=== PATIENT | female | born 1960 | race African-American/Black ===

== ENCOUNTER 2018-08-26 01:00 | Emergency (ER) | payer MEDICAID ==
[~2018-08-26] VITALS: Ht 170.2 cm; Wt 54.4 kg
--- NOTE | 2018-08-26 00:59 | NUR ---
ED Nurse Note: WILLY from home. per EMS, pt took methadone that wasnt hers. awake and oriented x1 with confusion. Denies pain or SOB. Attached to monitor
[~2018-08-26 01:00] MED LIST: ACETAMINOPHEN-1 EAC1 ORAL; ALBUTEROL SULF8.5 GM INH; ALPRAZOLAM1 MG PO; ATIVAN2 MG ORAL; BENAZEPRIL HCL20 MG ORAL; HYDROCHLOROTHIA25 MG ORAL; METOCLOPRA10 MG/10 M ORAL; NAPROSYN500 M1 ORAL; NORCO 10-325 T1 EACH PO; NORCO 5-325 TA1 EACH ORAL; PROTONIX40 MG ORAL; XANAX0.25 MG ORAL
--- NOTE | 2018-08-26 01:45 | NUR ---
ED Nurse Note: IV access established. Labs drawn sent to lab
--- NOTE | 2018-08-26 01:49 | NUR ---
Charlie jones in [facility] - 08/26/18 at 0151 by [facility] was called spoke to Gerardo. Transportation was setup with a ETA time of [phone]
--- NOTE | 2018-08-26 02:00 | NUR ---
ED Nurse Note: Urine collected sent down to lab.
[2018-08-26 02:14] VITALS: BP 140/70
--- NOTE | 2018-08-26 02:25 | Emergency Room Report ---
History of Present Illness General Chief Complaint: General Complaint Source: Patient, EMS Present Illness HPI Patient is brought here from a senior care house. Per learning coach report patient has a history of methadone use was noted to be confused. There is question of there was a seizure or any other abnormality. Patient is unable provide much history as patient appears be confused. All history was obtained from paramedics. According to paramedics the scene was very difficult and it was difficult obtaining adequate history there is well. No other complaints are noted other than confusion.No other modifying factors. No other associated signs and symptoms. No other complaints were noted. Allergies: Coded Allergies: CEPHALOSPORINS (Verified Allergy, Intermediate, Anaphylaxis, 12/14/12) DIAZEPAM (Verified Allergy, Intermediate, DYSTONIC, 12/14/12) SUMATRIPTAN (Verified Allergy, Intermediate, 12/14/12) SUMATRIPTAN SUCCINATE (Verified Allergy, Intermediate, 12/14/12) TRAMADOL (Verified Allergy, Intermediate, Anaphylaxis, 12/14/12) PENICILLINS (Unverified Allergy, Unknown, 08/26/18) Patient History Past Medical History: HTN, asthma, COPD, other - Mitral valve prolapse Past Surgical History: none Social History Narrative stays at a senior care house Last Menstrual Period: n/a Reviewed Nursing Documentation: PMH: Agreed; PSxH: Agreed Nursing Documentation-PMH Past Medical History: No Stated History Hx Cardiac Problems: Yes - mitral valve prolapse Hx Hypertension: Yes Hx Asthma: Yes Hx COPD: Yes Hx Diabetes: No - HYPOGLYCEMIA Hx Cancer: Yes - mother of breast Ca Hx Gastrointestinal Problems: Yes - appendicitis Hx Neurological Problems: No - migraines Review of Systems All Other Systems: limited - poor mental status Physical Exam Vital Signs Date Time Temp Pulse Resp B/P (MAP) Pulse Ox O2 Delivery O2 Flow Rate FiO2 08/26/18 00:50 97.5 120 18 140/70 97 Room Air Sp02 EP Interpretation: reviewed, normal General Appearance: mild distress Head: normocephalic, atraumatic Eyes: bilateral eye normal inspection ENT: normal ENT inspection, hearing grossly normal, normal voice Neck: normal inspection, full range of motion, supple, no bony tend Respiratory: normal inspection, lungs clear, normal breath sounds, no respiratory distress, no retraction, no wheezing Cardiovascular #1: regular rate, rhythm, no edema Gastrointestinal: normal inspection, normal bowel sounds, non tender, soft, no guarding, no hernia Genitourinary: no CVA tenderness Musculoskeletal: normal inspection, back normal, normal range of motion Neurologic: alert, responsive, other - Confused but grossly nonfocal exam Psychiatric: anxious, other - Bizarre behavior, confused Skin: normal inspection, normal color, no rash Medical Decision Making Diagnostic Impression: Primary Impression: Altered mental status, unspecified ER Course Patient presents emergency department today complaining of altered mental status. Differential considerations include drug abuse, electrolyte abnormality , acute CVA, seizure activity just to name a few.Given the severity of the patient's presentation I felt this is a highly complex patient. This patient required extensive workup. Patient's prior medical records were reviewed. Patient has been here in the past. Patient's laboratory workup was negative. Head CT was negative. Patient was given fluid bolus and monitored until she became awake. I felt the patient's symptoms could be secondary to drug use or perhaps even seizure. Given patient's back to baseline for the patient can be discharged.Patient is advised to follow up with primary doctor in 2-3 days and return the emergency room for any worsening symptoms and as needed. Labs Test 08/26/18 01:45 White Blood Count 9.1 K/UL (4.8-10.8) Red Blood Count 3.40 M/UL (4.20-5.40) Hemoglobin 10.7 G/DL (12.0-16.0) Hematocrit 31.1 % (37.0-47.0) Mean Corpuscular Volume 92 FL (80-99) Mean Corpuscular Hemoglobin 31.5 PG (27.0-31.0) Mean Corpuscular Hemoglobin Concent 34.5 G/DL (32.0-36.0) Red Cell Distribution Width 11.9 % (11.6-14.8) Platelet Count 280 K/UL (150-450) Mean Platelet Volume 5.2 FL (6.5-10.1) Neutrophils (%) (Auto) 65.3 % (45.0-75.0) Lymphocytes (%) (Auto) 20.1 % (20.0-45.0) Monocytes (%) (Auto) 11.0 % (1.0-10.0) Eosinophils (%) (Auto) 2.7 % (0.0-3.0) Basophils (%) (Auto) 0.9 % (0.0-2.0) Sodium Level 131 MMOL/L (136-145) Potassium Level 3.7 MMOL/L (3.5-5.1) Chloride Level 95 MMOL/L (98-107) Carbon Dioxide Level 27 MMOL/L (21-32) Anion Gap 9 mmol/L (5-15) Blood Urea Nitrogen 22 mg/dL (7-18) Creatinine 1.0 MG/DL (0.55-1.30) Estimat Glomerular Filtration Rate > 60 mL/min (>60) Glucose Level 94 MG/DL (74-106) Calcium Level 8.7 MG/DL (8.5-10.1) Total Bilirubin 0.3 MG/DL (0.2-1.0) Aspartate Amino Transf (AST/SGOT) 45 U/L (15-37) Alanine Aminotransferase (ALT/SGPT) 53 U/L (12-78) Alkaline Phosphatase 103 U/L (46-116) Total Creatine Kinase 112 U/L (26-308) Creatine Kinase MB 2.2 NG/ML (0.0-3.6) Creatine Kinase MB Relative Index 1.9 Troponin I 0.037 ng/mL (0.000-0.056) Total Protein 7.0 G/DL (6.4-8.2) Albumin 3.7 G/DL (3.4-5.0) Globulin 3.3 g/dL Albumin/Globulin Ratio 1.1 (1.0-2.7) Urine Opiates Screen Negative (NEGATIVE) Urine Barbiturates Screen Negative (NEGATIVE) Phencyclidine (PCP) Screen Negative (NEGATIVE) Urine Amphetamines Screen Negative (NEGATIVE) Urine Benzodiazepines Screen Positive (NEGATIVE) Urine Cocaine Screen Negative (NEGATIVE) Urine Marijuana (THC) Screen Negative (NEGATIVE) EKG Diagnostic Results Rate: normal Rhythm: NSR ST Segments: no acute changes Rhythm Strip Diag. Results EP Interpretation: yes Rate: 98 Rhythm: NSR, no PVC's, no ectopy Last Vital Signs Date Time Temp Pulse Resp B/P (MAP) Pulse Ox O2 Delivery O2 Flow Rate FiO2 08/26/18 02:14 97.5 75 18 140/70 97 Room Air Status: improved Disposition: HOME, SELF-CARE Condition: Stable Referrals: NOT CHOSEN IPA/,REFERRING (PCP) Gabriel Shane MD Aug 26, 2018 02:25
--- NOTE | 2018-08-26 02:27 | Diagnostic Imaging Report ---
EXAM: XR Chest, 1 View. CLINICAL HISTORY: COUGH TECHNIQUE: Frontal view of the chest. COMPARISON: 03/20/15 FINDINGS: Lungs: The lungs are moderately hyperinflated, likely due to COPD. Superimposed perihilar interstitial opacities may be due to mild interstitial edema. No definite airspace consolidation. Pleural spaces: No significant pleural effusions. No pneumothorax. Heart: Unremarkable. No cardiomegaly. Mediastinum: No mediastinal widening or shift. Bones: Unremarkable. No acute fracture. IMPRESSION: Increased perihilar interstitial markings suggestive of mild interstitial edema. No airspace consolidation. Lung hyperinflation likely secondary to COPD.
--- NOTE | 2018-08-26 02:40 | Diagnostic Imaging Report ---
EXAM: CT Head Without Intravenous Contrast. CLINICAL HISTORY: AMS TECHNIQUE: Axial computed tomography images of the head/brain without intravenous contrast. CTDI is 70.5 mGy and DLP is 1245 mGy-cm. One or more of the following dose reduction techniques were used: automated exposure control, adjustment of the mA and/or kV according to patient size, use of iterative reconstruction technique. COMPARISON: No relevant prior studies available. FINDINGS: Brain: Unremarkable. No hemorrhage. No significant white matter disease. No edema. Ventricles: Unremarkable. No ventriculomegaly. Bones: No acute fracture. Sinuses: Unremarkable as visualized. No acute sinusitis. Mastoid air cells: Unremarkable as visualized. No mastoid effusion. IMPRESSION: No evidence of acute intracranial abnormality.
[2018-08-26 02:45] LABS: BASOPHILS % (AUTO) 0.9 % (0.0-2.0); EOSINOPHILS % (AUTO) 2.7 % (0.0-3.0); HEMATOCRIT 31.1 % (37.0-47.0); HEMOGLOBIN 10.7 G/DL (12.0-16.0); LYMPHOCYTES % (AUTO) 20.1 % (20.0-45.0); MEAN CORPUSCULAR VOLUME 92 FL (80-99); NEUTROPHILS % (AUTO) 65.3 % (45.0-75.0); PLATELET COUNT 280 K/UL (150-450); RED CELL DISTRIBUTION WIDTH 11.9 % (11.6-14.8); WHITE BLOOD COUNT 9.1 K/UL (4.8-10.8)
[2018-08-26 02:56] LABS: ANION GAP 9 mmol/L (5-15); BLOOD UREA NITROGEN 22 mg/dL (7-18); CALCIUM 8.7 MG/DL (8.5-10.1); CARBON DIOXIDE 27 MMOL/L (21-32); CHLORIDE 95 MMOL/L (98-107); POTASSIUM 3.7 MMOL/L (3.5-5.1); SODIUM 131 MMOL/L (136-145)
[2018-08-26 03:11] LABS: ALANINE AMINOTRANSFERASE 53 U/L (12-78); ALBUMIN 3.7 G/DL (3.4-5.0); ALBUMIN/GLOBULIN RATIO 1.1 (1.0-2.7); ALKALINE PHOSPHATASE 103 U/L (46-116); ASPARTATE AMINO TRANSFERASE 45 U/L (15-37); BILIRUBIN,TOTAL 0.3 MG/DL (0.2-1.0); CKMB 2.2 NG/ML (0.0-3.6); CREATINE KINASE 112 U/L (26-308)
--- NOTE | 2018-08-26 04:00 | NUR ---
ED Nurse Note: Patient cleared for discharge per ERMD. AO4. NAD. VSS. Provided with sandwich and juice. States " I feel much better now. Can I have a taxi voucher to get home. I don't want to ride the bus dressed like this." Given Taxi voucher. Patient given discharge instructions; verbalized understanding. IV and ID band removed. Patient ambulated out with all personal belongings with steady gait.
[2018-08-26 04:11] VITALS: BP 140/70
== END 2018-08-26 04:00 | disposition home or self-care (01) ==
LOC: EDBD 01:00 → EMR 01:34
DX: R41.82 Altered mental status, unspecified (principal); J44.9 Chronic obstructive pulmonary disease, unspecified; I34.1 Nonrheumatic mitral (valve) prolapse; Z85.3 Personal history of malignant neoplasm of breast; Z88.0 Allergy status to penicillin; Z88.8 Allergy status to other drugs, medicaments and biological substances; Z88.1 Allergy status to other antibiotic agents
CPT/HCPCS: 36415; 70450; 71045; 80053; 80307; 82550; 82553; 84484; 85025; 93005; 99284

== ENCOUNTER 2018-10-28 09:16 | Emergency (ER) | payer MEDICAID ==
[~2018-10-28] VITALS: Ht 170.2 cm; Wt 46.7 kg
--- NOTE | 2018-10-28 09:31 | Emergency Room Report ---
History of Present Illness General Chief Complaint: Chest Pain Source: Patient, EMS Present Illness HPI Patient 58-year-old female presented after increased chest discomfort. Patient had prior history of COPD as well as cardiac disease. Patient states she is currently a smoker. She reports having some increased nonproductive cough. Patient stated that she did not take her blood pressure medication this morning. Patient was given aspirin and nitroglycerin by EMS. Patient had onset of symptoms yesterday. This had continued throughout the night. Patient reports having prior history of chronic pain. Patient stated she was last hospitalized approximately 6 months ago. She reports taking diuretics as well as Brilinta aspirin but cannot recall her other medications. Allergies: Coded Allergies: CEPHALOSPORINS (Verified Allergy, Intermediate, Anaphylaxis, 12/14/12) DIAZEPAM (Verified Allergy, Intermediate, DYSTONIC, 12/14/12) SUMATRIPTAN (Verified Allergy, Intermediate, 12/14/12) SUMATRIPTAN SUCCINATE (Verified Allergy, Intermediate, 12/14/12) TRAMADOL (Verified Allergy, Intermediate, Anaphylaxis, 12/14/12) PENICILLINS (Unverified Allergy, Unknown, 08/26/18) Patient History Past Medical History: see triage record Last Menstrual Period: na Reviewed Nursing Documentation: PMH: Agreed; PSxH: Agreed Nursing Documentation-PMH Past Medical History: No History, Except For Hx Cardiac Problems: Yes - [place] x 2 Hx Hypertension: Yes Hx Asthma: Yes Hx COPD: Yes Hx Diabetes: No - HYPOGLYCEMIA Hx Cancer: Yes - mother of breast Ca Hx Gastrointestinal Problems: Yes - appendicitis Hx Neurological Problems: No - migraines Review of Systems All Other Systems: negative except mentioned in HPI Physical Exam Vital Signs Date Time Temp Pulse Resp B/P (MAP) Pulse Ox O2 Delivery O2 Flow Rate FiO2 10/28/18 09:10 98.1 96 18 162/87 98 Room Air Sp02 EP Interpretation: reviewed, normal General Appearance: normal inspection, well appearing, no apparent distress, alert, GCS 15 Head: atraumatic ENT: normal ENT inspection, hearing grossly normal, normal voice Neck: normal inspection, full range of motion, supple, no bony tend Respiratory: normal inspection, lungs clear, normal breath sounds, no respiratory distress, no retraction, no wheezing Cardiovascular #1: regular rate, rhythm, no edema Gastrointestinal: normal inspection, normal bowel sounds, non tender, soft, no guarding, no hernia Genitourinary: no CVA tenderness Musculoskeletal: normal inspection, back normal, normal range of motion Neurologic: normal inspection, alert, responsive, speech normal Psychiatric: normal inspection, judgement/insight normal, mood/affect normal Skin: normal inspection, normal color, no rash Medical Decision Making EKG Diagnostic Results Rate: normal - 98 Rhythm: NSR ST Segments: other - Q waves. Last Vital Signs Date Time Temp Pulse Resp B/P (MAP) Pulse Ox O2 Delivery O2 Flow Rate FiO2 10/28/18 09:10 98.1 96 18 162/87 98 Room Air Patricio Quiñones MD Oct 28, 2018 09:31
--- NOTE | 2018-10-28 09:40 | NUR ---
ED Nurse Note: pt brought in to ER by ambulance from home due to chest pain 10/10 radiates to neck. pt aao x4 but flushed skin on face and restless and talkative with anxiousness. skin dry and thin but no wound or pressure ulcer noted. per pt, she had 2 heartattacks last year and systolic BP has been up to 300.
[2018-10-28 09:45] VITALS: BP 177/72
[2018-10-28] MEDS ORDERED: Metoprolol 5mg/5ml Inj IVP ONE (09:45)
[2018-10-28 10:01] LABS: BASOPHILS % (AUTO) 0.7 % (0.0-2.0); EOSINOPHILS % (AUTO) 0.7 % (0.0-3.0); HEMATOCRIT 38.1 % (37.0-47.0); HEMOGLOBIN 12.4 G/DL (12.0-16.0); LYMPHOCYTES % (AUTO) 8.4 % (20.0-45.0); MEAN CORPUSCULAR VOLUME 91 FL (80-99); MONOCYTES % (AUTO) 11.3 % (1.0-10.0); NEUTROPHILS % (AUTO) 78.9 % (45.0-75.0); PLATELET COUNT 371 K/UL (150-450); RED BLOOD COUNT 4.21 M/UL (4.20-5.40); RED CELL DISTRIBUTION WIDTH 13.8 % (11.6-14.8); WHITE BLOOD COUNT 14.6 K/UL (4.8-10.8)
--- NOTE | 2018-10-28 10:02 | Diagnostic Imaging Report ---
EXAM: XR Chest, 1 View CLINICAL HISTORY: CP TECHNIQUE: Frontal view of the chest. COMPARISON: Chest x-ray, 08/26/18 FINDINGS: Lungs: Hyperinflated lungs of COPD. Mild interstitial prominence. Left lung base atelectasis/airspace disease. Pleural space: Small left pleural effusion. No pneumothorax. Heart: Unremarkable. No cardiomegaly. Mediastinum: Unremarkable. Bones/joints: Left lateral ribs 5 and 6 subacute fractures, new since prior study. Mild thoracolumbar scoliosis. IMPRESSION: 1. Hyperinflated lungs of COPD. 2. Left lateral ribs 5 and 6 subacute fractures, new since prior study. 3. Small left pleural effusion. 4. Mild interstitial prominence. Left lung base atelectasis/airspace disease.
[2018-10-28 10:13] LABS: ANION GAP 9 mmol/L (5-15); BLOOD UREA NITROGEN 8 mg/dL (7-18); CALCIUM 9.1 MG/DL (8.5-10.1); CARBON DIOXIDE 27 MMOL/L (21-32); CHLORIDE 98 MMOL/L (98-107); CREATININE 0.6 MG/DL (0.55-1.30); POTASSIUM 3.7 MMOL/L (3.5-5.1); SODIUM 134 MMOL/L (136-145)
[2018-10-28 10:28] LABS: ALANINE AMINOTRANSFERASE 35 U/L (12-78); ALBUMIN 3.2 G/DL (3.4-5.0); ALBUMIN/GLOBULIN RATIO 0.8 (1.0-2.7); ALKALINE PHOSPHATASE 83 U/L (46-116); ASPARTATE AMINO TRANSFERASE 26 U/L (15-37); BILIRUBIN,TOTAL 0.6 MG/DL (0.2-1.0); CKMB 1.5 NG/ML (0.0-3.6); CREATINE KINASE 61 U/L (26-308)
[2018-10-28 10:42] LABS: APPEARANCE,URINE CLEAR; BILIRUBIN, URINE NEGATIVE (NEGATIVE); GLUCOSE, URINE (UA) NEGATIVE (NEGATIVE); KETONES,URINE 2+ (NEGATIVE); LEUKOCYTE ESTERASE ,URINE 1+ (NEGATIVE); NITRITE,URINE NEGATIVE (NEGATIVE); PH,URINE 6 (4.5-8.0); PROTEIN,URINE 1+ (NEGATIVE); UROBILINOGEN,URINE 1 MG/DL (0.0-1.0)
[2018-10-28 10:45] LABS: COLOR,URINE YELLOW
[2018-10-28 11:48] VITALS: BP 144/74
[2018-10-28] MEDS: Enoxaparin 60mg Inj SUBQ ONE ×2 (12:22→12:28)
--- NOTE | 2018-10-28 12:35 | NUR ---
ED Nurse Note: pt c/o 10/ stabbing chest pain and reported to ERMD.
[2018-10-28] MEDS ORDERED: Morphine Sulfate 2mg/ml Inj(IV/IM USE ONLY) IVP ONE (12:45)
[2018-10-28 13:50] VITALS: BP 133/64
--- NOTE | 2018-10-28 14:14 | NUR ---
ED Nurse Note: Received ETA for transportation and transfer hospital information. attempted to give report and nurse was not available at this moment. will call back in 15 minutes as requested.
--- NOTE | 2018-10-28 15:05 | NUR ---
ED Nurse Note: report given to NEELA Singh based on SBAR including meat pickler time.
--- NOTE | 2018-10-28 15:26 | NUR ---
ED Nurse Note: pt requested for Ativan 1mg tab as reporting anxiousness. pt is allergic to Diazepam on the record and pt stated "no I am not allergic to Diazepam. I take Ativan and Valium at home. I don't even know why my record has that I am allertic to Diazepam." ERMD made aware.
[2018-10-28] MEDS ORDERED: LORazepam 1mg tab ORAL ONE (15:30)
--- NOTE | 2018-10-28 15:35 | NUR ---
ED Nurse Note: ambulance arrived. pt is stable to be transferred. VSS.
[2018-10-28 15:44] VITALS: BP 137/67
--- NOTE | 2018-10-28 15:45 | NUR ---
ED Nurse Note: pt left [facility] with 2 transportation personals in stable condition and vital signs.
== END 2018-10-28 16:00 | disposition short-term general hospital (02) ==
LOC: EDBD 09:16 → EMR 09:56 → EDBD 09:56 → EMR 16:00
DX: R07.89 Other chest pain (principal); R05 Cough; I10 Essential (primary) hypertension; J44.9 Chronic obstructive pulmonary disease, unspecified; Z72.0 Tobacco use
CPT/HCPCS: 36415; 71045; 80053; 80307; 81003; 82550; 82553; 83880; 84484; 85025; 87086; 93005; 96374; 96375; 99284; J1650; J1940; J2270

== ENCOUNTER 2019-01-24 09:47 | Emergency (ER) | payer MEDICAID ==
[~2019-01-24] VITALS: Ht 170.2 cm; Wt 49.9 kg
[2019-01-24] MEDS ORDERED: UNOBMED (09:48)
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
[2019-01-24 10:06] VITALS: BP 120/84
[2019-01-24] MEDS ORDERED: Albuterol ud Inhalation HHN ONE (10:15)
[2019-01-24] MEDS ORDERED: Ipratropium 0.02% Inh Soln 2.5ml UD HHN ONE (10:15)
[2019-01-24 10:23] LABS: APPEARANCE,URINE CLEAR; BILIRUBIN, URINE NEGATIVE (NEGATIVE); GLUCOSE, URINE (UA) NEGATIVE (NEGATIVE); KETONES,URINE NEGATIVE (NEGATIVE); LEUKOCYTE ESTERASE ,URINE 1+ (NEGATIVE); NITRITE,URINE NEGATIVE (NEGATIVE); PH,URINE 6.5 (4.5-8.0); PROTEIN,URINE NEGATIVE (NEGATIVE); UROBILINOGEN,URINE 1 MG/DL (0.0-1.0)
[2019-01-24 10:27] LABS: COLOR,URINE YELLOW
[2019-01-24 10:36] LABS: BASOPHILS % (AUTO) 0.7 % (0.0-2.0); EOSINOPHILS % (AUTO) 2.9 % (0.0-3.0); HEMATOCRIT 31.2 % (37.0-47.0); HEMOGLOBIN 10.6 G/DL (12.0-16.0); LYMPHOCYTES % (AUTO) 18.3 % (20.0-45.0); MEAN CORPUSCULAR VOLUME 87 FL (80-99); NEUTROPHILS % (AUTO) 68.1 % (45.0-75.0); PLATELET COUNT 272 K/UL (150-450); RED BLOOD COUNT 3.59 M/UL (4.20-5.40); RED CELL DISTRIBUTION WIDTH 14.2 % (11.6-14.8); WHITE BLOOD COUNT 8.9 K/UL (4.8-10.8)
[2019-01-24 11:08] LABS: ANION GAP 5 mmol/L (5-15); BLOOD UREA NITROGEN 22 mg/dL (7-18); CALCIUM 8.7 MG/DL (8.5-10.1); CARBON DIOXIDE 31 MMOL/L (21-32); CHLORIDE 100 MMOL/L (98-107); CREATININE 0.9 MG/DL (0.55-1.30); POTASSIUM 3.6 MMOL/L (3.5-5.1); SODIUM 136 MMOL/L (136-145)
[2019-01-24 11:22] LABS: ALANINE AMINOTRANSFERASE 33 U/L (12-78); ALBUMIN 2.8 G/DL (3.4-5.0); ALBUMIN/GLOBULIN RATIO 0.7 (1.0-2.7); ALKALINE PHOSPHATASE 97 U/L (46-116); ASPARTATE AMINO TRANSFERASE 41 U/L (15-37); BILIRUBIN,TOTAL 0.3 MG/DL (0.2-1.0); CREATINE KINASE 50 U/L (26-308)
[2019-01-24 11:24] VITALS: BP 120/84
[2019-01-24] MEDS ORDERED: PREDNISONE20 MG ORAL (11:37)
[2019-01-24] MEDS ORDERED: BACITRACIN15 GM TOPIC (11:37)
[2019-01-24] MEDS ORDERED: ALBUTEROL SULF8.5 GM INH (11:37)
--- NOTE | 2019-01-25 17:45 | Diagnostic Imaging Report ---
Indication: Dyspnea Comparison: 10/28/2018 A single view chest radiograph was obtained. Findings: Lungs are hyperexpanded. No definite infiltrate is identified. Aorta is calcified. Heart size is normal. Bones are osteopenic. IMPRESSION: No acute findings
== END 2019-01-24 11:24 | disposition home or self-care (01) ==
LOC: EDBD 09:47 → EMR 09:56
DX: T42.4X1A Poisoning by benzodiazepines, accidental (unintentional), initial encounter (principal); T40.3X1A Poisoning by methadone, accidental (unintentional), initial encounter; R41.82 Altered mental status, unspecified; Y92.9 Unspecified place or not applicable; J44.1 Chronic obstructive pulmonary disease with (acute) exacerbation; I10 Essential (primary) hypertension; I25.2 Old myocardial infarction; Z88.0 Allergy status to penicillin; Z88.5 Allergy status to narcotic agent; Z88.8 Allergy status to other drugs, medicaments and biological substances; R64 Cachexia
CPT/HCPCS: 36415; 71045; 80053; 80307; 80329; 81003; 81025; 82550; 84443; 84484; 85025; 93005; 94640; 96360; 99284

== ENCOUNTER 2019-10-09 22:03 | Emergency (ER) | payer MEDICAID ==
[~2019-10-09] VITALS: Ht 162.6 cm; Wt 45.4 kg
[~2019-10-09 22:03] MED LIST changes: +BACITRACIN15 GM TOPIC; +PREDNISONE20 MG ORAL; +UNOBMED
--- NOTE | 2019-10-09 22:14 | Emergency Room Report ---
History of Present Illness General Chief Complaint: Multiple Trauma/Fall Source: Patient Present Illness HPI This is a 59-year-old female with cardiac history and high blood pressure. She also has a history of chronic pain and pain clinic getting methadone. She presents with chief complaint of a fall and dizziness. She is staying in a sober living. She went to [facility]11 to get something patient says she felt dizzy and fell and hit her head and face on the pavement. She sustained laceration over the left zygomatic arch and was bleeding. She denies any drug use. EMS said her roommate said that she is taking methadone and Xanax. Patient denies any chest pain. No other trauma. No loss of consciousness. Allergies: Coded Allergies: CEPHALOSPORINS (Verified Allergy, Intermediate, Anaphylaxis, 12/14/12) DIAZEPAM (Verified Allergy, Intermediate, DYSTONIC, 12/14/12) SUMATRIPTAN (Verified Allergy, Intermediate, 12/14/12) SUMATRIPTAN SUCCINATE (Verified Allergy, Intermediate, 12/14/12) TRAMADOL (Verified Allergy, Intermediate, Anaphylaxis, 12/14/12) PENICILLINS (Unverified Allergy, Unknown, 08/26/18) Patient History Past Medical History: see triage record, old chart reviewed, HTN, CAD, asthma Past Surgical History: other Pertinent Family History: none Social History: Reports: smoking Last Menstrual Period: NA Now: No Immunizations: other Reviewed Nursing Documentation: PMH: Agreed; PSxH: Agreed Nursing Documentation-PMH Hx Cardiac Problems: Yes - NC Hx Hypertension: Yes Hx Asthma: Yes Hx COPD: Yes Hx Diabetes: Yes Hx Cancer: Yes - mother of breast Ca Hx Gastrointestinal Problems: Yes - appendicitis Hx Neurological Problems: No - migraines Review of Systems Eye: Denies: eye pain, blurred vision ENT: Denies: ear pain, nose congestion, throat swelling Respiratory: Denies: cough, shortness of breath Cardiovascular: Denies: chest pain, palpitations Gastrointestinal: Denies: abdominal pain, diarrhea, nausea, vomiting Musculoskeletal: Denies: back pain, joint pain Skin: Denies: rash Neurological: Reports: dizziness; Denies: headache, numbness Endocrine: Denies: increased thirst, increased urine Hematologic/Lymphatic: Denies: easy bruising All Other Systems: negative except mentioned in HPI Physical Exam Vital Signs Date Time Temp Pulse Resp B/P (MAP) Pulse Ox O2 Delivery O2 Flow Rate FiO2 10/09/19 22:04 98.2 97 18 119/66 (83) 98 Room Air Vitals normal Sp02 EP Interpretation: reviewed, normal General Appearance: well appearing, no apparent distress, other - Patient is very sedated and slurring her speech. Head: normocephalic Eyes: bilateral eye PERRL, bilateral eye EOMI ENT: hearing grossly normal, normal pharynx, other - Small edema and 1 cm laceration with bleeding from the left zygomatic arch. No dental injury. Neck: full range of motion, supple, no meningismus Respiratory: chest non-tender, lungs clear, normal breath sounds Cardiovascular #1: regular rate, rhythm, no murmur Gastrointestinal: normal bowel sounds, non tender, no mass, no organomegaly, no bruit, non-distended Musculoskeletal: back normal, normal range of motion, gait/station normal Psychiatric: mood/affect normal Procedures Laceration/Wound Repair Laceration/Wound Repair : Consent: Verbal Wound Location: face Wound's Depth, Shape: irregular, stellate, contused tissue Wound Length (cm): 2 Wound Explored: clean Irrigated w/ Saline (ccs): 1000 Anesthesia: 1% Lidocaine Volume Anesthetic (ccs): 2 Wound Repaired With: sutures Suture Size/Type: 5:0, other - Rapid Vicryl Number of Sutures: 5 Patient Tolerated: Well Complications: None Medical Decision Making Diagnostic Impression: Primary Impression: Altered level of consciousness Additional Impressions: Drug overdose Qualified Codes: T50.901A - Poisoning by unspecified drugs, medicaments and biological substances, accidental (unintentional), initial encounter Head injury, acute Qualified Codes: S09.90XA - Unspecified injury of head, initial encounter Facial contusion Qualified Codes: S00.83XA - Contusion of other part of head, initial encounter Facial laceration Qualified Codes: S01.81XA - Laceration without foreign body of other part of head, initial encounter ER Course This patient presents with a fall with head injury and facial injury. Probably secondary to being oversedated from her medication. She is taking methadone from the pain clinic. In her purse and found Valium 10 mg, Soma, Benadryl, nitroglycerin and albuterol. Will observe until clinical sobriety. CT/MRI/US Diagnostic Results CT/MRI/US Diagnostic Results #1: Imaging Test Ordered: CT head Impression Per radiologist negative CT/MRI/US Diagnostic Results #2: Imaging Test Ordered: CT facial bones Impression Read by radiologist. Soft tissue swelling of the left zygomatic and left cheek. Soft tissue laceration. No foreign body. No fracture. Last Vital Signs Date Time Temp Pulse Resp B/P (MAP) Pulse Ox O2 Delivery O2 Flow Rate FiO2 10/09/19 22:04 98.2 97 18 119/66 (83) 98 Room Air Status: improved Disposition: HOME, SELF-CARE Condition: Stable Additional Instructions: Take your medication as prescribed. Do not take too many because this can cause sedation. Follow-up with your doctor in 7 days. Suture will fall off. Keep wound clean. Return if worse. Keep wound clean. Paul Reynolds MD Oct 09, 2019 22:14
[2019-10-09 22:15] VITALS: BP 119/66
--- NOTE | 2019-10-09 22:15 | NUR ---
ED Nurse Note: Pt brought into ED from rehab house by JAYA PALOMO for c/o dizziness and lac to L side of face. Pt states she has been feeling dizzy and per EMS fell. Pt denies LOC. Pt denies drug or alcohol use today. Pt is unsteady on her feet at this time. Pt is aaox4. No acute distress noted.
--- NOTE | 2019-10-09 22:40 | Diagnostic Imaging Report ---
Indications: Left-sided facial pain, status post fall Technique: Spiral acquisitions obtained through the brain. Angled axial and coronal 5 x 5 mm slices were reconstructed. Total dose length product 1361 mGycm. CTDI vol(s) 68 mGy. Dose reduction achieved using automated exposure control Comparison: 08/26/2018 Findings: No acute intracranial hemorrhage or edema. No mass effect nor midline shift. Normal sánchez-white differentiation. Normal size ventricles and extra-axial CSF spaces. There is a right maxillary sinus air-fluid level and left maxillary sinus disease this is new since prior study The calvarium is intact. Impression: Negative. No acute intracranial bleed or mass effect Incidental finding bilateral maxillary sinus disease This agrees with the preliminary interpretation provided overnight by [facility] service. The CT scanner at [facility] is accredited by the [employer] and the scans are performed using protocols designed to limit radiation exposure to as low as reasonably achievable to attain images of sufficient resolution adequate for diagnostic evaluation.
--- NOTE | 2019-10-09 22:57 | Diagnostic Imaging Report ---
. Indications: Left-sided facial pain, status post fall Technique: Spiral images obtained through the facial bones. No IV contrast utilized. Multiplanar reconstructions were generated.Total dose length product 324 mGycm. CTDIvol(s) 15 mGy. Dose reduction achieved using automated exposure control Comparison: none Findings: There is left malar region soft tissue contusion demonstrated. No acute fractures. There is questionably a laceration of the left anterolateral upper neck near the body and angle of the mandible, although this could just be an artifact of a skin fold. No associated foreign body demonstrated There is debris within the bilateral maxillary sinuses, and an air-fluid level within the right maxillary sinus. The optic globes are intact. The retroseptal orbits are intact. There is evidence of periodontal disease involving the right posterior molars. There is evidence of extensive dental caries and prior dental extractions. The included cervical spine is unremarkable except for degenerative disc is at C5-6. The deep facial soft tissues and upper aerodigestive tract are unremarkable. Impression: No acute bony trauma Evidence of left malar region soft tissue trauma Questionable laceration of the upper anterolateral neck, versus skinfold artifact present correlate with clinical findings Debris within the maxillary sinuses. Right maxillary sinus air-fluid level Evidence of dental and periodontal disease This agrees with the preliminary interpretation provided overnight by [facility] service. The CT scanner at [facility] is accredited by the [employer] and the scans are performed using protocols designed to limit radiation exposure to as low as reasonably achievable to attain images of sufficient resolution adequate for diagnostic evaluation.
[2019-10-09] MEDS ORDERED: Lidocaine 1% Plain 30 ml INJ ONE (23:00)
--- NOTE | 2019-10-09 23:00 | NUR ---
ED Nurse Note: ERMD bedside for lac repair.
[2019-10-09 23:05] LABS: APPEARANCE,URINE SLIGHTLY CLOUDY; BILIRUBIN, URINE NEGATIVE (NEGATIVE); COLOR,URINE PALE YELLOW; GLUCOSE, URINE (UA) NEGATIVE (NEGATIVE); KETONES,URINE NEGATIVE (NEGATIVE); NITRITE,URINE NEGATIVE (NEGATIVE); PH,URINE 5 (4.5-8.0); PROTEIN,URINE 2+ (NEGATIVE); UROBILINOGEN,URINE NORMAL MG/DL (0.0-1.0)
[2019-10-09 23:22] LABS: LEUKOCYTE ESTERASE ,URINE TRACE (NEGATIVE)
[2019-10-10] MEDS ORDERED: Neosporin Oint Ud Pkt TOPIC ONE
[2019-10-10 00:27] LABS: BASOPHILS % (AUTO) 1.2 % (0.0-2.0); EOSINOPHILS % (AUTO) 5.3 % (0.0-3.0); HEMATOCRIT 27.4 % (37.0-47.0); HEMOGLOBIN 9.9 G/DL (12.0-16.0); LYMPHOCYTES % (AUTO) 23.2 % (20.0-45.0); MEAN CORPUSCULAR VOLUME 88 FL (80-99); MONOCYTES % (AUTO) 10.9 % (1.0-10.0); NEUTROPHILS % (AUTO) 59.4 % (45.0-75.0); PLATELET COUNT 203 K/UL (150-450); RED BLOOD COUNT 3.11 M/UL (4.20-5.40); RED CELL DISTRIBUTION WIDTH 12.5 % (11.6-14.8); WHITE BLOOD COUNT 7.7 K/UL (4.8-10.8)
[2019-10-10 00:40] LABS: ANION GAP 10 mmol/L (5-15); BLOOD UREA NITROGEN 26 mg/dL (7-18); CALCIUM 8.7 MG/DL (8.5-10.1); CARBON DIOXIDE 26 MMOL/L (21-32); CHLORIDE 99 MMOL/L (98-107); POTASSIUM 3.3 MMOL/L (3.5-5.1); SODIUM 135 MMOL/L (136-145)
[2019-10-10 01:00] VITALS: BP 115/62
--- NOTE | 2019-10-10 01:00 | NUR ---
ER DISCHARGE NOTE: Patient is cleared to be discharged per ERMD, pt is aox4, on room air, with stable vital signs. pt was given dc and prescription instructions, pt was able to verbalize understanding, pt id band and iv site removed without complications. pt is able to ambulate with steady gait. pt took all belongings. pt is accompanied by son
== END 2019-10-10 01:00 | disposition home or self-care (01) ==
LOC: EDBD 22:03 → EMR 23:38
DX: T40.3X1A Poisoning by methadone, accidental (unintentional), initial encounter (principal); S01.81XA Laceration without foreign body of other part of head, initial encounter; S09.90XA Unspecified injury of head, initial encounter; R40.4 Transient alteration of awareness; I25.2 Old myocardial infarction; J45.909 Unspecified asthma, uncomplicated; J44.9 Chronic obstructive pulmonary disease, unspecified; I10 Essential (primary) hypertension; Y92.89 Other specified places as the place of occurrence of the external cause; Z80.3 Family history of malignant neoplasm of breast; Z88.0 Allergy status to penicillin; Z88.5 Allergy status to narcotic agent; Z88.1 Allergy status to other antibiotic agents; Z88.8 Allergy status to other drugs, medicaments and biological substances
CPT/HCPCS: 12011; 36415; 70450; 70486; 80048; 80307; 81003; 85025; 96374; G0480; J2001; Z7502; 99284

== ENCOUNTER 2019-10-25 12:51 | Emergency (ER) | payer MEDICAID ==
[~2019-10-25] VITALS: Ht 167.6 cm; Wt 45.4 kg
[2019-10-25 12:59] VITALS: BP 128/70
--- NOTE | 2019-10-25 13:02 | NUR ---
ED Nurse Note: pt brought in to ER by ambulance [facility] due to possible OD. [facility] staff called 911 as stating "She is on something." but pt is denying substance or alcohol abuse. pt is aao x1-2 and ambulatory. skin dry but intact. able to follow commands. pt denied thought for hurting herself and others. 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 pt was able to provide urine sample. no cardiac or pulmonary distress noted at this time.
--- NOTE | 2019-10-25 13:17 | NUR ---
ED Nurse Note: ERMD at bedside.
--- NOTE | 2019-10-25 13:20 | NUR ---
ED Nurse Note: pt was able to answer all the questions to doctor. pt is aao x4 now.
[2019-10-25 13:35] VITALS: BP 131/76
--- NOTE | 2019-10-25 13:40 | NUR ---
ED Nurse Note: Pt cleared by health care Provider for discharge. Taxi was provided per requested. DC instructions was given and explained to pt and verbalized understanding of teachings. All medical deviecs such as ID band removed. Pt is AAO x4, ambulatory and left with all personal belongings. [facility] where she will go back.
[2019-10-25 13:42] LABS: APPEARANCE,URINE CLEAR; BILIRUBIN, URINE NEGATIVE (NEGATIVE); COLOR,URINE PALE YELLOW; GLUCOSE, URINE (UA) NEGATIVE (NEGATIVE); KETONES,URINE NEGATIVE (NEGATIVE); LEUKOCYTE ESTERASE ,URINE NEGATIVE (NEGATIVE); NITRITE,URINE NEGATIVE (NEGATIVE); PH,URINE 5 (4.5-8.0); PROTEIN,URINE NEGATIVE (NEGATIVE); UROBILINOGEN,URINE NORMAL MG/DL (0.0-1.0)
--- NOTE | 2019-10-25 14:51 | Emergency Room Report ---
History of Present Illness General Chief Complaint: Overdose Source: Patient, EMS Present Illness HPI Patient presented from [id number] by EMS due to reported altered mental status. On arrival patient was alert and oriented. She denied taking any illicit drugs today. She does take methadone and but denied this to me. There was a report of possible overdose on methadone however patient alert, in no respiratory depression on arrival. Per report apparently she was kicked out of her boarding care for erratic behavior and this is why 911 was called. Patient did not wish to stay in the ER for evaluation or observation. She was alert and ambulatory in the ER. She has a history of chronic pain syndrome for which she follows pain management. Allergies: Coded Allergies: CEPHALOSPORINS (Verified Allergy, Intermediate, Anaphylaxis, 12/14/12) DIAZEPAM (Verified Allergy, Intermediate, DYSTONIC, 12/14/12) SUMATRIPTAN (Verified Allergy, Intermediate, 12/14/12) SUMATRIPTAN SUCCINATE (Verified Allergy, Intermediate, 12/14/12) TRAMADOL (Verified Allergy, Intermediate, Anaphylaxis, 12/14/12) CEPHALEXIN (Unverified Allergy, Unknown, 10/25/19) PENICILLINS (Unverified Allergy, Unknown, 08/26/18) Uncoded Allergies: PCN (Allergy, Unknown, 10/25/19) Patient History Last Menstrual Period: na Now: No Reviewed Nursing Documentation: PMH: Agreed; PSxH: Agreed Nursing Documentation-PMH Past Medical History: No History, Except For Hx Cardiac Problems: Yes - [place] Hx Hypertension: Yes Hx Asthma: Yes Hx COPD: Yes Hx Diabetes: Yes Hx Cancer: Yes - mother of breast Ca Hx Gastrointestinal Problems: Yes - appendicitis History Of Psychiatric Problem: Yes Hx Neurological Problems: No - migraines Review of Systems All Other Systems: negative except mentioned in HPI Physical Exam Vital Signs Date Time Temp Pulse Resp B/P (MAP) Pulse Ox O2 Delivery O2 Flow Rate FiO2 10/25/19 12:47 97.9 100 16 131/79 (96) 100 Room Air Sp02 EP Interpretation: reviewed, normal General Appearance: well appearing, no apparent distress Head: normocephalic, atraumatic Eyes: bilateral eye PERRL, bilateral eye EOMI ENT: hearing grossly normal, moist mucus membranes Neck: full range of motion, supple Respiratory: lungs clear, normal breath sounds, no rhonchi, no respiratory distress, no retraction, no wheezing Cardiovascular #1: normal peripheral pulses, regular rate, rhythm, no murmur Gastrointestinal: non tender, soft, non-distended, no guarding Neurologic: alert, motor strength/tone normal, mailroom manager III-XII nml as tested, oriented, oriented x3, normal gait, no focal defects Psychiatric: other - Patient with labile mood, no suicidal or homicidal ideation Skin: normal color, warm/dry Medical Decision Making Diagnostic Impression: Primary Impression: Encounter for medical screening examination Additional Impression: History of chronic pain ER Course Patient presented by EMS. She presented from a [facility]. Patient had no medical complaints. She denied any suicidal or homicidal ideation. I did offer observation and laboratory studies in the ER however she declined. She requested to be discharged. She was alert and oriented x3. She was ambulatory without assistance. On record review it does have a history of methadone use but she denied this to me today. Did not appear to be an opiate opiate overdose patient was stable for discharge Laboratory Tests Test 10/25/19 13:00 Urine Color Pale yellow Urine Appearance Clear Urine pH 5 (4.5-8.0) Urine Specific [place] 1.005 (1.005-1.035) Urine Protein Negative (NEGATIVE) Urine Glucose (UA) Negative (NEGATIVE) Urine Ketones Negative (NEGATIVE) Urine Blood Negative (NEGATIVE) Urine Nitrite Negative (NEGATIVE) Urine Bilirubin Negative (NEGATIVE) Urine Urobilinogen Normal MG/DL (0.0-1.0) Urine Leukocyte Esterase Negative (NEGATIVE) Urine Opiates Screen Positive (NEGATIVE) H Urine Barbiturates Screen Negative (NEGATIVE) Phencyclidine (PCP) Screen Negative (NEGATIVE) Urine Amphetamines Screen Negative (NEGATIVE) Urine Benzodiazepines Screen Positive (NEGATIVE) H Urine Cocaine Screen Negative (NEGATIVE) Urine Marijuana (THC) Screen Negative (NEGATIVE) Last Vital Signs Date Time Temp Pulse Resp B/P (MAP) Pulse Ox O2 Delivery O2 Flow Rate FiO2 10/25/19 13:35 98.2 86 19 131/76 100 Room Air Disposition: HOME, SELF-CARE Condition: Stable Referrals: SHAYAN SILVER,REFERRING (PCP) Patient Instructions: Medical Screening Exam Additional Instructions: Patient is instructed to follow-up with her primary care doctor, primary care clinic or [facility] clinic in 1 to 2 days. Patient instructed to return for any worsening symptoms or concerns. Please note that the documentation in this note was used with [employer] dictation technology. Pleae be advised that this may lead to erroneous text due to misinterpretation by the dictation software [place] M.D. Oct 25, 2019 14:51
== END 2019-10-25 13:40 | disposition home or self-care (01) ==
LOC: EDBD 12:51 → EMR 13:35
DX: Z04.89 Encounter for examination and observation for other specified reasons (principal); G89.29 Other chronic pain; R41.82 Altered mental status, unspecified; F11.90 Opioid use, unspecified, uncomplicated; I10 Essential (primary) hypertension; J44.9 Chronic obstructive pulmonary disease, unspecified; I25.2 Old myocardial infarction; Z88.0 Allergy status to penicillin; Z88.1 Allergy status to other antibiotic agents; Z88.5 Allergy status to narcotic agent; Z88.8 Allergy status to other drugs, medicaments and biological substances; Z80.3 Family history of malignant neoplasm of breast
CPT/HCPCS: 80307; 81003; Z7502; 99283

== ENCOUNTER 2020-04-09 15:25 | Inpatient (IN) | payer MEDICAID ==
[~2020-04-09] VITALS: Ht 162.6 cm; Wt 56.7 kg
[2020-04-09] VITALS (7 sets, daily range): BP systolic 65–138; BP diastolic 48–84
--- NOTE | 2020-04-09 15:55 | NUR ---
ED Nurse Note:pt. is in respiratory distress and will be intubated by ER MD, 20mg of etimodate and 100mg of pocc were given at 1555, then pt. was intubated with 7.5 ET at 22cm at right lip, and placed on [facility] ventilator per MD order, respiratory therapist set up ventilator on A/C mode, pt. tolerated well, still hypotensive, given rapid IV fluids , blood and covid swab sent to labs
--- NOTE | 2020-04-09 16:10 | NUR ---
ED Nurse Note: notified Dr. Gallegos regarding pt.'s bp of 65/48
[2020-04-09 16:13] LABS: BASOPHILS % (AUTO) 1.4 % (0.0-2.0); EOSINOPHILS % (AUTO) 1.4 % (0.0-3.0); HEMATOCRIT 46.1 % (37.0-47.0); HEMOGLOBIN 14.8 G/DL (12.0-16.0); LYMPHOCYTES % (AUTO) 39.9 % (20.0-45.0); MEAN CORPUSCULAR VOLUME 89 FL (80-99); MONOCYTES % (AUTO) 4.7 % (1.0-10.0); NEUTROPHILS % (AUTO) 52.7 % (45.0-75.0); PLATELET COUNT 506 K/UL (150-450); RED BLOOD COUNT 5.18 M/UL (4.20-5.40); RED CELL DISTRIBUTION WIDTH 15.7 % (11.6-14.8); WHITE BLOOD COUNT 13.6 K/UL (4.8-10.8)
[2020-04-09] MEDS ORDERED: Sodium Chloride 1,400 ML IVLG ONE (16:15)
[2020-04-09] MEDS ORDERED: Etomidate 40mg/20ml Inj IV ONE (16:15)
[2020-04-09 16:23] LABS: ANION GAP 18 mmol/L (5-15); BLOOD UREA NITROGEN 18 mg/dL (7-18); CALCIUM 9.5 MG/DL (8.5-10.1); CARBON DIOXIDE 18 MMOL/L (21-32); CHLORIDE 99 MMOL/L (98-107); CREATININE 1.4 MG/DL (0.55-1.30); POTASSIUM 4.6 MMOL/L (3.5-5.1); SODIUM 135 MMOL/L (136-145)
--- NOTE | 2020-04-09 16:29 | Emergency Room Report ---
History of Present Illness General Chief Complaint: General Complaint Source: Patient Present Illness HPI Disclaimer: Please note that this report is being documented using DRAGON technology. This can lead to erroneous entry secondary to incorrect interpretation by the dictating instrument. HPI: 6-year-old female history of cardiac disease status post stents, opiate abuse currently on methadone program coming from [facility] for evaluation of altered mental status and respiratory distress. According to EMS the patient was found on the floor breathing heavily, tachycardic and diaphoretic. She was complaining of some abdominal pain. On arrival she is dyspneic, diaphoretic, barely able to speak. No additional information was obtained from patient. PMH: Cardiac disease, opiate dependence PSH: Unable to obtain Allergies: Multiple listed in chart Social Hx: Unable to obtain Allergies: Coded Allergies: CEPHALOSPORINS (Verified Allergy, Intermediate, Anaphylaxis, 12/14/12) DIAZEPAM (Verified Allergy, Intermediate, DYSTONIC, 12/14/12) SUMATRIPTAN (Verified Allergy, Intermediate, 12/14/12) SUMATRIPTAN SUCCINATE (Verified Allergy, Intermediate, 12/14/12) TRAMADOL (Verified Allergy, Intermediate, Anaphylaxis, 12/14/12) CEPHALEXIN (Unverified Allergy, Unknown, 10/25/19) PENICILLINS (Unverified Allergy, Unknown, 08/26/18) Uncoded Allergies: PCN (Allergy, Unknown, 10/25/19) COVID-19 Screening Contact w/high risk pt: No Experienced COVID-19 symptoms?: Yes COVID-19 Testing performed BELL STAFF: No Patient History Last Menstrual Period: na Nursing Documentation-PMH Past Medical History: No History, Except For Hx Cardiac Problems: Yes - NC, multiple stent Hx Hypertension: Yes Hx Asthma: Yes Hx COPD: Yes Hx Diabetes: Yes Hx Cancer: Yes - mother of breast Ca Hx Gastrointestinal Problems: Yes - appendicitis Hx Neurological Problems: No - migraines Review of Systems All Other Systems: limited - Unable to obtain from patient due to clinical condition Physical Exam Vital Signs Date Time Temp Pulse Resp B/P (MAP) Pulse Ox O2 Delivery O2 Flow Rate FiO2 04/09/20 15:26 98.1 107 32 116/98 (104) 96 Room Air General: Awake but somnolent, respiratory distress HEENT: NC/AT. EOMI. Cardiovascular: Tachycardic Resp: Tachypneic, 83% nonrebreather Abdomen: Abdomen is soft, nondistended. Nontender Skin: Diaphoretic. No obvious rash or skin breakdown MSK: Normal tone and bulk. Moving all extremities. No obvious deformity. Neuro: Awake, somnolent, GCS 13 Procedures Critical Care Time Critical Care Time Total critical care time: Approximately 45 minutes Due to a high probability of clinically significant, life threatening deterioration, the patient required the highest level of preparedness to intervene emergently and I personally spent this critical care time directly and personally managing the patient. This critical care time included obtaining a history, examining the patient, pulse oximetry, ordering and reviewing studies , ordering treatments, evaluating response to treatment and updating management plan as needed, frequent reassessment and discussion with other providers as well as arranging for ultimate disposition. This critical to care time was performed to assess and manage the high probability of life-threatening deterioration that could result in multiorgan failure. This critical care time is separate from the separately billable procedures and treating other patients. Intubation Intubation : Consent: Emergent Intubation Method: orotracheal Tube Size (cm): 7.5 Medications: Etomidate, Rocuronium Breath Sounds after Intubation: equal Intubation Complications: no complications Post Intubation Xray: Yes Attempts: One Patient Tolerated: Well Complications: None Medical Decision Making Diagnostic Impression: Primary Impression: Altered mental status, unspecified Additional Impressions: Respiratory distress Prolonged Q-T interval on ECG ER Course 60-year-old female brought in from [facility] for evaluation of altered mental status and respiratory distress. Originally she came in with stable vital signs and quickly desaturated. Patient was placed on 15 L nonrebreather and only able to improve to 83%. She was tachypneic, tachycardic and dyspneic. Concern over impending respiratory failure the patient was intubated by me using glide scope on first attempt with a 7.5 endotracheal tube. Oxygenation improved to 100%. Remains tachycardic. Patient was hypotensive after intubation with systolics in the 70s and is aggressively receiving fluids. Broad work-up started including COVID-19 testing. She will be admitted to the intensive care unit. 1900: Chest x-ray does not show an obvious infiltrate or pneumothorax. ET tube in appropriate position. Hypotension improving with IV fluids. Lactate elevated But improving. D-dimer returned significantly elevated at 35. Gave dose of Lovenox and will send to CT scanner for CTA for evaluation of PE. ABG showed acidosis with elevated oxygen levels and some CO2 retention. Vent settings were adjusted and patient was given bicarb bolus. She will then be admitted to the ICU under panel physician, Dr. Monk. Laboratory Tests Test 04/09/20 15:45 04/09/20 16:20 04/09/20 18:20 04/09/20 18:40 White Blood Count 13.6 K/UL (4.8-10.8) H Red Blood Count 5.18 M/UL (4.20-5.40) Hemoglobin 14.8 G/DL (12.0-16.0) Hematocrit 46.1 % (37.0-47.0) Mean Corpuscular Volume 89 FL (80-99) Mean Corpuscular Hemoglobin 28.5 PG (27.0-31.0) Mean Corpuscular Hemoglobin Concent 32.0 G/DL (32.0-36.0) Red Cell Distribution Width 15.7 % (11.6-14.8) H Platelet Count 506 K/UL (150-450) H Mean Platelet Volume 5.4 FL (6.5-10.1) L Neutrophils (%) (Auto) 52.7 % (45.0-75.0) Lymphocytes (%) (Auto) 39.9 % (20.0-45.0) Monocytes (%) (Auto) 4.7 % (1.0-10.0) Eosinophils (%) (Auto) 1.4 % (0.0-3.0) Basophils (%) (Auto) 1.4 % (0.0-2.0) Sodium Level 135 MMOL/L (136-145) L Potassium Level 4.6 MMOL/L (3.5-5.1) Chloride Level 99 MMOL/L (98-107) Carbon Dioxide Level 18 MMOL/L (21-32) L Anion Gap 18 mmol/L (5-15) H Blood Urea Nitrogen 18 mg/dL (7-18) Creatinine 1.4 MG/DL (0.55-1.30) H Estimated Glomerular Filtration Rate 38.4 mL/min (>60) Glucose Level 208 MG/DL (74-106) H Calcium Level 9.5 MG/DL (8.5-10.1) Ferritin 92 NG/ML (8-388) Total Bilirubin 0.6 MG/DL (0.2-1.0) Aspartate Amino Transferase (AST) 60 U/L (15-37) H Alanine Aminotransferase (ALT) 28 U/L (12-78) Alkaline Phosphatase 221 U/L (46-116) H Lactate Dehydrogenase 367 U/L (81-234) H Troponin I 0.003 ng/mL (0.000-0.056) C-Reactive Protein, Quantitative < 0.4 mg/dL (0.00-0.90) Total Protein 7.9 G/DL (6.4-8.2) Albumin 3.5 G/DL (3.4-5.0) Globulin 4.4 g/dL Albumin/Globulin Ratio 0.8 (1.0-2.7) L Lipase 132 U/L (73-393) Salicylates Level < 0.2 ug/mL (2.8-20) L Acetaminophen Level < 2 MCG/ML (10-30) L Serum Alcohol < 3 mg/dL Lactic Acid Level 5.90 mmol/L (0.4-2.0) H 2.60 mmol/L (0.66-2.22) H Urine Color Yellow Urine Appearance Slightly cloudy Urine pH 6 (4.5-8.0) Urine Specific [place] 1.020 (1.005-1.035) Urine Protein 2+ (NEGATIVE) H Urine Glucose (UA) Negative (NEGATIVE) Urine Ketones Negative (NEGATIVE) Urine Blood 2+ (NEGATIVE) H Urine Nitrite Negative (NEGATIVE) Urine Bilirubin Negative (NEGATIVE) Urine Urobilinogen 4 MG/DL (0.0-1.0) H Urine Leukocyte Esterase 3+ (NEGATIVE) H Urine RBC 5-10 /HPF (0 - 2) H Urine WBC 30-40 /HPF (0 - 2) H Urine Squamous Epithelial Cells Moderate /LPF (NONE/OCC) H Urine Bacteria Many /HPF (NONE) H Urine Opiates Screen Negative (NEGATIVE) Urine Barbiturates Screen Negative (NEGATIVE) Phencyclidine (PCP) Screen Negative (NEGATIVE) Urine Amphetamines Screen Negative (NEGATIVE) Urine Benzodiazepines Screen Negative (NEGATIVE) Urine Cocaine Screen Negative (NEGATIVE) Urine Marijuana (THC) Screen Negative (NEGATIVE) D-Dimer Pending Magnesium Level 2.5 MG/DL (1.8-2.4) H Microbiology Date/Time Source Procedure Growth Status 8/20/20 15:40 Nasopharynx SARS-CoV-2 RdRp Gene Assay - Final Complete EKG Diagnostic Results EKG Time: 16:56 Rate: tachycardiac Other Impression Sinus tachycardia, normal axis, prolonged QTC, anterior Q waves Rhythm Strip Diag. Results Rhythm Strip Time: 16:56 EP Interpretation: yes Rate: 113 Rhythm: no PVC's, no ectopy Chest X-Ray Diagnostic Results Chest X-Ray Diagnostic Results : Chest X-Ray Ordered: Yes # of Views/Limited/Complete: 1 View Indication: Shortness of Breath EP Interpretation: Yes Interpretation: no consolidation, no effusion, no pneumothorax, other - Endotracheal tube in appropriate position above the hiren. No obvious infiltrate Impression: Other - ET tube in appropriate position Electronically Signed by: Electronically signed by Dr. Malcolm Gallegos Last Vital Signs Date Time Temp Pulse Resp B/P (MAP) Pulse Ox O2 Delivery O2 Flow Rate FiO2 04/09/20 16:13 98.1 120 20 65/48 96 Mechanical Ventilator Disposition: ADMITTED INPATIENT Condition: Critical Scripts Unable to Obtain Active Prescriptions or Reported Meds Referrals: SHAYAN SILVER,REFERRING (PCP) Malcolm Gallegos MD Apr 09, 2020 16:28
[2020-04-09 16:42] LABS: ALANINE AMINOTRANSFERASE 28 U/L (12-78); ALBUMIN 3.5 G/DL (3.4-5.0); ALBUMIN/GLOBULIN RATIO 0.8 (1.0-2.7); ALKALINE PHOSPHATASE 221 U/L (46-116); ASPARTATE AMINO TRANSFERASE 60 U/L (15-37); BILIRUBIN,TOTAL 0.6 MG/DL (0.2-1.0)
[2020-04-09 16:46] LABS: FERRITIN 92 NG/ML (8-388)
--- NOTE | 2020-04-09 16:46 | Diagnostic Imaging Report ---
Procedure: XRAY Chest 1v Reason for study: Reason For Exam: SOB Comparison films: 01/24/2019. FINDINGS: There is an endotracheal tube in good position. Vascularity is normal. Bilateral apical pleural parenchymal scarring noted. There are some mild atelectasis the left lung base. Cardiac and mediastinal silhouette are within normal limits. CP angles are sharp. The bony thorax appear unremarkable. IMPRESSION: Endotracheal tube in good position. Mild left basilar atelectasis. Chronic apical pleural parenchymal scarring.
[2020-04-09 16:54] LABS: LACTATE DEHYDROGENASE 367 U/L (81-234)
--- NOTE | 2020-04-09 17:00 | NUR ---
ED Nurse Note:pt's BP 110/62, O2sats at 100%
--- NOTE | 2020-04-09 17:59 | NUR ---
ED Nurse Note:sent lactic reflax to labs
--- NOTE | 2020-04-09 18:41 | NUR ---
ED Nurse Note:swabs are sent to labs and urine , pt. had BM
[2020-04-09 18:58] LABS: APPEARANCE,URINE SLIGHTLY CLOUDY; BILIRUBIN, URINE NEGATIVE (NEGATIVE); GLUCOSE, URINE (UA) NEGATIVE (NEGATIVE); KETONES,URINE NEGATIVE (NEGATIVE); LEUKOCYTE ESTERASE ,URINE 3+ (NEGATIVE); NITRITE,URINE NEGATIVE (NEGATIVE); PH,URINE 6 (4.5-8.0); PROTEIN,URINE 2+ (NEGATIVE); UROBILINOGEN,URINE 4 MG/DL (0.0-1.0)
[2020-04-09] MEDS ORDERED: Nitroglycerin Subl 0.4mg tab SL PRN (19:15)
[2020-04-09] MEDS ORDERED: Albuterol/Ipratropium 3ml neb HHN PRN (19:15)
[2020-04-09 19:21] LABS: COLOR,URINE YELLOW
--- NOTE | 2020-04-09 19:32 | NUR ---
ED Nurse Note: RT at bedside
[2020-04-09] MEDS ORDERED: Omnipaque 350 100ml vial INJ PRN (19:45)
[2020-04-09] MEDS ORDERED: Enoxaparin 60mg Inj SUBQ ONE (19:52)
--- NOTE | 2020-04-09 20:00 | NUR ---
ED Nurse Note: Report given to NEELA Murray.
--- NOTE | 2020-04-09 20:10 | NUR ---
TRANSFER TO FLOOR: Patient transferred to ICU as ordered, per ERMD. Report given to NEELA Murray. Patient transported via gurney on ACLS protocol with aircraft armament mechanic in stable condition accompanied by RN, polytechnic teacher and RT.
[2020-04-09] MEDS ORDERED: Sodium Bicarbonate 50ml Carp ONE ×2 (20:11→20:12)
--- NOTE | 2020-04-09 20:12 | Cardiology Progress Note ---
Assessment/Plan Assessment/Plan pt seen in er full note to hammad abrams record reviwed hs o mi ant sp luis x3 tolad adn luis to omd , ef 30% in 2018 now with respioratory failuer oan vent ekg min [facility] remain matilda vent inutbate no responsive [id number] [facility] record: Discharge Resident:~Francisco Murguia~ Attending Physician:~Dr. Marielle Aquino Admit Date:~11/16/2017 Discharge Date:~11/17/2017 Admission Diagnosis:~ Chest pain, atypical Discharge Diagnoses:~ Chest pain, atypical Procedures:~ None Brief HPI:~ Rona Mendoza a 57 year oldfemalewith a h/o GERD, GIB 2/2 naproxen use, anxiety, PTSD, on methadone who presented as anterior STEMI on 11/10, now s/p LUIS x 3 to the LAD and LUIS to the OM1 (culprit lesion). TTE with EF 30% with WMA in the LAD territory, represents with CP relieved by NTG in the field Describes it as a 7/10, midsternal, stabbing/burning, radiating to the jaw, associated with SOB and palpitations. Patient denies orthopnea, PND, dizziness, diaphoresis. Does endorses decreased exercise capacity but unable to different new since yesterday vs since last admission and STEMI diagnosis. Unsure if she has gained weight. ED: nitro paste, seen by cards in the ED; downtrending troponin, resume meds Pertinent Physical:~ Physical Exam: Visit Vitals BP 118/78 (BP Location: Left arm, Patient Position: Semi-Sherman, Cuff Size: Adult - Small) Pulse 79 Temp 97.6 F (36.4 C) (Oral) Resp 20 Ht 1.702 m (5' 7") Wt 47.2 kg (104 lb) SpO2 95% BMI 16.29 kg/m General appearance:~alert, no distress, appears stated age, very thin build Head:~Normocephalic, without obvious abnormality, atraumatic Lungs:~clear to auscultation bilaterally Heart:~regular rate and rhythm~with intermittent episodes of sinus bradycardia to rate of 50s, S1, S2 normal, no murmur, click, rub or gallop Abdomen:~soft, non-tender. Bowel sounds normal. No masses, ~no organomegaly Extremities:~extremities normal, atraumatic, no cyanosis or edema Pulses:~2+ and symmetric Skin:~Skin color~very tanned, texture, turgor normal. No rashes or lesions. Pertinent Labs:~ Lab Results Component Value Date WBC 11.7 (H) 11/17/2017 Hemoglobin 13.2 11/17/2017 Hematocrit 39.2 11/17/2017 MCV 89.9 11/17/2017 Platelet Count 340 11/17/2017 RDW 13.7 11/17/2017 Lab Results Component Value Date Glucose 106 (H) 11/17/2017 Creatinine 0.6 11/17/2017 Urea Nitrogen 18 11/17/2017 Sodium 137 11/17/2017 Potassium 4.1 11/17/2017 Chloride 104 11/17/2017 Carbon Dioxide 22 11/17/2017 Anion Gap 11 11/17/2017 Calcium, Serum 9.4 11/17/2017 Lab Results Component Value Date Troponin I 1.07 (H) 11/16/2017 Hospital Course:~ Patient was transferred from ED to floor in stable condition, however began to develop~asymptomatic sinus bradycardia to 40-50s.~Patient noticed sensation of increasing and decreasing HR, normotensive SBP 120s. Coreg~dosage was~decreased to 3.125 and later discontinued due to persistent intermittent episodes of bradycardia. Patient remained stable during hospital stay without chest pain, SOB, or intermittent episodes of bradycardia. Patient was able to tolerate regular cardiac diet as well as void without difficulty. Patient was therefore discharged in stable condition with ziopatch for passive cardiac monitoring. Upon discharge patient became verbally abusive to medical staff and physicians. Patient was upset and abusive in regards to her provided xanax prescription, as a longer term regimen was not prescribed Patient was told~of the side effects of superintendent marine oil terminal use, benefits of seeking outpatient care to manage her panic attacks, and the dangers of over-prescribing or overuse of this medication. Patient made threats to leave Against Medical Advice, however eventually waited for her prescribed discharge medications and ziopatch to be applied. Discharge Condition:~Stable Discharge Location:~Home Discharge Diet:~Regular cardiac diet Discharge Activities:~Activity as tolerated Follow-up appointment(s) with: - Primary care physician in 1 week ~&~Chip Mixing Machine Operator listed below You have been provided with an expedited referral to an in-network Chip Mixing Machine Operator and have a scheduled appointment as below: Dr. Tong [address] [place] [address] PH: [phone] November 29 at 11am Please follow up with the Ziopatch that has been placed according to the instructions provided. Problem List: Patient Active Problem List Diagnosis Anxiety state ST elevation myocardial infarction (STEMI) (HCC) Essential hypertension Ischemic cardiomyopathy Chest pain, atypical Cardiac enzymes elevated Francisco Murguia~11/19/2017~7:02 PM~ Attending~Discharge~Note Addendum I have reviewed the patient's history and I have personally examined the patient. ~I agree with the findings and plan of care documented in the above resident's note, with any additions or modifications noted below. Date of service~11/17/2017 Signed: Marielle Aquino 11/20/2017 9:58 AM Objective Last 24 Hour Vital Signs Date Time Temp Pulse Resp B/P (MAP) Pulse Ox O2 Delivery O2 Flow Rate FiO2 04/09/20 19:20 98.1 117 14 103/69 100 Mechanical Ventilator 04/09/20 17:50 115 12 100 04/09/20 16:59 98.1 113 14 110/62 100 Mechanical Ventilator 04/09/20 16:13 98.1 120 20 65/48 96 Mechanical Ventilator 04/09/20 16:10 120 20 Mechanical Ventilator 04/09/20 15:26 98.1 107 32 116/98 (104) 96 Room Air Laboratory Tests Test 04/09/20 15:45 04/09/20 16:20 04/09/20 18:20 04/09/20 18:40 White Blood Count 13.6 K/UL (4.8-10.8) H Red Blood Count 5.18 M/UL (4.20-5.40) Hemoglobin 14.8 G/DL (12.0-16.0) Hematocrit 46.1 % (37.0-47.0) Mean Corpuscular Volume 89 FL (80-99) Mean Corpuscular Hemoglobin 28.5 PG (27.0-31.0) Mean Corpuscular Hemoglobin Concent 32.0 G/DL (32.0-36.0) Red Cell Distribution Width 15.7 % (11.6-14.8) H Platelet Count 506 K/UL (150-450) H Mean Platelet Volume 5.4 FL (6.5-10.1) L Neutrophils (%) (Auto) 52.7 % (45.0-75.0) Lymphocytes (%) (Auto) 39.9 % (20.0-45.0) Monocytes (%) (Auto) 4.7 % (1.0-10.0) Eosinophils (%) (Auto) 1.4 % (0.0-3.0) Basophils (%) (Auto) 1.4 % (0.0-2.0) Sodium Level 135 MMOL/L (136-145) L Potassium Level 4.6 MMOL/L (3.5-5.1) Chloride Level 99 MMOL/L (98-107) Carbon Dioxide Level 18 MMOL/L (21-32) L Anion Gap 18 mmol/L (5-15) H Blood Urea Nitrogen 18 mg/dL (7-18) Creatinine 1.4 MG/DL (0.55-1.30) H Estimat Glomerular Filtration Rate 38.4 mL/min (>60) Glucose Level 208 MG/DL (74-106) H Calcium Level 9.5 MG/DL (8.5-10.1) Ferritin 92 NG/ML (8-388) Total Bilirubin 0.6 MG/DL (0.2-1.0) Aspartate Amino Transf (AST/SGOT) 60 U/L (15-37) H Alanine Aminotransferase (ALT/SGPT) 28 U/L (12-78) Alkaline Phosphatase 221 U/L (46-116) H Lactate Dehydrogenase 367 U/L (81-234) H Troponin I 0.003 ng/mL (0.000-0.056) C-Reactive Protein, Quantitative < 0.4 mg/dL (0.00-0.90) Total Protein 7.9 G/DL (6.4-8.2) Albumin 3.5 G/DL (3.4-5.0) Globulin 4.4 g/dL Albumin/Globulin Ratio 0.8 (1.0-2.7) L Lipase 132 U/L (73-393) Salicylates Level < 0.2 ug/mL (2.8-20) L Acetaminophen Level < 2 MCG/ML (10-30) L Serum Alcohol < 3 mg/dL Lactic Acid Level 5.90 mmol/L (0.4-2.0) H 2.60 mmol/L (0.66-2.22) H Urine Color Yellow Urine Appearance Slightly cloudy Urine pH 6 (4.5-8.0) Urine Specific [place] 1.020 (1.005-1.035) Urine Protein 2+ (NEGATIVE) H Urine Glucose (UA) Negative (NEGATIVE) Urine Ketones Negative (NEGATIVE) Urine Blood 2+ (NEGATIVE) H Urine Nitrite Negative (NEGATIVE) Urine Bilirubin Negative (NEGATIVE) Urine Urobilinogen 4 MG/DL (0.0-1.0) H Urine Leukocyte Esterase 3+ (NEGATIVE) H Urine RBC 5-10 /HPF (0 - 2) H Urine WBC 30-40 /HPF (0 - 2) H Urine Squamous Epithelial Cells Moderate /LPF (NONE/OCC) H Urine Bacteria Many /HPF (NONE) H Urine Opiates Screen Negative (NEGATIVE) Urine Barbiturates Screen Negative (NEGATIVE) Phencyclidine (PCP) Screen Negative (NEGATIVE) Urine Amphetamines Screen Negative (NEGATIVE) Urine Benzodiazepines Screen Negative (NEGATIVE) Urine Cocaine Screen Negative (NEGATIVE) Urine Marijuana (THC) Screen Negative (NEGATIVE) D-Dimer > 35.20 mg/L FEU Magnesium Level 2.5 MG/DL (1.8-2.4) H Test 04/09/20 19:40 Arterial Blood pH 7.040 (7.350-7.450) Arterial Blood Partial Pressure CO2 81.3 mmHg (35.0-45.0) *H Arterial Blood Partial Pressure O2 522.1 mmHg (75.0-100.0) H Arterial Blood HCO3 21.5 mmol/L (22.0-26.0) L Arterial Blood Oxygen Saturation 99.5 % (95-100) Arterial Blood Base Excess -10.7 (-2-2) *L Marshall Test Positive Microbiology Date/Time Source Procedure Growth Status 04/09/20 15:40 Nasopharynx SARS-CoV-2 RdRp Gene Assay - Final Complete Ronal Mendes MD Apr 09, 2020 20:12
[2020-04-09] MEDS ORDERED: Sodium Bicarbonate 50ml Carp IV ONE (20:15)
[2020-04-09] MEDS: D5 1/2NS 1,000 ML IV SCH (20:40)
--- NOTE | 2020-04-09 20:40 | NUR ---
NURSE NOTES: Received report from NEELA Durand. patient arrived via gurney from ER. patient does not respond to painful stimuli. bilateral pupils dilated at 7 and sluggish. patient with 7.5 ETT at 23cm on ventilator AC 20 TV 450 FiO2 50% PEEP 5. BP 129/75 HR 112 Sinus tach on monitor. small amount of thin white secretions noted. PIV left forearm #18 clean and asymptomatic. skin cool dry intact with sacral blanchable redness noted. abdomen soft nontender with active bowel sounds. orders received from Dr. Rivera. patients clothing at bedside. bed locked lowest position call light within reach.
[2020-04-09] MEDS ORDERED: Enoxaparin 60mg Inj SUBQ SCH (21:00)
[2020-04-09] MEDS ORDERED: Heparin 5000 units/ml inj SUBQ SCH (21:00)
--- NOTE | 2020-04-09 21:36 | Diagnostic Imaging Report ---
EXAM: CT Angiography Chest With Intravenous Contrast CLINICAL HISTORY: Jaime/id:[id number] said: EVAL. PE. CP, SOB, Hx of COPD, asthma, [place]. Per RN: pt found unresponsive in longterm house. In ER pt had respiratory failure and currently inubated. COVID negative. Opioid dependant. TECHNIQUE: Axial computed tomographic angiography images of the chest with intravenous contrast. CTDI is 29.3 mGy and DLP is 102.1 mGy-cm. One or more of the following dose reduction techniques were used: automated exposure control, adjustment of the mA and/or kV according to patient size, use of iterative reconstruction technique. MIP reconstructed images were created and reviewed. COMPARISON: No relevant prior studies available. FINDINGS: Pulmonary arteries: Negative for pulmonary embolus. Aorta: Ectasia of ascending aorta measuring up to 4.4 cm. No thoracic aortic aneurysm. Lungs: Bilateral centrilobular and paraseptal emphysema. Moderate bilateral pleural/parenchymal scarring in the apices. Additionally, there are multiple ill-defined areas of nodularity in both apices indeterminate for scarring mild bilateral bronchiectasis. Ill-defined nodules and nodular consolidation left lower lobe most prominent anteriorly. Ill-defined area of increased density in the right middle lobe is indeterminate as well. These findings may be infectious, inflammatory or neoplastic. Short-term interval follow-up and pulmonary consultation recommended. Fluid and debris in the left mainstem bronchus and to a lesser extent on the right of indeterminate origin. Pleural space: Unremarkable. No significant effusion. No pneumothorax. Heart: Unremarkable. No cardiomegaly. No significant pericardial effusion. No evidence of RV dysfunction. Bones/joints: No acute fracture. No dislocation. Soft tissues: Unremarkable. Lymph nodes: Subcarinal lymphadenopathy and bilateral hilar lymphadenopathy right greater than left. Tubes, lines and devices: ETT terminates above the hiren. IMPRESSION: Indeterminate areas of nodularity and irregular consolidation indeterminate for infectious, inflammatory or neoplastic etiology. Recommend pulmonary consultation and short-term interval follow-up. Small amount of debris in the left, greater than right bronchi. Mild mediastinal and hilar lymphadenopathy.
--- NOTE | 2020-04-09 23:08 | NUR ---
NURSE NOTES: Paged Dr. Rivera to report ABG results. message left. awaiting call back.
[2020-04-10] VITALS (34 sets, daily range): BP systolic 61–128; BP diastolic 35–110
--- NOTE | 2020-04-10 | NUR ---
NURSE NOTES: patient does not respond to painful stimuli with bilateral pupils dilated and sluggish. patient with 7.5 ETT at 23cm on ventilator AC 20 TV 450 FiO2 40% PEEP 5. BP 106/71 HR 125 Sinus tach on monitor temp 101.2F rectal, ice packs applied. small amount of thin white secretions noted. PIV left forearm #18 and left wrist #22 running D5 1/2NS @ 75ml/hr clean and asymptomatic. abdomen soft nontender with hyperactive bowel sounds. patient repositioned and oral care provided.
--- NOTE | 2020-04-10 00:40 | NUR ---
NURSE NOTES: Paged Dr. Rivera to report patient hypotensive without a central line or pressors. message left. awaiting call back.
--- NOTE | 2020-04-10 01:33 | NUR ---
NURSE NOTES: Spoke with nursing supervisor telephone answering service Lisa to report Dr. Rivera has not returned page. awaiting call back.
--- NOTE | 2020-04-10 02:00 | NUR ---
NURSE NOTES: patient eyes open partially to painful stimuli with bilateral pupils dilated and sluggish. patient with 7.5 ETT at 23cm on ventilator AC 20 TV 600 FiO2 40% PEEP 5. BP 86/51 HR 107 Sinus tach on monitor. PIV left forearm #18 and left wrist #22 running D5 1/2NS @ 75ml/hr clean and asymptomatic. Nursing supervisor webbing Lisa made contact with Dr. Rivera, awaiting orders. patient repositioned and oral care provided.
--- NOTE | 2020-04-10 02:14 | NUR ---
NURSE NOTES: Dr. Rivera returned page. Dr. Rivera aware of ABG results and hypotensive episode. orders received read back and carried out.
--- NOTE | 2020-04-10 04:00 | NUR ---
NURSE NOTES: patient eyes open partially to painful stimuli with bilateral pupils dilated and sluggish. bilateral hand and feet shifting slightly. patient with 7.5 ETT at 23cm on ventilator AC 20 TV 600 FiO2 40% PEEP 5. BP 102/42 HR 108 Sinus tach on monitor, temp 97.6F rectal. patient received 1L NS bolus. PIV left forearm #18 and left wrist #22 running D5 1/2NS @ 75ml/hr clean and asymptomatic. patient bathed, repositioned and oral care provided.
--- NOTE | 2020-04-10 04:50 | NUR ---
RESPIRATORY NOTE: PT REMAINED STABLE ON CMV WITH CURRENT SETTINGS. SXN PRN. AIRWAY IS SECURE AND PATENT. NO S/S OF RESPIRATORY DISTRESS NOTED AT THIS TIME.
--- NOTE | 2020-04-10 06:00 | NUR ---
NURSE NOTES: patient eyes open partially to painful stimuli with bilateral pupils dilated and sluggish. bilateral hand and feet shifting. patient with 7.5 ETT at 23cm on ventilator AC 20 TV 600 FiO2 40% PEEP 5. BP 91/46 HR 112 Sinus tach on monitor, temp 97.6F rectal. patient received 1L NS bolus. PIV left forearm #18 and left wrist #22 running D5 1/2NS @ 75ml/hr clean and asymptomatic. skin cool dry intact with sacral blanchable redness noted, covered with Optifoam for protection. patient repositioned and oral care provided.
--- NOTE | 2020-04-10 06:31 | NUR ---
RESPIRATORY NOTE: PER DR ORDER ABG WAS TO BE COLLECTED TWO HOURS POST VENT SETTINGS CHANGES. MADE ATTEMPT TO COLLECT BUT WAS UNABLE. PT'S BLOOD PRESSURE IS LOW AT THIS TIME. WILL ENDORSE TO MORNING SHIFT.
--- NOTE | 2020-04-10 07:07 | NUR ---
NURSE NOTES: Paged Dr. Rivera to report patient BP 76/35. message left.
[2020-04-10 07:14] LABS: HEMATOCRIT 40.3 % (37.0-47.0); HEMOGLOBIN 12.5 G/DL (12.0-16.0); MEAN CORPUSCULAR VOLUME 90 FL (80-99); PLATELET COUNT 343 K/UL (150-450); RED BLOOD COUNT 4.46 M/UL (4.20-5.40); RED CELL DISTRIBUTION WIDTH 16.1 % (11.6-14.8)
--- NOTE | 2020-04-10 07:16 | NUR ---
NURSE HAND-OFF REPORT: Latest Vital Signs: Temperature 97.6 , Pulse 119 , B/P 76 /35 , Respiratory Rate 23 , O2 SAT 85 , Mechanical Ventilator, O2 Flow Rate . Vital Sign Comment: Dr. Rivera paged to inform of hypotension. EKG Rhythm: Sinus Tachycardia Rhythm change?: N MD Notified?: MD Response: Latest Betancur Fall Score: 50 Fall Risk: High Risk Safety Measures: Call light Within Reach, Bed Alarm Zone 1, Side Rails Side Rails x3, Bed position Low and Locked. Fall Precautions: Door Sign Report given to NEELA Gee.
[2020-04-10 07:28] LABS: ALANINE AMINOTRANSFERASE 76 U/L (12-78); ALBUMIN 2.4 G/DL (3.4-5.0); ALBUMIN/GLOBULIN RATIO 0.8 (1.0-2.7); ALKALINE PHOSPHATASE 529 U/L (46-116); ANION GAP 15 mmol/L (5-15); ASPARTATE AMINO TRANSFERASE 183 U/L (15-37); BILIRUBIN,DIRECT 0.3 MG/DL (0.0-0.3); BILIRUBIN,TOTAL 0.7 MG/DL (0.2-1.0); BLOOD UREA NITROGEN 31 mg/dL (7-18); CALCIUM 7.2 MG/DL (8.5-10.1); CARBON DIOXIDE 23 MMOL/L (21-32); CHLORIDE 107 MMOL/L (98-107); CREATININE 2.1 MG/DL (0.55-1.30); LACTATE DEHYDROGENASE 491 U/L (81-234); POTASSIUM 4.3 MMOL/L (3.5-5.1); SODIUM 144 MMOL/L (136-145)
[2020-04-10 07:35] LABS: INR 1.3 (0.9-1.1)
[2020-04-10 07:38] LABS: PHOSPHORUS 5.7 MG/DL (2.5-4.9)
[2020-04-10 07:51] LABS: WHITE BLOOD COUNT 36.5 K/UL (4.8-10.8)
--- NOTE | 2020-04-10 08:01 | NUR ---
NURSE NOTES: Report received from NEELA Angel. Patient hemodynamically unstable,SBP in the 70 and saturate at 86%. Patient awake and restless.Orally intubated 7.5/23 AC 20 VT 600 FiO2 40% Peep 5. Patient afebrile at this time, peripheral line LW /22G patent running D51/2 NS at 75cc.Left hand peripheral line 22G inserted.Dr Rivera made aware of BP and order to bolus 2L NS to patient and emergency Central line insertion.Patient also noted with bluish discoloration around the right elbow area and upper arm with elbow joint eversion, no pain upon palpation, no redness and cold to touch,will continue to monitor .RT made aware saturation and Fio2 increase to 100%.Patient on bilateral soft wrist restraints for pulling device.Received call from different family members requesting information about the patient. Next of kin Abisai Fernandes made aware and as stated only give information to Chepe Fernandes. Received call from the sister and another brother requesting to be listed also and as a next of kin. Explained to family members who continue to insist, Soil Engineer present at the time and phone call transfer to broommaking supervisor.As from now Dom Barone remains the next of kin.Patient kept clean dry and comfortable.Call light within easy reach.Will continue close monitoring.
[2020-04-10 08:46] LABS: % IRON SATURATION 7 % (15-50); IRON 15 ug/dL (50-175); TOTAL IRON BINDING CAPACITY 228 ug/dL (250-450)
[2020-04-10 08:58] LABS: CREATINE KINASE 3759 U/L (26-308)
[2020-04-10] MEDS: Heparin 5000 units/ml inj SUBQ SCH ×2 (09:17→20:43)
[2020-04-10] MEDS: D5 1/2NS 1,000 ML IV SCH ×4 (09:17→20:10)
--- NOTE | 2020-04-10 09:17 | NUR ---
RD ASSESSMENT & RECOMMENDATIONS SEE CARE ACTIVITY FOR COMPLETE ASSESSMENT DAILY ESTIMATED NEEDS: Needs based on Critical care, underweight, DM/ 51kg 25-30 kcals/kg 5857-1811 total kcals 1.2-2 g protein/kg 61-102 g total protein 25-30 mL/kg 8627-5840 total fluid mLs NUTRITION DIAGNOSIS: Swallowing difficulty R/T respiratory failure as evidenced by orally intubated, NPO at this time. CURRENT TF: NPO PO DIET RECOMMENDATIONS: TWISTING FRAME CHANGER eval post extubation ENTERAL NUTRITION RECOMMENDATIONS: Glucerna 1.2 @ 50ml/hr x 24 hrs to provide 1200ml, 1440kcal, 72g prot, 966ml free water * With GI access and HEMODYNAMIC stability -> initiate Glucerna 1.2 @ 10ml/hr x 6 hrs -> advance 10ml q 4-6 hrs as tolerated to goal -> HOB over 30 degrees/ water flush per MD WITHOUT HEMODYNAMIC STABILITY: trophic feeding of Glucerna 1.2 @ 10ml/hr ADDITIONAL RECOMMENDATIONS: * Calibrated bedscale wt * Monitor HD stablity: hypotensive, without pressor supprot at this time * Monitor BGs, rec NISS w/ TF (h/o DM) -> maintain added D5 IVF while NPO to prevent hypoglycemia * Monitor renal fxn + lytes- creat trend up, phos elev -> monitor need for TF rec change
[2020-04-10 09:23] LABS: INR 1.4 (0.9-1.1)
--- NOTE | 2020-04-10 10:00 | NUR ---
NURSE NOTES: Patient remains hemodynamically unstable. Seen by Dr Green with order to give Albumin 5% bolus 500cc. Order noted and carried out. Turned and repositioned. Call light within easy reach, will continue same care plan
--- NOTE | 2020-04-10 11:07 | Diagnostic Imaging Report ---
EXAM: ULTRASOUND Carotid-Vert Duplex Scan-BILAT CLINICAL HISTORY: Reason For Exam: ALOC. COMPARISON: None FINDINGS: Bilateral mild to moderate plaque formation noted. Velocities are as follow: Right: CCA= 79 cm/sec ICA = 121 cm/sec ECA = 72 cm/sec Left: CCA = 90 cm/sec ICA= 114 cm/sec ECA = 101 cm/sec ICA/CCA ratio are 1.5 on the right and 1.3 on the left. Antegrade flow is identified in the vertebral arteries bilaterally. IMPRESSION: NO HEMODYNAMICALLY SIGNIFICANT STENOSIS. Degree of stenosis is derived from SRU criteria.
--- NOTE | 2020-04-10 11:34 | Consultation ---
Consult Note Consult Note Asked to evaluate the patient at the request of Dr. Monk for renal failure Patient seen in ICU. Patient on mechanical ventilation. HPI: 60 year-old female history of cardiac disease status post stents, opiate abuse currently on methadone program coming from [facility] for evaluation of altered mental status and respiratory distress. According to EMS the patient was found on the floor breathing heavily, tachycardic and diaphoretic. She was complaining of some abdominal pain. On arrival she is dyspneic, diaphoretic, barely able to speak. No additional information was obtained from patient. PMH: Cardiac disease, opiate dependence PSH: Unable to obtain Allergies: Multiple listed in chart Social Hx: Unable to obtain Allergies: Coded Allergies: CEPHALOSPORINS (Verified Allergy, Intermediate, Anaphylaxis, 12/14/12) DIAZEPAM (Verified Allergy, Intermediate, DYSTONIC, 12/14/12) SUMATRIPTAN (Verified Allergy, Intermediate, 12/14/12) SUMATRIPTAN SUCCINATE (Verified Allergy, Intermediate, 12/14/12) TRAMADOL (Verified Allergy, Intermediate, Anaphylaxis, 12/14/12) CEPHALEXIN (Unverified Allergy, Unknown, 10/25/19) PENICILLINS (Unverified Allergy, Unknown, 08/26/18) Uncoded Allergies: PCN (Allergy, Unknown, 10/25/19) COVID-19 Screening Contact w/high risk pt: No Experienced COVID-19 symptoms?: Yes COVID-19 Testing performed HEAD CD REACTOR OPERATOR: No Past Medical History: No History, Except For Hx Cardiac Problems: Yes - MO, multiple stent Hx Hypertension: Yes Hx Asthma: Yes Hx COPD: Yes Hx Diabetes: Yes Hx Cancer: Yes - mother of breast Ca Hx Gastrointestinal Problems: Yes - appendicitis Hx Neurological Problems: No - migraines Vital Signs Date Time Temp Pulse Resp B/P (MAP) Pulse Ox O2 Delivery O2 Flow Rate FiO2 04/09/20 15:26 98.1 107 32 116/98 (104) 96 Room Air Assessment/Plan Acute renal failure Acute respiratory failure Sepsis Toxic metabolic encephalopathy phalangeal Fluid challenge Monitor renal parameters Antibiotics Avoid nephrotoxic's Pulmonary support 2D echocardiogram Kidney ultrasound Per orders Chepe Green MD Apr 10, 2020 11:34
[2020-04-10 12:12] LABS: APPEARANCE,URINE SLIGHTLY CLOUDY; BILIRUBIN, URINE 2+ (NEGATIVE); COLOR,URINE BROWN; GLUCOSE, URINE (UA) NEGATIVE (NEGATIVE); KETONES,URINE 2+ (NEGATIVE); LEUKOCYTE ESTERASE ,URINE 3+ (NEGATIVE); NITRITE,URINE POSITIVE (NEGATIVE); PH,URINE 5 (4.5-8.0); PROTEIN,URINE 2+ (NEGATIVE); UROBILINOGEN,URINE 8 MG/DL (0.0-1.0)
--- NOTE | 2020-04-10 12:22 | Pulmonolgy Critical Care Note ---
Critical Care - Asmt/Plan Problems: (1) Acute respiratory failure (2) Sepsis (3) UTI (urinary tract infection) (4) Altered mental status, unspecified (5) History of depression (6) ATN (acute tubular necrosis) (7) Severe protein-calorie malnutrition Respiratory: monitor respiratory rate, adjust FIO2, CXR Cardiac: continue pressors, continue to monitor HR/BP Renal: F/U I&O, check electrolytes Infectious Disease: check cultures Gastrointestinal: continue feedings/current rate Endocrine: monitor blood sugar, check HgA1C, continue sliding scale insulin Hematologic: transfuse if hgb<8.5 Neurologic: PRN Ativan, PRN Morphine, keep patient comfortable Prophylaxis: Protonix, Heparin Notes Reviewed: cardio Discussed with: nurses, consultants, gearcase assemblermanager animation - Objective Last 24 Hour Vital Signs Date Time Temp Pulse Resp B/P (MAP) Pulse Ox O2 Delivery O2 Flow Rate FiO2 04/10/20 11:00 114 24 128/110 (116) 91 04/10/20 10:44 115 22 100 04/10/20 10:00 116 22 61/53 (56) 81 04/10/20 09:40 40 04/10/20 09:26 117 23 100 04/10/20 09:00 118 22 73/36 (48) 85 04/10/20 08:00 98.6 112 23 76/35 (49) 85 04/10/20 08:00 40 04/10/20 08:00 115 04/10/20 08:00 Mechanical Ventilator 04/10/20 07:28 100 04/10/20 07:00 119 23 76/35 (49) 85 04/10/20 06:48 118 25 40 04/10/20 06:30 120 22 04/10/20 06:00 112 21 91/46 (61) 73 04/10/20 05:00 111 21 101/50 (67) 100 04/10/20 04:50 109 20 40 04/10/20 04:15 110 20 102/42 (62) 100 04/10/20 04:00 110 04/10/20 04:00 97.6 108 21 84/46 (59) 100 04/10/20 04:00 Mechanical Ventilator 04/10/20 03:00 108 20 113/45 (67) 100 04/10/20 02:30 117 20 40 04/10/20 02:30 40 04/10/20 02:00 107 19 86/51 (63) 100 04/10/20 01:10 113 20 40 04/10/20 01:00 117 20 78/52 (61) 100 04/10/20 01:00 Mechanical Ventilator 04/10/20 00:45 118 20 85/60 (68) 100 04/10/20 00:00 Mechanical Ventilator 04/10/20 00:00 101.2 125 20 106/71 (83) 100 04/10/20 00:00 107 04/09/20 23:03 128 20 40 04/09/20 23:00 129 20 125/82 (96) 100 04/09/20 22:00 97.5 126 20 138/84 (102) 100 04/09/20 21:10 109 04/09/20 21:10 112 20 129/75 (93) 100 04/09/20 21:07 50 04/09/20 21:00 Mechanical Ventilator 04/09/20 21:00 97.2 109 20 132/73 (92) 100 04/09/20 20:40 110 20 50 04/09/20 20:15 116 20 50 04/09/20 20:10 98.1 107 21 112/68 100 Mechanical Ventilator 100 04/09/20 19:20 98.1 117 14 103/69 100 Mechanical Ventilator 04/09/20 19:00 117 12 100 04/09/20 17:50 115 12 100 04/09/20 16:59 98.1 113 14 110/62 100 Mechanical Ventilator 04/09/20 16:13 98.1 120 20 65/48 96 Mechanical Ventilator 04/09/20 16:10 120 20 Mechanical Ventilator 04/09/20 15:26 98.1 107 32 116/98 (104) 96 Room Air Status: sedated, obtunded Condition: critical HEENT: atraumatic Neck: full ROM Lungs: clear, chest wall tender Heart: HR/BP stable Abdomen: soft, feeding tube Extremities: edema Micro: Microbiology Date/Time Source Procedure Growth Status 04/09/20 15:40 Nasopharynx SARS-CoV-2 RdRp Gene Assay - Final Complete 04/09/20 18:20 Urine,Clean Catch Urine Culture - Preliminary Gram Negative Dipesh Resulted Critical Care - Subjective ROS Limited/Unobtainable: Yes Condition: critical EKG Rhythm: Sinus Rhythm FI02: 40 Vent Support Breath Rate: 20 Vent Support Mode: AC Vent Tidal Volume: 600 Sputum Amount: Small PEEP: 5.0 PIP: 22 I&O: Intake and Output 04/09/20 04/10/20 19:00 07:00 Intake Total 0 ml 1775 ml Output Total 260 ml Balance 0 ml 1515 ml Intake Oral 0 ml IV Total 1775 ml Output Urine Total 260 ml # Voids 1 # Bowel Movements 6 CXR: ET in good position emphysematous lungs ET-Tube: 7.5 ET Position: 23 Labs: Laboratory Tests Test 04/09/20 15:45 04/09/20 16:20 04/09/20 18:20 04/09/20 18:40 White Blood Count 13.6 K/UL (4.8-10.8) H Red Blood Count 5.18 M/UL (4.20-5.40) Hemoglobin 14.8 G/DL (12.0-16.0) Hematocrit 46.1 % (37.0-47.0) Mean Corpuscular Volume 89 FL (80-99) Mean Corpuscular Hemoglobin 28.5 PG (27.0-31.0) Mean Corpuscular Hemoglobin Concent 32.0 G/DL (32.0-36.0) Red Cell Distribution Width 15.7 % (11.6-14.8) H Platelet Count 506 K/UL (150-450) H Mean Platelet Volume 5.4 FL (6.5-10.1) L Neutrophils (%) (Auto) 52.7 % (45.0-75.0) Lymphocytes (%) (Auto) 39.9 % (20.0-45.0) Monocytes (%) (Auto) 4.7 % (1.0-10.0) Eosinophils (%) (Auto) 1.4 % (0.0-3.0) Basophils (%) (Auto) 1.4 % (0.0-2.0) Sodium Level 135 MMOL/L (136-145) L Potassium Level 4.6 MMOL/L (3.5-5.1) Chloride Level 99 MMOL/L (98-107) Carbon Dioxide Level 18 MMOL/L (21-32) L Anion Gap 18 mmol/L (5-15) H Blood Urea Nitrogen 18 mg/dL (7-18) Creatinine 1.4 MG/DL (0.55-1.30) H Estimat Glomerular Filtration Rate 38.4 mL/min (>60) Glucose Level 208 MG/DL (74-106) H Calcium Level 9.5 MG/DL (8.5-10.1) Ferritin 92 NG/ML (8-388) Total Bilirubin 0.6 MG/DL (0.2-1.0) Aspartate Amino Transf (AST/SGOT) 60 U/L (15-37) H Alanine Aminotransferase (ALT/SGPT) 28 U/L (12-78) Alkaline Phosphatase 221 U/L (46-116) H Lactate Dehydrogenase 367 U/L (81-234) H Troponin I 0.003 ng/mL (0.000-0.056) C-Reactive Protein, Quantitative < 0.4 mg/dL (0.00-0.90) Total Protein 7.9 G/DL (6.4-8.2) Albumin 3.5 G/DL (3.4-5.0) Globulin 4.4 g/dL Albumin/Globulin Ratio 0.8 (1.0-2.7) L Lipase 132 U/L (73-393) Salicylates Level < 0.2 ug/mL (2.8-20) L Acetaminophen Level < 2 MCG/ML (10-30) L Serum Alcohol < 3 mg/dL Lactic Acid Level 5.90 mmol/L (0.4-2.0) H 2.60 mmol/L (0.66-2.22) H Urine Color Yellow Urine Appearance Slightly cloudy Urine pH 6 (4.5-8.0) Urine Specific [place] 1.020 (1.005-1.035) Urine Protein 2+ (NEGATIVE) H Urine Glucose (UA) Negative (NEGATIVE) Urine Ketones Negative (NEGATIVE) Urine Blood 2+ (NEGATIVE) H Urine Nitrite Negative (NEGATIVE) Urine Bilirubin Negative (NEGATIVE) Urine Urobilinogen 4 MG/DL (0.0-1.0) H Urine Leukocyte Esterase 3+ (NEGATIVE) H Urine RBC 5-10 /HPF (0 - 2) H Urine WBC 30-40 /HPF (0 - 2) H Urine Squamous Epithelial Cells Moderate /LPF (NONE/OCC) H Urine Bacteria Many /HPF (NONE) H Urine Opiates Screen Negative (NEGATIVE) Urine Barbiturates Screen Negative (NEGATIVE) Phencyclidine (PCP) Screen Negative (NEGATIVE) Urine Amphetamines Screen Negative (NEGATIVE) Urine Benzodiazepines Screen Negative (NEGATIVE) Urine Cocaine Screen Negative (NEGATIVE) Urine Marijuana (THC) Screen Negative (NEGATIVE) D-Dimer > 35.20 mg/L FEU Magnesium Level 2.5 MG/DL (1.8-2.4) H Test 04/09/20 19:40 04/09/20 22:19 04/10/20 06:12 04/10/20 08:45 Arterial Blood pH 7.040 (7.350-7.450) 7.220 (7.350-7.450) Arterial Blood Partial Pressure CO2 81.3 mmHg (35.0-45.0) *H 60.6 mmHg (35.0-45.0) *H Arterial Blood Partial Pressure O2 522.1 mmHg (75.0-100.0) H 123.9 mmHg (75.0-100.0) H Arterial Blood HCO3 21.5 mmol/L (22.0-26.0) L 24.2 mmol/L (22.0-26.0) Arterial Blood Oxygen Saturation 99.5 % (95-100) 97.9 % (95-100) Arterial Blood Base Excess -10.7 (-2-2) *L -4.4 (-2-2) L Marshall Test Positive Positive White Blood Count 36.5 K/UL (4.8-10.8) #*H Red Blood Count 4.46 M/UL (4.20-5.40) Hemoglobin 12.5 G/DL (12.0-16.0) Hematocrit 40.3 % (37.0-47.0) Mean Corpuscular Volume 90 FL (80-99) Mean Corpuscular Hemoglobin 28.0 PG (27.0-31.0) Mean Corpuscular Hemoglobin Concent 30.9 G/DL (32.0-36.0) L Red Cell Distribution Width 16.1 % (11.6-14.8) H Platelet Count 343 K/UL (150-450) Mean Platelet Volume 5.5 FL (6.5-10.1) L Neutrophils (%) (Auto) % (45.0-75.0) Lymphocytes (%) (Auto) % (20.0-45.0) Monocytes (%) (Auto) % (1.0-10.0) Eosinophils (%) (Auto) % (0.0-3.0) Basophils (%) (Auto) % (0.0-2.0) Differential Total Cells Counted 100 Neutrophils % (Manual) 73 % (45-75) Lymphocytes % (Manual) 3 % (20-45) L Monocytes % (Manual) 11 % (1-10) H Eosinophils % (Manual) 0 % (0-3) Basophils % (Manual) 0 % (0-2) Band Neutrophils 13 % (0-8) H Platelet Estimate Adequate Platelet Morphology Normal Hypochromasia Occasional Anisocytosis 1+ Prothrombin Time 14.5 SEC (9.30-11.50) H 14.7 SEC (9.30-11.50) H Prothromb Time International Ratio 1.3 (0.9-1.1) H 1.4 (0.9-1.1) H Activated Partial Thromboplast Time 50 SEC (23-33) H 56 SEC (23-33) H Sodium Level 144 MMOL/L (136-145) Potassium Level 4.3 MMOL/L (3.5-5.1) Chloride Level 107 MMOL/L (98-107) Carbon Dioxide Level 23 MMOL/L (21-32) Anion Gap 15 mmol/L (5-15) Blood Urea Nitrogen 31 mg/dL (7-18) H Creatinine 2.1 MG/DL (0.55-1.30) H Estimat Glomerular Filtration Rate 24.0 mL/min (>60) Glucose Level 99 MG/DL (74-106) # Lactic Acid Level 4.60 mmol/L (0.66-2.22) H Uric Acid 6.3 MG/DL (2.6-7.2) Calcium Level 7.2 MG/DL (8.5-10.1) #L Phosphorus Level 5.7 MG/DL (2.5-4.9) H Magnesium Level 2.3 MG/DL (1.8-2.4) Iron Level 15 ug/dL (50-175) L Total Iron Binding Capacity 228 ug/dL (250-450) L Percent Iron Saturation 7 % (15-50) L Unsaturated Iron Binding 213 ug/dL (112-346) Total Bilirubin 0.7 MG/DL (0.2-1.0) Direct Bilirubin 0.3 MG/DL (0.0-0.3) Aspartate Amino Transf (AST/SGOT) 183 U/L (15-37) H Alanine Aminotransferase (ALT/SGPT) 76 U/L (12-78) Alkaline Phosphatase 529 U/L (46-116) H Lactate Dehydrogenase 491 U/L (81-234) H Total Creatine Kinase 3759 U/L (26-308) H Troponin I 0.344 ng/mL (0.000-0.056) C-Reactive Protein, Quantitative 4.7 mg/dL (0.00-0.90) H Pro-B-Type Natriuretic Peptide 4300 pg/mL (0-125) H Total Protein 5.4 G/DL (6.4-8.2) #L Albumin 2.4 G/DL (3.4-5.0) L Globulin 3.0 g/dL Albumin/Globulin Ratio 0.8 (1.0-2.7) L Vitamin B12 Level 724 PG/ML (193-986) Folate 17.8 NG/ML (8.6-58.9) Thyroid Stimulating Hormone (TSH) 1.149 uiU/mL (0.358-3.740) Cortisol AM Sample Pending Erythrocyte Sedimentation Rate 9 MM/HR (0-30) Reticulocyte Count Pending Carcinoembryonic Antigen Pending Test 04/10/20 09:26 04/10/20 12:00 04/10/20 12:10 Arterial Blood pH 7.215 (7.350-7.450) Arterial Blood Partial Pressure CO2 39.6 mmHg (35.0-45.0) Arterial Blood Partial Pressure O2 335.9 mmHg (75.0-100.0) H Arterial Blood HCO3 15.7 mmol/L (22.0-26.0) *L Arterial Blood Oxygen Saturation 99.4 % (95-100) Arterial Blood Base Excess -11.4 (-2-2) *L Marshall Test Positive Urine Color Pending Urine Appearance Pending Urine pH Pending Urine Specific [place] Pending Urine Protein Pending Urine Glucose (UA) Pending Urine Ketones Pending Urine Blood Pending Urine Nitrite Pending Urine Bilirubin Pending Urine Urobilinogen Pending Urine Leukocyte Esterase Pending Urine RBC Pending Urine WBC Pending Urine Squamous Epithelial Cells Pending Urine Bacteria Pending Urine Random Sodium Pending Stool Occult Blood Pending Troponin I Pending Helena Rivera MD Apr 10, 2020 12:22
--- NOTE | 2020-04-10 12:24 | NUR ---
NURSE NOTES: Patient seen by Dr Rivera, made aware WBC new consult for ID, .Also made aware of all medication taken at home with order to discontinue at this time.Occult blood and urine collected and send to labs.Hemodynamically more stable at this time.BP 115/65 HR 115 and Saturate at 100% at this time.Patient noted with T 1001.2, cooling measure applied, unable to give Tylenol at this time , no GT.Patient turned and repositioned.HOB elevated to prevent aspiration,will continue to monitor.
[2020-04-10] MEDS ORDERED: Amikacin Rx to dose MISC PRN (12:30)
--- NOTE | 2020-04-10 12:38 | NUR ---
GORING CUTTER NOTE PT is currently intubated and was sleeping when this SW attempted to meet w/ pt. SW left a vm to pt's son, Abisai fernandes [phone] for call back. Per chart review, pt's address is [facility] [place] [address]. AD status is unknown. Other emergency contact: Chepe Fernandes [phone]
--- NOTE | 2020-04-10 12:56 | NUR ---
NURSE NOTES Left subclavian line placed by Dr Almanzar, awaiting for radiology for confirmation.
--- NOTE | 2020-04-10 12:57 | Operative Note - PDOC ---
Operative Note Operative Note Date of Operation/Procedure: Apr 10, 2020 Pre-op Diagnosis: sepsis COVID + Procedure: Left subclavian central venous catheter insertion Post-op Diagnosis: same as pre-op Surgeon: Monty Álvarez MD Anesthesia: local Specimen: none Complications: none Condition: unstable Estimated Blood Loss: minimal Drains: none Implant(s) used?: Yes Indications for Procedure 60F septic critically ill in ICU on ventilatory support. needs central venous access for care plan deteriorating meds, fluids, pressors needed emergent medical necessity Description of Procedure patient made comfortable at bedside in supine trend position. left chest wall prepped and draped in standard surgical fashion. 1% local infiltrated. anatomy identified. finder needle used and left subclavian vein cannulated on first stick. good venous flow noted. guidewire placed over needle and needle removed. small skin incision made around the wire and dilator used. triple lumen catheter placed and wire removed. all three ports flushed and aspirated well. line sutured in place. dressings applied. cxr ordered. Monty Álvarez Apr 10, 2020 12:57
--- NOTE | 2020-04-10 13:00 | History & Physical ---
History and Physical History & Physicial Dictated for Int Med-Taras Rivera MD Apr 10, 2020 13:00
--- NOTE | 2020-04-10 13:31 | NUR ---
CASE MANAGEMENT:INITIAL REVIEW 60 YR OLD FEMALE BIBA FROM [facility] CC;GENERAL COMPLAINT SI;RESPIRATORY DISTRESS 98.1 120 32 65/48 83% NRB ~ ORALLY INTUBATED IN ED WBC 13.6 PLT 506 NA 135 CO2 18 ANION GAP 18 CR 1.4 BG 208 AST 60 ALK PHOS 221 D-DIMER 35.20 UA+ PROTEIN, BLOOD, UROBILINOGEN, LEUKOCYTE ESTERASE, RBC, WBC, SEC, BACTERIA URINE TOX ~ SALICYLATES <0.2 ACETAMINOPHEN <2 ABG pH 7.040 pCO2 81.3 pO2 522.1 HCO3 21.5 BASE EXCESS -10.7 COVID RAPID ~ NEGATIVE URINE CX+ GRAM NEG HERNAN >100,000 IS;IVF NS BOLUS ETOMIDATE IV ADMITTED TO ICU 04/09/20 @ 2250 ICU STATUS DCP;FROM [facility] Addendum: 04/10/20 at 1344 by CHANG GUZMAN LVN LVN SI;CXR ~ Endotracheal tube in good position. Mild left basilar atelectasis. Chronic apical pleural parenchymal scarring. CHEST CHEST ~ Indeterminate areas of nodularity and irregular consolidation indeterminate for infectious, inflammatory or neoplastic etiology. Recommend pulmonary consultation and short-term interval follow-up. Small amount of debris in the left, greater than right bronchi. Mild mediastinal and hilar lymphadenopathy.
--- NOTE | 2020-04-10 13:41 | NUR ---
SI;CXR ~ Endotracheal tube in good position. Mild left basilar atelectasis. Chronic apical pleural parenchymal scarring. CHEST CHEST ~ Indeterminate areas of nodularity and irregular consolidation indeterminate for infectious, inflammatory or neoplastic etiology. Recommend pulmonary consultation and short-term interval follow-up. Small amount of debris in the left, greater than right bronchi. Mild mediastinal and hilar lymphadenopathy. Addendum: 04/10/20 at 1344 by CHANG GUZMAN LVN LVN ENTRY ERROR
--- NOTE | 2020-04-10 14:07 | NUR ---
NURSE NOTES: Patient turned and repositioned, noted with decrease in blood pressure will follow up with Dr Rivera for standby Levophed.Call light within easy reach, will continue close monitoring
[2020-04-10] MEDS ORDERED: Tubing IV Secondary IV ONE (14:20)
[2020-04-10] MEDS ORDERED: D5 1/2NS 1000ml IV ONE (14:20)
[2020-04-10] MEDS ORDERED: NS 500ML ONE (14:20)
--- NOTE | 2020-04-10 14:39 | Operative Note - PDOC ---
Operative Note Operative Note Date of Operation/Procedure: Apr 10, 2020 Pre-op Diagnosis: sepsis COVID + Procedure: Left subclavian central venous catheter removal Post-op Diagnosis: same as pre-op Surgeon: Monty Álvarez MD Anesthesia: local Specimen: none Complications: none Condition: unstable Estimated Blood Loss: minimal Drains: none Implant(s) used?: No Description of Procedure Chest x-ray performed patient identified to have the left subclavian line entering into the internal jugular transversing up. Multiple local attempts were made at repositioning the catheter but unable to do so. Considerations strongly for potential a central venous stenosis of some kind or aberrant anatomy. Given the fact patient is septic and will likely need pressors given how hypotensive she is line will be removed and a different position will be used for central venous catheter.Dressings were removed li line sutures were ligated line was removed dressings were applied Monty Álvarez Apr 10, 2020 14:39
--- NOTE | 2020-04-10 14:41 | Operative Note - PDOC ---
Operative Note Operative Note Date of Operation/Procedure: Apr 10, 2020 Pre-op Diagnosis: sepsis COVID + Procedure: Right femoral central venous catheter insertion Post-op Diagnosis: same as pre-op Surgeon: Monty Álvarez MD Anesthesia: local Specimen: none Complications: none Condition: unstable Estimated Blood Loss: minimal Drains: none Implant(s) used?: No Indications for Procedure See prior operative notes Description of Procedure The bedside. The right groin is prepped draped in the same surgical fashion. Local anesthetic was infiltrated. The right femoral vein was cannulated on first stick. Guidewire placed through the finder needle finder needle removed. Small skin cyst made around the guidewire and dilator was used. Triple-lumen catheter was inserted over the guidewire and guidewire was removed and discarded. All 3 ports flushed and aspirated venous blood appropriately. Line was sutured in place dressings were applied. Patient taught procedure well. Line okay for use. Monty Álvarez Apr 10, 2020 14:41
--- NOTE | 2020-04-10 14:41 | Internal Med Progress Note ---
Subjective Physician Name Adalberto Monk Attending Physician Adalberto Monk MD Current Medications Medications (Trade) Dose Ordered Sig/Issa Route PRN Reason Start Time Stop Time Status Last Admin Dose Admin Acetaminophen (Tylenol) 650 mg Q4H PRN ORAL T>100.5 04/10/20 09:00 05/10/20 08:59 Albuterol/ Ipratropium (Albuterol/ Ipratropium) 3 ml Q4H PRN HHN Shortness of Breath 04/09/20 19:15 04/14/20 19:14 Amikacin Protocol (Amikacin pharmacy to dose) 1 ea DAILY PRN MISC Per rx protocol 04/10/20 12:30 05/10/20 12:29 Amikacin Sulfate 750 mg/Sodium Chloride 113 ml @ 113 mls/hr ONCE IV 04/10/20 18:00 04/10/20 21:00 Aztreonam 0.5 gm/ Dextrose 55 ml @ 110 mls/hr Q8HR IVPB 04/10/20 14:00 04/17/20 13:59 Chlorhexidine Gluconate (Elin-Hex 2%) 1 applic DAILY@2000 TOPIC 04/10/20 20:00 07/09/20 19:59 Dextrose (Dextrose 50%) 25 ml Q30M PRN IV Hypoglycemia 04/09/20 19:15 07/08/20 19:14 Dextrose (Dextrose 50%) 50 ml Q30M PRN IV Hypoglycemia 04/09/20 19:15 07/08/20 19:14 Dextrose/Sodium Chloride 1,000 ml @ 150 mls/hr Q6H40M IV 04/10/20 12:30 05/09/20 12:29 04/10/20 14:21 Heparin Sodium (Porcine) (Heparin 5000 units/ml) 5,000 units EVERY 12 HOURS SUBQ 04/10/20 09:00 05/25/20 08:59 04/10/20 09:17 Iohexol (Omnipaque 350 100ml) 100 ml NOW PRN INJ Radiology Procedure 04/09/20 19:45 04/11/20 19:39 Lorazepam (Ativan 2mg/ml 1ml) 2 mg Q2H PRN IV agitation 04/09/20 19:15 04/16/20 19:14 Morphine Sulfate (Morphine Sulfate) 4 mg Q4H PRN IVP Severe Pain (Pain Scale 7-10) 04/09/20 19:15 04/16/20 19:14 Nitroglycerin (Ntg) 0.4 mg Q5MIN X 3 DOSES PRN SL Prn Chest Pain 04/09/20 19:15 05/09/20 19:14 Ondansetron HCl (Zofran) 4 mg Q6H PRN IVP Nausea & Vomiting 04/09/20 19:15 05/09/20 19:14 Vancomycin HCl (Vanco pharmacy to dose) 1 ea DAILY PRN MISC Per rx protocol 04/10/20 12:30 05/10/20 12:29 Vancomycin HCl 1 gm/Sodium Chloride 275 ml @ 183.708 mls/hr ONCE IVPB 04/10/20 15:00 04/10/20 18:00 Allergies: Coded Allergies: CEPHALOSPORINS (Verified Allergy, Intermediate, Anaphylaxis, 12/14/12) DIAZEPAM (Verified Allergy, Intermediate, DYSTONIC, 12/14/12) SUMATRIPTAN (Verified Allergy, Intermediate, 12/14/12) SUMATRIPTAN SUCCINATE (Verified Allergy, Intermediate, 12/14/12) TRAMADOL (Verified Allergy, Intermediate, Anaphylaxis, 12/14/12) CEPHALEXIN (Unverified Allergy, Unknown, 10/25/19) PENICILLINS (Unverified Allergy, Unknown, 08/26/18) Uncoded Allergies: PCN (Allergy, Unknown, 10/25/19) Objective Last Vital Signs Date Time Temp Pulse Resp B/P (MAP) Pulse Ox O2 Delivery O2 Flow Rate FiO2 04/10/20 12:41 115 20 100 04/10/20 12:00 101.1 115/65 (82) 95 04/10/20 12:00 Mechanical Ventilator Laboratory Tests Test 04/09/20 15:45 04/09/20 16:20 04/09/20 18:20 04/09/20 18:40 White Blood Count 13.6 K/UL (4.8-10.8) H Red Blood Count 5.18 M/UL (4.20-5.40) Hemoglobin 14.8 G/DL (12.0-16.0) Hematocrit 46.1 % (37.0-47.0) Mean Corpuscular Volume 89 FL (80-99) Mean Corpuscular Hemoglobin 28.5 PG (27.0-31.0) Mean Corpuscular Hemoglobin Concent 32.0 G/DL (32.0-36.0) Red Cell Distribution Width 15.7 % (11.6-14.8) H Platelet Count 506 K/UL (150-450) H Mean Platelet Volume 5.4 FL (6.5-10.1) L Neutrophils (%) (Auto) 52.7 % (45.0-75.0) Lymphocytes (%) (Auto) 39.9 % (20.0-45.0) Monocytes (%) (Auto) 4.7 % (1.0-10.0) Eosinophils (%) (Auto) 1.4 % (0.0-3.0) Basophils (%) (Auto) 1.4 % (0.0-2.0) Sodium Level 135 MMOL/L (136-145) L Potassium Level 4.6 MMOL/L (3.5-5.1) Chloride Level 99 MMOL/L (98-107) Carbon Dioxide Level 18 MMOL/L (21-32) L Anion Gap 18 mmol/L (5-15) H Blood Urea Nitrogen 18 mg/dL (7-18) Creatinine 1.4 MG/DL (0.55-1.30) H Estimat Glomerular Filtration Rate 38.4 mL/min (>60) Glucose Level 208 MG/DL (74-106) H Calcium Level 9.5 MG/DL (8.5-10.1) Ferritin 92 NG/ML (8-388) Total Bilirubin 0.6 MG/DL (0.2-1.0) Aspartate Amino Transf (AST/SGOT) 60 U/L (15-37) H Alanine Aminotransferase (ALT/SGPT) 28 U/L (12-78) Alkaline Phosphatase 221 U/L (46-116) H Lactate Dehydrogenase 367 U/L (81-234) H Troponin I 0.003 ng/mL (0.000-0.056) C-Reactive Protein, Quantitative < 0.4 mg/dL (0.00-0.90) Total Protein 7.9 G/DL (6.4-8.2) Albumin 3.5 G/DL (3.4-5.0) Globulin 4.4 g/dL Albumin/Globulin Ratio 0.8 (1.0-2.7) L Lipase 132 U/L (73-393) Salicylates Level < 0.2 ug/mL (2.8-20) L Acetaminophen Level < 2 MCG/ML (10-30) L Serum Alcohol < 3 mg/dL Lactic Acid Level 5.90 mmol/L (0.4-2.0) H 2.60 mmol/L (0.66-2.22) H Urine Color Yellow Urine Appearance Slightly cloudy Urine pH 6 (4.5-8.0) Urine Specific [place] 1.020 (1.005-1.035) Urine Protein 2+ (NEGATIVE) H Urine Glucose (UA) Negative (NEGATIVE) Urine Ketones Negative (NEGATIVE) Urine Blood 2+ (NEGATIVE) H Urine Nitrite Negative (NEGATIVE) Urine Bilirubin Negative (NEGATIVE) Urine Urobilinogen 4 MG/DL (0.0-1.0) H Urine Leukocyte Esterase 3+ (NEGATIVE) H Urine RBC 5-10 /HPF (0 - 2) H Urine WBC 30-40 /HPF (0 - 2) H Urine Squamous Epithelial Cells Moderate /LPF (NONE/OCC) H Urine Bacteria Many /HPF (NONE) H Urine Opiates Screen Negative (NEGATIVE) Urine Barbiturates Screen Negative (NEGATIVE) Phencyclidine (PCP) Screen Negative (NEGATIVE) Urine Amphetamines Screen Negative (NEGATIVE) Urine Benzodiazepines Screen Negative (NEGATIVE) Urine Cocaine Screen Negative (NEGATIVE) Urine Marijuana (THC) Screen Negative (NEGATIVE) D-Dimer > 35.20 mg/L FEU Magnesium Level 2.5 MG/DL (1.8-2.4) H Test 04/09/20 19:40 04/09/20 22:19 04/10/20 06:12 04/10/20 08:45 Arterial Blood pH 7.040 (7.350-7.450) 7.220 (7.350-7.450) Arterial Blood Partial Pressure CO2 81.3 mmHg (35.0-45.0) *H 60.6 mmHg (35.0-45.0) *H Arterial Blood Partial Pressure O2 522.1 mmHg (75.0-100.0) H 123.9 mmHg (75.0-100.0) H Arterial Blood HCO3 21.5 mmol/L (22.0-26.0) L 24.2 mmol/L (22.0-26.0) Arterial Blood Oxygen Saturation 99.5 % (95-100) 97.9 % (95-100) Arterial Blood Base Excess -10.7 (-2-2) *L -4.4 (-2-2) L Marshall Test Positive Positive White Blood Count 36.5 K/UL (4.8-10.8) #*H Red Blood Count 4.46 M/UL (4.20-5.40) Hemoglobin 12.5 G/DL (12.0-16.0) Hematocrit 40.3 % (37.0-47.0) Mean Corpuscular Volume 90 FL (80-99) Mean Corpuscular Hemoglobin 28.0 PG (27.0-31.0) Mean Corpuscular Hemoglobin Concent 30.9 G/DL (32.0-36.0) L Red Cell Distribution Width 16.1 % (11.6-14.8) H Platelet Count 343 K/UL (150-450) Mean Platelet Volume 5.5 FL (6.5-10.1) L Neutrophils (%) (Auto) % (45.0-75.0) Lymphocytes (%) (Auto) % (20.0-45.0) Monocytes (%) (Auto) % (1.0-10.0) Eosinophils (%) (Auto) % (0.0-3.0) Basophils (%) (Auto) % (0.0-2.0) Differential Total Cells Counted 100 Neutrophils % (Manual) 73 % (45-75) Lymphocytes % (Manual) 3 % (20-45) L Monocytes % (Manual) 11 % (1-10) H Eosinophils % (Manual) 0 % (0-3) Basophils % (Manual) 0 % (0-2) Band Neutrophils 13 % (0-8) H Platelet Estimate Adequate Platelet Morphology Normal Hypochromasia Occasional Anisocytosis 1+ Prothrombin Time 14.5 SEC (9.30-11.50) H 14.7 SEC (9.30-11.50) H Prothromb Time International Ratio 1.3 (0.9-1.1) H 1.4 (0.9-1.1) H Activated Partial Thromboplast Time 50 SEC (23-33) H 56 SEC (23-33) H Sodium Level 144 MMOL/L (136-145) Potassium Level 4.3 MMOL/L (3.5-5.1) Chloride Level 107 MMOL/L (98-107) Carbon Dioxide Level 23 MMOL/L (21-32) Anion Gap 15 mmol/L (5-15) Blood Urea Nitrogen 31 mg/dL (7-18) H Creatinine 2.1 MG/DL (0.55-1.30) H Estimat Glomerular Filtration Rate 24.0 mL/min (>60) Glucose Level 99 MG/DL (74-106) # Lactic Acid Level 4.60 mmol/L (0.66-2.22) H Uric Acid 6.3 MG/DL (2.6-7.2) Calcium Level 7.2 MG/DL (8.5-10.1) #L Phosphorus Level 5.7 MG/DL (2.5-4.9) H Magnesium Level 2.3 MG/DL (1.8-2.4) Iron Level 15 ug/dL (50-175) L Total Iron Binding Capacity 228 ug/dL (250-450) L Percent Iron Saturation 7 % (15-50) L Unsaturated Iron Binding 213 ug/dL (112-346) Total Bilirubin 0.7 MG/DL (0.2-1.0) Direct Bilirubin 0.3 MG/DL (0.0-0.3) Aspartate Amino Transf (AST/SGOT) 183 U/L (15-37) H Alanine Aminotransferase (ALT/SGPT) 76 U/L (12-78) Alkaline Phosphatase 529 U/L (46-116) H Lactate Dehydrogenase 491 U/L (81-234) H Total Creatine Kinase 3759 U/L (26-308) H Troponin I 0.344 ng/mL (0.000-0.056) C-Reactive Protein, Quantitative 4.7 mg/dL (0.00-0.90) H Pro-B-Type Natriuretic Peptide 4300 pg/mL (0-125) H Total Protein 5.4 G/DL (6.4-8.2) #L Albumin 2.4 G/DL (3.4-5.0) L Globulin 3.0 g/dL Albumin/Globulin Ratio 0.8 (1.0-2.7) L Vitamin B12 Level 724 PG/ML (193-986) Folate 17.8 NG/ML (8.6-58.9) Thyroid Stimulating Hormone (TSH) 1.149 uiU/mL (0.358-3.740) Cortisol AM Sample Pending Erythrocyte Sedimentation Rate 9 MM/HR (0-30) Reticulocyte Count 1.2 % (0.5-2.0) Carcinoembryonic Antigen Pending Test 04/10/20 09:26 04/10/20 12:00 04/10/20 12:10 Arterial Blood pH 7.215 (7.350-7.450) Arterial Blood Partial Pressure CO2 39.6 mmHg (35.0-45.0) Arterial Blood Partial Pressure O2 335.9 mmHg (75.0-100.0) H Arterial Blood HCO3 15.7 mmol/L (22.0-26.0) *L Arterial Blood Oxygen Saturation 99.4 % (95-100) Arterial Blood Base Excess -11.4 (-2-2) *L Marshall Test Positive Urine Color Brown Urine Appearance Slightly cloudy Urine pH 5 (4.5-8.0) Urine Specific [place] 1.010 (1.005-1.035) Urine Protein 2+ (NEGATIVE) H Urine Glucose (UA) Negative (NEGATIVE) Urine Ketones 2+ (NEGATIVE) H Urine Blood 5+ (NEGATIVE) H Urine Nitrite Positive (NEGATIVE) H Urine Bilirubin 2+ (NEGATIVE) H Urine Ictotest Negative (NEGATIVE) Urine Urobilinogen 8 MG/DL (0.0-1.0) H Urine Leukocyte Esterase 3+ (NEGATIVE) H Urine RBC 60-80 /HPF (0 - 2) H Urine WBC 15-20 /HPF (0 - 2) H Urine Squamous Epithelial Cells Few /LPF (NONE/OCC) Urine Bacteria Many /HPF (NONE) H Urine Random Sodium 40 mmol/L (20-110) Stool Occult Blood Pending Troponin I 0.302 ng/mL (0.000-0.056) Microbiology Date/Time Source Procedure Growth Status 04/09/20 15:40 Nasopharynx SARS-CoV-2 RdRp Gene Assay - Final Complete 04/09/20 18:20 Urine,Clean Catch Urine Culture - Preliminary Gram Negative Dipesh Resulted Intake and Output 04/09/20 04/10/20 19:00 07:00 Intake Total 0 ml 1775 ml Output Total 260 ml Balance 0 ml 1515 ml Intake Oral 0 ml IV Total 1775 ml Output Urine Total 260 ml # Voids 1 # Bowel Movements 6 Adalberto Monk MD Apr 10, 2020 14:41
--- NOTE | 2020-04-10 14:54 | Diagnostic Imaging Report ---
Indication: Abnormal renal function tests, acute renal failure Technique: Grayscale and duplex images of the kidneys, retroperitoneum, and bladder were obtained. Comparison: none Findings: Right kidney measures 10.6 cm in length. Left kidney measures 11.7 cm in length. Both kidneys demonstrate normal echogenicity. There is very mild bilateral hydronephrosis. No focal abnormality. Normal inferior vena cava. Bladder is empty, contains a Chaves catheter. Incidentally noted are gallstones. The common bile duct is dilated, measuring 9 mm in thickness. The gallbladder wall is not thickened. Impression: Very mild bilateral hydronephrosis, significance/etiology uncertain. Empty bladder with a Chaves catheter Cholelithiasis incidentally noted. Also noted is dilatation of the common bile duct, to 9 mm. Correlation with liver function tests is recommended..
--- NOTE | 2020-04-10 14:56 | Diagnostic Imaging Report ---
Indication: Post line placement Technique: One view of the chest Comparison: 04/09/2020 Findings: Interim placement left subclavian central venous catheter, shaft of which is oriented cephalad, tip projecting beyond the edge of the image, presumably in the left internal jugular vein. Stable satisfactory position of endotracheal tube. No pneumothorax. Left hilar fullness is unchanged. No new infiltrates. Impression: Interim left subclavian venous catheter placement, with the tip apparently pointed retrograde within the left internal jugular vein. Per technologist notes, referring physician is aware No radiographically evident complication Otherwise stable findings as described
[2020-04-10] MEDS ORDERED: Vancomycin 1 GM in NS 275 ML IVPB SCH (15:00)
--- NOTE | 2020-04-10 15:02 | NUR ---
RADIOLOGY DEPT., CHEST X-RAY FOR LINE PLCMT COMPLETED.-P.DYE
--- NOTE | 2020-04-10 15:29 | NUR ---
INSURANCE CLINICALS AND REVIEW HAVE BEEN FAXED TO [employer] P: [phone] F: [phone]
[2020-04-10] MEDS: Aztreonam Inj 0.5 GM in D5W 55 ML IVPB SCH ×2 (15:55→21:10)
--- NOTE | 2020-04-10 16:05 | NUR ---
NURSE NOTES: Patient ADLs done, turned and repositioned. Hemodynamically unstable, order received for Levophed drip from Dr Rivera. OGT inserted awaiting for comfirmation. Mouth care done and suctioned as tolerated.Will continue close monitoring
--- NOTE | 2020-04-10 17:06 | NUR ---
NURSE NOTES: Patient visited by son Chepe Fernandes and update given.From now he will be the decision maker since the next of kin Abisai Fernandes not in a town. Consent received from next of kin and witness by charge nurse to transfer the next of kin to Chepe Dom
--- NOTE | 2020-04-10 17:31 | Diagnostic Imaging Report ---
EXAM: XR Abdomen, 1 View CLINICAL HISTORY: NGT TECHNIQUE: Frontal supine view of the abdomen/pelvis. COMPARISON: No relevant prior studies available. FINDINGS: Gastrointestinal tract: Unremarkable. No dilation. Organs: Contrast material within the renal collecting systems. Bones/joints: Degenerative changes in the lumbar spine. Tubes, lines and devices: Gastric decompression tube terminates in the gastric antrum/pylorus. Right femoral central line in place. IMPRESSION: Gastric decompression tube terminates in the gastric antrum/pylorus.
[2020-04-10] MEDS ORDERED: Amikacin 750 MG in NS 110 ML IV SCH (18:00)
--- NOTE | 2020-04-10 18:05 | NUR ---
NURSE NOTES: Levophed started due to SBP at 70.Will continue close monitoring.Mouth care done and suctioned as tolerated.ADLs performed, turned and repositioned. HOB elevated to prevent aspiration.Seen by Dr Lewis,will follow up with new orders.Call light within easy reach.
--- NOTE | 2020-04-10 18:20 | Cardiology Progress Note ---
Assessment/Plan Assessment/Plan respiratory failure hypotension sepsis cad s/p luis 2018 icm arf aortic regurgitation infitlrates ct chest Indeterminate areas of nodularity and irregular consolidation indeterminate for infectious, inflammatory or neoplastic etiology. Recommend pulmonary consultation and short-term interval follow-up. Small amount of debris in the left, greater than right bronchi. Mild mediastinal and hilar lymphadenopathy cr worse tioday echo prelimg systolic dysfunction er 40% mod AR has received several liters of ivf ekg noted sinus abn torp likey due to renal isnuf / demand keep on pressor for empric abx repat cardiac enzymes relief captain med nto clear but was on methadone and on ecotrin will resume Ecotrin hen able to to take ng or po med watch for with drawl form narcotic statin and ecotrin when abl to reseuem Subjective ROS Limited/Unobtainable: Yes Objective Last 24 Hour Vital Signs Date Time Temp Pulse Resp B/P (MAP) Pulse Ox O2 Delivery O2 Flow Rate FiO2 04/10/20 17:53 76/42 04/10/20 17:16 123 20 100 04/10/20 17:00 123 20 72/49 (57) 88 04/10/20 16:00 124 04/10/20 16:00 Mechanical Ventilator 04/10/20 16:00 100.1 124 20 82/44 (57) 100 04/10/20 16:00 100 04/10/20 15:19 123 20 100 04/10/20 15:00 123 21 85/47 (60) 100 04/10/20 14:00 117 19 79/45 (56) 100 04/10/20 13:00 115 20 76/47 (57) 100 04/10/20 12:41 115 20 100 04/10/20 12:00 101.1 114 25 115/65 (82) 95 04/10/20 12:00 Mechanical Ventilator 04/10/20 12:00 100 04/10/20 12:00 114 04/10/20 11:00 114 24 128/110 (116) 91 04/10/20 10:44 115 22 100 04/10/20 10:00 116 22 61/53 (56) 81 04/10/20 09:40 40 04/10/20 09:26 117 23 100 04/10/20 09:00 118 22 73/36 (48) 85 04/10/20 08:00 98.6 112 23 76/35 (49) 85 04/10/20 08:00 100 04/10/20 08:00 115 04/10/20 08:00 Mechanical Ventilator 04/10/20 07:28 100 04/10/20 07:00 119 23 76/35 (49) 85 04/10/20 06:48 118 25 40 04/10/20 06:30 120 22 04/10/20 06:00 112 21 91/46 (61) 73 04/10/20 05:00 111 21 101/50 (67) 100 04/10/20 04:50 109 20 40 04/10/20 04:15 110 20 102/42 (62) 100 04/10/20 04:00 110 04/10/20 04:00 97.6 108 21 84/46 (59) 100 04/10/20 04:00 Mechanical Ventilator 04/10/20 03:00 108 20 113/45 (67) 100 04/10/20 02:30 117 20 40 04/10/20 02:30 40 04/10/20 02:00 107 19 86/51 (63) 100 04/10/20 01:10 113 20 40 04/10/20 01:00 117 20 78/52 (61) 100 04/10/20 01:00 Mechanical Ventilator 04/10/20 00:45 118 20 85/60 (68) 100 04/10/20 00:00 Mechanical Ventilator 04/10/20 00:00 101.2 125 20 106/71 (83) 100 04/10/20 00:00 107 04/09/20 23:03 128 20 40 04/09/20 23:00 129 20 125/82 (96) 100 04/09/20 22:00 97.5 126 20 138/84 (102) 100 04/09/20 21:10 109 04/09/20 21:10 112 20 129/75 (93) 100 04/09/20 21:07 50 04/09/20 21:00 Mechanical Ventilator 04/09/20 21:00 97.2 109 20 132/73 (92) 100 04/09/20 20:40 110 20 50 04/09/20 20:15 116 20 50 04/09/20 20:10 98.1 107 21 112/68 100 Mechanical Ventilator 100 04/09/20 19:20 98.1 117 14 103/69 100 Mechanical Ventilator 04/09/20 19:00 117 12 100 General Appearance: no apparent distress, on vent, patient on isolation, isolation precautions Extremities: no swelling Intake and Output 04/09/20 04/10/20 19:00 07:00 Intake Total 0 ml 1775 ml Output Total 260 ml Balance 0 ml 1515 ml Intake Oral 0 ml IV Total 1775 ml Output Urine Total 260 ml # Voids 1 # Bowel Movements 6 Laboratory Tests Test 04/09/20 18:20 04/09/20 18:40 04/09/20 19:40 04/09/20 22:19 Urine Color Yellow Urine Appearance Slightly cloudy Urine pH 6 (4.5-8.0) Urine Specific [place] 1.020 (1.005-1.035) Urine Protein 2+ (NEGATIVE) H Urine Glucose (UA) Negative (NEGATIVE) Urine Ketones Negative (NEGATIVE) Urine Blood 2+ (NEGATIVE) H Urine Nitrite Negative (NEGATIVE) Urine Bilirubin Negative (NEGATIVE) Urine Urobilinogen 4 MG/DL (0.0-1.0) H Urine Leukocyte Esterase 3+ (NEGATIVE) H Urine RBC 5-10 /HPF (0 - 2) H Urine WBC 30-40 /HPF (0 - 2) H Urine Squamous Epithelial Cells Moderate /LPF (NONE/OCC) H Urine Bacteria Many /HPF (NONE) H Urine Opiates Screen Negative (NEGATIVE) Urine Barbiturates Screen Negative (NEGATIVE) Phencyclidine (PCP) Screen Negative (NEGATIVE) Urine Amphetamines Screen Negative (NEGATIVE) Urine Benzodiazepines Screen Negative (NEGATIVE) Urine Cocaine Screen Negative (NEGATIVE) Urine Marijuana (THC) Screen Negative (NEGATIVE) D-Dimer > 35.20 mg/L FEU Lactic Acid Level 2.60 mmol/L (0.66-2.22) H Magnesium Level 2.5 MG/DL (1.8-2.4) H Arterial Blood pH 7.040 (7.350-7.450) 7.220 (7.350-7.450) Arterial Blood Partial Pressure CO2 81.3 mmHg (35.0-45.0) *H 60.6 mmHg (35.0-45.0) *H Arterial Blood Partial Pressure O2 522.1 mmHg (75.0-100.0) H 123.9 mmHg (75.0-100.0) H Arterial Blood HCO3 21.5 mmol/L (22.0-26.0) L 24.2 mmol/L (22.0-26.0) Arterial Blood Oxygen Saturation 99.5 % (95-100) 97.9 % (95-100) Arterial Blood Base Excess -10.7 (-2-2) *L -4.4 (-2-2) L Marshall Test Positive Positive Test 04/10/20 06:12 04/10/20 08:45 04/10/20 09:26 04/10/20 12:00 White Blood Count 36.5 K/UL (4.8-10.8) #*H Red Blood Count 4.46 M/UL (4.20-5.40) Hemoglobin 12.5 G/DL (12.0-16.0) Hematocrit 40.3 % (37.0-47.0) Mean Corpuscular Volume 90 FL (80-99) Mean Corpuscular Hemoglobin 28.0 PG (27.0-31.0) Mean Corpuscular Hemoglobin Concent 30.9 G/DL (32.0-36.0) L Red Cell Distribution Width 16.1 % (11.6-14.8) H Platelet Count 343 K/UL (150-450) Mean Platelet Volume 5.5 FL (6.5-10.1) L Neutrophils (%) (Auto) % (45.0-75.0) Lymphocytes (%) (Auto) % (20.0-45.0) Monocytes (%) (Auto) % (1.0-10.0) Eosinophils (%) (Auto) % (0.0-3.0) Basophils (%) (Auto) % (0.0-2.0) Differential Total Cells Counted 100 Neutrophils % (Manual) 73 % (45-75) Lymphocytes % (Manual) 3 % (20-45) L Monocytes % (Manual) 11 % (1-10) H Eosinophils % (Manual) 0 % (0-3) Basophils % (Manual) 0 % (0-2) Band Neutrophils 13 % (0-8) H Platelet Estimate Adequate Platelet Morphology Normal Hypochromasia Occasional Anisocytosis 1+ Prothrombin Time 14.5 SEC (9.30-11.50) H 14.7 SEC (9.30-11.50) H Prothromb Time International Ratio 1.3 (0.9-1.1) H 1.4 (0.9-1.1) H Activated Partial Thromboplast Time 50 SEC (23-33) H 56 SEC (23-33) H Sodium Level 144 MMOL/L (136-145) Potassium Level 4.3 MMOL/L (3.5-5.1) Chloride Level 107 MMOL/L (98-107) Carbon Dioxide Level 23 MMOL/L (21-32) Anion Gap 15 mmol/L (5-15) Blood Urea Nitrogen 31 mg/dL (7-18) H Creatinine 2.1 MG/DL (0.55-1.30) H Estimat Glomerular Filtration Rate 24.0 mL/min (>60) Glucose Level 99 MG/DL (74-106) # Lactic Acid Level 4.60 mmol/L (0.66-2.22) H Uric Acid 6.3 MG/DL (2.6-7.2) Calcium Level 7.2 MG/DL (8.5-10.1) #L Phosphorus Level 5.7 MG/DL (2.5-4.9) H Magnesium Level 2.3 MG/DL (1.8-2.4) Iron Level 15 ug/dL (50-175) L Total Iron Binding Capacity 228 ug/dL (250-450) L Percent Iron Saturation 7 % (15-50) L Unsaturated Iron Binding 213 ug/dL (112-346) Total Bilirubin 0.7 MG/DL (0.2-1.0) Direct Bilirubin 0.3 MG/DL (0.0-0.3) Aspartate Amino Transf (AST/SGOT) 183 U/L (15-37) H Alanine Aminotransferase (ALT/SGPT) 76 U/L (12-78) Alkaline Phosphatase 529 U/L (46-116) H Lactate Dehydrogenase 491 U/L (81-234) H Total Creatine Kinase 3759 U/L (26-308) H Troponin I 0.344 ng/mL (0.000-0.056) C-Reactive Protein, Quantitative 4.7 mg/dL (0.00-0.90) H Pro-B-Type Natriuretic Peptide 4300 pg/mL (0-125) H Total Protein 5.4 G/DL (6.4-8.2) #L Albumin 2.4 G/DL (3.4-5.0) L Globulin 3.0 g/dL Albumin/Globulin Ratio 0.8 (1.0-2.7) L Vitamin B12 Level 724 PG/ML (193-986) Folate 17.8 NG/ML (8.6-58.9) Thyroid Stimulating Hormone (TSH) 1.149 uiU/mL (0.358-3.740) Cortisol AM Sample Pending Erythrocyte Sedimentation Rate 9 MM/HR (0-30) Reticulocyte Count 1.2 % (0.5-2.0) Carcinoembryonic Antigen Pending Arterial Blood pH 7.215 (7.350-7.450) Arterial Blood Partial Pressure CO2 39.6 mmHg (35.0-45.0) Arterial Blood Partial Pressure O2 335.9 mmHg (75.0-100.0) H Arterial Blood HCO3 15.7 mmol/L (22.0-26.0) *L Arterial Blood Oxygen Saturation 99.4 % (95-100) Arterial Blood Base Excess -11.4 (-2-2) *L Marshall Test Positive Urine Color Brown Urine Appearance Slightly cloudy Urine pH 5 (4.5-8.0) Urine Specific [place] 1.010 (1.005-1.035) Urine Protein 2+ (NEGATIVE) H Urine Glucose (UA) Negative (NEGATIVE) Urine Ketones 2+ (NEGATIVE) H Urine Blood 5+ (NEGATIVE) H Urine Nitrite Positive (NEGATIVE) H Urine Bilirubin 2+ (NEGATIVE) H Urine Ictotest Negative (NEGATIVE) Urine Urobilinogen 8 MG/DL (0.0-1.0) H Urine Leukocyte Esterase 3+ (NEGATIVE) H Urine RBC 60-80 /HPF (0 - 2) H Urine WBC 15-20 /HPF (0 - 2) H Urine Squamous Epithelial Cells Few /LPF (NONE/OCC) Urine Bacteria Many /HPF (NONE) H Urine Random Sodium 40 mmol/L (20-110) Stool Occult Blood Pending Test 04/10/20 12:10 Troponin I 0.302 ng/mL (0.000-0.056) Microbiology Date/Time Source Procedure Growth Status 04/09/20 15:40 Nasopharynx SARS-CoV-2 RdRp Gene Assay - Final Complete 04/09/20 18:20 Urine,Clean Catch Urine Culture - Preliminary Gram Negative Dipesh Resulted Ronal Mendes MD Apr 10, 2020 18:20
--- NOTE | 2020-04-10 19:05 | NUR ---
HAND-OFF: Report given to NEELA Sainz.
--- NOTE | 2020-04-10 19:06 | NUR ---
NURSE NOTES: Patient received from NEELA Gee. patient withdraws to pain. bilateral pupils, 5 and sluggish. patient with 7.5 ETT at 23cm AC 20 TV 600 FiO2 100% PEEP 5. BP 88/49 HR126 Sinus tachy on monitor. right femoral TLC Levophed increased from 6 to 10mcg/hr and D51/2NS @150ml/hr clean and asymptomatic. sacral blanchable redness covered with Optifoam and right arm discoloration from prior venipuncture sticks. Chaves catheter draining scant dark nathanael urine. bed locked lowest position call light within reach.
[2020-04-10] MEDS: Dyna-Hex 2% Top Sol 2oz TOPIC SCH (19:37)
--- NOTE | 2020-04-10 19:45 | Consultation ---
DATE OF CONSULTATION: 04/09/2020 CARDIOLOGY CONSULTATION REFERRING PHYSICIAN: Adalberto Monk M.D. REASON FOR REFERRAL: Coronary disease. This is an unfortunate elderly female who is really unable to provide any meaningful history whatsoever. The patient presented to the emergency room at [facility]. The information that is available is that she was found at a custodial house that she resides at with altered mentation, respiratory distress. The patient was brought to the emergency room, initially was found on the floor, breathing heavily, tachycardic, diaphoretic, and apparently was complaining of some abdominal pain, and she was dyspneic, barely able to talk and was urgently intubated in the emergency room. When I saw her, she was on the ventilator, receiving bicarb pushes provided by the staff. PAST MEDICAL HISTORY: The patient's past medical history I was able to obtain from [facility], where she was previously hospitalized. She has a history of gastroesophageal reflux disease with GI bleed secondary to Naprosyn use, history of anxiety, posttraumatic stress disorder, methadone, history of myocardial infarction anteriorly on 11/10/2018, subsequently received 3 drug-eluting stents in the LAD and a drug-eluting stent in the obtuse marginal 1 that was the culprit vessel. Ejection fraction at that time was 30% with wall motion abnormality in the LAD territory. She had experienced some chest pain that was relieved by nitroglycerin. At that time, she was complaining of midsternal radiating to the jaw, associated with shortness of breath. ALLERGIES: The patient has a significant number of allergies to medications including cephalexin, cephalosporin, diazepam, penicillin, sumatriptan, and tramadol. SOCIAL HISTORY: Not clearly available, although there are reports of being on amphetamine. PHYSICAL EXAMINATION: GENERAL: Noncommunicative, not responsive, on mechanical ventilator, somewhat tachycardic and hypotensive. NECK: Supple. LUNGS: Rhonchi noted. CARDIAC: Regular rate, tachycardic. No heaves or thrills. ABDOMEN: Soft, nontender. EXTREMITIES: There was no edema. NEUROLOGIC: Not communicative or responsive. LABORATORY AND DIAGNOSTIC DATA: White count of 13.6, hemoglobin , and platelet count of 506. The pH is 7.04, pCO2 81, pO2 of 522 with a bicarb of 22. Her labs on her original presentation, sodium 135, potassium 4.6, chloride 99, bicarb of 18, BUN of 18, creatinine 1.4, glucose of 208. Calcium is 9.5. AST and ALT normal with alkaline phosphatase of 221. LDH was 367. CRP of less than 0.4. Troponin 0.03. Lipase of 132. Lactic acid initially 5.9, subsequently 2.6. Magnesium level of 2.2. Her electrocardiogram had shown sinus tachycardia with normal QRS axis and nonspecific ST segment changes and abnormal left atrium. There is also some ST-segment elevation in V3 and V2. On direct comparison, those changes were present before. She has biphasic T-waves and T-wave inversion in V5 and V6 as well that were present on prior EKGs. ASSESSMENT AND PLAN: 1. Altered mentation. 2. Lactic acidosis. 3. Respiratory failure, requiring mechanical ventilation. 4. Hypotension. 5. History of methadone use. 6. Coronary artery disease, status post coronary artery stenting. 7. Posttraumatic stress disorder. 8. History of ischemic cardiomyopathy. 9. Gastroesophageal reflux disease history. This patient will be admitted to the hospital. Serial enzymes and EKGs will be obtained. Mechanical ventilator support. Blood pressure support with pressors as needed. Echocardiogram will be ordered. Serial enzymes and EKGs will be checked. Empiric antibiotics as necessary. Treatment of renal failure per Nephrology. Ronal Mendes M.D. DR: FEROZ JOB#: [id number] CC:
[2020-04-10] MEDS: Norepinephrine Bitartrate 8 MG in D5W 500ml 550 ML IV SCH (21:10)
--- NOTE | 2020-04-10 22:00 | NUR ---
NURSE NOTES: patient withdraws to pain. patient with 7.5 ETT at 23cm AC 20 TV 600 FiO2 100% PEEP 5. BP 104/81 HR123 Sinus tachy on monitor, temp 99.5F axillary after prn Tylenol and ice packs applied. right femoral TLC Levophed 26mcg/min and D51/2NS @150ml/hr clean and asymptomatic. sacral blanchable redness covered with Optifoam and right arm discoloration from prior venipuncture sticks. Chaves catheter draining scant dark nathanael urine. patient repositioned and oral care provided.
[2020-04-11] VITALS (49 sets, daily range): BP systolic 82–133; BP diastolic 48–111
--- NOTE | 2020-04-11 | NUR ---
NURSE NOTES: patient withdraws to pain and opens eyes partially. patient with 7.5 ETT at 23cm AC 20 TV 600 FiO2 100% PEEP 5. BP 123/111 HR115 Sinus tachy on monitor, temp 100.1F rectal. right femoral TLC Levophed decreased from 26 to 22 mcg/min and D51/2NS @150ml/hr clean and asymptomatic. sacral blanchable redness covered with Optifoam and right arm discoloration from prior venipuncture sticks. Chaves catheter draining scant dark nathanael urine. patient given an ice bath, repositioned and oral care provided.
[2020-04-11] MEDS: LORazepam Inj 2mg/ml 1ml IV PRN ×3 (01:48→13:42)
--- NOTE | 2020-04-11 02:00 | NUR ---
NURSE NOTES: patient restless kicking legs, opens eyes partially. patient with 7.5 ETT at 23cm AC 20 TV 600 FiO2 100% PEEP 5. BP 100/67 HR111 Sinus tachy on monitor. right femoral TLC Levophed 26 mcg/min and D51/2NS @150ml/hr clean and asymptomatic. Chaves catheter draining scant dark nathanael urine. patient repositioned and oral care provided.
[2020-04-11] MEDS: Norepinephrine Bitartrate 8 MG in D5W 500ml 550 ML IV SCH ×4 (02:44→22:00)
--- NOTE | 2020-04-11 04:00 | NUR ---
NURSE NOTES: patient restless kicking legs, opens eyes partially despite receiving prn ativan. patient with 7.5 ETT at 23cm AC 20 TV 600 FiO2 100% PEEP 5. BP 95/64 HR108 Sinus tachy on monitor, temp 99.0F rectal. right femoral TLC Levophed 22 mcg/min. Chaves catheter draining scant dark nathanael urine. sacral blanchable redness covered with Optifoam and right arm discoloration from prior venipuncture sticks, bilateral arms nonpitting edema noted. patient repositioned and oral care provided.
[2020-04-11] MEDS: Aztreonam Inj 0.5 GM in D5W 55 ML IVPB SCH ×3 (05:04→21:48)
--- NOTE | 2020-04-11 06:00 | NUR ---
NURSE NOTES: patient restless kicking legs, opens eyes partially. patient with 7.5 ETT at 23cm AC 20 TV 600 FiO2 100% PEEP 5. BP 97/61 HR108 Sinus tachy on monitor. right femoral TLC Levophed 22 mcg/min. Chaves catheter draining scant dark nathanael urine. sacral blanchable redness covered with Optifoam and right arm discoloration from prior venipuncture sticks, bilateral arm nonpitting edema noted. patient repositioned and oral care provided.
--- NOTE | 2020-04-11 07:07 | NUR ---
NURSE NOTES: Received report from NEELA Angel
--- NOTE | 2020-04-11 07:14 | NUR ---
NURSE HAND-OFF REPORT: Latest Vital Signs: Temperature 99.0 , Pulse 112 , B/P 90 /63 , Respiratory Rate 21 , O2 SAT 99 , Mechanical Ventilator, O2 Flow Rate . Vital Sign Comment: max Levophed to maintain SBP>90 EKG Rhythm: Sinus Tachycardia Rhythm change?: N MD Notified?: - MD Response: Latest Betancur Fall Score: 50 Fall Risk: High Risk Safety Measures: Call light Within Reach, Bed Alarm Zone 1, Side Rails Side Rails x3, Bed position Low and Locked. Fall Precautions: Door Sign Report given to NEELA Gee.
[2020-04-11 07:51] LABS: HEMATOCRIT 33.3 % (37.0-47.0); HEMOGLOBIN 10.6 G/DL (12.0-16.0); MEAN CORPUSCULAR VOLUME 91 FL (80-99); PLATELET COUNT 203 K/UL (150-450); RED BLOOD COUNT 3.67 M/UL (4.20-5.40); RED CELL DISTRIBUTION WIDTH 15.9 % (11.6-14.8); WHITE BLOOD COUNT 17.1 K/UL (4.8-10.8)
--- NOTE | 2020-04-11 08:10 | NUR ---
NURSE NOTES: Patient received awake and restless with SBP at 90mcg/hr. Patient on max Levophed at 30mcg/hr.OGT in place and orally intubated at 7.5/23 AC 20 VT 600 FiO2 100 Peep 5, saturate at 96%.Noted with abdominal distention and connected to low intermittent suction with 700cc gastric drainage obtained, brown in color.Received call from labs with elevated troponin 14.093.Result relayed to Dr Lewis with new order for Chest X ray,KUB,EKG,Repeat troponin and CBC.Order noted and carried out.Chaves catheter in place with poor output dark nathanael urine.One episode of bowel brown and soft.Right femoral dressing clean dry and intact running Levophed at 30mcg/hr.Patient noted with T>100.4 and cooling measure applied.HOB elevated to prevent aspiration.Turned and repositioned for skin management.Mouth care done and suctioned as tolerated.Call light within easy reach.Will continue close monitoring
[2020-04-11 08:21] LABS: ALANINE AMINOTRANSFERASE 555 U/L (12-78); ALBUMIN 2.3 G/DL (3.4-5.0); ALBUMIN/GLOBULIN RATIO 0.9 (1.0-2.7); ALKALINE PHOSPHATASE 488 U/L (46-116); ANION GAP 15 mmol/L (5-15); ASPARTATE AMINO TRANSFERASE 1637 U/L (15-37); BILIRUBIN,TOTAL 0.9 MG/DL (0.2-1.0); BLOOD UREA NITROGEN 50 mg/dL (7-18); CALCIUM 6.1 MG/DL (8.5-10.1); CARBON DIOXIDE 16 MMOL/L (21-32); CHLORIDE 107 MMOL/L (98-107); CREATINE KINASE > 10000 U/L (26-308); LACTATE DEHYDROGENASE 1755 U/L (81-234); PHOSPHORUS 7.8 MG/DL (2.5-4.9); POTASSIUM 5.4 MMOL/L (3.5-5.1); SODIUM 138 MMOL/L (136-145)
[2020-04-11] MEDS ORDERED: Tubing IV Secondary IV ONE (08:25)
[2020-04-11] MEDS ORDERED: D5 1/2NS 1000ml IV ONE (08:25)
[2020-04-11] MEDS ORDERED: NS 275ml ONE (08:25)
[2020-04-11] MEDS ORDERED: NS 500ML ONE (08:25)
[2020-04-11] MEDS: D5 1/2NS 1,000 ML IV SCH ×3 (08:26→17:06)
[2020-04-11] MEDS: Heparin 5000 units/ml inj SUBQ SCH (08:30)
[2020-04-11] MEDS: Morphine Sulfate 4mg/ml Inj (IV USE ONLY) IVP PRN ×2 (08:34→13:43)
--- NOTE | 2020-04-11 09:18 | NUR ---
CASE MANAGEMENT:REVIEW 04/11/20 SI: ACUTE RESPIRATORY FAILURE ~ INTUBATED SEPSIS. UTI 99.0 112 21 90/63 99% ON VENT SUPPORT @ 100% FIO2 WBC+17.1 K+5.4 BUN+50 CR+3.0 CA-6.1 AST/ALT+1637/555 ALB-2.3 TCK>60454 TROPONIN(+)14.093 PH-7.098 HC03-11.8 IS: IV ALBUMIN X1 LEVOPHED GTT IV AZACTAM Q8HRS IVF@150/HR : ICU STATUS DCP: FROM [facility]
--- NOTE | 2020-04-11 10:12 | NUR ---
NURSE NOTES: No significant change in condition at this time.EKG result and Troponin relayed to Dr Lewis,awaiting for new order. Remains on low intermittent GI suction.Patient visited by son Chepe Fernandes and update given.Turned and repositioned for skin management. Mouth care done and suctioned as tolerated.HOB elevated to prevent aspiration.Will continue close monitoring.Call light within easy reach.
[2020-04-11 10:36] LABS: HEMATOCRIT 32.1 % (37.0-47.0); HEMOGLOBIN 9.9 G/DL (12.0-16.0); MEAN CORPUSCULAR VOLUME 90 FL (80-99); PLATELET COUNT 179 K/UL (150-450); RED BLOOD COUNT 3.57 M/UL (4.20-5.40); RED CELL DISTRIBUTION WIDTH 16.2 % (11.6-14.8); WHITE BLOOD COUNT 15.1 K/UL (4.8-10.8)
[2020-04-11] MEDS ORDERED: Rocuronium Bromide 50mg/5ml Inj IV ONE (10:52)
[2020-04-11] MEDS ORDERED: Etomidate 40mg/20ml Inj IV ONE (10:52)
--- NOTE | 2020-04-11 10:55 | NUR ---
RESPIRATORY NOTE: Received pt on AC 20, 600, +5, 100% FiO2. SpO2 100%. Pt. is intubated with a 7.5 endotracheal tube secured with an anchor fast @ 23 cm at the lip. Sxn scant amt of clear/ white, thin secretions. B/S are clear throughout with equal chest rise. Pt is disoriented. Ambu bag at bedside. Vent is plugged into red outlet. Alarms are on and audible. No respiratory distress noted at this time. Will continue to monitor. Addendum: 04/11/20 at 1131 by Nora Kilgore, RT ABG was drawn @ 0840 and results broadcasted. NEELA wynn.
--- NOTE | 2020-04-11 11:06 | Diagnostic Imaging Report ---
EXAM: XR Chest, 1 View CLINICAL HISTORY: F/U TECHNIQUE: Frontal view of the chest. COMPARISON: Chest radiograph on 04/10/2020 FINDINGS: Hardware: Endotracheal tube terminates in the region of the mid thoracic trachea, approximately 4.3 cm above the hiren. An enteric tube courses past the diaphragm and out of the [id number]. Lungs/pleura: Increased left basilar opacity, concerning for pneumonia/aspiration with small left pleural effusion. Right basilar opacity may represent atelectasis versus pneumonia. Heart/mediastinum: Atherosclerotic calcifications of the aorta. No cardiomegaly. Soft tissues: Unremarkable. Bones: No acute fracture. Upper abdomen: Normal. IMPRESSION: 1. Increased left basilar opacity, concerning for pneumonia/aspiration with small left pleural effusion. Right basilar opacity may represent atelectasis versus pneumonia. 2. Endotracheal tube terminates in the region of the mid thoracic trachea, approximately 4.3 cm above the hiren. An enteric tube courses past the diaphragm and out of the [id number].
--- NOTE | 2020-04-11 11:08 | Diagnostic Imaging Report ---
EXAM: XR Abdomen, 2 Views CLINICAL HISTORY: F/U TECHNIQUE: Frontal view of the abdomen/pelvis with upright view of the abdomen. COMPARISON: Abdominal radiograph on 04/10/2020 FINDINGS: Hardware: Enteric tube terminates in the region of the gastric antrum/proximal duodenum. Abdomen: Nonobstructive bowel gas pattern with overall paucity of bowel gas again noted. No free air. Bones: Degenerative changes of the spine. Soft tissues: Normal. Lower chest: Normal. IMPRESSION: Enteric tube terminates in the region of the gastric antrum/proximal duodenum.
--- NOTE | 2020-04-11 12:01 | NUR ---
NURSE NOTES: Patient turned and repositioned.Mouth care done and suctioned as tolerated.Dr Rivera made aware liver function and no GI prophylaxis and GI suctioned to low intermittent suction with new order for consult with Dr Pickens.Order noted and carry out.Keep HOB elevated at 35 degree to prevent aspiration.
[2020-04-11] MEDS ORDERED: Sodium Bicarbonate 50ml Carp IV SCH (13:00)
--- NOTE | 2020-04-11 13:14 | Nephrology Progress Note ---
Assessment/Plan Problem List: (1) Shock Assessment: Shock Liver (2) ATN (acute tubular necrosis) (3) Sepsis (4) Acute respiratory failure (5) Elevated troponin I level Assessment Acute renal failure Acute respiratory failure Sepsis- SHOCK, shock liver Toxic metabolic encephalopathy phalangeal Plan Fluid challenge Pressors 100 mg Lasix IV push 1 time One dose Sodium Bicarb IV Monitor renal parameters Antibiotics Avoid nephrotoxic's Pulmonary support 2D echocardiogram : Pending Kidney ultrasound : Pending Per orders Subjective ROS Limited/Unobtainable: Yes Objective Objective Last 24 Hour Vital Signs Date Time Temp Pulse Resp B/P (MAP) Pulse Ox O2 Delivery O2 Flow Rate FiO2 04/11/20 12:15 119 23 112/60 (77) 100 04/11/20 12:00 118 04/11/20 12:00 97.8 119 24 111/59 (76) 100 04/11/20 12:00 100 04/11/20 12:00 112/60 04/11/20 12:00 Mechanical Ventilator 04/11/20 11:30 118 22 106/60 (75) 100 04/11/20 11:00 118 22 108/58 (75) 100 04/11/20 11:00 111/59 04/11/20 11:00 118 23 100 04/11/20 10:45 117 22 104/55 (71) 100 04/11/20 10:30 118 24 85/67 (73) 100 04/11/20 10:00 108/59 04/11/20 10:00 118 22 110/64 (79) 100 04/11/20 09:30 118 23 114/92 (99) 100 04/11/20 09:04 97.8 04/11/20 09:00 105/62 04/11/20 09:00 116 21 106/59 (75) 04/11/20 08:58 117 23 100 04/11/20 08:30 112 19 82/48 (59) 80 04/11/20 08:27 107/59 04/11/20 08:00 100.4 116 21 103/75 (84) 04/11/20 08:00 112 04/11/20 08:00 Mechanical Ventilator 04/11/20 08:00 107/59 04/11/20 08:00 100 04/11/20 07:10 113 23 100 8/22/20 07:00 90/63 04/11/20 07:00 112 21 90/63 (72) 99 04/11/20 06:30 109 22 04/11/20 06:00 97/61 04/11/20 06:00 108 21 97/61 (73) 99 04/11/20 05:00 106 22 91/63 (72) 97 04/11/20 05:00 91/63 04/11/20 04:00 99.0 108 25 96/64 (75) 98 04/11/20 04:00 100 04/11/20 04:00 108 04/11/20 04:00 Mechanical Ventilator 04/11/20 04:00 96/65 04/11/20 03:23 108 23 100 04/11/20 03:00 97/68 04/11/20 03:00 108 19 97/68 (78) 04/11/20 02:44 102/67 04/11/20 02:00 111 20 100/67 (78) 97 04/11/20 02:00 100/67 04/11/20 01:00 89/71 04/11/20 01:00 112 23 89/71 (77) 92 04/11/20 00:00 Mechanical Ventilator 04/11/20 00:00 117 04/11/20 00:00 98/61 04/11/20 00:00 100.1 115 22 123/111 (115) 92 04/10/20 23:45 116 22 100 04/10/20 23:00 118 20 97/62 (74) 98 04/10/20 23:00 97/62 04/10/20 22:00 99.5 122 3 106/58 (74) 98 04/10/20 22:00 104/81 04/10/20 21:30 126 4 106/69 (81) 96 04/10/20 21:10 73/55 04/10/20 21:00 124 24 73/55 (61) 97 04/10/20 21:00 73/55 04/10/20 20:30 128 22 127/100 (109) 100 04/10/20 20:15 128 22 90/57 (68) 100 04/10/20 20:07 102.8 04/10/20 20:00 101.5 128 21 80/50 (60) 100 04/10/20 20:00 100 04/10/20 20:00 Mechanical Ventilator 04/10/20 20:00 86/60 04/10/20 20:00 128 04/10/20 19:51 128 20 100 04/10/20 19:45 129 21 86/60 (69) 100 04/10/20 19:30 128 21 65/54 (58) 100 04/10/20 19:00 103.3 126 20 88/49 (62) 100 04/10/20 19:00 80/45 04/10/20 18:45 126 20 80/45 (57) 04/10/20 18:30 126 20 89/55 (66) 04/10/20 18:15 126 19 82/52 (62) 04/10/20 18:00 84/62 04/10/20 18:00 122 20 84/62 (69) 86 04/10/20 17:53 76/42 04/10/20 17:16 123 20 100 04/10/20 17:00 123 20 72/49 (57) 88 04/10/20 16:00 124 04/10/20 16:00 Mechanical Ventilator 04/10/20 16:00 100.1 124 20 82/44 (57) 100 04/10/20 16:00 100 04/10/20 15:19 123 20 100 04/10/20 15:00 123 21 85/47 (60) 100 04/10/20 14:00 117 19 79/45 (56) 100 Intake and Output 04/10/20 04/11/20 19:00 07:00 Intake Total 4101.666 ml 2407.117 ml Output Total 70 ml 150 ml Balance 4031.666 ml 2257.117 ml IV Total 4101.666 ml 2407.117 ml Output Urine Total 70 ml 150 ml # Bowel Movements 4 3 Laboratory Tests 04/11/20 07:00: White Blood Count 17.1#H, Red Blood Count 3.67L, Hemoglobin 10.6L, Hematocrit 33.3L, Mean Corpuscular Volume 91, Mean Corpuscular Hemoglobin 28.9, Mean Corpuscular Hemoglobin Concent 31.8L, Red Cell Distribution Width 15.9H, Platelet Count 203, Mean Platelet Volume 6.0L, Neutrophils (%) (Auto) , Lymphocytes (%) (Auto) , Monocytes (%) (Auto) , Eosinophils (%) (Auto) , Basophils (%) (Auto) , Differential Total Cells Counted 100, Neutrophils % ( Manual) 77H, Lymphocytes % (Manual) 3L, Monocytes % (Manual) 7, Eosinophils % ( Manual) 0, Basophils % (Manual) 0, Band Neutrophils 13H, Platelet Estimate Adequate, Platelet Morphology Normal, Hypochromasia 1+, Anisocytosis 1+, Erythrocyte Sedimentation Rate 10, Sodium Level 138, Potassium Level 5.4H, Chloride Level 107, Carbon Dioxide Level 16L, Anion Gap 15, Blood Urea Nitrogen 50H, Creatinine 3.0H, Estimat Glomerular Filtration Rate 16.0, Glucose Level 98 , Lactic Acid Level 5.10H, Uric Acid 7.1, Calcium Level 6.1L, Phosphorus Level 7.8H, Magnesium Level 2.0, Total Bilirubin 0.9, Aspartate Amino Transf (AST/SGOT ) 1637H, Alanine Aminotransferase (ALT/SGPT) 555H, Alkaline Phosphatase 488H, Lactate Dehydrogenase 1755H, Total Creatine Kinase > 86484T, Troponin I 14.093H , C-Reactive Protein, Quantitative 45.5H, Pro-B-Type Natriuretic Peptide > 57886H, Total Protein 5.0L, Albumin 2.3L, Globulin 2.7, Albumin/Globulin Ratio 0.9L, Random Amikacin Level [Pending] 04/11/20 08:34: Arterial Blood pH 7.098*L, Arterial Blood Partial Pressure CO2 38.9, Arterial Blood Partial Pressure O2 412.3H, Arterial Blood HCO3 11.8*L, Arterial Blood Oxygen Saturation 100.0, Arterial Blood Base Excess -16.9*L, Marshall Test Positive 04/11/20 09:35: Lactic Acid Level 4.60H, Troponin I 13.823H 04/11/20 10:15: White Blood Count 15.1H, Red Blood Count 3.57L, Hemoglobin 9.9L, Hematocrit 32.1L, Mean Corpuscular Volume 90, Mean Corpuscular Hemoglobin 27.9, Mean Corpuscular Hemoglobin Concent 30.9L, Red Cell Distribution Width 16.2H, Platelet Count 179, Mean Platelet Volume 6.3L, Neutrophils (%) (Auto) , Lymphocytes (%) (Auto) , Monocytes (%) (Auto) , Eosinophils (%) (Auto) , Basophils (%) (Auto) , Differential Total Cells Counted 100, Neutrophils % ( Manual) 75, Lymphocytes % (Manual) 2L, Monocytes % (Manual) 8, Eosinophils % ( Manual) 0, Basophils % (Manual) 1, Band Neutrophils 14H, Platelet Estimate Adequate, Platelet Morphology Normal, Hypochromasia 1+, Anisocytosis 1+, Jessica Cells Occasional Height (Feet): 5 Height (Inches): 4.00 Weight (Pounds): 118 General Appearance: no apparent distress EENT: other - On mechanical ventilation Cardiovascular: tachycardia Respiratory/Chest: decreased breath sounds Abdomen: distended Objective No change Chepe Green MD Apr 11, 2020 13:14
[2020-04-11] MEDS: Sodium Citrate 30ml NG SCH ×3 (13:39→23:54)
--- NOTE | 2020-04-11 14:10 | NUR ---
NURSE NOTES: Patient turned and repositioned, no significant change in condition at this time.Lasix 100mg IVP and sodium bicarbonate given as ordered.HOB elevated t prevent aspiration.Call light within easy reach.Will continue close monitoring.
--- NOTE | 2020-04-11 15:26 | Cardiology Progress Note ---
Assessment/Plan Assessment/Plan respiratory failure hypotension sepsis cad s/p luis 2018 icm arf aortic regurgitation infitlrates gi bleed MA ? anemia rhabdomyolysis abn lft ? secondry to shock liver or rhabdo lactic acidosis ct chest Indeterminate areas of nodularity and irregular consolidation indeterminate for infectious, inflammatory or neoplastic etiology. Recommend pulmonary consultation and short-term interval follow-up. Small amount of debris in the left, greater than right bronchi. Mild mediastinal and hilar lymphadenopathy cr worse no urine ou[ut , just go some lasix and bicarb i was contacted by rn about abn cardiac enzymes and i reviewed labs and ordered more labs ekg personally review new ekg ordered adn reviewed and compared to priro on 03/21 echo prelim systolic dysfunction er 40% mod AR has received several liters of ivf ekg reviewed after two days of near normal cardiac enzyme today noted to have sig elevated in enzymes , in addition sig abn in cpk and lfts today !! 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 but was on methadone and on ecotrin watch for with drawl form narcotic statin when lft improved will need to repeat echo in near futuer nwo remain in isolation due pui for covid d/w dr korin olsen gi input Subjective ROS Limited/Unobtainable: Yes Subjective remain on a vent on pressore Objective Last 24 Hour Vital Signs Date Time Temp Pulse Resp B/P (MAP) Pulse Ox O2 Delivery O2 Flow Rate FiO2 04/11/20 14:13 98.8 04/11/20 14:01 93/48 04/11/20 14:00 93/48 04/11/20 13:30 118 22 100 04/11/20 13:00 113/58 04/11/20 13:00 119 24 113/58 (76) 100 04/11/20 12:45 118 23 105/57 (73) 100 04/11/20 12:30 117 22 82/48 (59) 100 04/11/20 12:15 119 23 112/60 (77) 100 04/11/20 12:00 118 04/11/20 12:00 97.8 119 24 111/59 (76) 100 04/11/20 12:00 100 04/11/20 12:00 112/60 04/11/20 12:00 Mechanical Ventilator 04/11/20 11:30 118 22 106/60 (75) 100 04/11/20 11:00 118 22 108/58 (75) 100 04/11/20 11:00 111/59 04/11/20 11:00 118 23 100 04/11/20 10:45 117 22 104/55 (71) 100 04/11/20 10:30 118 24 85/67 (73) 100 04/11/20 10:00 108/59 04/11/20 10:00 118 22 110/64 (79) 100 04/11/20 09:30 118 23 114/92 (99) 100 04/11/20 09:00 105/62 04/11/20 09:00 116 21 106/59 (75) 04/11/20 08:58 117 23 100 04/11/20 08:30 112 19 82/48 (59) 80 04/11/20 08:27 107/59 04/11/20 08:00 100.4 116 21 103/75 (84) 04/11/20 08:00 112 04/11/20 08:00 Mechanical Ventilator 04/11/20 08:00 107/59 04/11/20 08:00 100 04/11/20 07:10 113 23 100 04/11/20 07:00 90/63 04/11/20 07:00 112 21 90/63 (72) 99 04/11/20 06:30 109 22 04/11/20 06:00 97/61 04/11/20 06:00 108 21 97/61 (73) 99 04/11/20 05:00 106 22 91/63 (72) 97 04/11/20 05:00 91/63 04/11/20 04:00 99.0 108 25 96/64 (75) 98 04/11/20 04:00 100 04/11/20 04:00 108 04/11/20 04:00 Mechanical Ventilator 04/11/20 04:00 96/65 04/11/20 03:23 108 23 100 04/11/20 03:00 97/68 04/11/20 03:00 108 19 97/68 (78) 04/11/20 02:44 102/67 04/11/20 02:00 111 20 100/67 (78) 97 04/11/20 02:00 100/67 04/11/20 01:00 89/71 04/11/20 01:00 112 23 89/71 (77) 92 04/11/20 00:00 Mechanical Ventilator 04/11/20 00:00 117 04/11/20 00:00 98/61 04/11/20 00:00 100.1 115 22 123/111 (115) 92 04/10/20 23:45 116 22 100 04/10/20 23:00 118 20 97/62 (74) 98 04/10/20 23:00 97/62 04/10/20 22:00 99.5 122 3 106/58 (74) 98 04/10/20 22:00 104/81 04/10/20 21:30 126 4 106/69 (81) 96 04/10/20 21:10 73/55 04/10/20 21:00 124 24 73/55 (61) 97 04/10/20 21:00 73/55 04/10/20 20:30 128 22 127/100 (109) 100 04/10/20 20:15 128 22 90/57 (68) 100 04/10/20 20:07 102.8 04/10/20 20:00 101.5 128 21 80/50 (60) 100 04/10/20 20:00 100 04/10/20 20:00 Mechanical Ventilator 04/10/20 20:00 86/60 04/10/20 20:00 128 04/10/20 19:51 128 20 100 04/10/20 19:45 129 21 86/60 (69) 100 04/10/20 19:30 128 21 65/54 (58) 100 04/10/20 19:00 103.3 126 20 88/49 (62) 100 04/10/20 19:00 80/45 04/10/20 18:45 126 20 80/45 (57) 04/10/20 18:30 126 20 89/55 (66) 04/10/20 18:15 126 19 82/52 (62) 04/10/20 18:00 84/62 04/10/20 18:00 122 20 84/62 (69) 86 04/10/20 17:53 76/42 04/10/20 17:16 123 20 100 04/10/20 17:00 123 20 72/49 (57) 88 04/10/20 16:00 124 04/10/20 16:00 Mechanical Ventilator 04/10/20 16:00 100.1 124 20 82/44 (57) 100 04/10/20 16:00 100 04/10/20 15:19 123 20 100 General Appearance: no apparent distress, on vent, patient on isolation Extremities: no swelling Intake and Output 04/10/20 04/11/20 19:00 07:00 Intake Total 4101.666 ml 2407.117 ml Output Total 70 ml 150 ml Balance 4031.666 ml 2257.117 ml IV Total 4101.666 ml 2407.117 ml Output Urine Total 70 ml 150 ml # Bowel Movements 4 3 Laboratory Tests Test 04/11/20 07:00 04/11/20 08:34 04/11/20 09:35 04/11/20 10:15 White Blood Count 17.1 K/UL (4.8-10.8) #H 15.1 K/UL (4.8-10.8) H Red Blood Count 3.67 M/UL (4.20-5.40) L 3.57 M/UL (4.20-5.40) L Hemoglobin 10.6 G/DL (12.0-16.0) L 9.9 G/DL (12.0-16.0) L Hematocrit 33.3 % (37.0-47.0) L 32.1 % (37.0-47.0) L Mean Corpuscular Volume 91 FL (80-99) 90 FL (80-99) Mean Corpuscular Hemoglobin 28.9 PG (27.0-31.0) 27.9 PG (27.0-31.0) Mean Corpuscular Hemoglobin Concent 31.8 G/DL (32.0-36.0) L 30.9 G/DL (32.0-36.0) L Red Cell Distribution Width 15.9 % (11.6-14.8) H 16.2 % (11.6-14.8) H Platelet Count 203 K/UL (150-450) 179 K/UL (150-450) Mean Platelet Volume 6.0 FL (6.5-10.1) L 6.3 FL (6.5-10.1) L Neutrophils (%) (Auto) % (45.0-75.0) % (45.0-75.0) Lymphocytes (%) (Auto) % (20.0-45.0) % (20.0-45.0) Monocytes (%) (Auto) % (1.0-10.0) % (1.0-10.0) Eosinophils (%) (Auto) % (0.0-3.0) % (0.0-3.0) Basophils (%) (Auto) % (0.0-2.0) % (0.0-2.0) Differential Total Cells Counted 100 100 Neutrophils % (Manual) 77 % (45-75) H 75 % (45-75) Lymphocytes % (Manual) 3 % (20-45) L 2 % (20-45) L Monocytes % (Manual) 7 % (1-10) 8 % (1-10) Eosinophils % (Manual) 0 % (0-3) 0 % (0-3) Basophils % (Manual) 0 % (0-2) 1 % (0-2) Band Neutrophils 13 % (0-8) H 14 % (0-8) H Platelet Estimate Adequate Adequate Platelet Morphology Normal Normal Hypochromasia 1+ 1+ Anisocytosis 1+ 1+ Erythrocyte Sedimentation Rate 10 MM/HR (0-30) Sodium Level 138 MMOL/L (136-145) Potassium Level 5.4 MMOL/L (3.5-5.1) H Chloride Level 107 MMOL/L (98-107) Carbon Dioxide Level 16 MMOL/L (21-32) L Anion Gap 15 mmol/L (5-15) Blood Urea Nitrogen 50 mg/dL (7-18) H Creatinine 3.0 MG/DL (0.55-1.30) H Estimat Glomerular Filtration Rate 16.0 mL/min (>60) Glucose Level 98 MG/DL (74-106) Lactic Acid Level 5.10 mmol/L (0.4-2.0) H 4.60 mmol/L (0.66-2.22) H Uric Acid 7.1 MG/DL (2.6-7.2) Calcium Level 6.1 MG/DL (8.5-10.1) L Phosphorus Level 7.8 MG/DL (2.5-4.9) H Magnesium Level 2.0 MG/DL (1.8-2.4) Total Bilirubin 0.9 MG/DL (0.2-1.0) Aspartate Amino Transf (AST/SGOT) 1637 U/L (15-37) H Alanine Aminotransferase (ALT/SGPT) 555 U/L (12-78) H Alkaline Phosphatase 488 U/L (46-116) H Lactate Dehydrogenase 1755 U/L (81-234) H Total Creatine Kinase > 95923 U/L (26-308) H Troponin I 14.093 ng/mL (0.000-0.056) 13.823 ng/mL (0.000-0.056) C-Reactive Protein, Quantitative 45.5 mg/dL (0.00-0.90) H Pro-B-Type Natriuretic Peptide > 59450 pg/mL (0-125) H Total Protein 5.0 G/DL (6.4-8.2) L Albumin 2.3 G/DL (3.4-5.0) L Globulin 2.7 g/dL Albumin/Globulin Ratio 0.9 (1.0-2.7) L Random Amikacin Level Pending Arterial Blood pH 7.098 (7.350-7.450) Arterial Blood Partial Pressure CO2 38.9 mmHg (35.0-45.0) Arterial Blood Partial Pressure O2 412.3 mmHg (75.0-100.0) H Arterial Blood HCO3 11.8 mmol/L (22.0-26.0) *L Arterial Blood Oxygen Saturation 100.0 % (95-100) Arterial Blood Base Excess -16.9 (-2-2) *L Marshall Test Positive [place] Cells Occasional Microbiology Date/Time Source Procedure Growth Status 04/09/20 16:25 Blood Blood Culture - Preliminary NO GROWTH AFTER 24 HOURS Resulted 04/09/20 16:20 Blood Blood Culture - Preliminary NO GROWTH AFTER 24 HOURS Resulted 04/09/20 18:17 Nasal Nares MRSA Culture - Final NO METHICILLIN RESISTANT STAPH AUREUS... Complete 04/09/20 15:40 Nasopharynx SARS-CoV-2 RdRp Gene Assay - Final Complete 04/10/20 06:00 Stool Clostridium difficile Toxin Assay - Final Complete 04/10/20 12:00 Urine,Clean Catch Urine Culture - Preliminary Resulted 04/09/20 18:20 Urine,Clean Catch Urine Culture - Preliminary Gram Negative Dipesh Resulted 04/09/20 18:17 Rectum VRE Culture - Final NO VANCOMYCIN RESISTANT ENTEROCOCCUS ... Complete 04/09/20 18:17 Rectum - Final NO CARBAPENEM-RESISTANT ENTEROBACTERI... Complete Objective per dr langley Lungs: clear, chest wall tender Heart: rr Abdomen: soft, feeding tube Extremities: no edema Ronal Mendes MD Apr 11, 2020 15:26
--- NOTE | 2020-04-11 16:10 | NUR ---
NURSE NOTES: Patient turned and repositioned.No significant change at this time.Seen by Dr Lewis,will follow up with new orders.HOB elevated to prevent aspiration.Call light within easy reach.Will continue same care plan.
--- NOTE | 2020-04-11 17:04 | Pulmonolgy Critical Care Note ---
Critical Care - Asmt/Plan Problems: (1) Acute respiratory failure (2) Sepsis (3) UTI (urinary tract infection) (4) Altered mental status, unspecified (5) History of depression (6) ATN (acute tubular necrosis) (7) Severe protein-calorie malnutrition Respiratory: monitor respiratory rate, adjust FIO2, CXR Cardiac: continue pressors, continue to monitor HR/BP Renal: F/U I&O, check electrolytes Infectious Disease: check cultures, continue antibiotics Endocrine: monitor blood sugar, continue sliding scale insulin Hematologic: monitor H/H, transfuse if hgb<8.5 Neurologic: PRN Ativan, PRN Morphine, keep patient comfortable Affect: PRN ativan Notes Reviewed: childcare administrator, cardio Critical Care - Objective Last 24 Hour Vital Signs Date Time Temp Pulse Resp B/P (MAP) Pulse Ox O2 Delivery O2 Flow Rate FiO2 04/11/20 16:15 127 24 103/59 (74) 100 04/11/20 16:00 98.2 126 24 109/59 (76) 100 04/11/20 16:00 117/64 04/11/20 16:00 126 04/11/20 16:00 100 04/11/20 16:00 Mechanical Ventilator 04/11/20 15:45 126 24 114/61 (78) 100 04/11/20 15:30 126 22 114/64 (81) 100 04/11/20 15:20 125 22 100 04/11/20 15:15 125 22 117/64 (81) 100 04/11/20 15:00 125 22 122/61 (81) 100 04/11/20 15:00 124/65 04/11/20 14:45 125 22 123/63 (83) 100 04/11/20 14:30 124 23 133/63 (86) 100 04/11/20 14:15 124 22 124/65 (84) 100 04/11/20 14:13 98.8 04/11/20 14:01 93/48 04/11/20 14:00 124 20 130/64 (86) 100 04/11/20 14:00 93/48 04/11/20 13:45 118 24 93/48 (63) 100 04/11/20 13:31 119 23 85/51 (62) 100 04/11/20 13:30 118 23 85/49 (61) 100 04/11/20 13:30 118 22 100 04/11/20 13:15 119 24 111/58 (75) 100 04/11/20 13:00 113/58 04/11/20 13:00 119 24 113/58 (76) 100 04/11/20 12:45 118 23 105/57 (73) 100 04/11/20 12:30 117 22 82/48 (59) 100 04/11/20 12:15 119 23 112/60 (77) 100 04/11/20 12:00 118 04/11/20 12:00 97.8 119 24 111/59 (76) 100 04/11/20 12:00 100 04/11/20 12:00 112/60 04/11/20 12:00 Mechanical Ventilator 04/11/20 11:30 118 22 106/60 (75) 100 04/11/20 11:00 118 22 108/58 (75) 100 04/11/20 11:00 111/59 04/11/20 11:00 118 23 100 04/11/20 10:45 117 22 104/55 (71) 100 04/11/20 10:30 118 24 85/67 (73) 100 04/11/20 10:00 108/59 04/11/20 10:00 118 22 110/64 (79) 100 04/11/20 09:30 118 23 114/92 (99) 100 04/11/20 09:00 105/62 04/11/20 09:00 116 21 106/59 (75) 04/11/20 08:58 117 23 100 04/11/20 08:30 112 19 82/48 (59) 80 04/11/20 08:27 107/59 04/11/20 08:00 100.4 116 21 103/75 (84) 04/11/20 08:00 112 04/11/20 08:00 Mechanical Ventilator 04/11/20 08:00 107/59 04/11/20 08:00 100 04/11/20 07:10 113 23 100 04/11/20 07:00 90/63 04/11/20 07:00 112 21 90/63 (72) 99 04/11/20 06:30 109 22 04/11/20 06:00 97/61 04/11/20 06:00 108 21 97/61 (73) 99 04/11/20 05:00 106 22 91/63 (72) 97 04/11/20 05:00 91/63 04/11/20 04:00 99.0 108 25 96/64 (75) 98 04/11/20 04:00 100 04/11/20 04:00 108 04/11/20 04:00 Mechanical Ventilator 04/11/20 04:00 96/65 04/11/20 03:23 108 23 100 04/11/20 03:00 97/68 04/11/20 03:00 108 19 97/68 (78) 04/11/20 02:44 102/67 04/11/20 02:00 111 20 100/67 (78) 97 04/11/20 02:00 100/67 04/11/20 01:00 89/71 04/11/20 01:00 112 23 89/71 (77) 92 04/11/20 00:00 Mechanical Ventilator 04/11/20 00:00 117 04/11/20 00:00 98/61 04/11/20 00:00 100.1 115 22 123/111 (115) 92 04/10/20 23:45 116 22 100 04/10/20 23:00 118 20 97/62 (74) 98 04/10/20 23:00 97/62 04/10/20 22:00 99.5 122 3 106/58 (74) 98 04/10/20 22:00 104/81 04/10/20 21:30 126 4 106/69 (81) 96 04/10/20 21:10 73/55 04/10/20 21:00 124 24 73/55 (61) 97 04/10/20 21:00 73/55 04/10/20 20:30 128 22 127/100 (109) 100 04/10/20 20:15 128 22 90/57 (68) 100 04/10/20 20:07 102.8 04/10/20 20:00 101.5 128 21 80/50 (60) 100 04/10/20 20:00 100 04/10/20 20:00 Mechanical Ventilator 04/10/20 20:00 86/60 04/10/20 20:00 128 04/10/20 19:51 128 20 100 04/10/20 19:45 129 21 86/60 (69) 100 04/10/20 19:30 128 21 65/54 (58) 100 04/10/20 19:00 103.3 126 20 88/49 (62) 100 04/10/20 19:00 80/45 04/10/20 18:45 126 20 80/45 (57) 04/10/20 18:30 126 20 89/55 (66) 04/10/20 18:15 126 19 82/52 (62) 04/10/20 18:00 84/62 04/10/20 18:00 122 20 84/62 (69) 86 04/10/20 17:53 76/42 04/10/20 17:16 123 20 100 Status: awake, sedated Condition: critical HEENT: atraumatic Lungs: clear Heart: HR/BP stable Abdomen: soft, non-tender Extremities: no C/C/E Micro: Microbiology Date/Time Source Procedure Growth Status 04/09/20 16:25 Blood Blood Culture - Preliminary NO GROWTH AFTER 24 HOURS Resulted 04/09/20 16:20 Blood Blood Culture - Preliminary NO GROWTH AFTER 24 HOURS Resulted 04/09/20 18:17 Nasal Nares MRSA Culture - Final NO METHICILLIN RESISTANT STAPH AUREUS... Complete 04/09/20 15:40 Nasopharynx SARS-CoV-2 RdRp Gene Assay - Final Complete 04/10/20 06:00 Stool Clostridium difficile Toxin Assay - Final Complete 04/10/20 12:00 Urine,Clean Catch Urine Culture - Preliminary Resulted 04/09/20 18:20 Urine,Clean Catch Urine Culture - Preliminary Gram Negative Dipesh Resulted 04/09/20 18:17 Rectum VRE Culture - Final NO VANCOMYCIN RESISTANT ENTEROCOCCUS ... Complete 04/09/20 18:17 Rectum - Final NO CARBAPENEM-RESISTANT ENTEROBACTERI... Complete Critical Care - Subjective ROS Limited/Unobtainable: No Condition: critical EKG Rhythm: Sinus Rhythm FI02: 100 Vent Support Breath Rate: 20 Vent Support Mode: AC Vent Tidal Volume: 600 Sputum Amount: Scant PEEP: 5.0 PIP: 24 I&O: Intake and Output 04/10/20 04/11/20 19:00 07:00 Intake Total 4101.666 ml 2407.117 ml Output Total 70 ml 150 ml Balance 4031.666 ml 2257.117 ml IV Total 4101.666 ml 2407.117 ml Output Urine Total 70 ml 150 ml # Bowel Movements 4 3 ET-Tube: 7.5 ET Position: 23 Labs: Laboratory Tests Test 04/11/20 07:00 04/11/20 08:34 04/11/20 09:35 04/11/20 10:15 White Blood Count 17.1 K/UL (4.8-10.8) #H 15.1 K/UL (4.8-10.8) H Red Blood Count 3.67 M/UL (4.20-5.40) L 3.57 M/UL (4.20-5.40) L Hemoglobin 10.6 G/DL (12.0-16.0) L 9.9 G/DL (12.0-16.0) L Hematocrit 33.3 % (37.0-47.0) L 32.1 % (37.0-47.0) L Mean Corpuscular Volume 91 FL (80-99) 90 FL (80-99) Mean Corpuscular Hemoglobin 28.9 PG (27.0-31.0) 27.9 PG (27.0-31.0) Mean Corpuscular Hemoglobin Concent 31.8 G/DL (32.0-36.0) L 30.9 G/DL (32.0-36.0) L Red Cell Distribution Width 15.9 % (11.6-14.8) H 16.2 % (11.6-14.8) H Platelet Count 203 K/UL (150-450) 179 K/UL (150-450) Mean Platelet Volume 6.0 FL (6.5-10.1) L 6.3 FL (6.5-10.1) L Neutrophils (%) (Auto) % (45.0-75.0) % (45.0-75.0) Lymphocytes (%) (Auto) % (20.0-45.0) % (20.0-45.0) Monocytes (%) (Auto) % (1.0-10.0) % (1.0-10.0) Eosinophils (%) (Auto) % (0.0-3.0) % (0.0-3.0) Basophils (%) (Auto) % (0.0-2.0) % (0.0-2.0) Differential Total Cells Counted 100 100 Neutrophils % (Manual) 77 % (45-75) H 75 % (45-75) Lymphocytes % (Manual) 3 % (20-45) L 2 % (20-45) L Monocytes % (Manual) 7 % (1-10) 8 % (1-10) Eosinophils % (Manual) 0 % (0-3) 0 % (0-3) Basophils % (Manual) 0 % (0-2) 1 % (0-2) Band Neutrophils 13 % (0-8) H 14 % (0-8) H Platelet Estimate Adequate Adequate Platelet Morphology Normal Normal Hypochromasia 1+ 1+ Anisocytosis 1+ 1+ Erythrocyte Sedimentation Rate 10 MM/HR (0-30) Sodium Level 138 MMOL/L (136-145) Potassium Level 5.4 MMOL/L (3.5-5.1) H Chloride Level 107 MMOL/L (98-107) Carbon Dioxide Level 16 MMOL/L (21-32) L Anion Gap 15 mmol/L (5-15) Blood Urea Nitrogen 50 mg/dL (7-18) H Creatinine 3.0 MG/DL (0.55-1.30) H Estimat Glomerular Filtration Rate 16.0 mL/min (>60) Glucose Level 98 MG/DL (74-106) Lactic Acid Level 5.10 mmol/L (0.4-2.0) H 4.60 mmol/L (0.66-2.22) H Uric Acid 7.1 MG/DL (2.6-7.2) Calcium Level 6.1 MG/DL (8.5-10.1) L Phosphorus Level 7.8 MG/DL (2.5-4.9) H Magnesium Level 2.0 MG/DL (1.8-2.4) Total Bilirubin 0.9 MG/DL (0.2-1.0) Aspartate Amino Transf (AST/SGOT) 1637 U/L (15-37) H Alanine Aminotransferase (ALT/SGPT) 555 U/L (12-78) H Alkaline Phosphatase 488 U/L (46-116) H Lactate Dehydrogenase 1755 U/L (81-234) H Total Creatine Kinase > 43485 U/L (26-308) H Troponin I 14.093 ng/mL (0.000-0.056) 13.823 ng/mL (0.000-0.056) C-Reactive Protein, Quantitative 45.5 mg/dL (0.00-0.90) H Pro-B-Type Natriuretic Peptide > 43491 pg/mL (0-125) H Total Protein 5.0 G/DL (6.4-8.2) L Albumin 2.3 G/DL (3.4-5.0) L Globulin 2.7 g/dL Albumin/Globulin Ratio 0.9 (1.0-2.7) L Random Amikacin Level Pending Arterial Blood pH 7.098 (7.350-7.450) Arterial Blood Partial Pressure CO2 38.9 mmHg (35.0-45.0) Arterial Blood Partial Pressure O2 412.3 mmHg (75.0-100.0) H Arterial Blood HCO3 11.8 mmol/L (22.0-26.0) *L Arterial Blood Oxygen Saturation 100.0 % (95-100) Arterial Blood Base Excess -16.9 (-2-2) *L Marshall Test Positive [place] Cells Occasional Test 04/11/20 15:45 04/11/20 16:28 Lactic Acid Level 4.40 mmol/L (0.4-2.0) H Troponin I Pending Helena Rivera MD Apr 11, 2020 17:04
--- NOTE | 2020-04-11 18:08 | NUR ---
NURSE NOTES: Patient ADLs performed,mouth care done and suctioned as tolerated.Turned and repositioned.Levophed continuously titrate as tolerated.Tylenol given for T 101.Will continue close monitoring.HOB elevated at 35 degree to prevent aspiration and call light within easy reach.
--- NOTE | 2020-04-11 18:30 | Internal Med Progress Note ---
Subjective Date of Service: Apr 11, 2020 Physician Name Taras Benson Attending Physician Adalberto Monk MD Current Medications Medications (Trade) Dose Ordered Sig/Issa Route PRN Reason Start Time Stop Time Status Last Admin Dose Admin Acetaminophen (Tylenol) 650 mg Q4H PRN ORAL T>100.5 04/10/20 09:00 05/10/20 08:59 04/11/20 17:23 Albuterol/ Ipratropium (Albuterol/ Ipratropium) 3 ml Q4H PRN HHN Shortness of Breath 04/09/20 19:15 04/14/20 19:14 Amikacin Protocol (Amikacin pharmacy to dose) 1 ea DAILY PRN MISC Per rx protocol 04/10/20 12:30 05/10/20 12:29 Aztreonam 0.5 gm/ Dextrose 55 ml @ 110 mls/hr Q8HR IVPB 04/10/20 14:00 04/17/20 13:59 04/11/20 13:39 Chlorhexidine Gluconate (Elin-Hex 2%) 1 applic DAILY@2000 TOPIC 04/10/20 20:00 07/09/20 19:59 04/10/20 19:37 Dextrose (Dextrose 50%) 25 ml Q30M PRN IV Hypoglycemia 04/09/20 19:15 07/08/20 19:14 Dextrose (Dextrose 50%) 50 ml Q30M PRN IV Hypoglycemia 04/09/20 19:15 07/08/20 19:14 Dextrose/Sodium Chloride 1,000 ml @ 150 mls/hr Q6H40M IV 04/10/20 12:30 05/09/20 12:29 04/11/20 17:06 Iohexol (Omnipaque 350 100ml) 100 ml NOW PRN INJ Radiology Procedure 04/09/20 19:45 04/11/20 19:39 Lorazepam (Ativan 2mg/ml 1ml) 2 mg Q2H PRN IV agitation 04/09/20 19:15 04/16/20 19:14 04/11/20 13:42 Morphine Sulfate (Morphine Sulfate) 4 mg Q4H PRN IVP Severe Pain (Pain Scale 7-10) 04/09/20 19:15 04/16/20 19:14 04/11/20 13:43 Nitroglycerin (Ntg) 0.4 mg Q5MIN X 3 DOSES PRN SL Prn Chest Pain 04/09/20 19:15 05/09/20 19:14 Norepinephrine Bitartrate 8 mg/ Dextrose 558 ml @ 0 mls/hr Q24H IV 04/10/20 20:30 05/10/20 19:59 04/11/20 14:01 Ondansetron HCl (Zofran) 4 mg Q6H PRN IVP Nausea & Vomiting 04/09/20 19:15 05/09/20 19:14 Pantoprazole (Protonix) 40 mg DAILY IVP 04/12/20 09:00 05/12/20 08:59 Sodium Citrate (Bicitra) 30 ml EVERY 6 HOURS NG 04/11/20 13:00 05/11/20 12:59 04/11/20 17:05 Vancomycin HCl ([facility] pharmacy to dose) 1 ea DAILY PRN MISC Per rx protocol 04/10/20 12:30 05/10/20 12:29 Allergies: Coded Allergies: CEPHALOSPORINS (Verified Allergy, Intermediate, Anaphylaxis, 12/14/12) DIAZEPAM (Verified Allergy, Intermediate, DYSTONIC, 12/14/12) SUMATRIPTAN (Verified Allergy, Intermediate, 12/14/12) SUMATRIPTAN SUCCINATE (Verified Allergy, Intermediate, 12/14/12) TRAMADOL (Verified Allergy, Intermediate, Anaphylaxis, 12/14/12) CEPHALEXIN (Unverified Allergy, Unknown, 10/25/19) PENICILLINS (Unverified Allergy, Unknown, 08/26/18) Uncoded Allergies: PCN (Allergy, Unknown, 10/25/19) ROS Limited/Unobtainable: Yes Subjective 60 YO F admitted with altered mental status. Now respiratory failure and hypotension. Cover for Int Kevan-Dr Monk. ICU. Intubated and sedated Objective Last Vital Signs Date Time Temp Pulse Resp B/P (MAP) Pulse Ox O2 Delivery O2 Flow Rate FiO2 04/11/20 18:00 101.0 127 23 90/52 (65) 100 04/11/20 17:30 100 04/11/20 16:00 Mechanical Ventilator General Appearance: WD/WN, moderate distress, lethargic EENT: PERRL/EOMI, normal ENT inspection Neck: non-tender, normal alignment, supple, normal inspection Cardiovascular: normal peripheral pulses, normal rate, regular rhythm, no gallop/murmur, no JVD Respiratory/Chest: respiratory distress, crackles/rales, rhonchi - bilaterally , expiratory wheezing Abdomen: normal bowel sounds, non tender, soft, no organomegaly, no mass Extremities: normal range of motion, non-tender Neurologic: gelatin powder mixer II-XII grossly normal Skin: normal pigmentation, warm/dry Laboratory Tests Test 04/11/20 07:00 04/11/20 08:34 04/11/20 09:35 04/11/20 10:15 White Blood Count 17.1 K/UL (4.8-10.8) #H 15.1 K/UL (4.8-10.8) H Red Blood Count 3.67 M/UL (4.20-5.40) L 3.57 M/UL (4.20-5.40) L Hemoglobin 10.6 G/DL (12.0-16.0) L 9.9 G/DL (12.0-16.0) L Hematocrit 33.3 % (37.0-47.0) L 32.1 % (37.0-47.0) L Mean Corpuscular Volume 91 FL (80-99) 90 FL (80-99) Mean Corpuscular Hemoglobin 28.9 PG (27.0-31.0) 27.9 PG (27.0-31.0) Mean Corpuscular Hemoglobin Concent 31.8 G/DL (32.0-36.0) L 30.9 G/DL (32.0-36.0) L Red Cell Distribution Width 15.9 % (11.6-14.8) H 16.2 % (11.6-14.8) H Platelet Count 203 K/UL (150-450) 179 K/UL (150-450) Mean Platelet Volume 6.0 FL (6.5-10.1) L 6.3 FL (6.5-10.1) L Neutrophils (%) (Auto) % (45.0-75.0) % (45.0-75.0) Lymphocytes (%) (Auto) % (20.0-45.0) % (20.0-45.0) Monocytes (%) (Auto) % (1.0-10.0) % (1.0-10.0) Eosinophils (%) (Auto) % (0.0-3.0) % (0.0-3.0) Basophils (%) (Auto) % (0.0-2.0) % (0.0-2.0) Differential Total Cells Counted 100 100 Neutrophils % (Manual) 77 % (45-75) H 75 % (45-75) Lymphocytes % (Manual) 3 % (20-45) L 2 % (20-45) L Monocytes % (Manual) 7 % (1-10) 8 % (1-10) Eosinophils % (Manual) 0 % (0-3) 0 % (0-3) Basophils % (Manual) 0 % (0-2) 1 % (0-2) Band Neutrophils 13 % (0-8) H 14 % (0-8) H Platelet Estimate Adequate Adequate Platelet Morphology Normal Normal Hypochromasia 1+ 1+ Anisocytosis 1+ 1+ Erythrocyte Sedimentation Rate 10 MM/HR (0-30) Sodium Level 138 MMOL/L (136-145) Potassium Level 5.4 MMOL/L (3.5-5.1) H Chloride Level 107 MMOL/L (98-107) Carbon Dioxide Level 16 MMOL/L (21-32) L Anion Gap 15 mmol/L (5-15) Blood Urea Nitrogen 50 mg/dL (7-18) H Creatinine 3.0 MG/DL (0.55-1.30) H Estimat Glomerular Filtration Rate 16.0 mL/min (>60) Glucose Level 98 MG/DL (74-106) Lactic Acid Level 5.10 mmol/L (0.4-2.0) H 4.60 mmol/L (0.66-2.22) H Uric Acid 7.1 MG/DL (2.6-7.2) Calcium Level 6.1 MG/DL (8.5-10.1) L Phosphorus Level 7.8 MG/DL (2.5-4.9) H Magnesium Level 2.0 MG/DL (1.8-2.4) Total Bilirubin 0.9 MG/DL (0.2-1.0) Aspartate Amino Transf (AST/SGOT) 1637 U/L (15-37) H Alanine Aminotransferase (ALT/SGPT) 555 U/L (12-78) H Alkaline Phosphatase 488 U/L (46-116) H Lactate Dehydrogenase 1755 U/L (81-234) H Total Creatine Kinase > 18923 U/L (26-308) H Troponin I 14.093 ng/mL (0.000-0.056) 13.823 ng/mL (0.000-0.056) C-Reactive Protein, Quantitative 45.5 mg/dL (0.00-0.90) H Pro-B-Type Natriuretic Peptide > 16797 pg/mL (0-125) H Total Protein 5.0 G/DL (6.4-8.2) L Albumin 2.3 G/DL (3.4-5.0) L Globulin 2.7 g/dL Albumin/Globulin Ratio 0.9 (1.0-2.7) L Random Amikacin Level Pending Arterial Blood pH 7.098 (7.350-7.450) Arterial Blood Partial Pressure CO2 38.9 mmHg (35.0-45.0) Arterial Blood Partial Pressure O2 412.3 mmHg (75.0-100.0) H Arterial Blood HCO3 11.8 mmol/L (22.0-26.0) *L Arterial Blood Oxygen Saturation 100.0 % (95-100) Arterial Blood Base Excess -16.9 (-2-2) *L Marshall Test Positive Jessica Cells Occasional Test 04/11/20 15:45 04/11/20 16:28 Lactic Acid Level 4.40 mmol/L (0.4-2.0) H Troponin I 13.885 ng/mL (0.000-0.056) Microbiology Date/Time Source Procedure Growth Status 04/09/20 16:25 Blood Blood Culture - Preliminary NO GROWTH AFTER 24 HOURS Resulted 04/09/20 16:20 Blood Blood Culture - Preliminary NO GROWTH AFTER 24 HOURS Resulted 04/09/20 18:17 Nasal Nares MRSA Culture - Final NO METHICILLIN RESISTANT STAPH AUREUS... Complete 04/09/20 15:40 Nasopharynx SARS-CoV-2 RdRp Gene Assay - Final Complete 04/10/20 06:00 Stool Clostridium difficile Toxin Assay - Final Complete 04/10/20 12:00 Urine,Clean Catch Urine Culture - Preliminary Resulted 04/09/20 18:20 Urine,Clean Catch Urine Culture - Preliminary Gram Negative Dipesh Resulted 04/09/20 18:17 Rectum VRE Culture - Final NO VANCOMYCIN RESISTANT ENTEROCOCCUS ... Complete 04/09/20 18:17 Rectum - Final NO CARBAPENEM-RESISTANT ENTEROBACTERI... Complete Intake and Output 04/10/20 04/11/20 19:00 07:00 Intake Total 4101.666 ml 2407.117 ml Output Total 70 ml 150 ml Balance 4031.666 ml 2257.117 ml IV Total 4101.666 ml 2407.117 ml Output Urine Total 70 ml 150 ml # Bowel Movements 4 3 Assessment/Plan Problem List: (1) Opiate dependence, continuous Assessment & Plan: Methadone (2) Sepsis (3) UTI (urinary tract infection) Assessment & Plan: Gram neg dipesh. ABX=aztreonam, vanco and amikacin (4) Elevated troponin I level Assessment & Plan: Cardiology=Dr Mendes (5) Acute respiratory failure Assessment & Plan: Pulmonary/critical care=Dr Rivera; Vent per pulmonary (6) Altered mental status, unspecified (7) ACS (acute coronary syndrome) Status: not improved Taras Benson MD Apr 11, 2020 18:30
--- NOTE | 2020-04-11 19:00 | History and Physical Report ---
DATE OF ADMISSION: 04/09/2020 CHIEF COMPLAINT: The patient is a 60-year-old female who is admitted in respiratory failure. HISTORY OF PRESENT ILLNESS: The patient is a resident [facility] a [facility]. The patient has a history of opiate dependence and is on methadone maintenance. Much of the history and physical is taken from the patient's chart as the patient herself is intubated and sedated. The patient presented to [facility] emergency room. The patient was found to be in respiratory failure. The patient was emergently intubated in the emergency room. The patient is admitted with respiratory failure to rule out opioid overdose versus pneumonia. REVIEW OF SYSTEMS: Unable to assess secondary to the patient's mental status. PAST MEDICAL HISTORY: Significant for opiate dependence. PAST SURGICAL HISTORY: Unknown. CURRENT MEDICATIONS: Methadone of unknown dose daily. ALLERGIES: 1. Keflex. 2. Valium. 3. Penicillin. 4. Sumatriptan. 5. Tramadol. SOCIAL HISTORY: The patient is . PHYSICAL EXAMINATION: VITAL SIGNS: Temperature 98.1, respirations 32, pulse 107, and blood pressure 116/98. GENERAL: The patient is a well-developed and well-nourished female, in no apparent distress. HEENT: Eyes, pupils are equal responsive to light and accommodation. Extraocular movements are intact. NECK: Supple without lymphadenopathy. CHEST: Mechanical breath sounds bilaterally with expiratory wheezes, otherwise without rales. CARDIOVASCULAR: Tachycardic, regular rate. S1, S2 normal without murmurs, rubs, or gallops. ABDOMEN: Soft, nontender, and nondistended. Positive bowel sounds. No evidence of hepatosplenomegaly. Currently, no rebound or guarding noted. EXTREMITIES: Negative for clubbing, cyanosis, or edema. RECTAL/GENITAL: Not performed. NEUROLOGIC: Cranial nerves II through XII are grossly intact without focal deficits. IMAGING: Chest x-ray revealed left bibasilar atelectasis without infiltrate. LABORATORY STUDIES: WBC 13.6, hemoglobin 14.8, hematocrit 46.1, and platelets 506,000. Sodium 135, potassium 4.6, chloride 99, CO2 18, BUN 18, creatinine 1.4. Glucose 208. Urine toxicology was negative. ASSESSMENT: This is a 60-year-old female with: 1. Respiratory failure. 2. Shortness of breath. 3. Urinary tract infection. 4. Altered mental status. 5. History of opiate dependence. TREATMENT: 1. Respiratory failure. A Pulmonary/Critical Care consultation has been obtained with Dr. Helena Rivera. The patient is currently intubated in the intensive care unit. The patient has been started empirically on vancomycin. We will follow recommendations of Pulmonary. 2. Urinary tract infection. Urine culture is pending. The patient has been started empirically on vancomycin and aztreonam. We will follow recommendations of Infectious Disease, . . 3. Altered mental status. This may be secondary to sepsis versus drug overdose. 4. Opiate dependence. The patient is currently on methadone maintenance. Taras Benson M.D. DR: PHILIP JOB#: [id number] CC:
--- NOTE | 2020-04-11 19:02 | NUR ---
HAND-OFF: Report given to NEELA Angel.
--- NOTE | 2020-04-11 19:03 | NUR ---
NURSE NOTES: Patient received from NEELA Gee. patient withdraws to painful stimuli, but does not open eyes. patient with 7.5 ETT at 23cm on ventilator AC 20 TV 600 FiO2 100% PEEP 5. BP 110/61 HR 130 temp 101.7F axillary after prn Tylenol administered, ice packs applied. right femoral TLC Levophed decreased from 25 to 20 mcg/min and D5 1/2 NS @150ml/hr clean and asymptomatic. OGT on low intermittent suction with moderate amount of dark brown gastric secretions noted. Chaves catheter draining scant dark nathanael urine. bilateral arms nonpitting edema with discoloration from prior venipunctures. sacral blanchable redness noted. patient repositioned and oral care provided.
[2020-04-11] MEDS: Dyna-Hex 2% Top Sol 2oz TOPIC SCH (19:43)
--- NOTE | 2020-04-11 22:00 | NUR ---
NURSE NOTES: patient withdraws to painful stimuli, but does not open eyes. patient with 7.5 ETT at 23cm on ventilator AC 20 TV 600 FiO2 100% PEEP 5. BP 102/54 HR 109 Sinus Tachy on monitor. right femoral TLC Levophed 14mcg/min and D5 1/2 NS @150ml/hr clean and asymptomatic. OGT on low intermittent suction. Chaves catheter draining scant dark nathanael urine. patient repositioned and oral care provided.
[2020-04-12] VITALS (58 sets, daily range): BP systolic 84–120; BP diastolic 51–69
--- NOTE | 2020-04-12 | NUR ---
NURSE NOTES: patient withdraws to painful stimuli, but does not open eyes. patient with 7.5 ETT at 23cm on ventilator AC 20 TV 600 FiO2 100% PEEP 5. BP 94/59 HR 99 on monitor. right femoral TLC Levophed 8mcg/min and D5 1/2 NS @150ml/hr clean and asymptomatic. OGT on low intermittent suction, moderate amount of dark brown gastric secretions noted. Chaves catheter draining scant dark nathanael urine. left buttock stage I noted, Optifoam applied. patient given CHG bath, repositioned and oral care provided.
--- NOTE | 2020-04-12 02:00 | NUR ---
NURSE NOTES: patient withdraws to painful stimuli, but does not open eyes. patient with 7.5 ETT at 23cm on ventilator AC 20 TV 600 FiO2 100% PEEP 5. BP 88/51 HR 96 on monitor. right femoral TLC Levophed increased to 12mcg/min and D5 1/2 NS @150ml/hr clean and asymptomatic. OGT on low intermittent suction, moderate amount of dark brown gastric secretions noted. Chaves catheter draining scant dark nathanael urine. patient repositioned and oral care provided.
--- NOTE | 2020-04-12 04:00 | NUR ---
NURSE NOTES: patient withdraws to painful stimuli with eyes opening partially, bilateral . patient with 7.5 ETT at 23cm on ventilator AC 20 TV 600 FiO2 100% PEEP 5. BP 99/59 HR 105 sinus tachy on monitor and afebrile. right femoral TLC Levophed 14mcg/min and D5 1/2 NS @150ml/hr clean and asymptomatic. OGT on low intermittent suction, with dark brown gastric secretions notes. Chaves catheter draining scant dark nathanael urine. patient repositioned and oral care provided.
[2020-04-12] MEDS: D5 1/2NS 1,000 ML IV SCH ×4 (04:42→23:52)
[2020-04-12] MEDS: Sodium Citrate 30ml NG SCH ×4 (05:13→23:51)
[2020-04-12] MEDS: Aztreonam Inj 0.5 GM in D5W 55 ML IVPB SCH (05:36)
[2020-04-12 05:49] LABS: HEMOGLOBIN 9.6 G/DL (12.0-16.0); MEAN CORPUSCULAR VOLUME 90 FL (80-99); PLATELET COUNT 124 K/UL (150-450); RED BLOOD COUNT 3.35 M/UL (4.20-5.40); RED CELL DISTRIBUTION WIDTH 16.5 % (11.6-14.8); WHITE BLOOD COUNT 19.6 K/UL (4.8-10.8)
--- NOTE | 2020-04-12 06:00 | NUR ---
NURSE NOTES: patient with eyes partially open, and bilateral lower extremities shifting restlessly. patient with 7.5 ETT at 23cm on ventilator AC 20 TV 600 FiO2 100% PEEP 5. BP 93/56 HR 114 sinus tachy on monitor. right femoral TLC Levophed 10mcg/min and D5 1/2 NS @150ml/hr clean and asymptomatic. OGT on low intermittent suction, with dark brown gastric secretions notes. Chaves catheter draining scant dark nathanael urine. bilateral arms nonpitting edema with discoloration from prior venipunctures. bilateral lower extremity discoloration noted. sacral DTPI noted, photos taken, area covered with optifoam. patient repositioned and oral care provided.
[2020-04-12 06:33] LABS: AMMONIA 31 umol/L (11-32)
[2020-04-12 06:40] LABS: CREATINE KINASE > 10000 U/L (26-308); GAMMA GLUTAMYL TRANSPEPTIDASE 51 U/L (5-85); LACTATE DEHYDROGENASE 1720 U/L (81-234)
[2020-04-12 06:46] LABS: ALANINE AMINOTRANSFERASE 663 U/L (12-78); ALBUMIN 2.2 G/DL (3.4-5.0); ALBUMIN/GLOBULIN RATIO 0.8 (1.0-2.7); ALKALINE PHOSPHATASE 430 U/L (46-116); ANION GAP 19 mmol/L (5-15); ASPARTATE AMINO TRANSFERASE 1661 U/L (15-37); BILIRUBIN,TOTAL 1.3 MG/DL (0.2-1.0); BLOOD UREA NITROGEN 66 mg/dL (7-18); CARBON DIOXIDE 17 MMOL/L (21-32); CHLORIDE 100 MMOL/L (98-107); CREATININE 3.2 MG/DL (0.55-1.30); POTASSIUM 4.9 MMOL/L (3.5-5.1); SODIUM 136 MMOL/L (136-145)
--- NOTE | 2020-04-12 07:01 | NUR ---
RESPIRATORY NOTE: Received pt on ETT 7.5@23cm lip line, on current vent settings: AC 20-600ml-75%FiO2-peep 5. Pt is tolerating well the settings, no SOB or resp distress noted. Alarms are set and audible, vent is plugged into the red outlet, ambu bag is at bedside. Will continue to monitor.
[2020-04-12 07:04] LABS: CALCIUM 5.8 MG/DL (8.5-10.1)
[2020-04-12 07:10] LABS: BILIRUBIN,DIRECT 0.8 MG/DL (0.0-0.3)
--- NOTE | 2020-04-12 07:17 | NUR ---
NURSE HAND-OFF REPORT: Latest Vital Signs: Temperature 97.8 , Pulse 114 , B/P 93 /56 , Respiratory Rate 30 , O2 SAT 100 , Mechanical Ventilator, O2 Flow Rate . Vital Sign Comment: WNL EKG Rhythm: Sinus Tachycardia Rhythm change?: N MD Notified?: - MD Response: Latest Betancur Fall Score: 50 Fall Risk: High Risk Safety Measures: Call light Within Reach, Bed Alarm Zone 1, Side Rails Side Rails x3, Bed position Low and Locked. Fall Precautions: Door Sign Report given to NEELA Lawrence.
--- NOTE | 2020-04-12 07:45 | NUR ---
NURSE NOTES: LATE ENTRY: RECEIVED REPORT FROM NICOLE. KEITA. PT IN BED WITHDRAWALS FROM DEEP PAIN. OBTUNDED PUPILS 4MM SLUGGISH. VS: 114, 84/52, 100%,24. PT ON VENT ET TUBE 7.5, 23CM, AC 20, VT 600, 55%, 5. SECRETIONS THIN, SEVILLA. DIMINISHED. OGT CONNECTED TO LOW INTERMITTENT SUCTION, WITH DARK BROWN SECRETIONS. ABDOMEN FLAT, HYPOACTIVE BOWEL SOUNDS. RUBIO DRAINING DARK FÉLIX. SKIN- SEE ASSESSMENT. EDEMA BILATERAL EXTREMITIES. IV ACCESS LFA 18G, OCCLUDED. LT HAND 22G. RT FEMORAL TLC. RUNNING D5 1/2 NS AT 150, LEVOPHED 10MCG/MIN. AFEBRILE. SEMI FOWLERS. DROPLET PRECAUTIONS IN PLACE. SIDE RAILS X3. BED LOCKED, IN LOW POSITION. WILL CONTINUE TO MONITOR.
[2020-04-12] MEDS ORDERED: Vancomycin 1gm/D5W 275ml IVPB ONE ×2 (08:00)
[2020-04-12] MEDS: Pantoprazole Inj IVP SCH (08:23)
[2020-04-12] MEDS: Norepinephrine Bitartrate 8 MG in D5W 500ml 550 ML IV SCH ×2 (09:00→18:17)
--- NOTE | 2020-04-12 10:03 | General Progress Note ---
Assessment/Plan Problem List: (1) Altered mental status, unspecified ICD Codes: R41.82 - Altered mental status, unspecified SNOMED: 425734044 (2) History of chronic pain ICD Codes: Z87.898 - Personal history of other specified conditions SNOMED: 387097066 (3) Acute respiratory failure ICD Codes: J96.00 - Acute respiratory failure, unspecified whether with hypoxia or hypercapnia SNOMED: 69670141 (4) History of depression ICD Codes: Z86.59 - Personal history of other mental and behavioral disorders SNOMED: 024887707 (5) ACS (acute coronary syndrome) ICD Codes: I24.9 - Acute ischemic heart disease, unspecified SNOMED: 772523674 Status: not improved Assessment/Plan: Elevated LFTS>>> shock liver elevated CEA anemia on pressor NGT to suction keep npo repeat labs fu cardiology fu pulm management of elevated CEA when patient is more stable poor prognosis will fu Subjective ROS Limited/Unobtainable: No Allergies: Coded Allergies: CEPHALOSPORINS (Verified Allergy, Intermediate, Anaphylaxis, 12/14/12) DIAZEPAM (Verified Allergy, Intermediate, DYSTONIC, 12/14/12) SUMATRIPTAN (Verified Allergy, Intermediate, 12/14/12) SUMATRIPTAN SUCCINATE (Verified Allergy, Intermediate, 12/14/12) TRAMADOL (Verified Allergy, Intermediate, Anaphylaxis, 12/14/12) CEPHALEXIN (Unverified Allergy, Unknown, 10/25/19) PENICILLINS (Unverified Allergy, Unknown, 08/26/18) Uncoded Allergies: PCN (Allergy, Unknown, 10/25/19) Objective Last 24 Hour Vital Signs Date Time Temp Pulse Resp B/P (MAP) Pulse Ox O2 Delivery O2 Flow Rate FiO2 04/12/20 09:45 119 25 102/62 (75) 100 04/12/20 09:30 119 26 100/60 (73) 100 04/12/20 09:15 118 22 95/57 (70) 100 04/12/20 09:00 65 04/12/20 09:00 107/58 04/12/20 09:00 117 24 101/57 (72) 100 04/12/20 08:46 116 24 65 04/12/20 08:00 116 26 93/56 (68) 100 04/12/20 08:00 75 04/12/20 07:45 116 26 92/51 (65) 100 04/12/20 07:30 116 25 94/52 (66) 100 04/12/20 07:21 114 24 90/54 (66) 100 04/12/20 07:15 114 23 84/52 (63) 100 04/12/20 07:01 114 22 75 04/12/20 07:00 98.0 114 26 88/51 (63) 100 04/12/20 06:30 115 27 04/12/20 06:00 93/56 04/12/20 06:00 114 30 93/56 (68) 100 04/12/20 05:09 104 26 75 04/12/20 05:00 109 27 96/57 (70) 98 04/12/20 05:00 96/57 04/12/20 04:00 Mechanical Ventilator 04/12/20 04:00 97.8 105 24 99/59 (72) 100 04/12/20 04:00 105 04/12/20 04:00 100 04/12/20 03:19 75 04/12/20 03:18 100 21 85 04/12/20 03:00 99 21 89/53 (65) 100 04/12/20 03:00 93/56 04/12/20 02:00 86/52 04/12/20 02:00 96 22 88/51 (63) 100 04/12/20 01:00 85/53 04/12/20 01:00 95 24 86/65 (72) 98 04/12/20 00:47 96 24 85 04/12/20 00:00 97.0 99 24 94/59 (71) 100 04/12/20 00:00 101 04/12/20 00:00 94/59 04/12/20 00:00 Mechanical Ventilator 04/11/20 23:03 85 04/11/20 23:00 102 21 97/72 (80) 100 04/11/20 23:00 97/72 04/11/20 22:58 104 21 100 04/11/20 22:00 91/56 04/11/20 22:00 109 21 102/54 (70) 100 04/11/20 21:03 120 21 100 04/11/20 21:00 96/55 04/11/20 21:00 119 21 96/55 (69) 99 04/11/20 20:00 101.7 128 23 95/53 (67) 100 04/11/20 20:00 Mechanical Ventilator 04/11/20 20:00 98/62 04/11/20 20:00 100 04/11/20 20:00 130 04/11/20 19:14 129 23 100 04/11/20 19:00 97/55 04/11/20 19:00 130 23 110/61 (77) 100 04/11/20 18:30 62/44 04/11/20 18:00 101.0 127 23 90/52 (65) 100 04/11/20 18:00 90/52 04/11/20 17:53 100.3 04/11/20 17:45 127 23 91/53 (66) 100 04/11/20 17:30 126 22 100 04/11/20 17:30 127 24 91/53 (66) 100 04/11/20 17:16 127 22 92/55 (67) 100 04/11/20 17:15 127 22 85/56 (66) 100 04/11/20 17:00 91/53 04/11/20 17:00 127 23 99/56 (70) 100 04/11/20 16:45 127 23 97/57 (70) 100 04/11/20 16:30 127 23 105/57 (73) 100 04/11/20 16:15 127 24 103/59 (74) 100 04/11/20 16:00 98.2 126 24 109/59 (76) 100 04/11/20 16:00 117/64 04/11/20 16:00 126 04/11/20 16:00 100 04/11/20 16:00 Mechanical Ventilator 04/11/20 15:45 126 24 114/61 (78) 100 04/11/20 15:30 126 22 114/64 (81) 100 04/11/20 15:20 125 22 100 04/11/20 15:15 125 22 117/64 (81) 100 04/11/20 15:00 125 22 122/61 (81) 100 04/11/20 15:00 124/65 04/11/20 14:45 125 22 123/63 (83) 100 04/11/20 14:30 124 23 133/63 (86) 100 04/11/20 14:15 124 22 124/65 (84) 100 04/11/20 14:13 98.8 04/11/20 14:01 93/48 04/11/20 14:00 124 20 130/64 (86) 100 04/11/20 14:00 93/48 04/11/20 13:45 118 24 93/48 (63) 100 04/11/20 13:31 119 23 85/51 (62) 100 04/11/20 13:30 118 23 85/49 (61) 100 04/11/20 13:30 118 22 100 04/11/20 13:15 119 24 111/58 (75) 100 04/11/20 13:00 113/58 04/11/20 13:00 119 24 113/58 (76) 100 04/11/20 12:45 118 23 105/57 (73) 100 04/11/20 12:30 117 22 82/48 (59) 100 04/11/20 12:15 119 23 112/60 (77) 100 04/11/20 12:00 118 04/11/20 12:00 97.8 119 24 111/59 (76) 100 04/11/20 12:00 100 04/11/20 12:00 112/60 04/11/20 12:00 Mechanical Ventilator 04/11/20 11:30 118 22 106/60 (75) 100 04/11/20 11:00 118 22 108/58 (75) 100 04/11/20 11:00 111/59 04/11/20 11:00 118 23 100 04/11/20 10:45 117 22 104/55 (71) 100 04/11/20 10:30 118 24 85/67 (73) 100 Intake and Output 04/11/20 04/12/20 19:00 07:00 Intake Total 2891.55 ml 1470.02 ml Output Total 935 ml 855 ml Balance 1956.55 ml 615.02 ml IV Total 2891.55 ml 1410.02 ml Other 60 ml Output Urine Total 235 ml 105 ml Gastric Drainage Total 700 ml Other 750 ml # Bowel Movements 1 1 Laboratory Tests 04/11/20 10:15: White Blood Count 15.1H, Red Blood Count 3.57L, Hemoglobin 9.9L, Hematocrit 32.1L, Mean Corpuscular Volume 90, Mean Corpuscular Hemoglobin 27.9, Mean Corpuscular Hemoglobin Concent 30.9L, Red Cell Distribution Width 16.2H, Platelet Count 179, Mean Platelet Volume 6.3L, Neutrophils (%) (Auto) , Lymphocytes (%) (Auto) , Monocytes (%) (Auto) , Eosinophils (%) (Auto) , Basophils (%) (Auto) , Differential Total Cells Counted 100, Neutrophils % ( Manual) 75, Lymphocytes % (Manual) 2L, Monocytes % (Manual) 8, Eosinophils % ( Manual) 0, Basophils % (Manual) 1, Band Neutrophils 14H, Platelet Estimate Adequate, Platelet Morphology Normal, Hypochromasia 1+, Anisocytosis 1+, Jessica Cells Occasional 04/11/20 15:45: Lactic Acid Level 4.40H 04/11/20 16:28: Troponin I 13.885H 04/11/20 20:55: Lactic Acid Level 4.50H 04/12/20 04:40: White Blood Count 19.6H, Red Blood Count 3.35L, Hemoglobin 9.6L, Hematocrit 30.0L, Mean Corpuscular Volume 90, Mean Corpuscular Hemoglobin 28.6, Mean Corpuscular Hemoglobin Concent 31.9L, Red Cell Distribution Width 16.5H, Platelet Count 124L, Mean Platelet Volume 6.7, Neutrophils (%) (Auto) , Lymphocytes (%) (Auto) , Monocytes (%) (Auto) , Eosinophils (%) (Auto) , Basophils (%) (Auto) , Neutrophils % (Manual) [Pending], Lymphocytes % (Manual) [Pending], Platelet Estimate [Pending], Platelet Morphology [Pending], Sodium Level 136, Potassium Level 4.9, Chloride Level 100, Carbon Dioxide Level 17L, Anion Gap 19H, Blood Urea Nitrogen 66H, Creatinine 3.2H, Estimat Glomerular Filtration Rate 14.8, Glucose Level 52L, Uric Acid 8.0H, Calcium Level 5.8*L, Phosphorus Level 7.0H, Magnesium Level 1.8, Total Bilirubin 1.3H, Direct Bilirubin 0.8H, Gamma Glutamyl Transpeptidase 51, Aspartate Amino Transf (AST/ SGOT) 1661H, Alanine Aminotransferase (ALT/SGPT) 663H, Alkaline Phosphatase 430H , Ammonia 31, Lactate Dehydrogenase 1720H, Total Creatine Kinase > 56692A, Troponin I 7.999H, C-Reactive Protein, Quantitative 27.9H, Pro-B-Type Natriuretic Peptide > 16923T, Total Protein 4.8L, Albumin 2.2L, Globulin 2.6, Albumin/Globulin Ratio 0.8L, Lipase 68L, Random Vancomycin Level 8.9 04/12/20 08:18: Arterial Blood pH 7.260L, Arterial Blood Partial Pressure CO2 34.5L, Arterial Blood Partial Pressure O2 305.8H, Arterial Blood HCO3 15.1*L, Arterial Blood Oxygen Saturation 99.8, Arterial Blood Base Excess -11.0*L, Marshall Test Positive Height (Feet): 5 Height (Inches): 4.00 Weight (Pounds): 121 General Appearance: lethargic EENT: normal ENT inspection Neck: supple Cardiovascular: tachycardia Respiratory/Chest: decreased breath sounds Abdomen: hypoactive bowel sounds, distended Extremities: non-tender David Pickens MD Apr 12, 2020 10:03
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
--- NOTE | 2020-04-12 10:30 | Nephrology Progress Note ---
Assessment/Plan Problem List: (1) ATN (acute tubular necrosis) (2) Shock Assessment: Shock Liver (3) Sepsis (4) Acute respiratory failure (5) Rhabdomyolysis Assessment: Severe (6) Elevated troponin I level Assessment Acute renal failure Acute respiratory failure Sepsis- SHOCK, shock liver Toxic metabolic encephalopathy phalangeal Plan April 12: Patient doing poorly. Remains on pressors. Serum creatinine rising. Troponin I declining. Calcium low. Remains acidotic. Will give IV calcium. IV bicarb started by vascular sonographer. Will continue to monitor renal parameters. Prefer to avoid nephrotoxic's. Also CPK over 10,000 indicative of severe left rhabdomyolysis. Vigorous hydration will be continued. Fluid challenge Pressors 100 mg Lasix IV push 1 time One dose Sodium Bicarb IV Monitor renal parameters Antibiotics Avoid nephrotoxic's Pulmonary support 2D echocardiogram : Pending Kidney ultrasound : Pending Per orders Subjective ROS Limited/Unobtainable: Yes Objective Objective Last 24 Hour Vital Signs Date Time Temp Pulse Resp B/P (MAP) Pulse Ox O2 Delivery O2 Flow Rate FiO2 04/12/20 09:45 119 25 102/62 (75) 100 04/12/20 09:30 119 26 100/60 (73) 100 04/12/20 09:15 118 22 95/57 (70) 100 04/12/20 09:00 65 04/12/20 09:00 107/58 04/12/20 09:00 117 24 101/57 (72) 100 04/12/20 08:46 116 24 65 04/12/20 08:00 116 26 93/56 (68) 100 04/12/20 08:00 75 04/12/20 07:45 116 26 92/51 (65) 100 04/12/20 07:30 116 25 94/52 (66) 100 04/12/20 07:21 114 24 90/54 (66) 100 04/12/20 07:15 114 23 84/52 (63) 100 04/12/20 07:01 114 22 75 04/12/20 07:00 98.0 114 26 88/51 (63) 100 04/12/20 06:30 115 27 04/12/20 06:00 93/56 04/12/20 06:00 114 30 93/56 (68) 100 04/12/20 05:09 104 26 75 8/23/20 05:00 109 27 96/57 (70) 98 04/12/20 05:00 96/57 04/12/20 04:00 Mechanical Ventilator 04/12/20 04:00 97.8 105 24 99/59 (72) 100 04/12/20 04:00 105 04/12/20 04:00 100 04/12/20 03:19 75 04/12/20 03:18 100 21 85 04/12/20 03:00 99 21 89/53 (65) 100 04/12/20 03:00 93/56 04/12/20 02:00 86/52 04/12/20 02:00 96 22 88/51 (63) 100 04/12/20 01:00 85/53 04/12/20 01:00 95 24 86/65 (72) 98 04/12/20 00:47 96 24 85 04/12/20 00:00 97.0 99 24 94/59 (71) 100 04/12/20 00:00 101 04/12/20 00:00 94/59 04/12/20 00:00 Mechanical Ventilator 04/11/20 23:03 85 04/11/20 23:00 102 21 97/72 (80) 100 04/11/20 23:00 97/72 04/11/20 22:58 104 21 100 04/11/20 22:00 91/56 04/11/20 22:00 109 21 102/54 (70) 100 04/11/20 21:03 120 21 100 04/11/20 21:00 96/55 04/11/20 21:00 119 21 96/55 (69) 99 04/11/20 20:00 101.7 128 23 95/53 (67) 100 04/11/20 20:00 Mechanical Ventilator 04/11/20 20:00 98/62 04/11/20 20:00 100 04/11/20 20:00 130 04/11/20 19:14 129 23 100 04/11/20 19:00 97/55 04/11/20 19:00 130 23 110/61 (77) 100 04/11/20 18:30 62/44 04/11/20 18:00 101.0 127 23 90/52 (65) 100 04/11/20 18:00 90/52 04/11/20 17:53 100.3 04/11/20 17:45 127 23 91/53 (66) 100 04/11/20 17:30 126 22 100 04/11/20 17:30 127 24 91/53 (66) 100 04/11/20 17:16 127 22 92/55 (67) 100 04/11/20 17:15 127 22 85/56 (66) 100 04/11/20 17:00 91/53 04/11/20 17:00 127 23 99/56 (70) 100 04/11/20 16:45 127 23 97/57 (70) 100 04/11/20 16:30 127 23 105/57 (73) 100 04/11/20 16:15 127 24 103/59 (74) 100 04/11/20 16:00 98.2 126 24 109/59 (76) 100 04/11/20 16:00 117/64 04/11/20 16:00 126 04/11/20 16:00 100 04/11/20 16:00 Mechanical Ventilator 04/11/20 15:45 126 24 114/61 (78) 100 04/11/20 15:30 126 22 114/64 (81) 100 04/11/20 15:20 125 22 100 04/11/20 15:15 125 22 117/64 (81) 100 04/11/20 15:00 125 22 122/61 (81) 100 04/11/20 15:00 124/65 04/11/20 14:45 125 22 123/63 (83) 100 04/11/20 14:30 124 23 133/63 (86) 100 04/11/20 14:15 124 22 124/65 (84) 100 04/11/20 14:13 98.8 04/11/20 14:01 93/48 04/11/20 14:00 124 20 130/64 (86) 100 04/11/20 14:00 93/48 04/11/20 13:45 118 24 93/48 (63) 100 04/11/20 13:31 119 23 85/51 (62) 100 04/11/20 13:30 118 23 85/49 (61) 100 04/11/20 13:30 118 22 100 04/11/20 13:15 119 24 111/58 (75) 100 04/11/20 13:00 113/58 04/11/20 13:00 119 24 113/58 (76) 100 04/11/20 12:45 118 23 105/57 (73) 100 04/11/20 12:30 117 22 82/48 (59) 100 04/11/20 12:15 119 23 112/60 (77) 100 04/11/20 12:00 118 04/11/20 12:00 97.8 119 24 111/59 (76) 100 04/11/20 12:00 100 04/11/20 12:00 112/60 04/11/20 12:00 Mechanical Ventilator 04/11/20 11:30 118 22 106/60 (75) 100 04/11/20 11:00 118 22 108/58 (75) 100 04/11/20 11:00 111/59 04/11/20 11:00 118 23 100 04/11/20 10:45 117 22 104/55 (71) 100 04/11/20 10:30 118 24 85/67 (73) 100 Intake and Output 04/11/20 04/12/20 19:00 07:00 Intake Total 2891.55 ml 1470.02 ml Output Total 935 ml 855 ml Balance 1956.55 ml 615.02 ml IV Total 2891.55 ml 1410.02 ml Other 60 ml Output Urine Total 235 ml 105 ml Gastric Drainage Total 700 ml Other 750 ml # Bowel Movements 1 1 Laboratory Tests 04/11/20 15:45: Lactic Acid Level 4.40H 04/11/20 16:28: Troponin I 13.885H 04/11/20 20:55: Lactic Acid Level 4.50H 04/12/20 04:40: Troponin I 7.999H, White Blood Count 19.6H, Red Blood Count 3.35L, Hemoglobin 9.6L, Hematocrit 30.0L, Mean Corpuscular Volume 90, Mean Corpuscular Hemoglobin 28.6, Mean Corpuscular Hemoglobin Concent 31.9L, Red Cell Distribution Width 16.5H, Platelet Count 124L, Mean Platelet Volume 6.7, Neutrophils (%) (Auto) , Lymphocytes (%) (Auto) , Monocytes (%) (Auto) , Eosinophils (%) (Auto) , Basophils (%) (Auto) , Neutrophils % (Manual) [Pending], Lymphocytes % (Manual) [Pending], Platelet Estimate [Pending], Platelet Morphology [Pending], Sodium Level 136, Potassium Level 4.9, Chloride Level 100, Carbon Dioxide Level 17L, Anion Gap 19H, Blood Urea Nitrogen 66H, Creatinine 3.2H, Estimat Glomerular Filtration Rate 14.8, Glucose Level 52L, Uric Acid 8.0H, Calcium Level 5.8*L, Phosphorus Level 7.0H, Magnesium Level 1.8, Total Bilirubin 1.3H, Direct Bilirubin 0.8H, Gamma Glutamyl Transpeptidase 51, Aspartate Amino Transf (AST/ SGOT) 1661H, Alanine Aminotransferase (ALT/SGPT) 663H, Alkaline Phosphatase 430H , Ammonia 31, Lactate Dehydrogenase 1720H, Total Creatine Kinase > 50099U, C- Reactive Protein, Quantitative 27.9H, Pro-B-Type Natriuretic Peptide > 11090F, Total Protein 4.8L, Albumin 2.2L, Globulin 2.6, Albumin/Globulin Ratio 0.8L, Lipase 68L, Random Vancomycin Level 8.9 04/12/20 08:18: Arterial Blood pH 7.260L, Arterial Blood Partial Pressure CO2 34.5L, Arterial Blood Partial Pressure O2 305.8H, Arterial Blood HCO3 15.1*L, Arterial Blood Oxygen Saturation 99.8, Arterial Blood Base Excess -11.0*L, Marshall Test Positive Height (Feet): 5 Height (Inches): 4.00 Weight (Pounds): 121 General Appearance: no apparent distress EENT: other - Intubated on ventilator Cardiovascular: tachycardia Respiratory/Chest: decreased breath sounds Abdomen: distended Objective No change Chepe Green MD Apr 12, 2020 10:30
--- NOTE | 2020-04-12 10:30 | NUR ---
CASE MANAGEMENT:REVIEW 04/12/20 SI: ACUTE RESPIRATORY FAILURE ~ INTUBATED SEPSIS. UTI 98.0 116 26 93/56 100% ON VENT SUPPORT @ 65% FIO2 WBC+19.6 PLT-124 BUN+66 CR+3.2 GLUCOSE-52 CA-5.8 TBILI+1.3 DBILI+0.8 AST/ALT+1661/663 TROPONIN(+) 7.999 IS: IV CA GLUCONATE Q1HRS X2 BAGS IVF+ CA GLUC @50/HR Q12 IVF+NAHCO3@76/HR IV PROTONIX QD LEVOPHED GTT IVF@150/HR : ICU STATUS DCP: FROM [employer]
--- NOTE | 2020-04-12 10:38 | NUR ---
INSURANCE REVIEWS AND CLINICALS FOR 04/11 AND 04/12 FAXED TO: SHAYAN SILVER T: [phone] F: [phone]
--- NOTE | 2020-04-12 10:50 | Diagnostic Imaging Report ---
EXAM: XR Chest, 1 View CLINICAL HISTORY: DYSPNEA TECHNIQUE: Frontal view of the chest. COMPARISON: Chest x-ray 04/11/20 FINDINGS: Lungs: Similar mild left lung base atelectasis/airspace disease. Pleural space: Query Tiny bilateral pleural effusion. No pneumothorax. Heart: Unremarkable. No cardiomegaly. Mediastinum: Unremarkable. Bones/joints: Unremarkable. Tubes, lines and devices: Endotracheal tube and NG tube are stable. IMPRESSION: 1. Endotracheal tube and NG tube are stable. 2. Similar mild left lung base atelectasis/airspace disease. 3. Query Tiny bilateral pleural effusion.
[2020-04-12] MEDS: Calcium Gluconate 1gm/50ml 50 ML IVPB SCH ×3 (10:53→21:18)
[2020-04-12] MEDS: Sodium Bicarbonate 150 ML in D5W 1000ml 1,000 ML IV SCH (10:53)
--- NOTE | 2020-04-12 10:56 | NUR ---
NURSE NOTES: Son of the patient arrived with sister arrived and wants to speak to the MDs on the Case primarily Drs. Rivera and Dr. Monk. msg. for both.
--- NOTE | 2020-04-12 11:00 | NUR ---
NURSE NOTES: LATE ENTRY: MD REAGAN HERE TO SEE PT. INFORMED EKG TAKEN, ST 120'S, LEVO INCREASED. LAST TROPIN ELEVATED, WILL PLACE OWN ORDER TO TAKE IN AM, WITH LACTIC ACID.
--- NOTE | 2020-04-12 12:12 | NUR ---
NURSE NOTES: LATE ENTRY: PT IN BED WITHDRAWALS FROM DEEP PAIN. OBTUNDED PUPILS 4MM SLUGGISH. VS: 122, 104/59, 99%,23. PT ON VENT ET TUBE 7.5, 23CM, AC 20, VT 600, 55%, 5. SECRETIONS THIN, SEVILLA. DIMINISHED. OGT CONNECTED TO LOW INTERMITTENT SUCTION, WITH DARK BROWN SECRETIONS. ABDOMEN FLAT, HYPOACTIVE BOWEL SOUNDS. RUBIO DRAINING DARK FÉLIX. IV ACCESS LT HAND 22G. RT FEMORAL TLC. RUNNING D5 1/2 NS AT 150, LEVOPHED 14MCG/MIN. FEBRILE. SEMI FOWLERS. DROPLET PRECAUTIONS IN PLACE. SIDE RAILS X3. BED LOCKED, IN LOW POSITION. WILL CONTINUE TO MONITOR. Addendum: 04/12/20 at 2035 by Melinda Saucedo RN HANGING BICARB DRIP AT 76ML/HR. D5 1/2 NS ON HOLD.
--- NOTE | 2020-04-12 13:51 | Consultation ---
History of Present Illness General Date patient seen: Apr 12, 2020 Chief Complaint: General Complaint Present Illness [facility] # [id number] Allergies: Coded Allergies: CEPHALOSPORINS (Verified Allergy, Intermediate, Anaphylaxis, 12/14/12) DIAZEPAM (Verified Allergy, Intermediate, DYSTONIC, 12/14/12) SUMATRIPTAN (Verified Allergy, Intermediate, 12/14/12) SUMATRIPTAN SUCCINATE (Verified Allergy, Intermediate, 12/14/12) TRAMADOL (Verified Allergy, Intermediate, Anaphylaxis, 12/14/12) CEPHALEXIN (Unverified Allergy, Unknown, 10/25/19) PENICILLINS (Unverified Allergy, Unknown, 08/26/18) Uncoded Allergies: PCN (Allergy, Unknown, 10/25/19) Medication History Unable to Obtain Active Prescriptions or Reported Meds Patient History Healthcare decision maker Resuscitation status Advanced Directive on File Physical Exam Last 24 Hour Vital Signs Date Time Temp Pulse Resp B/P (MAP) Pulse Ox O2 Delivery O2 Flow Rate FiO2 04/12/20 12:52 124 22 55 04/12/20 11:30 122 25 102/59 (73) 100 04/12/20 11:11 122 26 55 04/12/20 11:00 122 26 105/63 (77) 99 04/12/20 10:30 121 26 102/52 (69) 100 04/12/20 10:00 121 26 100/64 (76) 100 04/12/20 09:45 119 25 102/62 (75) 100 04/12/20 09:30 119 26 100/60 (73) 100 04/12/20 09:15 118 22 95/57 (70) 100 04/12/20 09:00 65 04/12/20 09:00 107/58 04/12/20 09:00 117 24 101/57 (72) 100 04/12/20 08:46 116 24 65 04/12/20 08:00 Mechanical Ventilator 04/12/20 08:00 116 26 93/56 (68) 100 04/12/20 08:00 75 04/12/20 07:45 116 26 92/51 (65) 100 04/12/20 07:30 116 25 94/52 (66) 100 04/12/20 07:21 114 24 90/54 (66) 100 04/12/20 07:15 114 23 84/52 (63) 100 04/12/20 07:01 114 22 75 04/12/20 07:00 98.0 114 26 88/51 (63) 100 04/12/20 06:30 115 27 04/12/20 06:00 93/56 04/12/20 06:00 114 30 93/56 (68) 100 04/12/20 05:09 104 26 75 04/12/20 05:00 109 27 96/57 (70) 98 04/12/20 05:00 96/57 04/12/20 04:00 Mechanical Ventilator 04/12/20 04:00 97.8 105 24 99/59 (72) 100 04/12/20 04:00 105 04/12/20 04:00 100 04/12/20 03:19 75 04/12/20 03:18 100 21 85 04/12/20 03:00 99 21 89/53 (65) 100 04/12/20 03:00 93/56 04/12/20 02:00 86/52 04/12/20 02:00 96 22 88/51 (63) 100 04/12/20 01:00 85/53 04/12/20 01:00 95 24 86/65 (72) 98 04/12/20 00:47 96 24 85 04/12/20 00:00 97.0 99 24 94/59 (71) 100 04/12/20 00:00 101 04/12/20 00:00 94/59 04/12/20 00:00 Mechanical Ventilator 04/11/20 23:03 85 04/11/20 23:00 102 21 97/72 (80) 100 04/11/20 23:00 97/72 04/11/20 22:58 104 21 100 04/11/20 22:00 91/56 04/11/20 22:00 109 21 102/54 (70) 100 04/11/20 21:03 120 21 100 04/11/20 21:00 96/55 04/11/20 21:00 119 21 96/55 (69) 99 04/11/20 20:00 101.7 128 23 95/53 (67) 100 04/11/20 20:00 Mechanical Ventilator 04/11/20 20:00 98/62 04/11/20 20:00 100 04/11/20 20:00 130 04/11/20 19:14 129 23 100 8/22/20 19:00 97/55 04/11/20 19:00 130 23 110/61 (77) 100 04/11/20 18:30 62/44 04/11/20 18:00 101.0 127 23 90/52 (65) 100 04/11/20 18:00 90/52 04/11/20 17:53 100.3 04/11/20 17:45 127 23 91/53 (66) 100 04/11/20 17:30 126 22 100 04/11/20 17:30 127 24 91/53 (66) 100 04/11/20 17:16 127 22 92/55 (67) 100 04/11/20 17:15 127 22 85/56 (66) 100 04/11/20 17:00 91/53 04/11/20 17:00 127 23 99/56 (70) 100 04/11/20 16:45 127 23 97/57 (70) 100 04/11/20 16:30 127 23 105/57 (73) 100 04/11/20 16:15 127 24 103/59 (74) 100 04/11/20 16:00 98.2 126 24 109/59 (76) 100 04/11/20 16:00 117/64 04/11/20 16:00 126 04/11/20 16:00 100 04/11/20 16:00 Mechanical Ventilator 04/11/20 15:45 126 24 114/61 (78) 100 04/11/20 15:30 126 22 114/64 (81) 100 04/11/20 15:20 125 22 100 04/11/20 15:15 125 22 117/64 (81) 100 04/11/20 15:00 125 22 122/61 (81) 100 04/11/20 15:00 124/65 04/11/20 14:45 125 22 123/63 (83) 100 04/11/20 14:30 124 23 133/63 (86) 100 04/11/20 14:15 124 22 124/65 (84) 100 04/11/20 14:13 98.8 04/11/20 14:01 93/48 04/11/20 14:00 124 20 130/64 (86) 100 04/11/20 14:00 93/48 Intake and Output 04/11/20 04/12/20 19:00 07:00 Intake Total 2891.55 ml 1470.02 ml Output Total 935 ml 855 ml Balance 1956.55 ml 615.02 ml IV Total 2891.55 ml 1410.02 ml Other 60 ml Output Urine Total 235 ml 105 ml Gastric Drainage Total 700 ml Other 750 ml # Bowel Movements 1 1 Laboratory Tests Test 04/11/20 15:45 04/11/20 16:28 04/11/20 20:55 04/12/20 04:40 Lactic Acid Level 4.40 mmol/L (0.4-2.0) H 4.50 mmol/L (0.4-2.0) H Troponin I 13.885 ng/mL (0.000-0.056) 7.999 ng/mL (0.000-0.056) White Blood Count 19.6 K/UL (4.8-10.8) H Red Blood Count 3.35 M/UL (4.20-5.40) L Hemoglobin 9.6 G/DL (12.0-16.0) L Hematocrit 30.0 % (37.0-47.0) L Mean Corpuscular Volume 90 FL (80-99) Mean Corpuscular Hemoglobin 28.6 PG (27.0-31.0) Mean Corpuscular Hemoglobin Concent 31.9 G/DL (32.0-36.0) L Red Cell Distribution Width 16.5 % (11.6-14.8) H Platelet Count 124 K/UL (150-450) L Mean Platelet Volume 6.7 FL (6.5-10.1) Neutrophils (%) (Auto) % (45.0-75.0) Lymphocytes (%) (Auto) % (20.0-45.0) Monocytes (%) (Auto) % (1.0-10.0) Eosinophils (%) (Auto) % (0.0-3.0) Basophils (%) (Auto) % (0.0-2.0) Differential Total Cells Counted 100 Neutrophils % (Manual) 77 % (45-75) H Lymphocytes % (Manual) 2 % (20-45) L Monocytes % (Manual) 3 % (1-10) Eosinophils % (Manual) 0 % (0-3) Basophils % (Manual) 0 % (0-2) Band Neutrophils 18 % (0-8) H Platelet Estimate Decreased L Platelet Morphology Normal Hypochromasia 1+ Anisocytosis 1+ Sodium Level 136 MMOL/L (136-145) Potassium Level 4.9 MMOL/L (3.5-5.1) Chloride Level 100 MMOL/L (98-107) Carbon Dioxide Level 17 MMOL/L (21-32) L Anion Gap 19 mmol/L (5-15) H Blood Urea Nitrogen 66 mg/dL (7-18) H Creatinine 3.2 MG/DL (0.55-1.30) H Estimat Glomerular Filtration Rate 14.8 mL/min (>60) Glucose Level 52 MG/DL (74-106) L Uric Acid 8.0 MG/DL (2.6-7.2) H Calcium Level 5.8 MG/DL (8.5-10.1) *L Phosphorus Level 7.0 MG/DL (2.5-4.9) H Magnesium Level 1.8 MG/DL (1.8-2.4) Total Bilirubin 1.3 MG/DL (0.2-1.0) H Direct Bilirubin 0.8 MG/DL (0.0-0.3) H Gamma Glutamyl Transpeptidase 51 U/L (5-85) Aspartate Amino Transf (AST/SGOT) 1661 U/L (15-37) H Alanine Aminotransferase (ALT/SGPT) 663 U/L (12-78) H Alkaline Phosphatase 430 U/L (46-116) H Ammonia 31 umol/L (11-32) Lactate Dehydrogenase 1720 U/L (81-234) H Total Creatine Kinase > 75260 U/L (26-308) H C-Reactive Protein, Quantitative 27.9 mg/dL (0.00-0.90) H Pro-B-Type Natriuretic Peptide > 12714 pg/mL (0-125) H Total Protein 4.8 G/DL (6.4-8.2) L Albumin 2.2 G/DL (3.4-5.0) L Globulin 2.6 g/dL Albumin/Globulin Ratio 0.8 (1.0-2.7) L Lipase 68 U/L (73-393) L Random Vancomycin Level 8.9 ug/mL Test 04/12/20 08:18 Arterial Blood pH 7.260 (7.350-7.450) Arterial Blood Partial Pressure CO2 34.5 mmHg (35.0-45.0) L Arterial Blood Partial Pressure O2 305.8 mmHg (75.0-100.0) H Arterial Blood HCO3 15.1 mmol/L (22.0-26.0) *L Arterial Blood Oxygen Saturation 99.8 % (95-100) Arterial Blood Base Excess -11.0 (-2-2) *L Marshall Test Positive Height (Feet): 5 Height (Inches): 4.00 Weight (Pounds): 121 Medications Current Medications Medications (Trade) Dose Ordered Sig/Issa Route PRN Reason Start Time Stop Time Status Last Admin Dose Admin Acetaminophen (Tylenol) 650 mg Q4H PRN ORAL T>100.5 04/10/20 09:00 05/10/20 08:59 04/11/20 17:23 Albuterol/ Ipratropium (Albuterol/ Ipratropium) 3 ml Q4H PRN HHN Shortness of Breath 04/09/20 19:15 04/14/20 19:14 Amikacin Protocol (Amikacin pharmacy to dose) 1 ea DAILY PRN MISC Per rx protocol 04/10/20 12:30 05/10/20 12:29 Aztreonam 0.5 gm/ Dextrose 55 ml @ 110 mls/hr Q8HR IVPB 04/10/20 14:00 04/17/20 13:59 04/12/20 05:36 Calcium Gluconate/ Sodium Chloride 50 ml @ 50 mls/hr Q12HR IVPB 04/12/20 21:00 07/11/20 20:59 Chlorhexidine Gluconate (Elin-Hex 2%) 1 applic DAILY@2000 TOPIC 04/10/20 20:00 07/09/20 19:59 04/11/20 19:43 Dextrose (Dextrose 50%) 25 ml Q30M PRN IV Hypoglycemia 04/09/20 19:15 07/08/20 19:14 Dextrose (Dextrose 50%) 50 ml Q30M PRN IV Hypoglycemia 04/09/20 19:15 07/08/20 19:14 Dextrose/Sodium Chloride 1,000 ml @ 150 mls/hr Q6H40M IV 04/10/20 12:30 05/09/20 12:29 04/12/20 11:10 Lorazepam (Ativan 2mg/ml 1ml) 2 mg Q2H PRN IV agitation 04/09/20 19:15 04/16/20 19:14 04/11/20 13:42 Morphine Sulfate (Morphine Sulfate) 4 mg Q4H PRN IVP Severe Pain (Pain Scale 7-10) 04/09/20 19:15 04/16/20 19:14 04/11/20 13:43 Nitroglycerin (Ntg) 0.4 mg Q5MIN X 3 DOSES PRN SL Prn Chest Pain 04/09/20 19:15 05/09/20 19:14 Norepinephrine Bitartrate 8 mg/ Dextrose 558 ml @ 0 mls/hr Q24H IV 04/10/20 20:30 05/10/20 19:59 04/12/20 09:00 Ondansetron HCl (Zofran) 4 mg Q6H PRN IVP Nausea & Vomiting 04/09/20 19:15 05/09/20 19:14 Pantoprazole (Protonix) 40 mg DAILY IVP 04/12/20 09:00 05/12/20 08:59 04/12/20 08:23 Sodium Bicarbonate 150 ml/Dextrose 1,150 ml @ 76 mls/hr Q15H8M IV 04/12/20 10:00 05/12/20 09:59 04/12/20 10:53 Sodium Citrate (Bicitra) 30 ml EVERY 6 HOURS NG 04/11/20 13:00 05/11/20 12:59 04/12/20 12:46 Vancomycin HCl (Vanco pharmacy to dose) 1 ea DAILY PRN MISC Per rx protocol 04/10/20 12:30 05/10/20 12:29 Cam Ye MD Apr 12, 2020 13:51
--- NOTE | 2020-04-12 14:02 | Cardiology Progress Note ---
Assessment/Plan Assessment/Plan respiratory failure hypotension sepsis cad s/p luis 2018 icm arf aortic regurgitation infitlrates gi bleed PR ? anemia rhabdomyolysis abn lft ? secondry to shock liver or rhabdo lactic acidosis ct chest Indeterminate areas of nodularity and irregular consolidation indeterminate for infectious, inflammatory or neoplastic etiology. Recommend pulmonary consultation and short-term interval follow-up. Small amount of debris in the left, greater than right bronchi. Mild mediastinal and hilar lymphadenopathy cr worse no urine ou[ut , just go some lasix and bicarb trop down trending ck still sig elevated getting hydrated cr worse on 03/21 echo prelim systolic dysfunction er 40% mod AR has received several liters of ivf ekg reviewed after two days of near normal cardiac enzyme noted to have sig elevated in enzymes , in addition sig abn in cpk and lfts as of 04/11, the etiology or rhabdo is not clears and her hgb has dropped form 14.8 at admission to repeat level 9.5 remains on pressor for now empric abx repeat cardiac enzymes q8 hours , due to active bleeding and hypotension requiring pressor adn renal failure at this time not able to administer any anitplt agents is on bicarb drop now hgb is relative stable will add ecotrin travel pta med nto clear but was on methadone and on ecotrin watch for with drawl form narcotic statin when lft improved will need to repeat echo in near futuer nwo remain in isolation due pui for covid still d/w dr korin olsen gi input Subjective Subjective remain on a vent on pressore Objective Last 24 Hour Vital Signs Date Time Temp Pulse Resp B/P (MAP) Pulse Ox O2 Delivery O2 Flow Rate FiO2 04/12/20 12:52 124 22 55 04/12/20 11:30 122 25 102/59 (73) 100 04/12/20 11:11 122 26 55 04/12/20 11:00 122 26 105/63 (77) 99 04/12/20 11:00 105/63 04/12/20 10:30 121 26 102/52 (69) 100 04/12/20 10:00 121 26 100/64 (76) 100 04/12/20 10:00 100/64 04/12/20 09:45 119 25 102/62 (75) 100 04/12/20 09:30 119 26 100/60 (73) 100 04/12/20 09:15 118 22 95/57 (70) 100 04/12/20 09:00 65 04/12/20 09:00 107/58 04/12/20 09:00 117 24 101/57 (72) 100 04/12/20 08:46 116 24 65 04/12/20 08:00 Mechanical Ventilator 04/12/20 08:00 116 26 93/56 (68) 100 04/12/20 08:00 75 04/12/20 07:45 116 26 92/51 (65) 100 04/12/20 07:30 116 25 94/52 (66) 100 04/12/20 07:21 114 24 90/54 (66) 100 04/12/20 07:15 114 23 84/52 (63) 100 04/12/20 07:01 114 22 75 04/12/20 07:00 98.0 114 26 88/51 (63) 100 04/12/20 06:30 115 27 04/12/20 06:00 93/56 04/12/20 06:00 114 30 93/56 (68) 100 04/12/20 05:09 104 26 75 04/12/20 05:00 109 27 96/57 (70) 98 04/12/20 05:00 96/57 04/12/20 04:00 Mechanical Ventilator 04/12/20 04:00 97.8 105 24 99/59 (72) 100 04/12/20 04:00 105 04/12/20 04:00 100 04/12/20 03:19 75 04/12/20 03:18 100 21 85 04/12/20 03:00 99 21 89/53 (65) 100 04/12/20 03:00 93/56 04/12/20 02:00 86/52 04/12/20 02:00 96 22 88/51 (63) 100 04/12/20 01:00 85/53 04/12/20 01:00 95 24 86/65 (72) 98 04/12/20 00:47 96 24 85 04/12/20 00:00 97.0 99 24 94/59 (71) 100 04/12/20 00:00 101 04/12/20 00:00 94/59 04/12/20 00:00 Mechanical Ventilator 04/11/20 23:03 85 04/11/20 23:00 102 21 97/72 (80) 100 04/11/20 23:00 97/72 04/11/20 22:58 104 21 100 04/11/20 22:00 91/56 04/11/20 22:00 109 21 102/54 (70) 100 04/11/20 21:03 120 21 100 04/11/20 21:00 96/55 04/11/20 21:00 119 21 96/55 (69) 99 04/11/20 20:00 101.7 128 23 95/53 (67) 100 04/11/20 20:00 Mechanical Ventilator 04/11/20 20:00 98/62 04/11/20 20:00 100 04/11/20 20:00 130 04/11/20 19:14 129 23 100 04/11/20 19:00 97/55 04/11/20 19:00 130 23 110/61 (77) 100 04/11/20 18:30 62/44 04/11/20 18:00 101.0 127 23 90/52 (65) 100 04/11/20 18:00 90/52 04/11/20 17:53 100.3 04/11/20 17:45 127 23 91/53 (66) 100 04/11/20 17:30 126 22 100 04/11/20 17:30 127 24 91/53 (66) 100 04/11/20 17:16 127 22 92/55 (67) 100 04/11/20 17:15 127 22 85/56 (66) 100 04/11/20 17:00 91/53 04/11/20 17:00 127 23 99/56 (70) 100 04/11/20 16:45 127 23 97/57 (70) 100 04/11/20 16:30 127 23 105/57 (73) 100 04/11/20 16:15 127 24 103/59 (74) 100 04/11/20 16:00 98.2 126 24 109/59 (76) 100 04/11/20 16:00 117/64 04/11/20 16:00 126 04/11/20 16:00 100 04/11/20 16:00 Mechanical Ventilator 04/11/20 15:45 126 24 114/61 (78) 100 04/11/20 15:30 126 22 114/64 (81) 100 04/11/20 15:20 125 22 100 04/11/20 15:15 125 22 117/64 (81) 100 04/11/20 15:00 125 22 122/61 (81) 100 04/11/20 15:00 124/65 04/11/20 14:45 125 22 123/63 (83) 100 04/11/20 14:30 124 23 133/63 (86) 100 04/11/20 14:15 124 22 124/65 (84) 100 04/11/20 14:13 98.8 04/11/20 14:01 93/48 04/11/20 14:00 124 20 130/64 (86) 100 04/11/20 14:00 93/48 General Appearance: no apparent distress, on vent, patient on isolation, isolation precautions Extremities: no swelling Intake and Output 04/11/20 04/12/20 19:00 07:00 Intake Total 2891.55 ml 1470.02 ml Output Total 935 ml 855 ml Balance 1956.55 ml 615.02 ml IV Total 2891.55 ml 1410.02 ml Other 60 ml Output Urine Total 235 ml 105 ml Gastric Drainage Total 700 ml Other 750 ml # Bowel Movements 1 1 Laboratory Tests Test 04/11/20 15:45 04/11/20 16:28 04/11/20 20:55 04/12/20 04:40 Lactic Acid Level 4.40 mmol/L (0.4-2.0) H 4.50 mmol/L (0.4-2.0) H Troponin I 13.885 ng/mL (0.000-0.056) 7.999 ng/mL (0.000-0.056) White Blood Count 19.6 K/UL (4.8-10.8) H Red Blood Count 3.35 M/UL (4.20-5.40) L Hemoglobin 9.6 G/DL (12.0-16.0) L Hematocrit 30.0 % (37.0-47.0) L Mean Corpuscular Volume 90 FL (80-99) Mean Corpuscular Hemoglobin 28.6 PG (27.0-31.0) Mean Corpuscular Hemoglobin Concent 31.9 G/DL (32.0-36.0) L Red Cell Distribution Width 16.5 % (11.6-14.8) H Platelet Count 124 K/UL (150-450) L Mean Platelet Volume 6.7 FL (6.5-10.1) Neutrophils (%) (Auto) % (45.0-75.0) Lymphocytes (%) (Auto) % (20.0-45.0) Monocytes (%) (Auto) % (1.0-10.0) Eosinophils (%) (Auto) % (0.0-3.0) Basophils (%) (Auto) % (0.0-2.0) Differential Total Cells Counted 100 Neutrophils % (Manual) 77 % (45-75) H Lymphocytes % (Manual) 2 % (20-45) L Monocytes % (Manual) 3 % (1-10) Eosinophils % (Manual) 0 % (0-3) Basophils % (Manual) 0 % (0-2) Band Neutrophils 18 % (0-8) H Platelet Estimate Decreased L Platelet Morphology Normal Hypochromasia 1+ Anisocytosis 1+ Sodium Level 136 MMOL/L (136-145) Potassium Level 4.9 MMOL/L (3.5-5.1) Chloride Level 100 MMOL/L (98-107) Carbon Dioxide Level 17 MMOL/L (21-32) L Anion Gap 19 mmol/L (5-15) H Blood Urea Nitrogen 66 mg/dL (7-18) H Creatinine 3.2 MG/DL (0.55-1.30) H Estimat Glomerular Filtration Rate 14.8 mL/min (>60) Glucose Level 52 MG/DL (74-106) L Uric Acid 8.0 MG/DL (2.6-7.2) H Calcium Level 5.8 MG/DL (8.5-10.1) *L Phosphorus Level 7.0 MG/DL (2.5-4.9) H Magnesium Level 1.8 MG/DL (1.8-2.4) Total Bilirubin 1.3 MG/DL (0.2-1.0) H Direct Bilirubin 0.8 MG/DL (0.0-0.3) H Gamma Glutamyl Transpeptidase 51 U/L (5-85) Aspartate Amino Transf (AST/SGOT) 1661 U/L (15-37) H Alanine Aminotransferase (ALT/SGPT) 663 U/L (12-78) H Alkaline Phosphatase 430 U/L (46-116) H Ammonia 31 umol/L (11-32) Lactate Dehydrogenase 1720 U/L (81-234) H Total Creatine Kinase > 89413 U/L (26-308) H C-Reactive Protein, Quantitative 27.9 mg/dL (0.00-0.90) H Pro-B-Type Natriuretic Peptide > 38905 pg/mL (0-125) H Total Protein 4.8 G/DL (6.4-8.2) L Albumin 2.2 G/DL (3.4-5.0) L Globulin 2.6 g/dL Albumin/Globulin Ratio 0.8 (1.0-2.7) L Lipase 68 U/L (73-393) L Random Vancomycin Level 8.9 ug/mL Test 04/12/20 08:18 Arterial Blood pH 7.260 (7.350-7.450) Arterial Blood Partial Pressure CO2 34.5 mmHg (35.0-45.0) L Arterial Blood Partial Pressure O2 305.8 mmHg (75.0-100.0) H Arterial Blood HCO3 15.1 mmol/L (22.0-26.0) *L Arterial Blood Oxygen Saturation 99.8 % (95-100) Arterial Blood Base Excess -11.0 (-2-2) *L Marshall Test Positive Microbiology Date/Time Source Procedure Growth Status 04/09/20 16:25 Blood Blood Culture - Preliminary NO GROWTH AFTER 48 HOURS Resulted 04/09/20 16:20 Blood Blood Culture - Preliminary NO GROWTH AFTER 48 HOURS Resulted 04/09/20 21:00 Nasal Nares MRSA Culture - Final NO METHICILLIN RESISTANT STAPH AUREUS... Complete 04/09/20 18:17 Nasal Nares MRSA Culture - Final NO METHICILLIN RESISTANT STAPH AUREUS... Complete 04/09/20 15:40 Nasopharynx SARS-CoV-2 RdRp Gene Assay - Final Complete 04/10/20 06:00 Stool Clostridium difficile Toxin Assay - Final Complete 04/10/20 12:00 Urine,Clean Catch Urine Culture - Preliminary Gram Negative Bacillus 1 Resulted 04/09/20 18:20 Urine,Clean Catch Urine Culture - Final Escherichia Coli - Esbl Complete 04/09/20 21:00 Rectum - Final NO CARBAPENEM-RESISTANT ENTEROBACTERI... Complete 04/09/20 21:00 Rectum VRE Culture - Final NO VANCOMYCIN RESISTANT ENTEROCOCCUS ... Complete 04/09/20 18:17 Rectum VRE Culture - Final NO VANCOMYCIN RESISTANT ENTEROCOCCUS ... Complete 04/09/20 18:17 Rectum - Final NO CARBAPENEM-RESISTANT ENTEROBACTERI... Complete Objective per rn scant secretion moves her ext somewhat nto communicative on berny oxygen but higher pressors looks toxic form outside her exma room Ronal Mendes MD Apr 12, 2020 14:02
[2020-04-12] MEDS ORDERED: D5 1/2NS 1000ml IV ONE (14:09)
[2020-04-12] MEDS: Azithromycin 500 MG in D5W 275 ML IV SCH (15:00)
--- NOTE | 2020-04-12 17:21 | Internal Med Progress Note ---
Subjective Date of Service: Apr 12, 2020 Physician Name Taras Benson Attending Physician Adalberto Monk MD Current Medications Medications (Trade) Dose Ordered Sig/Issa Route PRN Reason Start Time Stop Time Status Last Admin Dose Admin Acetaminophen (Tylenol) 650 mg Q4H PRN ORAL T>100.5 04/10/20 09:00 05/10/20 08:59 04/11/20 17:23 Albuterol/ Ipratropium (Albuterol/ Ipratropium) 3 ml Q4H PRN HHN Shortness of Breath 04/09/20 19:15 04/14/20 19:14 Azithromycin 500 mg/Dextrose 275 ml @ 275 mls/hr Q24HRS IV 04/12/20 15:00 04/18/20 15:59 04/12/20 15:00 Calcium Gluconate/ Sodium Chloride 50 ml @ 50 mls/hr Q12HR IVPB 04/12/20 21:00 07/11/20 20:59 Chlorhexidine Gluconate (Elin-Hex 2%) 1 applic DAILY@2000 TOPIC 04/10/20 20:00 07/09/20 19:59 04/11/20 19:43 Dextrose (Dextrose 50%) 25 ml Q30M PRN IV Hypoglycemia 04/09/20 19:15 07/08/20 19:14 Dextrose (Dextrose 50%) 50 ml Q30M PRN IV Hypoglycemia 04/09/20 19:15 07/08/20 19:14 Dextrose/Sodium Chloride 1,000 ml @ 150 mls/hr Q6H40M IV 04/10/20 12:30 05/09/20 12:29 04/12/20 11:10 Linezolid 300 ml @ 300 mls/hr Q12H IVPB 04/12/20 16:00 04/19/20 15:59 04/12/20 16:11 Lorazepam (Ativan 2mg/ml 1ml) 2 mg Q2H PRN IV agitation 04/09/20 19:15 04/16/20 19:14 04/11/20 13:42 Meropenem 1 gm/ Sodium Chloride 55 ml @ 110 mls/hr Q12H IVPB 04/12/20 18:00 04/17/20 17:59 Morphine Sulfate (Morphine Sulfate) 4 mg Q4H PRN IVP Severe Pain (Pain Scale 7-10) 04/09/20 19:15 04/16/20 19:14 04/11/20 13:43 Nitroglycerin (Ntg) 0.4 mg Q5MIN X 3 DOSES PRN SL Prn Chest Pain 04/09/20 19:15 05/09/20 19:14 Norepinephrine Bitartrate 8 mg/ Dextrose 558 ml @ 0 mls/hr Q24H IV 04/10/20 20:30 05/10/20 19:59 04/12/20 09:00 Ondansetron HCl (Zofran) 4 mg Q6H PRN IVP Nausea & Vomiting 04/09/20 19:15 05/09/20 19:14 Pantoprazole (Protonix) 40 mg DAILY IVP 04/12/20 09:00 05/12/20 08:59 04/12/20 08:23 Sodium Bicarbonate 150 ml/Dextrose 1,150 ml @ 76 mls/hr Q15H8M IV 04/12/20 10:00 05/12/20 09:59 04/12/20 10:53 Sodium Citrate (Bicitra) 30 ml EVERY 6 HOURS NG 04/11/20 13:00 05/11/20 12:59 04/12/20 12:46 Allergies: Coded Allergies: CEPHALOSPORINS (Verified Allergy, Intermediate, Anaphylaxis, 12/14/12) DIAZEPAM (Verified Allergy, Intermediate, DYSTONIC, 12/14/12) SUMATRIPTAN (Verified Allergy, Intermediate, 12/14/12) SUMATRIPTAN SUCCINATE (Verified Allergy, Intermediate, 12/14/12) TRAMADOL (Verified Allergy, Intermediate, Anaphylaxis, 12/14/12) CEPHALEXIN (Unverified Allergy, Unknown, 10/25/19) PENICILLINS (Unverified Allergy, Unknown, 08/26/18) Uncoded Allergies: PCN (Allergy, Unknown, 10/25/19) ROS Limited/Unobtainable: Yes Subjective 60 YO F admitted with altered mental status. Now respiratory failure and hypotension. Cover for Int Med-Dr Monk. ICU. Intubated and sedated. On levophed Objective Last Vital Signs Date Time Temp Pulse Resp B/P (MAP) Pulse Ox O2 Delivery O2 Flow Rate FiO2 04/12/20 15:45 127 26 116/58 (77) 99 04/12/20 15:30 55 04/12/20 12:00 99.0 04/12/20 12:00 Mechanical Ventilator Laboratory Tests Test 04/11/20 20:55 04/12/20 04:40 04/12/20 08:18 Lactic Acid Level 4.50 mmol/L (0.4-2.0) H White Blood Count 19.6 K/UL (4.8-10.8) H Red Blood Count 3.35 M/UL (4.20-5.40) L Hemoglobin 9.6 G/DL (12.0-16.0) L Hematocrit 30.0 % (37.0-47.0) L Mean Corpuscular Volume 90 FL (80-99) Mean Corpuscular Hemoglobin 28.6 PG (27.0-31.0) Mean Corpuscular Hemoglobin Concent 31.9 G/DL (32.0-36.0) L Red Cell Distribution Width 16.5 % (11.6-14.8) H Platelet Count 124 K/UL (150-450) L Mean Platelet Volume 6.7 FL (6.5-10.1) Neutrophils (%) (Auto) % (45.0-75.0) Lymphocytes (%) (Auto) % (20.0-45.0) Monocytes (%) (Auto) % (1.0-10.0) Eosinophils (%) (Auto) % (0.0-3.0) Basophils (%) (Auto) % (0.0-2.0) Differential Total Cells Counted 100 Neutrophils % (Manual) 77 % (45-75) H Lymphocytes % (Manual) 2 % (20-45) L Monocytes % (Manual) 3 % (1-10) Eosinophils % (Manual) 0 % (0-3) Basophils % (Manual) 0 % (0-2) Band Neutrophils 18 % (0-8) H Platelet Estimate Decreased L Platelet Morphology Normal Hypochromasia 1+ Anisocytosis 1+ Sodium Level 136 MMOL/L (136-145) Potassium Level 4.9 MMOL/L (3.5-5.1) Chloride Level 100 MMOL/L (98-107) Carbon Dioxide Level 17 MMOL/L (21-32) L Anion Gap 19 mmol/L (5-15) H Blood Urea Nitrogen 66 mg/dL (7-18) H Creatinine 3.2 MG/DL (0.55-1.30) H Estimat Glomerular Filtration Rate 14.8 mL/min (>60) Glucose Level 52 MG/DL (74-106) L Uric Acid 8.0 MG/DL (2.6-7.2) H Calcium Level 5.8 MG/DL (8.5-10.1) *L Phosphorus Level 7.0 MG/DL (2.5-4.9) H Magnesium Level 1.8 MG/DL (1.8-2.4) Total Bilirubin 1.3 MG/DL (0.2-1.0) H Direct Bilirubin 0.8 MG/DL (0.0-0.3) H Gamma Glutamyl Transpeptidase 51 U/L (5-85) Aspartate Amino Transf (AST/SGOT) 1661 U/L (15-37) H Alanine Aminotransferase (ALT/SGPT) 663 U/L (12-78) H Alkaline Phosphatase 430 U/L (46-116) H Ammonia 31 umol/L (11-32) Lactate Dehydrogenase 1720 U/L (81-234) H Total Creatine Kinase > 02153 U/L (26-308) H Troponin I 7.999 ng/mL (0.000-0.056) C-Reactive Protein, Quantitative 27.9 mg/dL (0.00-0.90) H Pro-B-Type Natriuretic Peptide > 93245 pg/mL (0-125) H Total Protein 4.8 G/DL (6.4-8.2) L Albumin 2.2 G/DL (3.4-5.0) L Globulin 2.6 g/dL Albumin/Globulin Ratio 0.8 (1.0-2.7) L Lipase 68 U/L (73-393) L Random Vancomycin Level 8.9 ug/mL Hepatitis A IgM Antibody Pending Hepatitis B Surface Antigen Pending Hepatitis B Surface Antibody, Quant Pending Hepatitis C Antibody Pending Legionella pneumophilia IgM Group 1 Pending Mycoplasma pneumoniae IgG Antibody Pending Arterial Blood pH 7.260 (7.350-7.450) Arterial Blood Partial Pressure CO2 34.5 mmHg (35.0-45.0) L Arterial Blood Partial Pressure O2 305.8 mmHg (75.0-100.0) H Arterial Blood HCO3 15.1 mmol/L (22.0-26.0) *L Arterial Blood Oxygen Saturation 99.8 % (95-100) Arterial Blood Base Excess -11.0 (-2-2) *L Marshall Test Positive Microbiology Date/Time Source Procedure Growth Status 04/09/20 21:00 Nasal Nares MRSA Culture - Final NO METHICILLIN RESISTANT STAPH AUREUS... Complete 04/09/20 18:17 Nasal Nares MRSA Culture - Final NO METHICILLIN RESISTANT STAPH AUREUS... Complete 04/10/20 06:00 Stool Clostridium difficile Toxin Assay - Final Complete 04/10/20 12:00 Urine,Clean Catch Urine Culture - Preliminary Gram Negative Bacillus 1 Resulted 04/09/20 18:20 Urine,Clean Catch Urine Culture - Final Escherichia Coli - Esbl Complete 04/09/20 21:00 Rectum - Final NO CARBAPENEM-RESISTANT ENTEROBACTERI... Complete 04/09/20 21:00 Rectum VRE Culture - Final NO VANCOMYCIN RESISTANT ENTEROCOCCUS ... Complete 04/09/20 18:17 Rectum VRE Culture - Final NO VANCOMYCIN RESISTANT ENTEROCOCCUS ... Complete 04/09/20 18:17 Rectum - Final NO CARBAPENEM-RESISTANT ENTEROBACTERI... Complete Intake and Output 04/11/20 04/12/20 19:00 07:00 Intake Total 2891.55 ml 1511.87 ml Output Total 935 ml 855 ml Balance 1956.55 ml 656.87 ml IV Total 2891.55 ml 1451.87 ml Other 60 ml Output Urine Total 235 ml 105 ml Gastric Drainage Total 700 ml Other 750 ml # Bowel Movements 1 1 Objective General Appearance: WD/WN, moderate distress, lethargic EENT: PERRL/EOMI, normal ENT inspection Neck: non-tender, normal alignment, supple, normal inspection Cardiovascular: normal peripheral pulses, normal rate, regular rhythm, no gallop/murmur, no JVD Respiratory/Chest: Mech vent; respiratory distress, crackles/rales, rhonchi - bilaterally, expiratory wheezing Abdomen: normal bowel sounds, non tender, soft, no organomegaly, no mass Extremities: normal range of motion, non-tender Neurologic: oracle soa developer II-XII grossly normal Skin: normal pigmentation, warm/dry Assessment/Plan Problem List: (1) Opiate dependence, continuous Assessment & Plan: Methadone (2) Sepsis (3) UTI (urinary tract infection) Assessment & Plan: ESBL E.Coli. ABX=meropenem and linezolid. ID=Dr [id number] (4) Elevated troponin I level Assessment & Plan: Cardiology=Dr Mendes (5) Acute respiratory failure Assessment & Plan: Pulmonary/critical care=Dr Rivera; Vent per pulmonary (6) Altered mental status, unspecified (7) ACS (acute coronary syndrome) Status: not improved Taras Benson MD Apr 12, 2020 17:21
[2020-04-12] MEDS: Meropenem 1 GM in NS 55 ML IVPB SCH (18:14)
--- NOTE | 2020-04-12 18:22 | Pulmonolgy Critical Care Note ---
Critical Care - Asmt/Plan Problems: (1) Acute respiratory failure (2) Sepsis (3) UTI (urinary tract infection) (4) Altered mental status, unspecified (5) History of depression (6) ATN (acute tubular necrosis) (7) Severe protein-calorie malnutrition Respiratory: monitor respiratory rate, adjust FIO2, CXR Cardiac: continue pressors, continue to monitor HR/BP Renal: F/U I&O, check electrolytes Infectious Disease: check cultures Gastrointestinal: continue feedings/current rate, hold feedings Endocrine: check TSH Hematologic: monitor H/H, transfuse if hgb<8.5 Neurologic: PRN Ativan, PRN Morphine, keep patient comfortable Affect: PRN ativan Prophylaxis: Protonix, Heparin Disposition: keep in ICU Time Spent (Minutes): 40 Notes Reviewed: stripper preliminary, cardio, renal Discussed with: nurses, consultants, casework supervisorrn manager - Objective Last 24 Hour Vital Signs Date Time Temp Pulse Resp B/P (MAP) Pulse Ox O2 Delivery O2 Flow Rate FiO2 04/12/20 18:17 108/60 04/12/20 17:30 125 26 108/60 (76) 98 04/12/20 17:23 126 26 55 04/12/20 17:15 126 27 104/59 (74) 04/12/20 17:02 128 29 100/58 (72) 98 04/12/20 17:00 128 28 98 04/12/20 16:45 126 30 89/56 (67) 97 04/12/20 16:30 129 28 117/69 (85) 98 04/12/20 16:15 128 27 116/56 (76) 100 04/12/20 16:00 Mechanical Ventilator 04/12/20 16:00 55 04/12/20 16:00 101.0 128 27 116/58 (77) 99 04/12/20 15:45 127 26 116/58 (77) 99 04/12/20 15:30 128 24 55 04/12/20 15:30 127 26 113/63 (80) 100 04/12/20 15:15 127 26 112/65 (81) 100 04/12/20 15:00 127 27 111/62 (78) 100 04/12/20 14:30 125 26 112/65 (81) 100 04/12/20 14:15 125 27 118/61 (80) 100 04/12/20 14:00 125 26 119/64 (82) 100 04/12/20 13:45 124 26 120/61 (80) 100 04/12/20 13:30 125 27 120/61 (80) 100 04/12/20 13:15 125 26 119/63 (81) 100 04/12/20 13:00 124 24 112/61 (78) 100 04/12/20 12:52 124 22 55 04/12/20 12:45 123 25 107/59 (75) 100 04/12/20 12:30 122 23 109/59 (76) 99 04/12/20 12:15 121 23 104/59 (74) 99 04/12/20 12:00 99.0 122 23 106/60 (75) 100 04/12/20 12:00 Mechanical Ventilator 04/12/20 12:00 123 04/12/20 11:30 122 25 102/59 (73) 100 04/12/20 11:11 122 26 55 04/12/20 11:00 122 26 105/63 (77) 99 04/12/20 11:00 105/63 04/12/20 10:30 121 26 102/52 (69) 100 04/12/20 10:00 121 26 100/64 (76) 100 04/12/20 10:00 100/64 04/12/20 09:45 119 25 102/62 (75) 100 04/12/20 09:30 119 26 100/60 (73) 100 04/12/20 09:15 118 22 95/57 (70) 100 04/12/20 09:00 65 04/12/20 09:00 107/58 04/12/20 09:00 117 24 101/57 (72) 100 04/12/20 08:46 116 24 65 04/12/20 08:00 Mechanical Ventilator 04/12/20 08:00 114 04/12/20 08:00 116 26 93/56 (68) 100 04/12/20 08:00 75 04/12/20 07:45 116 26 92/51 (65) 100 04/12/20 07:30 116 25 94/52 (66) 100 04/12/20 07:21 114 24 90/54 (66) 100 04/12/20 07:15 114 23 84/52 (63) 100 04/12/20 07:01 114 22 75 04/12/20 07:00 98.0 114 26 88/51 (63) 100 04/12/20 06:30 115 27 04/12/20 06:00 93/56 04/12/20 06:00 114 30 93/56 (68) 100 04/12/20 05:09 104 26 75 04/12/20 05:00 109 27 96/57 (70) 98 04/12/20 05:00 96/57 04/12/20 04:00 Mechanical Ventilator 04/12/20 04:00 97.8 105 24 99/59 (72) 100 04/12/20 04:00 105 04/12/20 04:00 100 04/12/20 03:19 75 04/12/20 03:18 100 21 85 04/12/20 03:00 99 21 89/53 (65) 100 04/12/20 03:00 93/56 04/12/20 02:00 86/52 04/12/20 02:00 96 22 88/51 (63) 100 04/12/20 01:00 85/53 04/12/20 01:00 95 24 86/65 (72) 98 04/12/20 00:47 96 24 85 04/12/20 00:00 97.0 99 24 94/59 (71) 100 04/12/20 00:00 101 04/12/20 00:00 94/59 04/12/20 00:00 Mechanical Ventilator 04/11/20 23:03 85 04/11/20 23:00 102 21 97/72 (80) 100 04/11/20 23:00 97/72 04/11/20 22:58 104 21 100 04/11/20 22:00 91/56 04/11/20 22:00 109 21 102/54 (70) 100 04/11/20 21:03 120 21 100 04/11/20 21:00 96/55 04/11/20 21:00 119 21 96/55 (69) 99 04/11/20 20:00 101.7 128 23 95/53 (67) 100 04/11/20 20:00 Mechanical Ventilator 04/11/20 20:00 98/62 04/11/20 20:00 100 04/11/20 20:00 130 04/11/20 19:14 129 23 100 8/22/20 19:00 97/55 04/11/20 19:00 130 23 110/61 (77) 100 04/11/20 18:30 62/44 Status: awake Condition: critical HEENT: atraumatic Neck: full ROM Lungs: clear, chest wall tender Heart: HR/BP stable Abdomen: soft, active bowel sounds Extremities: no C/C/E, edema Decubiti: location Micro: Microbiology Date/Time Source Procedure Growth Status 04/09/20 21:00 Nasal Nares MRSA Culture - Final NO METHICILLIN RESISTANT STAPH AUREUS... Complete 04/10/20 06:00 Stool Clostridium difficile Toxin Assay - Final Complete 04/10/20 12:00 Urine,Clean Catch Urine Culture - Preliminary Gram Negative Bacillus 1 Resulted 04/09/20 21:00 Rectum - Final NO CARBAPENEM-RESISTANT ENTEROBACTERI... Complete 04/09/20 21:00 Rectum VRE Culture - Final NO VANCOMYCIN RESISTANT ENTEROCOCCUS ... Complete Critical Care - Subjective ROS Limited/Unobtainable: Yes Condition: critical EKG Rhythm: Sinus Rhythm FI02: 55 Vent Support Breath Rate: 20 Vent Support Mode: AC Vent Tidal Volume: 600 Sputum Amount: Scant PEEP: 5.0 PIP: 26 I&O: Intake and Output 04/11/20 04/12/20 19:00 07:00 Intake Total 2891.55 ml 1511.87 ml Output Total 935 ml 855 ml Balance 1956.55 ml 656.87 ml IV Total 2891.55 ml 1451.87 ml Other 60 ml Output Urine Total 235 ml 105 ml Gastric Drainage Total 700 ml Other 750 ml # Bowel Movements 1 1 ET-Tube: 7.5 ET Position: 23 Labs: Laboratory Tests Test 04/11/20 20:55 04/12/20 04:40 04/12/20 08:18 Lactic Acid Level 4.50 mmol/L (0.4-2.0) H White Blood Count 19.6 K/UL (4.8-10.8) H Red Blood Count 3.35 M/UL (4.20-5.40) L Hemoglobin 9.6 G/DL (12.0-16.0) L Hematocrit 30.0 % (37.0-47.0) L Mean Corpuscular Volume 90 FL (80-99) Mean Corpuscular Hemoglobin 28.6 PG (27.0-31.0) Mean Corpuscular Hemoglobin Concent 31.9 G/DL (32.0-36.0) L Red Cell Distribution Width 16.5 % (11.6-14.8) H Platelet Count 124 K/UL (150-450) L Mean Platelet Volume 6.7 FL (6.5-10.1) Neutrophils (%) (Auto) % (45.0-75.0) Lymphocytes (%) (Auto) % (20.0-45.0) Monocytes (%) (Auto) % (1.0-10.0) Eosinophils (%) (Auto) % (0.0-3.0) Basophils (%) (Auto) % (0.0-2.0) Differential Total Cells Counted 100 Neutrophils % (Manual) 77 % (45-75) H Lymphocytes % (Manual) 2 % (20-45) L Monocytes % (Manual) 3 % (1-10) Eosinophils % (Manual) 0 % (0-3) Basophils % (Manual) 0 % (0-2) Band Neutrophils 18 % (0-8) H Platelet Estimate Decreased L Platelet Morphology Normal Hypochromasia 1+ Anisocytosis 1+ Sodium Level 136 MMOL/L (136-145) Potassium Level 4.9 MMOL/L (3.5-5.1) Chloride Level 100 MMOL/L (98-107) Carbon Dioxide Level 17 MMOL/L (21-32) L Anion Gap 19 mmol/L (5-15) H Blood Urea Nitrogen 66 mg/dL (7-18) H Creatinine 3.2 MG/DL (0.55-1.30) H Estimat Glomerular Filtration Rate 14.8 mL/min (>60) Glucose Level 52 MG/DL (74-106) L Uric Acid 8.0 MG/DL (2.6-7.2) H Calcium Level 5.8 MG/DL (8.5-10.1) *L Phosphorus Level 7.0 MG/DL (2.5-4.9) H Magnesium Level 1.8 MG/DL (1.8-2.4) Total Bilirubin 1.3 MG/DL (0.2-1.0) H Direct Bilirubin 0.8 MG/DL (0.0-0.3) H Gamma Glutamyl Transpeptidase 51 U/L (5-85) Aspartate Amino Transf (AST/SGOT) 1661 U/L (15-37) H Alanine Aminotransferase (ALT/SGPT) 663 U/L (12-78) H Alkaline Phosphatase 430 U/L (46-116) H Ammonia 31 umol/L (11-32) Lactate Dehydrogenase 1720 U/L (81-234) H Total Creatine Kinase > 89252 U/L (26-308) H Troponin I 7.999 ng/mL (0.000-0.056) C-Reactive Protein, Quantitative 27.9 mg/dL (0.00-0.90) H Pro-B-Type Natriuretic Peptide > 77685 pg/mL (0-125) H Total Protein 4.8 G/DL (6.4-8.2) L Albumin 2.2 G/DL (3.4-5.0) L Globulin 2.6 g/dL Albumin/Globulin Ratio 0.8 (1.0-2.7) L Lipase 68 U/L (73-393) L Random Vancomycin Level 8.9 ug/mL Hepatitis A IgM Antibody Pending Hepatitis B Surface Antigen Pending Hepatitis B Surface Antibody, Quant Pending Hepatitis C Antibody Pending Legionella pneumophilia IgM Group 1 Pending Mycoplasma pneumoniae IgG Antibody Pending Arterial Blood pH 7.260 (7.350-7.450) Arterial Blood Partial Pressure CO2 34.5 mmHg (35.0-45.0) L Arterial Blood Partial Pressure O2 305.8 mmHg (75.0-100.0) H Arterial Blood HCO3 15.1 mmol/L (22.0-26.0) *L Arterial Blood Oxygen Saturation 99.8 % (95-100) Arterial Blood Base Excess -11.0 (-2-2) *L Marshall Test Positive Helena Rivera MD Apr 12, 2020 18:22
--- NOTE | 2020-04-12 18:40 | NUR ---
NURSE NOTES: Brinda, who is the aunt of Chepe called at the request of the family. Aunt is an ICU nurse who wanted to get the update on patient. Aunt is very aware that patient has a long history of drug abuse and has also gave additional hx of that she has had long s/p stent x 3. Family will discuss her status tonight and will most likely make her DNR/DNI and put her on comfort measures. Charge nurse will speak to Dr. Rivera to update him on the family's wishes.
--- NOTE | 2020-04-12 19:32 | NUR ---
HAND-OFF: Report given to SANTI KEITA.
--- NOTE | 2020-04-12 19:35 | NUR ---
NURSE NOTES: Patient received from NEELA Saucedo. patient in bed obtunded. Orally intubated Fi02 55% satting 100%. BP 108/64 HR 124 Sinus tachy on monitor. right femoral TLC Levophed 14mcg/hr, sodium bicarb at 76cc/hr and D51/2NS @150ml/hr . OGT intact connected to low intermittent suctioned with dark greenish blackish colored. Chaves catheter draining with tea colored urine urine. noted with generalized edema. Elevated with pillow. no s/s of hypo/hyperglycemia. bed alarm on. bed locked lowest position call light within reach. Continue on droplet precaution due to Fever. Negative for Covid. will continue plan of care.
--- NOTE | 2020-04-12 19:36 | NUR ---
RESPIRATORY NOTE: Received pt on AC 20, 600VT, 55%, PEEP +5. Pt intubated w/ ETT 7.5 @ 23cm lipline, secured by anchorfast. Pt asleep, responds to stimuli. B/S reece. clear, sxn scant amounts of thin, pale-yellow secretions. Vent plugged into red outlet, ambubag at bedside. Pt in no apparent distress at this time. Will continue to monitor pt.
--- NOTE | 2020-04-12 21:00 | NUR ---
NURSE NOTES: Patient in bed no s/s of acute distress noted. turned and repositioned patient in bed. HOB elevated. OGT connected to suctioned. cooling measure continued Temp 99.5 axillary. frequent visual checks continued. will continue plan of care.
[2020-04-12] MEDS: Dyna-Hex 2% Top Sol 2oz TOPIC SCH (21:17)
--- NOTE | 2020-04-12 23:00 | NUR ---
NURSE NOTES: Patient continued on Levophed drip at 14mcg/min BP 102/58 HR 115, sodium bicarb at 76mls and D5 1/2 NS at 150cc/hr. Comfort measure provided. will continue plan of care.
[2020-04-13] VITALS (75 sets, daily range): BP systolic 76–158; BP diastolic 45–96
[2020-04-13] MEDS: Sodium Bicarbonate 150 ML in D5W 1000ml 1,000 ML IV SCH ×2 (00:01→15:59)
[2020-04-13] MEDS: Acetaminophen 650mg/20.3ml NG PRN ×2 (00:03→08:27)
--- NOTE | 2020-04-13 00:10 | NUR ---
NURSE NOTES: Temp 100.6 axillary cooling measure not effective. Tylenol given will rechecked and monitor Temp.
--- NOTE | 2020-04-13 01:00 | NUR ---
NURSE NOTES: Rechecked Temp 99.0 axillary
[2020-04-13] MEDS: Metoclopramide 10mg/2ml Inj IVP SCH ×4 (02:03→20:04)
--- NOTE | 2020-04-13 03:00 | NUR ---
NURSE NOTES: Bed bath given tolerated well. placed cooling blanket. rectal temp 97.8. will continue plan of care.
--- NOTE | 2020-04-13 04:00 | Consultation ---
DATE OF CONSULTATION: INFECTIOUS DISEASE CONSULT REFERRING PHYSICIAN: Taras Benson M.D. REASON FOR CONSULTATION: Evaluation of the patient for sepsis and antibiotic management. HISTORY OF PRESENT ILLNESS: The patient is a 60-year-old female who was [facility] a [facility]iary [facility] to this medical center due to shortness of breath. The patient was intubated in the emergency room and was admitted to the ICU. The patient was started on pressors due to hypotension. Infectious disease consultation has been requested for further evaluation of the patient and antibiotic management. The patient is unable to provide information. It was gathered through the chart and speaking to staff. PAST MEDICAL HISTORY: 1. Migraine. 2. History of CAD/NV, with stent placement. 3. History of COPD. 4. History of appendicitis, status post appendectomy. 5. History of diabetes. 6. Depression/anxiety. 7. History of alcohol abuse. 8. History of opiate abuse. ALLERGIES: Cephalosporins, penicillin, diazepam, tramadol (the nature of these allergies is not clear). REVIEW OF SYSTEMS: Unobtainable. FAMILY HISTORY: Unavailable. SOCIAL HISTORY: As mentioned above. PHYSICAL EXAMINATION: VITAL SIGNS: Temperature 101.7, blood pressure 102/59, pulse 124, respiratory rate 20. HEENT: No pale conjunctivae. No icterus. NECK: No lymphadenopathy. CHEST: Coarse breathing sounds. HEART: S1, S2. ABDOMEN: Soft. EXTREMITIES: No cyanosis at this time. NEUROLOGIC: Sedated. LABS: White blood cells 19.6. BUN 66, creatinine 3.2, AST 1661, ALT 662, alkaline phosphatase 430. Lactic acid elevated . Urine culture is growing more than 100,000 colonies of ESBL E. coli. SARS COVID x1 negative. Chest x-ray showed tiny bilateral pleural effusions. No pneumothorax. Mild left lung base atelectasis versus pneumonia. Chest CT showed bilateral centrilobar and paraseptal emphysema, moderate bilateral pleural space parenchymal scarring. ASSESSMENT: The patient is a 60-year-old female with: 1. Sepsis. 2. Septic shock. 3. . 4. Transaminitis. 5. Leukocytosis. 6. ESBL E. coli UTI. 7. Probable pneumonia. 8. Acute renal insufficiency. PLAN: 1. Change antibiotics to Zithromax, meropenem, Zyvox (we will monitor the patient closely for possible adverse reactions). In view of the patient being in septic shock and ESBL E. coli and the lack of specific information with details of patient's allergies, benefit outweighs risk at this point. 2. Monitor cultures (blood, urine, sputum). 3. Repeat COVID test #2, and we will keep the patient in isolation (this was discussed with the nursing staff). 4. Hepatitis panel. 5. Ultrasound of the liver. 6. Based on the patient's clinical course, we will give further recommendations. 7. Urine Legionella antigen and mycoplasma antibody. Cam Ye M.D. DR: DEBI JOB#: [id number] CC:
[2020-04-13] MEDS: Norepinephrine Bitartrate 8 MG in D5W 500ml 550 ML IV SCH ×2 (04:11→20:03)
--- NOTE | 2020-04-13 05:00 | NUR ---
NURSE NOTES: patient in bed obtunded. Orally intubated Fi02 55% satting 100%. BP 129/67 HR 98 SR on monitor. right femoral TLC Levophed 14mcg/hr, sodium bicarb at 76cc/hr and D51/2NS @150ml/hr . OGT intact connected to low intermittent suctioned with dark greenish blackish colored. Chaves catheter draining with tea colored urine urine. noted with generalized edema. Elevated with pillow. no s/s of hypo/hyperglycemia. bed alarm on. bed locked lowest position call light within reach. Continue on droplet precaution due to Fever. Negative for Covid. will continue plan of care.
[2020-04-13] MEDS: Sodium Citrate 30ml NG SCH (05:45)
[2020-04-13] MEDS: D5 1/2NS 1,000 ML IV SCH (05:45)
[2020-04-13] MEDS: Meropenem 1 GM in NS 55 ML IVPB SCH ×2 (05:45→18:05)
[2020-04-13 06:59] LABS: HEMATOCRIT 24.2 % (37.0-47.0); HEMOGLOBIN 7.8 G/DL (12.0-16.0); MEAN CORPUSCULAR VOLUME 86 FL (80-99); PLATELET COUNT 71 K/UL (150-450); RED CELL DISTRIBUTION WIDTH 15.9 % (11.6-14.8); WHITE BLOOD COUNT 9.2 K/UL (4.8-10.8)
--- NOTE | 2020-04-13 07:30 | NUR ---
HAND-OFF: Report given to Marlen KEITA.
[2020-04-13 07:41] LABS: CREATINE KINASE 7055 U/L (26-308)
[2020-04-13 07:53] LABS: ALANINE AMINOTRANSFERASE 763 U/L (12-78); ALBUMIN 1.8 G/DL (3.4-5.0); ALBUMIN/GLOBULIN RATIO 0.8 (1.0-2.7); ALKALINE PHOSPHATASE 323 U/L (46-116); ANION GAP 14 mmol/L (5-15); ASPARTATE AMINO TRANSFERASE 1748 U/L (15-37); BILIRUBIN,TOTAL 1.9 MG/DL (0.2-1.0); BLOOD UREA NITROGEN 71 mg/dL (7-18); CALCIUM 6.1 MG/DL (8.5-10.1); CARBON DIOXIDE 22 MMOL/L (21-32); CHLORIDE 93 MMOL/L (98-107); CREATININE 3.1 MG/DL (0.55-1.30); GAMMA GLUTAMYL TRANSPEPTIDASE 47 U/L (5-85); PHOSPHORUS 6.1 MG/DL (2.5-4.9); POTASSIUM 3.9 MMOL/L (3.5-5.1); SODIUM 129 MMOL/L (136-145)
--- NOTE | 2020-04-13 08:10 | NUR ---
NURSE NOTES: Patient received from NEELA Nicholson. Easily arousal to pain, afebbrile T 101, Tylenol given and cooling measure applied. Remains on low intermittent GI suction, turned and repositioned, HOB elevated to prevent aspiration.F/C in place with poor dark urine output.Right femora TLC running Levophed at 12mcg/hr.Call light within easy reach.Remains unstable, will continue close monitoring
[2020-04-13] MEDS: Calcium Gluconate 1gm/50ml 50 ML IVPB SCH ×3 (08:22→21:32)
[2020-04-13] MEDS: Pantoprazole Inj IVP SCH (08:23)
[2020-04-13] MEDS: D5NS 1,000 ML IV SCH ×2 (08:52→18:05)
--- NOTE | 2020-04-13 09:22 | NUR ---
RD ASSESSMENT & RECOMMENDATIONS SEE CARE ACTIVITY FOR COMPLETE ASSESSMENT DAILY ESTIMATED NEEDS: Needs based on Critical care, underweight, DM/ 51kg 25-30 kcals/kg 1456-8971 total kcals 1.2-2 g protein/kg 61-102 g total protein 25-30 mL/kg 6752-3233 total fluid mLs NUTRITION DIAGNOSIS: Swallowing difficulty R/T respiratory failure as evidenced by orally intubated, NPO at this time, OGT to LIS, on pressors. CURRENT TF: NPO, OGT to LIS PO DIET RECOMMENDATIONS: LIABILITY ANALYST eval post extubation ENTERAL NUTRITION RECOMMENDATIONS: Glucerna 1.2 @ 50ml/hr x 24 hrs to provide 1200ml, 1440kcal, 72g prot, 966ml free water * With GI access and HEMODYNAMIC stability -> initiate Glucerna 1.2 @ 10ml/hr x 6 hrs -> advance 10ml q 4-6 hrs as tolerated to goal -> HOB over 30 degrees/ water flush per MD WITHOUT HEMODYNAMIC STABILTY: trophic feeding of Glucerna 1.2 @ 10ml/hr ADDITIONAL RECOMMENDATIONS: * Calibrated bedscale wt * Monitor HD stablity: hypotensive, without pressor supprot at this time * Monitor BGs, rec NISS w/ TF (h/o DM) -> maintain added D5 IVF while NPO to prevent hypoglycemia * Monitor renal fxn + lytes- creat trend up, phos elev, K wnl -> monitor need for TF rec change
--- NOTE | 2020-04-13 09:40 | NUR ---
NURSE NOTES: Patient seen by Dr Green, will follow up with new orders
[2020-04-13 09:49] LABS: BILIRUBIN,DIRECT 1.4 MG/DL (0.0-0.3)
--- NOTE | 2020-04-13 10:05 | NUR ---
NURSE NOTES: Patient asleep,easily arousal to tactile stimuli. Suctioned as tolerated, turned and repositioned.HOB elevated to prevent aspiration.Will continue same plan of care, no significant change at this time.
--- NOTE | 2020-04-13 10:44 | General Progress Note ---
Assessment/Plan Problem List: (1) Altered mental status, unspecified ICD Codes: R41.82 - Altered mental status, unspecified SNOMED: 754649648 (2) History of chronic pain ICD Codes: Z87.898 - Personal history of other specified conditions SNOMED: 334555062 (3) Acute respiratory failure ICD Codes: J96.00 - Acute respiratory failure, unspecified whether with hypoxia or hypercapnia SNOMED: 96294473 (4) History of depression ICD Codes: Z86.59 - Personal history of other mental and behavioral disorders SNOMED: 499112952 (5) ACS (acute coronary syndrome) ICD Codes: I24.9 - Acute ischemic heart disease, unspecified SNOMED: 072124509 (6) Elevated CEA ICD Codes: R97.0 - Elevated carcinoembryonic antigen [CEA] SNOMED: 667448076 Status: not improved Assessment/Plan: Elevated LFTS>>> shock liver elevated CEA>>> ? source for tumor anemia on pressor ileus thrombocytopenia NGT to suction keep npo repeat labs fu cardiology fu pulm management of elevated CEA when patient is more stable poor prognosis will fu Subjective ROS Limited/Unobtainable: No Allergies: Coded Allergies: CEPHALOSPORINS (Verified Allergy, Intermediate, Anaphylaxis, 12/14/12) DIAZEPAM (Verified Allergy, Intermediate, DYSTONIC, 12/14/12) SUMATRIPTAN (Verified Allergy, Intermediate, 12/14/12) SUMATRIPTAN SUCCINATE (Verified Allergy, Intermediate, 12/14/12) TRAMADOL (Verified Allergy, Intermediate, Anaphylaxis, 12/14/12) CEPHALEXIN (Unverified Allergy, Unknown, 10/25/19) PENICILLINS (Unverified Allergy, Unknown, 08/26/18) Uncoded Allergies: PCN (Allergy, Unknown, 10/25/19) Objective Last 24 Hour Vital Signs Date Time Temp Pulse Resp B/P (MAP) Pulse Ox O2 Delivery O2 Flow Rate FiO2 04/13/20 10:15 100 21 98/58 (71) 100 04/13/20 10:00 96 21 98/58 (71) 100 04/13/20 09:45 94 20 95/56 (69) 100 04/13/20 09:30 96 20 96/57 (70) 100 04/13/20 09:15 100 21 55 04/13/20 09:15 99 20 99/60 (73) 100 04/13/20 09:00 101 20 107/65 (79) 100 04/13/20 08:57 99.8 04/13/20 08:45 104 22 114/60 (78) 100 04/13/20 08:30 103 22 124/65 (84) 100 04/13/20 08:15 102 21 123/63 (83) 100 04/13/20 08:00 55 04/13/20 08:00 99 04/13/20 08:00 Mechanical Ventilator 04/13/20 08:00 101.0 101 21 122/64 (83) 100 04/13/20 07:45 102 21 124/66 (85) 100 04/13/20 07:30 100 20 121/61 (81) 100 04/13/20 07:15 99 20 120/61 (80) 100 04/13/20 07:10 100 21 55 04/13/20 07:00 98 20 120/62 (81) 100 04/13/20 07:00 118/62 04/13/20 06:45 97 20 118/62 (80) 100 04/13/20 06:30 97 27 04/13/20 06:30 97 20 121/64 (83) 100 04/13/20 06:15 98 21 124/62 (82) 100 04/13/20 06:00 143/64 04/13/20 06:00 102 25 143/67 (92) 100 04/13/20 05:45 97 21 130/69 (89) 100 04/13/20 05:30 97 22 136/66 (89) 100 04/13/20 05:15 104 24 142/69 (93) 98 04/13/20 05:00 100 20 129/67 (87) 100 04/13/20 05:00 129/64 04/13/20 04:30 104 22 116/80 (92) 100 04/13/20 04:30 104 22 116/80 (92) 100 04/13/20 04:11 102/56 04/13/20 04:00 101 04/13/20 04:00 113/62 04/13/20 04:00 Mechanical Ventilator 04/13/20 04:00 97.9 102 21 104/57 (73) 100 04/13/20 04:00 55 04/13/20 03:30 101 22 94/56 (69) 100 04/13/20 03:09 101 22 55 04/13/20 03:00 102/59 04/13/20 03:00 101 21 98/55 (69) 100 04/13/20 02:30 101 21 101/57 (72) 100 04/13/20 02:00 99/55 04/13/20 02:00 104 21 94/57 (69) 100 04/13/20 01:30 106 21 101/56 (71) 04/13/20 01:00 108 21 102/56 (71) 100 04/13/20 01:00 97/58 04/13/20 00:30 110 22 102/57 (72) 100 04/13/20 00:00 55 04/13/20 00:00 Mechanical Ventilator 04/13/20 00:00 100.6 113 21 100/58 (72) 100 04/13/20 00:00 99/58 04/13/20 00:00 110 04/12/20 23:30 115 20 103/56 (72) 100 04/12/20 23:14 116 21 55 04/12/20 23:00 117 21 107/58 (74) 100 04/12/20 23:00 102/58 04/12/20 22:30 118 21 106/56 (73) 04/12/20 22:00 120 21 109/57 (74) 100 04/12/20 22:00 109/57 04/12/20 21:30 122 22 110/58 (75) 100 04/12/20 21:00 109/57 04/12/20 21:00 123 23 108/59 (75) 100 04/12/20 20:30 124 24 110/67 (81) 100 04/12/20 20:00 55 04/12/20 20:00 114 04/12/20 20:00 108/64 04/12/20 20:00 99.9 124 26 113/59 (77) 100 04/12/20 20:00 Mechanical Ventilator 04/12/20 19:45 125 26 110/59 (76) 100 04/12/20 19:33 123 24 55 04/12/20 19:30 123 24 106/57 (73) 100 04/12/20 19:15 125 26 109/58 (75) 99 04/12/20 19:00 125 27 111/59 (76) 99 04/12/20 18:46 101.0 04/12/20 18:30 125 25 108/55 (72) 100 04/12/20 18:17 108/60 04/12/20 18:15 126 28 112/59 (76) 100 04/12/20 18:00 126 27 108/60 (76) 100 04/12/20 17:30 125 26 108/60 (76) 98 04/12/20 17:23 126 26 55 04/12/20 17:15 126 27 104/59 (74) 04/12/20 17:02 128 29 100/58 (72) 98 04/12/20 17:00 128 28 98 04/12/20 17:00 100/58 04/12/20 16:45 126 30 89/56 (67) 97 04/12/20 16:30 129 28 117/69 (85) 98 04/12/20 16:15 128 27 116/56 (76) 100 04/12/20 16:11 116/56 04/12/20 16:00 Mechanical Ventilator 04/12/20 16:00 55 04/12/20 16:00 127 04/12/20 16:00 101.0 128 27 116/58 (77) 99 04/12/20 15:45 127 26 116/58 (77) 99 04/12/20 15:30 128 24 55 04/12/20 15:30 127 26 113/63 (80) 100 04/12/20 15:15 127 26 112/65 (81) 100 04/12/20 15:00 112/65 04/12/20 15:00 127 27 111/62 (78) 100 04/12/20 14:30 125 26 112/65 (81) 100 04/12/20 14:15 125 27 118/61 (80) 100 04/12/20 14:00 118/61 04/12/20 14:00 125 26 119/64 (82) 100 04/12/20 13:45 124 26 120/61 (80) 100 04/12/20 13:30 125 27 120/61 (80) 100 04/12/20 13:15 125 26 119/63 (81) 100 04/12/20 13:00 124 24 112/61 (78) 100 04/12/20 13:00 119/63 04/12/20 12:52 124 22 55 04/12/20 12:45 123 25 107/59 (75) 100 04/12/20 12:30 122 23 109/59 (76) 99 04/12/20 12:15 121 23 104/59 (74) 99 04/12/20 12:00 99.0 122 23 106/60 (75) 100 04/12/20 12:00 104/59 04/12/20 12:00 Mechanical Ventilator 04/12/20 12:00 123 04/12/20 11:30 122 25 102/59 (73) 100 04/12/20 11:11 122 26 55 04/12/20 11:00 122 26 105/63 (77) 99 04/12/20 11:00 105/63 Intake and Output 04/12/20 04/13/20 18:59 06:59 Intake Total 2485.42 ml 3646.03 ml Output Total 425 ml 640 ml Balance 2060.42 ml 3006.03 ml IV Total 2485.42 ml 3586.03 ml Other 60 ml Output Urine Total 75 ml 140 ml Gastric Drainage Total 350 ml 500 ml # Bowel Movements 1 2 Laboratory Tests 04/13/20 05:00: Urine Eosinophils None seen, Urine Legionella Antigen [Pending] 04/13/20 05:56: White Blood Count 9.2#, Red Blood Count 2.80L, Hemoglobin 7.8L, Hematocrit 24.2L , Mean Corpuscular Volume 86, Mean Corpuscular Hemoglobin 28.0, Mean Corpuscular Hemoglobin Concent 32.5, Red Cell Distribution Width 15.9H, Platelet Count 71L, Mean Platelet Volume 6.9, Neutrophils (%) (Auto) , Lymphocytes (%) (Auto) , Monocytes (%) (Auto) , Eosinophils (%) (Auto) , Basophils (%) (Auto) , Differential Total Cells Counted 100, Neutrophils % ( Manual) 68, Lymphocytes % (Manual) 4L, Monocytes % (Manual) 13H, Eosinophils % ( Manual) 2, Basophils % (Manual) 0, Band Neutrophils 13H, Platelet Estimate DecreasedL, Platelet Morphology Normal, Hypochromasia 1+, Anisocytosis 1+, Sodium Level 129L, Potassium Level 3.9, Chloride Level 93L, Carbon Dioxide Level 22, Anion Gap 14, Blood Urea Nitrogen 71H, Creatinine 3.1H, Estimat Glomerular Filtration Rate 15.4, Glucose Level 155#H, Lactic Acid Level 5.80H, Uric Acid 8.4H, Calcium Level 6.1L, Phosphorus Level 6.1H, Magnesium Level 1.6L , Total Bilirubin 1.9H, Direct Bilirubin 1.4H, Gamma Glutamyl Transpeptidase 47 , Aspartate Amino Transf (AST/SGOT) 1748H, Alanine Aminotransferase (ALT/SGPT) 763H, Alkaline Phosphatase 323H, Total Creatine Kinase 7055H, Troponin I 3.927H , C-Reactive Protein, Quantitative 42.3H, Pro-B-Type Natriuretic Peptide > 49531C, Total Protein 4.1L, Albumin 1.8L, Globulin 2.3, Albumin/Globulin Ratio 0.8L Height (Feet): 5 Height (Inches): 4.00 Weight (Pounds): 132 General Appearance: lethargic EENT: PERRL/EOMI Neck: supple Cardiovascular: tachycardia Respiratory/Chest: decreased breath sounds Abdomen: hypoactive bowel sounds Extremities: non-tender David Pickens MD Apr 13, 2020 10:44
--- NOTE | 2020-04-13 11:36 | NUR ---
NURSE NOTES: Patient seen by poornima Barone and update given
--- NOTE | 2020-04-13 12:01 | NUR ---
NURSE NOTES: Mouth care done and suctioned as tolerated.Turned and repositioned and HOB elevated to prevent aspiration.No significant change in condition at this time. Will continue same care plan.
--- NOTE | 2020-04-13 12:15 | Infectious Diseases Prog Note ---
Assessment/Plan ASSESSMENT: The patient is a 60-year-old female with: - Septic shock.; perssors requirements improving Acute hypoxic resp failure sp intubation -Transaminitis. - Leukocytosis, SP - ESBL E. coli UTI. - Probable pneumonia.- r/o COVID19 -Acute renal insufficiency. . Migraine. . History of CAD/OK, with stent placement. . History of COPD. History of appendicitis, status post appendectomy. History of diabetes. Depression/anxiety. . History of alcohol abuse. History of opiate abuse. PLAN: 1. Continue empiric Zithromax, meropenem, Zyvox #2 (we will monitor the patient closely for possible adverse reactions). --monitor platelets -04/12 SP IV Vancomycin #3, Aztreonam #3 -04/10 SP AMikacin x1 2. Monitor cultures (blood, urine, sputum). 3. Repeat COVID test #2, and we will keep the patient in isolation (this was discussed with the nursing staff). 4.f/u Hepatitis panel. 5. f/u Ultrasound of the liver. 6. Based on the patient's clinical course, we will give further recommendations. 7.f/u Urine Legionella antigen and mycoplasma antibody, sp cx Subjective Allergies: Coded Allergies: CEPHALOSPORINS (Verified Allergy, Intermediate, Anaphylaxis, 12/14/12) DIAZEPAM (Verified Allergy, Intermediate, DYSTONIC, 12/14/12) SUMATRIPTAN (Verified Allergy, Intermediate, 12/14/12) SUMATRIPTAN SUCCINATE (Verified Allergy, Intermediate, 12/14/12) TRAMADOL (Verified Allergy, Intermediate, Anaphylaxis, 12/14/12) CEPHALEXIN (Unverified Allergy, Unknown, 10/25/19) PENICILLINS (Unverified Allergy, Unknown, 08/26/18) Uncoded Allergies: PCN (Allergy, Unknown, 10/25/19) Tm 101 fio2 55% levo downto 6 leukocytosis rseolved Objective Last 24 Hour Vital Signs Date Time Temp Pulse Resp B/P (MAP) Pulse Ox O2 Delivery O2 Flow Rate FiO2 04/13/20 11:30 101 21 95/54 (68) 100 04/13/20 11:15 99 21 96/55 (69) 100 04/13/20 11:00 95/54 04/13/20 11:00 98 21 98/54 (69) 100 04/13/20 10:45 96 21 96/54 (68) 100 04/13/20 10:30 94 20 95/58 (70) 100 04/13/20 10:15 100 21 98/58 (71) 100 04/13/20 10:00 96 21 98/58 (71) 100 04/13/20 10:00 98/58 04/13/20 09:45 94 20 95/56 (69) 100 04/13/20 09:30 96 20 96/57 (70) 100 04/13/20 09:15 100 21 55 04/13/20 09:15 99 20 99/60 (73) 100 04/13/20 09:00 101 20 107/65 (79) 100 04/13/20 09:00 107/65 04/13/20 08:57 99.8 04/13/20 08:45 104 22 114/60 (78) 100 04/13/20 08:30 103 22 124/65 (84) 100 04/13/20 08:15 102 21 123/63 (83) 100 04/13/20 08:00 55 04/13/20 08:00 122/64 04/13/20 08:00 99 04/13/20 08:00 Mechanical Ventilator 04/13/20 08:00 101.0 101 21 122/64 (83) 100 04/13/20 07:45 102 21 124/66 (85) 100 04/13/20 07:30 100 20 121/61 (81) 100 04/13/20 07:15 99 20 120/61 (80) 100 04/13/20 07:10 100 21 55 04/13/20 07:00 98 20 120/62 (81) 100 04/13/20 07:00 118/62 04/13/20 06:45 97 20 118/62 (80) 100 04/13/20 06:30 97 27 04/13/20 06:30 97 20 121/64 (83) 100 04/13/20 06:15 98 21 124/62 (82) 100 04/13/20 06:00 143/64 04/13/20 06:00 102 25 143/67 (92) 100 04/13/20 05:45 97 21 130/69 (89) 100 04/13/20 05:30 97 22 136/66 (89) 100 04/13/20 05:15 104 24 142/69 (93) 98 04/13/20 05:00 100 20 129/67 (87) 100 04/13/20 05:00 129/64 04/13/20 04:30 104 22 116/80 (92) 100 04/13/20 04:30 104 22 116/80 (92) 100 04/13/20 04:11 102/56 04/13/20 04:00 101 04/13/20 04:00 113/62 04/13/20 04:00 Mechanical Ventilator 04/13/20 04:00 97.9 102 21 104/57 (73) 100 04/13/20 04:00 55 04/13/20 03:30 101 22 94/56 (69) 100 04/13/20 03:09 101 22 55 04/13/20 03:00 102/59 04/13/20 03:00 101 21 98/55 (69) 100 04/13/20 02:30 101 21 101/57 (72) 100 04/13/20 02:00 99/55 04/13/20 02:00 104 21 94/57 (69) 100 04/13/20 01:30 106 21 101/56 (71) 04/13/20 01:00 108 21 102/56 (71) 100 04/13/20 01:00 97/58 04/13/20 00:30 110 22 102/57 (72) 100 04/13/20 00:00 55 04/13/20 00:00 Mechanical Ventilator 04/13/20 00:00 100.6 113 21 100/58 (72) 100 04/13/20 00:00 99/58 04/13/20 00:00 110 04/12/20 23:30 115 20 103/56 (72) 100 04/12/20 23:14 116 21 55 04/12/20 23:00 117 21 107/58 (74) 100 04/12/20 23:00 102/58 04/12/20 22:30 118 21 106/56 (73) 04/12/20 22:00 120 21 109/57 (74) 100 04/12/20 22:00 109/57 04/12/20 21:30 122 22 110/58 (75) 100 04/12/20 21:00 109/57 04/12/20 21:00 123 23 108/59 (75) 100 04/12/20 20:30 124 24 110/67 (81) 100 04/12/20 20:00 55 04/12/20 20:00 114 04/12/20 20:00 108/64 04/12/20 20:00 99.9 124 26 113/59 (77) 100 20 20:00 Mechanical Ventilator 04/12/20 19:45 125 26 110/59 (76) 100 04/12/20 19:33 123 24 55 04/12/20 19:30 123 24 106/57 (73) 100 04/12/20 19:15 125 26 109/58 (75) 99 04/12/20 19:00 125 27 111/59 (76) 99 04/12/20 18:46 101.0 04/12/20 18:30 125 25 108/55 (72) 100 04/12/20 18:17 108/60 04/12/20 18:15 126 28 112/59 (76) 100 04/12/20 18:00 126 27 108/60 (76) 100 04/12/20 17:30 125 26 108/60 (76) 98 04/12/20 17:23 126 26 55 04/12/20 17:15 126 27 104/59 (74) 04/12/20 17:02 128 29 100/58 (72) 98 04/12/20 17:00 128 28 98 04/12/20 17:00 100/58 04/12/20 16:45 126 30 89/56 (67) 97 04/12/20 16:30 129 28 117/69 (85) 98 04/12/20 16:15 128 27 116/56 (76) 100 04/12/20 16:11 116/56 04/12/20 16:00 Mechanical Ventilator 04/12/20 16:00 55 04/12/20 16:00 127 04/12/20 16:00 101.0 128 27 116/58 (77) 99 04/12/20 15:45 127 26 116/58 (77) 99 04/12/20 15:30 128 24 55 04/12/20 15:30 127 26 113/63 (80) 100 04/12/20 15:15 127 26 112/65 (81) 100 04/12/20 15:00 112/65 04/12/20 15:00 127 27 111/62 (78) 100 04/12/20 14:30 125 26 112/65 (81) 100 04/12/20 14:15 125 27 118/61 (80) 100 04/12/20 14:00 118/61 04/12/20 14:00 125 26 119/64 (82) 100 04/12/20 13:45 124 26 120/61 (80) 100 04/12/20 13:30 125 27 120/61 (80) 100 04/12/20 13:15 125 26 119/63 (81) 100 04/12/20 13:00 124 24 112/61 (78) 100 04/12/20 13:00 119/63 04/12/20 12:52 124 22 55 04/12/20 12:45 123 25 107/59 (75) 100 04/12/20 12:30 122 23 109/59 (76) 99 04/12/20 12:15 121 23 104/59 (74) 99 Height (Feet): 5 Height (Inches): 4.00 Weight (Pounds): 132 HEENT: No pale conjunctivae. No icterus. NECK: No lymphadenopathy. CHEST: Coarse breathing sounds. HEART: S1, S2. ABDOMEN: Soft. EXTREMITIES: No cyanosis at this time. NEUROLOGIC: Sedated. Laboratory Tests Test 04/13/20 05:00 04/13/20 05:56 Urine Eosinophils None seen (NONE SEEN) Urine Legionella Antigen Pending White Blood Count 9.2 K/UL (4.8-10.8) # Red Blood Count 2.80 M/UL (4.20-5.40) L Hemoglobin 7.8 G/DL (12.0-16.0) L Hematocrit 24.2 % (37.0-47.0) L Mean Corpuscular Volume 86 FL (80-99) Mean Corpuscular Hemoglobin 28.0 PG (27.0-31.0) Mean Corpuscular Hemoglobin Concent 32.5 G/DL (32.0-36.0) Red Cell Distribution Width 15.9 % (11.6-14.8) H Platelet Count 71 K/UL (150-450) L Mean Platelet Volume 6.9 FL (6.5-10.1) Neutrophils (%) (Auto) % (45.0-75.0) Lymphocytes (%) (Auto) % (20.0-45.0) Monocytes (%) (Auto) % (1.0-10.0) Eosinophils (%) (Auto) % (0.0-3.0) Basophils (%) (Auto) % (0.0-2.0) Differential Total Cells Counted 100 Neutrophils % (Manual) 68 % (45-75) Lymphocytes % (Manual) 4 % (20-45) L Monocytes % (Manual) 13 % (1-10) H Eosinophils % (Manual) 2 % (0-3) Basophils % (Manual) 0 % (0-2) Band Neutrophils 13 % (0-8) H Platelet Estimate Decreased L Platelet Morphology Normal Hypochromasia 1+ Anisocytosis 1+ Sodium Level 129 MMOL/L (136-145) L Potassium Level 3.9 MMOL/L (3.5-5.1) Chloride Level 93 MMOL/L (98-107) L Carbon Dioxide Level 22 MMOL/L (21-32) Anion Gap 14 mmol/L (5-15) Blood Urea Nitrogen 71 mg/dL (7-18) H Creatinine 3.1 MG/DL (0.55-1.30) H Estimat Glomerular Filtration Rate 15.4 mL/min (>60) Glucose Level 155 MG/DL (74-106) #H Lactic Acid Level 5.80 mmol/L (0.4-2.0) H Uric Acid 8.4 MG/DL (2.6-7.2) H Calcium Level 6.1 MG/DL (8.5-10.1) L Phosphorus Level 6.1 MG/DL (2.5-4.9) H Magnesium Level 1.6 MG/DL (1.8-2.4) L Total Bilirubin 1.9 MG/DL (0.2-1.0) H Direct Bilirubin 1.4 MG/DL (0.0-0.3) H Gamma Glutamyl Transpeptidase 47 U/L (5-85) Aspartate Amino Transf (AST/SGOT) 1748 U/L (15-37) H Alanine Aminotransferase (ALT/SGPT) 763 U/L (12-78) H Alkaline Phosphatase 323 U/L (46-116) H Total Creatine Kinase 7055 U/L (26-308) H Troponin I 3.927 ng/mL (0.000-0.056) C-Reactive Protein, Quantitative 42.3 mg/dL (0.00-0.90) H Pro-B-Type Natriuretic Peptide > 90212 pg/mL (0-125) H Total Protein 4.1 G/DL (6.4-8.2) L Albumin 1.8 G/DL (3.4-5.0) L Globulin 2.3 g/dL Albumin/Globulin Ratio 0.8 (1.0-2.7) L Current Medications Medications (Trade) Dose Ordered Sig/Issa Route PRN Reason Start Time Stop Time Status Last Admin Dose Admin Acetaminophen (Tylenol) 650 mg Q4H PRN NG Temp >100.5 04/12/20 21:15 05/12/20 21:14 04/13/20 08:27 Albuterol/ Ipratropium (Albuterol/ Ipratropium) 3 ml Q4H PRN HHN Shortness of Breath 04/09/20 19:15 04/14/20 19:14 Azithromycin 500 mg/Dextrose 275 ml @ 275 mls/hr Q24HRS IV 04/12/20 15:00 04/18/20 15:59 04/12/20 15:00 Calcium Gluconate/ Sodium Chloride 50 ml @ 50 mls/hr Q8HR IVPB 04/13/20 14:00 07/11/20 20:59 Chlorhexidine Gluconate (Elin-Hex 2%) 1 applic DAILY@2000 TOPIC 04/10/20 20:00 07/09/20 19:59 04/12/20 21:17 Dextrose (Dextrose 50%) 25 ml Q30M PRN IV Hypoglycemia 04/09/20 19:15 07/08/20 19:14 Dextrose (Dextrose 50%) 50 ml Q30M PRN IV Hypoglycemia 04/09/20 19:15 07/08/20 19:14 Dextrose/Sodium Chloride 1,000 ml @ 100 mls/hr Q10H IV 04/13/20 08:45 05/13/20 08:44 04/13/20 08:52 Linezolid 300 ml @ 300 mls/hr Q12H IVPB 04/12/20 16:00 04/19/20 15:59 04/13/20 04:00 Lorazepam (Ativan 2mg/ml 1ml) 2 mg Q2H PRN IV agitation 04/09/20 19:15 04/16/20 19:14 04/11/20 13:42 Meropenem 1 gm/ Sodium Chloride 55 ml @ 110 mls/hr Q12H IVPB 04/12/20 18:00 04/17/20 17:59 04/13/20 05:45 Metoclopramide HCl (Reglan) 10 mg Q6H IVP 04/13/20 02:00 05/13/20 01:59 04/13/20 08:23 Morphine Sulfate (Morphine Sulfate) 4 mg Q4H PRN IVP Severe Pain (Pain Scale 7-10) 04/09/20 19:15 04/16/20 19:14 04/11/20 13:43 Nitroglycerin (Ntg) 0.4 mg Q5MIN X 3 DOSES PRN SL Prn Chest Pain 04/09/20 19:15 05/09/20 19:14 Norepinephrine Bitartrate 8 mg/ Dextrose 558 ml @ 0 mls/hr Q24H IV 04/10/20 20:30 05/10/20 19:59 04/13/20 04:11 Ondansetron HCl (Zofran) 4 mg Q6H PRN IVP Nausea & Vomiting 04/09/20 19:15 05/09/20 19:14 Pantoprazole (Protonix) 40 mg DAILY IVP 04/12/20 09:00 05/12/20 08:59 04/13/20 08:23 Sodium Bicarbonate 150 ml/Dextrose 1,150 ml @ 76 mls/hr Q15H8M IV 04/12/20 10:00 05/12/20 09:59 04/13/20 00:01 Agnieszka Cervantes M.D. Apr 13, 2020 12:15
--- NOTE | 2020-04-13 12:40 | Surgery Progress Note ---
Surgery Progress Note Subjective Procedure Performed Right femoral central venous catheter insertion Additional Comments ill appearing labs worse dti forming line okay prognosis guarded Objective Last 24 Hour Vital Signs Date Time Temp Pulse Resp B/P (MAP) Pulse Ox O2 Delivery O2 Flow Rate FiO2 04/13/20 12:30 110 22 112/66 (81) 100 04/13/20 12:00 97.9 110 22 112/66 (81) 100 04/13/20 12:00 Mechanical Ventilator 04/13/20 12:00 102/54 04/13/20 12:00 55 04/13/20 11:45 105 21 100/59 (73) 100 04/13/20 11:30 101 21 95/54 (68) 100 04/13/20 11:15 99 21 96/55 (69) 100 04/13/20 11:00 95/54 04/13/20 11:00 98 21 98/54 (69) 100 04/13/20 10:45 96 21 96/54 (68) 100 04/13/20 10:30 94 20 95/58 (70) 100 04/13/20 10:15 100 21 98/58 (71) 100 04/13/20 10:00 96 21 98/58 (71) 100 04/13/20 10:00 98/58 04/13/20 09:45 94 20 95/56 (69) 100 04/13/20 09:30 96 20 96/57 (70) 100 04/13/20 09:15 100 21 55 04/13/20 09:15 99 20 99/60 (73) 100 04/13/20 09:00 101 20 107/65 (79) 100 04/13/20 09:00 107/65 04/13/20 08:57 99.8 04/13/20 08:45 104 22 114/60 (78) 100 04/13/20 08:30 103 22 124/65 (84) 100 04/13/20 08:15 102 21 123/63 (83) 100 04/13/20 08:00 55 04/13/20 08:00 122/64 04/13/20 08:00 99 04/13/20 08:00 Mechanical Ventilator 04/13/20 08:00 101.0 101 21 122/64 (83) 100 04/13/20 07:45 102 21 124/66 (85) 100 04/13/20 07:30 100 20 121/61 (81) 100 04/13/20 07:15 99 20 120/61 (80) 100 04/13/20 07:10 100 21 55 04/13/20 07:00 98 20 120/62 (81) 100 04/13/20 07:00 118/62 04/13/20 06:45 97 20 118/62 (80) 100 04/13/20 06:30 97 27 04/13/20 06:30 97 20 121/64 (83) 100 04/13/20 06:15 98 21 124/62 (82) 100 04/13/20 06:00 143/64 04/13/20 06:00 102 25 143/67 (92) 100 04/13/20 05:45 97 21 130/69 (89) 100 04/13/20 05:30 97 22 136/66 (89) 100 04/13/20 05:15 104 24 142/69 (93) 98 04/13/20 05:00 100 20 129/67 (87) 100 04/13/20 05:00 129/64 04/13/20 04:30 104 22 116/80 (92) 100 04/13/20 04:30 104 22 116/80 (92) 100 04/13/20 04:11 102/56 04/13/20 04:00 101 04/13/20 04:00 113/62 04/13/20 04:00 Mechanical Ventilator 04/13/20 04:00 97.9 102 21 104/57 (73) 100 04/13/20 04:00 55 04/13/20 03:30 101 22 94/56 (69) 100 04/13/20 03:09 101 22 55 04/13/20 03:00 102/59 04/13/20 03:00 101 21 98/55 (69) 100 04/13/20 02:30 101 21 101/57 (72) 100 04/13/20 02:00 99/55 04/13/20 02:00 104 21 94/57 (69) 100 04/13/20 01:30 106 21 101/56 (71) 04/13/20 01:00 108 21 102/56 (71) 100 04/13/20 01:00 97/58 04/13/20 00:30 110 22 102/57 (72) 100 04/13/20 00:00 55 04/13/20 00:00 Mechanical Ventilator 04/13/20 00:00 100.6 113 21 100/58 (72) 100 04/13/20 00:00 99/58 04/13/20 00:00 110 04/12/20 23:30 115 20 103/56 (72) 100 04/12/20 23:14 116 21 55 04/12/20 23:00 117 21 107/58 (74) 100 04/12/20 23:00 102/58 04/12/20 22:30 118 21 106/56 (73) 04/12/20 22:00 120 21 109/57 (74) 100 04/12/20 22:00 109/57 04/12/20 21:30 122 22 110/58 (75) 100 04/12/20 21:00 109/57 04/12/20 21:00 123 23 108/59 (75) 100 04/12/20 20:30 124 24 110/67 (81) 100 04/12/20 20:00 55 04/12/20 20:00 114 04/12/20 20:00 108/64 04/12/20 20:00 99.9 124 26 113/59 (77) 100 04/12/20 20:00 Mechanical Ventilator 04/12/20 19:45 125 26 110/59 (76) 100 04/12/20 19:33 123 24 55 04/12/20 19:30 123 24 106/57 (73) 100 04/12/20 19:15 125 26 109/58 (75) 99 04/12/20 19:00 125 27 111/59 (76) 99 04/12/20 18:46 101.0 04/12/20 18:30 125 25 108/55 (72) 100 04/12/20 18:17 108/60 04/12/20 18:15 126 28 112/59 (76) 100 04/12/20 18:00 126 27 108/60 (76) 100 04/12/20 17:30 125 26 108/60 (76) 98 04/12/20 17:23 126 26 55 04/12/20 17:15 126 27 104/59 (74) 04/12/20 17:02 128 29 100/58 (72) 98 04/12/20 17:00 128 28 98 04/12/20 17:00 100/58 04/12/20 16:45 126 30 89/56 (67) 97 04/12/20 16:30 129 28 117/69 (85) 98 04/12/20 16:15 128 27 116/56 (76) 100 04/12/20 16:11 116/56 04/12/20 16:00 Mechanical Ventilator 04/12/20 16:00 55 04/12/20 16:00 127 04/12/20 16:00 101.0 128 27 116/58 (77) 99 04/12/20 15:45 127 26 116/58 (77) 99 04/12/20 15:30 128 24 55 04/12/20 15:30 127 26 113/63 (80) 100 04/12/20 15:15 127 26 112/65 (81) 100 04/12/20 15:00 112/65 04/12/20 15:00 127 27 111/62 (78) 100 04/12/20 14:30 125 26 112/65 (81) 100 04/12/20 14:15 125 27 118/61 (80) 100 04/12/20 14:00 118/61 04/12/20 14:00 125 26 119/64 (82) 100 04/12/20 13:45 124 26 120/61 (80) 100 04/12/20 13:30 125 27 120/61 (80) 100 04/12/20 13:15 125 26 119/63 (81) 100 04/12/20 13:00 124 24 112/61 (78) 100 04/12/20 13:00 119/63 04/12/20 12:52 124 22 55 04/12/20 12:45 123 25 107/59 (75) 100 I&O Intake and Output 04/12/20 04/13/20 19:00 07:00 Intake Total 2553.57 ml 3812.25 ml Output Total 445 ml 625 ml Balance 2108.57 ml 3187.25 ml IV Total 2553.57 ml 3752.25 ml Other 60 ml Output Urine Total 95 ml 125 ml Gastric Drainage Total 350 ml 500 ml # Bowel Movements 1 2 Dressing: other Wound: other Cardiovascular: RSR Respiratory: decreased breath sounds Abdomen: soft, non-tender, present bowel sounds Extremities: no tenderness, no cyanosis Laboratory Tests Test 04/13/20 05:00 04/13/20 05:56 Urine Eosinophils None seen (NONE SEEN) Urine Legionella Antigen Pending White Blood Count 9.2 K/UL (4.8-10.8) # Red Blood Count 2.80 M/UL (4.20-5.40) L Hemoglobin 7.8 G/DL (12.0-16.0) L Hematocrit 24.2 % (37.0-47.0) L Mean Corpuscular Volume 86 FL (80-99) Mean Corpuscular Hemoglobin 28.0 PG (27.0-31.0) Mean Corpuscular Hemoglobin Concent 32.5 G/DL (32.0-36.0) Red Cell Distribution Width 15.9 % (11.6-14.8) H Platelet Count 71 K/UL (150-450) L Mean Platelet Volume 6.9 FL (6.5-10.1) Neutrophils (%) (Auto) % (45.0-75.0) Lymphocytes (%) (Auto) % (20.0-45.0) Monocytes (%) (Auto) % (1.0-10.0) Eosinophils (%) (Auto) % (0.0-3.0) Basophils (%) (Auto) % (0.0-2.0) Differential Total Cells Counted 100 Neutrophils % (Manual) 68 % (45-75) Lymphocytes % (Manual) 4 % (20-45) L Monocytes % (Manual) 13 % (1-10) H Eosinophils % (Manual) 2 % (0-3) Basophils % (Manual) 0 % (0-2) Band Neutrophils 13 % (0-8) H Platelet Estimate Decreased L Platelet Morphology Normal Hypochromasia 1+ Anisocytosis 1+ Sodium Level 129 MMOL/L (136-145) L Potassium Level 3.9 MMOL/L (3.5-5.1) Chloride Level 93 MMOL/L (98-107) L Carbon Dioxide Level 22 MMOL/L (21-32) Anion Gap 14 mmol/L (5-15) Blood Urea Nitrogen 71 mg/dL (7-18) H Creatinine 3.1 MG/DL (0.55-1.30) H Estimat Glomerular Filtration Rate 15.4 mL/min (>60) Glucose Level 155 MG/DL (74-106) #H Lactic Acid Level 5.80 mmol/L (0.4-2.0) H Uric Acid 8.4 MG/DL (2.6-7.2) H Calcium Level 6.1 MG/DL (8.5-10.1) L Phosphorus Level 6.1 MG/DL (2.5-4.9) H Magnesium Level 1.6 MG/DL (1.8-2.4) L Total Bilirubin 1.9 MG/DL (0.2-1.0) H Direct Bilirubin 1.4 MG/DL (0.0-0.3) H Gamma Glutamyl Transpeptidase 47 U/L (5-85) Aspartate Amino Transf (AST/SGOT) 1748 U/L (15-37) H Alanine Aminotransferase (ALT/SGPT) 763 U/L (12-78) H Alkaline Phosphatase 323 U/L (46-116) H Total Creatine Kinase 7055 U/L (26-308) H Troponin I 3.927 ng/mL (0.000-0.056) C-Reactive Protein, Quantitative 42.3 mg/dL (0.00-0.90) H Pro-B-Type Natriuretic Peptide > 67394 pg/mL (0-125) H Total Protein 4.1 G/DL (6.4-8.2) L Albumin 1.8 G/DL (3.4-5.0) L Globulin 2.3 g/dL Albumin/Globulin Ratio 0.8 (1.0-2.7) L Plan Problems: (1) Sepsis Assessment & Plan: Patient critically ill and septic. Leukocytosis anemia elevated LFTs abnormal labs. Likely shock liver. Resuscitation with IV fluids continue antibiotics per infectious disease continue trending labs. Line in place and functional we will continue to monitor prior site okay and stable. Will follow with recommendations thank you worsening labs noted prognosis guarded DAILY ESTIMATED NEEDS: Needs based on Critical care, underweight, DM/ 51kg 25-30 kcals/kg 2248-7003 total kcals 1.2-2 g protein/kg 61-102 g total protein 25-30 mL/kg 6987-6090 total fluid mLs NUTRITION DIAGNOSIS: Swallowing difficulty R/T respiratory failure as evidenced by orally intubated, NPO at this time, OGT to LIS, on pressors. CURRENT TF: NPO, OGT to LIS PO DIET RECOMMENDATIONS: SUPERVISOR CONTACT LENS eval post extubation ENTERAL NUTRITION RECOMMENDATIONS: Glucerna 1.2 @ 50ml/hr x 24 hrs to provide 1200ml, 1440kcal, 72g prot, 966ml free water * With GI access and HEMODYNAMIC stability -> initiate Glucerna 1.2 @ 10ml/hr x 6 hrs -> advance 10ml q 4-6 hrs as tolerated to goal -> HOB over 30 degrees/ water flush per MD WITHOUT HEMODYNAMIC STABILTY: trophic feeding of Glucerna 1.2 @ 10ml/hr ADDITIONAL RECOMMENDATIONS: * Calibrated bedscale wt * Monitor HD stablity: hypotensive, without pressor supprot at this time * Monitor BGs, rec NISS w/ TF (h/o DM) -> maintain added D5 IVF while NPO to prevent hypoglycemia * Monitor renal fxn + lytes- creat trend up, phos elev, K wnl -> monitor need for TF rec change (2) ATN (acute tubular necrosis) (3) UTI (urinary tract infection) (4) Severe protein-calorie malnutrition (5) Shock (6) Elevated troponin I level (7) Opiate dependence, continuous (8) Abnormal laboratory test result (9) Gastrointestinal hemorrhage (10) ACS (acute coronary syndrome) (11) History of depression (12) Cachexia (13) Acute respiratory failure (14) Altered level of consciousness (15) History of chronic pain (16) Prolonged Q-T interval on ECG (17) Altered mental status, unspecified Monty Álvarez Apr 13, 2020 12:40
--- NOTE | 2020-04-13 13:12 | Pulmonolgy Critical Care Note ---
Critical Care - Asmt/Plan Problems: (1) Acute respiratory failure (2) Sepsis (3) UTI (urinary tract infection) (4) Altered mental status, unspecified (5) History of depression (6) ATN (acute tubular necrosis) (7) Severe protein-calorie malnutrition Respiratory: monitor respiratory rate, adjust FIO2, CXR Cardiac: continue pressors, continue to monitor HR/BP Renal: F/U I&O, check electrolytes Infectious Disease: check cultures Gastrointestinal: continue feedings/current rate Endocrine: monitor blood sugar Hematologic: monitor H/H, transfuse if hgb<8.5 Neurologic: PRN Ativan, keep patient comfortable Affect: PRN ativan Time Spent (Minutes): 40 Notes Reviewed: [employer] Discussed with: nurses, consultants, mattress spring encaserenergy manager - Objective Last 24 Hour Vital Signs Date Time Temp Pulse Resp B/P (MAP) Pulse Ox O2 Delivery O2 Flow Rate FiO2 04/13/20 12:30 110 22 112/66 (81) 100 04/13/20 12:00 97.9 110 22 112/66 (81) 100 04/13/20 12:00 109 04/13/20 12:00 Mechanical Ventilator 04/13/20 12:00 102/54 04/13/20 12:00 55 04/13/20 11:45 105 21 100/59 (73) 100 04/13/20 11:30 101 21 95/54 (68) 100 04/13/20 11:15 99 21 96/55 (69) 100 04/13/20 11:00 95/54 04/13/20 11:00 98 21 98/54 (69) 100 04/13/20 10:45 96 21 96/54 (68) 100 04/13/20 10:30 94 20 95/58 (70) 100 04/13/20 10:15 100 21 98/58 (71) 100 04/13/20 10:00 96 21 98/58 (71) 100 04/13/20 10:00 98/58 04/13/20 09:45 94 20 95/56 (69) 100 04/13/20 09:30 96 20 96/57 (70) 100 04/13/20 09:15 100 21 55 04/13/20 09:15 99 20 99/60 (73) 100 04/13/20 09:00 101 20 107/65 (79) 100 8/24/20 09:00 107/65 04/13/20 08:57 99.8 04/13/20 08:45 104 22 114/60 (78) 100 04/13/20 08:30 103 22 124/65 (84) 100 04/13/20 08:15 102 21 123/63 (83) 100 04/13/20 08:00 55 04/13/20 08:00 122/64 04/13/20 08:00 99 04/13/20 08:00 Mechanical Ventilator 04/13/20 08:00 101.0 101 21 122/64 (83) 100 04/13/20 07:45 102 21 124/66 (85) 100 04/13/20 07:30 100 20 121/61 (81) 100 04/13/20 07:15 99 20 120/61 (80) 100 04/13/20 07:10 100 21 55 04/13/20 07:00 98 20 120/62 (81) 100 04/13/20 07:00 118/62 04/13/20 06:45 97 20 118/62 (80) 100 04/13/20 06:30 97 27 04/13/20 06:30 97 20 121/64 (83) 100 04/13/20 06:15 98 21 124/62 (82) 100 04/13/20 06:00 143/64 04/13/20 06:00 102 25 143/67 (92) 100 04/13/20 05:45 97 21 130/69 (89) 100 04/13/20 05:30 97 22 136/66 (89) 100 04/13/20 05:15 104 24 142/69 (93) 98 04/13/20 05:00 100 20 129/67 (87) 100 04/13/20 05:00 129/64 04/13/20 04:30 104 22 116/80 (92) 100 04/13/20 04:30 104 22 116/80 (92) 100 04/13/20 04:11 102/56 04/13/20 04:00 101 04/13/20 04:00 113/62 04/13/20 04:00 Mechanical Ventilator 04/13/20 04:00 97.9 102 21 104/57 (73) 100 04/13/20 04:00 55 04/13/20 03:30 101 22 94/56 (69) 100 04/13/20 03:09 101 22 55 04/13/20 03:00 102/59 04/13/20 03:00 101 21 98/55 (69) 100 04/13/20 02:30 101 21 101/57 (72) 100 04/13/20 02:00 99/55 04/13/20 02:00 104 21 94/57 (69) 100 04/13/20 01:30 106 21 101/56 (71) 04/13/20 01:00 108 21 102/56 (71) 100 04/13/20 01:00 97/58 04/13/20 00:30 110 22 102/57 (72) 100 04/13/20 00:00 55 04/13/20 00:00 Mechanical Ventilator 04/13/20 00:00 100.6 113 21 100/58 (72) 100 04/13/20 00:00 99/58 04/13/20 00:00 110 04/12/20 23:30 115 20 103/56 (72) 100 04/12/20 23:14 116 21 55 04/12/20 23:00 117 21 107/58 (74) 100 04/12/20 23:00 102/58 04/12/20 22:30 118 21 106/56 (73) 04/12/20 22:00 120 21 109/57 (74) 100 04/12/20 22:00 109/57 04/12/20 21:30 122 22 110/58 (75) 100 04/12/20 21:00 109/57 04/12/20 21:00 123 23 108/59 (75) 100 04/12/20 20:30 124 24 110/67 (81) 100 04/12/20 20:00 55 04/12/20 20:00 114 04/12/20 20:00 108/64 04/12/20 20:00 99.9 124 26 113/59 (77) 100 04/12/20 20:00 Mechanical Ventilator 04/12/20 19:45 125 26 110/59 (76) 100 04/12/20 19:33 123 24 55 04/12/20 19:30 123 24 106/57 (73) 100 04/12/20 19:15 125 26 109/58 (75) 99 04/12/20 19:00 125 27 111/59 (76) 99 04/12/20 18:46 101.0 04/12/20 18:30 125 25 108/55 (72) 100 04/12/20 18:17 108/60 04/12/20 18:15 126 28 112/59 (76) 100 04/12/20 18:00 126 27 108/60 (76) 100 04/12/20 17:30 125 26 108/60 (76) 98 04/12/20 17:23 126 26 55 04/12/20 17:15 126 27 104/59 (74) 04/12/20 17:02 128 29 100/58 (72) 98 04/12/20 17:00 128 28 98 04/12/20 17:00 100/58 04/12/20 16:45 126 30 89/56 (67) 97 04/12/20 16:30 129 28 117/69 (85) 98 04/12/20 16:15 128 27 116/56 (76) 100 04/12/20 16:11 116/56 04/12/20 16:00 Mechanical Ventilator 04/12/20 16:00 55 04/12/20 16:00 127 04/12/20 16:00 101.0 128 27 116/58 (77) 99 04/12/20 15:45 127 26 116/58 (77) 99 04/12/20 15:30 128 24 55 04/12/20 15:30 127 26 113/63 (80) 100 04/12/20 15:15 127 26 112/65 (81) 100 04/12/20 15:00 112/65 04/12/20 15:00 127 27 111/62 (78) 100 04/12/20 14:30 125 26 112/65 (81) 100 04/12/20 14:15 125 27 118/61 (80) 100 04/12/20 14:00 118/61 04/12/20 14:00 125 26 119/64 (82) 100 04/12/20 13:45 124 26 120/61 (80) 100 04/12/20 13:30 125 27 120/61 (80) 100 04/12/20 13:15 125 26 119/63 (81) 100 Status: awake Condition: critical HEENT: atraumatic Neck: full ROM Lungs: clear Heart: HR/BP stable, regular Abdomen: soft Extremities: no C/C/E, edema Critical Care - Subjective ROS Limited/Unobtainable: Yes Condition: critical EKG Rhythm: Sinus Rhythm FI02: 55 Vent Support Breath Rate: 20 Vent Support Mode: AC Vent Tidal Volume: 600 Sputum Amount: Scant PEEP: 5.0 PIP: 27 I&O: Intake and Output 04/12/20 04/13/20 19:00 07:00 Intake Total 2553.57 ml 3812.25 ml Output Total 445 ml 625 ml Balance 2108.57 ml 3187.25 ml IV Total 2553.57 ml 3752.25 ml Other 60 ml Output Urine Total 95 ml 125 ml Gastric Drainage Total 350 ml 500 ml # Bowel Movements 1 2 ET-Tube: 7.5 ET Position: 23 Labs: Laboratory Tests Test 04/13/20 05:00 04/13/20 05:56 Urine Eosinophils None seen (NONE SEEN) Urine Legionella Antigen Pending White Blood Count 9.2 K/UL (4.8-10.8) # Red Blood Count 2.80 M/UL (4.20-5.40) L Hemoglobin 7.8 G/DL (12.0-16.0) L Hematocrit 24.2 % (37.0-47.0) L Mean Corpuscular Volume 86 FL (80-99) Mean Corpuscular Hemoglobin 28.0 PG (27.0-31.0) Mean Corpuscular Hemoglobin Concent 32.5 G/DL (32.0-36.0) Red Cell Distribution Width 15.9 % (11.6-14.8) H Platelet Count 71 K/UL (150-450) L Mean Platelet Volume 6.9 FL (6.5-10.1) Neutrophils (%) (Auto) % (45.0-75.0) Lymphocytes (%) (Auto) % (20.0-45.0) Monocytes (%) (Auto) % (1.0-10.0) Eosinophils (%) (Auto) % (0.0-3.0) Basophils (%) (Auto) % (0.0-2.0) Differential Total Cells Counted 100 Neutrophils % (Manual) 68 % (45-75) Lymphocytes % (Manual) 4 % (20-45) L Monocytes % (Manual) 13 % (1-10) H Eosinophils % (Manual) 2 % (0-3) Basophils % (Manual) 0 % (0-2) Band Neutrophils 13 % (0-8) H Platelet Estimate Decreased L Platelet Morphology Normal Hypochromasia 1+ Anisocytosis 1+ Sodium Level 129 MMOL/L (136-145) L Potassium Level 3.9 MMOL/L (3.5-5.1) Chloride Level 93 MMOL/L (98-107) L Carbon Dioxide Level 22 MMOL/L (21-32) Anion Gap 14 mmol/L (5-15) Blood Urea Nitrogen 71 mg/dL (7-18) H Creatinine 3.1 MG/DL (0.55-1.30) H Estimat Glomerular Filtration Rate 15.4 mL/min (>60) Glucose Level 155 MG/DL (74-106) #H Lactic Acid Level 5.80 mmol/L (0.4-2.0) H Uric Acid 8.4 MG/DL (2.6-7.2) H Calcium Level 6.1 MG/DL (8.5-10.1) L Phosphorus Level 6.1 MG/DL (2.5-4.9) H Magnesium Level 1.6 MG/DL (1.8-2.4) L Total Bilirubin 1.9 MG/DL (0.2-1.0) H Direct Bilirubin 1.4 MG/DL (0.0-0.3) H Gamma Glutamyl Transpeptidase 47 U/L (5-85) Aspartate Amino Transf (AST/SGOT) 1748 U/L (15-37) H Alanine Aminotransferase (ALT/SGPT) 763 U/L (12-78) H Alkaline Phosphatase 323 U/L (46-116) H Total Creatine Kinase 7055 U/L (26-308) H Troponin I 3.927 ng/mL (0.000-0.056) C-Reactive Protein, Quantitative 42.3 mg/dL (0.00-0.90) H Pro-B-Type Natriuretic Peptide > 46252 pg/mL (0-125) H Total Protein 4.1 G/DL (6.4-8.2) L Albumin 1.8 G/DL (3.4-5.0) L Globulin 2.3 g/dL Albumin/Globulin Ratio 0.8 (1.0-2.7) L Helena Rivera MD Apr 13, 2020 13:12
--- NOTE | 2020-04-13 13:46 | Nephrology Progress Note ---
Assessment/Plan Problem List: (1) ATN (acute tubular necrosis) (2) Shock Assessment: Shock Liver (3) Sepsis (4) Acute respiratory failure (5) Rhabdomyolysis Assessment: Severe (6) Elevated troponin I level Assessment Acute renal failure Acute respiratory failure Sepsis- SHOCK, shock liver Toxic metabolic encephalopathy phalangeal Plan April 13: Continued to do poorly. Serum creatinine 3.1. Troponin eye lowering. Serum calcium slightly higher. Metabolic acidosis improved. Will increase IV calcium gluconate. Will adjust IV fluids. 1 dose of Lasix 100 mg for oliguria IV ordered. Patient remains full code. Continue to monitor renal parameters and avoid nephrotoxic's as possible.. April 12: Patient doing poorly. Remains on pressors. Serum creatinine rising. Troponin I declining. Calcium low. Remains acidotic. Will give IV calcium. IV bicarb started by hvac maintenance technician. Will continue to monitor renal parameters. Prefer to avoid nephrotoxic's. Also CPK over 10,000 indicative of severe left rhabdomyolysis. Vigorous hydration will be continued. Fluid challenge Pressors 100 mg Lasix IV push 1 time One dose Sodium Bicarb IV Monitor renal parameters Antibiotics Avoid nephrotoxic's Pulmonary support 2D echocardiogram : Pending Kidney ultrasound : Pending Per orders Subjective ROS Limited/Unobtainable: Yes Objective Objective Last 24 Hour Vital Signs Date Time Temp Pulse Resp B/P (MAP) Pulse Ox O2 Delivery O2 Flow Rate FiO2 04/13/20 13:15 99 20 90/52 (65) 100 04/13/20 13:00 99 20 81/48 (59) 04/13/20 12:30 110 22 112/66 (81) 100 04/13/20 12:00 97.9 110 22 112/66 (81) 100 04/13/20 12:00 109 04/13/20 12:00 Mechanical Ventilator 04/13/20 12:00 102/54 04/13/20 12:00 55 04/13/20 11:45 105 21 100/59 (73) 100 04/13/20 11:30 101 21 95/54 (68) 100 04/13/20 11:15 97 22 55 04/13/20 11:15 99 21 96/55 (69) 100 04/13/20 11:00 95/54 04/13/20 11:00 98 21 98/54 (69) 100 04/13/20 10:45 96 21 96/54 (68) 100 04/13/20 10:30 94 20 95/58 (70) 100 04/13/20 10:15 100 21 98/58 (71) 100 04/13/20 10:00 96 21 98/58 (71) 100 04/13/20 10:00 98/58 04/13/20 09:45 94 20 95/56 (69) 100 04/13/20 09:30 96 20 96/57 (70) 100 04/13/20 09:15 100 21 55 04/13/20 09:15 99 20 99/60 (73) 100 04/13/20 09:00 101 20 107/65 (79) 100 04/13/20 09:00 107/65 04/13/20 08:57 99.8 04/13/20 08:45 104 22 114/60 (78) 100 04/13/20 08:30 103 22 124/65 (84) 100 04/13/20 08:15 102 21 123/63 (83) 100 04/13/20 08:00 55 04/13/20 08:00 122/64 04/13/20 08:00 99 04/13/20 08:00 Mechanical Ventilator 04/13/20 08:00 101.0 101 21 122/64 (83) 100 04/13/20 07:45 102 21 124/66 (85) 100 04/13/20 07:30 100 20 121/61 (81) 100 04/13/20 07:15 99 20 120/61 (80) 100 04/13/20 07:10 100 21 55 04/13/20 07:00 98 20 120/62 (81) 100 04/13/20 07:00 118/62 04/13/20 06:45 97 20 118/62 (80) 100 04/13/20 06:30 97 27 04/13/20 06:30 97 20 121/64 (83) 100 04/13/20 06:15 98 21 124/62 (82) 100 04/13/20 06:00 143/64 04/13/20 06:00 102 25 143/67 (92) 100 04/13/20 05:45 97 21 130/69 (89) 100 04/13/20 05:30 97 22 136/66 (89) 100 04/13/20 05:15 104 24 142/69 (93) 98 04/13/20 05:00 100 20 129/67 (87) 100 04/13/20 05:00 129/64 04/13/20 04:30 104 22 116/80 (92) 100 04/13/20 04:30 104 22 116/80 (92) 100 04/13/20 04:11 102/56 04/13/20 04:00 101 04/13/20 04:00 113/62 04/13/20 04:00 Mechanical Ventilator 04/13/20 04:00 97.9 102 21 104/57 (73) 100 04/13/20 04:00 55 04/13/20 03:30 101 22 94/56 (69) 100 04/13/20 03:09 101 22 55 04/13/20 03:00 102/59 04/13/20 03:00 101 21 98/55 (69) 100 04/13/20 02:30 101 21 101/57 (72) 100 04/13/20 02:00 99/55 04/13/20 02:00 104 21 94/57 (69) 100 04/13/20 01:30 106 21 101/56 (71) 04/13/20 01:00 108 21 102/56 (71) 100 04/13/20 01:00 97/58 04/13/20 00:30 110 22 102/57 (72) 100 04/13/20 00:00 55 04/13/20 00:00 Mechanical Ventilator 04/13/20 00:00 100.6 113 21 100/58 (72) 100 04/13/20 00:00 99/58 04/13/20 00:00 110 04/12/20 23:30 115 20 103/56 (72) 100 04/12/20 23:14 116 21 55 04/12/20 23:00 117 21 107/58 (74) 100 04/12/20 23:00 102/58 04/12/20 22:30 118 21 106/56 (73) 04/12/20 22:00 120 21 109/57 (74) 100 04/12/20 22:00 109/57 04/12/20 21:30 122 22 110/58 (75) 100 04/12/20 21:00 109/57 04/12/20 21:00 123 23 108/59 (75) 100 04/12/20 20:30 124 24 110/67 (81) 100 04/12/20 20:00 55 04/12/20 20:00 114 04/12/20 20:00 108/64 04/12/20 20:00 99.9 124 26 113/59 (77) 100 04/12/20 20:00 Mechanical Ventilator 04/12/20 19:45 125 26 110/59 (76) 100 04/12/20 19:33 123 24 55 04/12/20 19:30 123 24 106/57 (73) 100 04/12/20 19:15 125 26 109/58 (75) 99 04/12/20 19:00 125 27 111/59 (76) 99 04/12/20 18:46 101.0 04/12/20 18:30 125 25 108/55 (72) 100 04/12/20 18:17 108/60 04/12/20 18:15 126 28 112/59 (76) 100 04/12/20 18:00 126 27 108/60 (76) 100 04/12/20 17:30 125 26 108/60 (76) 98 04/12/20 17:23 126 26 55 04/12/20 17:15 126 27 104/59 (74) 04/12/20 17:02 128 29 100/58 (72) 98 04/12/20 17:00 128 28 98 04/12/20 17:00 100/58 04/12/20 16:45 126 30 89/56 (67) 97 04/12/20 16:30 129 28 117/69 (85) 98 04/12/20 16:15 128 27 116/56 (76) 100 04/12/20 16:11 116/56 04/12/20 16:00 Mechanical Ventilator 04/12/20 16:00 55 04/12/20 16:00 127 04/12/20 16:00 101.0 128 27 116/58 (77) 99 04/12/20 15:45 127 26 116/58 (77) 99 04/12/20 15:30 128 24 55 04/12/20 15:30 127 26 113/63 (80) 100 04/12/20 15:15 127 26 112/65 (81) 100 04/12/20 15:00 112/65 04/12/20 15:00 127 27 111/62 (78) 100 04/12/20 14:30 125 26 112/65 (81) 100 04/12/20 14:15 125 27 118/61 (80) 100 04/12/20 14:00 118/61 04/12/20 14:00 125 26 119/64 (82) 100 04/12/20 13:45 124 26 120/61 (80) 100 Intake and Output 04/12/20 04/13/20 19:00 07:00 Intake Total 2553.57 ml 3812.25 ml Output Total 445 ml 625 ml Balance 2108.57 ml 3187.25 ml IV Total 2553.57 ml 3752.25 ml Other 60 ml Output Urine Total 95 ml 125 ml Gastric Drainage Total 350 ml 500 ml # Bowel Movements 1 2 Laboratory Tests 04/13/20 05:00: Urine Eosinophils None seen, Urine Legionella Antigen [Pending] 04/13/20 05:56: White Blood Count 9.2#, Red Blood Count 2.80L, Hemoglobin 7.8L, Hematocrit 24.2L , Mean Corpuscular Volume 86, Mean Corpuscular Hemoglobin 28.0, Mean Corpuscular Hemoglobin Concent 32.5, Red Cell Distribution Width 15.9H, Platelet Count 71L, Mean Platelet Volume 6.9, Neutrophils (%) (Auto) , Lymphocytes (%) (Auto) , Monocytes (%) (Auto) , Eosinophils (%) (Auto) , Basophils (%) (Auto) , Differential Total Cells Counted 100, Neutrophils % ( Manual) 68, Lymphocytes % (Manual) 4L, Monocytes % (Manual) 13H, Eosinophils % ( Manual) 2, Basophils % (Manual) 0, Band Neutrophils 13H, Platelet Estimate DecreasedL, Platelet Morphology Normal, Hypochromasia 1+, Anisocytosis 1+, Sodium Level 129L, Potassium Level 3.9, Chloride Level 93L, Carbon Dioxide Level 22, Anion Gap 14, Blood Urea Nitrogen 71H, Creatinine 3.1H, Estimat Glomerular Filtration Rate 15.4, Glucose Level 155#H, Lactic Acid Level 5.80H, Uric Acid 8.4H, Calcium Level 6.1L, Phosphorus Level 6.1H, Magnesium Level 1.6L , Total Bilirubin 1.9H, Direct Bilirubin 1.4H, Gamma Glutamyl Transpeptidase 47 , Aspartate Amino Transf (AST/SGOT) 1748H, Alanine Aminotransferase (ALT/SGPT) 763H, Alkaline Phosphatase 323H, Total Creatine Kinase 7055H, Troponin I 3.927H , C-Reactive Protein, Quantitative 42.3H, Pro-B-Type Natriuretic Peptide > 95455L, Total Protein 4.1L, Albumin 1.8L, Globulin 2.3, Albumin/Globulin Ratio 0.8L Height (Feet): 5 Height (Inches): 4.00 Weight (Pounds): 132 General Appearance: lethargic EENT: other - On mechanical ventilation Cardiovascular: tachycardia Respiratory/Chest: decreased breath sounds Abdomen: distended Objective No change Chepe Green MD Apr 13, 2020 13:46
--- NOTE | 2020-04-13 13:48 | Internal Med Progress Note ---
Subjective Date of Service: Apr 13, 2020 Physician Name Taras Benson Attending Physician Adalberto Monk MD Current Medications Medications (Trade) Dose Ordered Sig/Issa Route PRN Reason Start Time Stop Time Status Last Admin Dose Admin Acetaminophen (Tylenol) 650 mg Q4H PRN NG Temp >100.5 04/12/20 21:15 05/12/20 21:14 04/13/20 08:27 Albuterol/ Ipratropium (Albuterol/ Ipratropium) 3 ml Q4H PRN HHN Shortness of Breath 04/09/20 19:15 04/14/20 19:14 Azithromycin 500 mg/Dextrose 275 ml @ 275 mls/hr Q24HRS IV 04/12/20 15:00 04/18/20 15:59 04/12/20 15:00 Calcium Gluconate/ Sodium Chloride 50 ml @ 50 mls/hr Q8HR IVPB 04/13/20 14:00 07/11/20 20:59 Chlorhexidine Gluconate (Elin-Hex 2%) 1 applic DAILY@2000 TOPIC 04/10/20 20:00 07/09/20 19:59 04/12/20 21:17 Dextrose (Dextrose 50%) 25 ml Q30M PRN IV Hypoglycemia 04/09/20 19:15 07/08/20 19:14 Dextrose (Dextrose 50%) 50 ml Q30M PRN IV Hypoglycemia 04/09/20 19:15 07/08/20 19:14 Dextrose/Sodium Chloride 1,000 ml @ 100 mls/hr Q10H IV 04/13/20 08:45 05/13/20 08:44 04/13/20 08:52 Linezolid 300 ml @ 300 mls/hr Q12H IVPB 04/12/20 16:00 04/19/20 15:59 04/13/20 04:00 Lorazepam (Ativan 2mg/ml 1ml) 2 mg Q2H PRN IV agitation 04/09/20 19:15 04/16/20 19:14 04/11/20 13:42 Meropenem 1 gm/ Sodium Chloride 55 ml @ 110 mls/hr Q12H IVPB 04/12/20 18:00 04/17/20 17:59 04/13/20 05:45 Metoclopramide HCl (Reglan) 10 mg Q6H IVP 04/13/20 02:00 05/13/20 01:59 04/13/20 08:23 Morphine Sulfate (Morphine Sulfate) 4 mg Q4H PRN IVP Severe Pain (Pain Scale 7-10) 04/09/20 19:15 04/16/20 19:14 04/11/20 13:43 Nitroglycerin (Ntg) 0.4 mg Q5MIN X 3 DOSES PRN SL Prn Chest Pain 04/09/20 19:15 05/09/20 19:14 Norepinephrine Bitartrate 8 mg/ Dextrose 558 ml @ 0 mls/hr Q24H IV 04/10/20 20:30 05/10/20 19:59 04/13/20 04:11 Ondansetron HCl (Zofran) 4 mg Q6H PRN IVP Nausea & Vomiting 04/09/20 19:15 05/09/20 19:14 Pantoprazole (Protonix) 40 mg DAILY IVP 04/12/20 09:00 05/12/20 08:59 04/13/20 08:23 Sodium Bicarbonate 150 ml/Dextrose 1,150 ml @ 76 mls/hr Q15H8M IV 04/12/20 10:00 05/12/20 09:59 04/13/20 00:01 Allergies: Coded Allergies: CEPHALOSPORINS (Verified Allergy, Intermediate, Anaphylaxis, 12/14/12) DIAZEPAM (Verified Allergy, Intermediate, DYSTONIC, 12/14/12) SUMATRIPTAN (Verified Allergy, Intermediate, 12/14/12) SUMATRIPTAN SUCCINATE (Verified Allergy, Intermediate, 12/14/12) TRAMADOL (Verified Allergy, Intermediate, Anaphylaxis, 12/14/12) CEPHALEXIN (Unverified Allergy, Unknown, 10/25/19) PENICILLINS (Unverified Allergy, Unknown, 08/26/18) Uncoded Allergies: PCN (Allergy, Unknown, 10/25/19) ROS Limited/Unobtainable: Yes Subjective 60 YO F admitted with altered mental status. Now respiratory failure and hypotension. Cover for Int Kevan-Dr Monk. ICU. Intubated and sedated. On levophed Objective Last Vital Signs Date Time Temp Pulse Resp B/P (MAP) Pulse Ox O2 Delivery O2 Flow Rate FiO2 04/13/20 13:15 99 20 90/52 (65) 100 04/13/20 12:00 97.9 04/13/20 12:00 Mechanical Ventilator 04/13/20 12:00 55 Laboratory Tests Test 04/13/20 05:00 04/13/20 05:56 Urine Eosinophils None seen (NONE SEEN) Urine Legionella Antigen Pending White Blood Count 9.2 K/UL (4.8-10.8) # Red Blood Count 2.80 M/UL (4.20-5.40) L Hemoglobin 7.8 G/DL (12.0-16.0) L Hematocrit 24.2 % (37.0-47.0) L Mean Corpuscular Volume 86 FL (80-99) Mean Corpuscular Hemoglobin 28.0 PG (27.0-31.0) Mean Corpuscular Hemoglobin Concent 32.5 G/DL (32.0-36.0) Red Cell Distribution Width 15.9 % (11.6-14.8) H Platelet Count 71 K/UL (150-450) L Mean Platelet Volume 6.9 FL (6.5-10.1) Neutrophils (%) (Auto) % (45.0-75.0) Lymphocytes (%) (Auto) % (20.0-45.0) Monocytes (%) (Auto) % (1.0-10.0) Eosinophils (%) (Auto) % (0.0-3.0) Basophils (%) (Auto) % (0.0-2.0) Differential Total Cells Counted 100 Neutrophils % (Manual) 68 % (45-75) Lymphocytes % (Manual) 4 % (20-45) L Monocytes % (Manual) 13 % (1-10) H Eosinophils % (Manual) 2 % (0-3) Basophils % (Manual) 0 % (0-2) Band Neutrophils 13 % (0-8) H Platelet Estimate Decreased L Platelet Morphology Normal Hypochromasia 1+ Anisocytosis 1+ Sodium Level 129 MMOL/L (136-145) L Potassium Level 3.9 MMOL/L (3.5-5.1) Chloride Level 93 MMOL/L (98-107) L Carbon Dioxide Level 22 MMOL/L (21-32) Anion Gap 14 mmol/L (5-15) Blood Urea Nitrogen 71 mg/dL (7-18) H Creatinine 3.1 MG/DL (0.55-1.30) H Estimat Glomerular Filtration Rate 15.4 mL/min (>60) Glucose Level 155 MG/DL (74-106) #H Lactic Acid Level 5.80 mmol/L (0.4-2.0) H Uric Acid 8.4 MG/DL (2.6-7.2) H Calcium Level 6.1 MG/DL (8.5-10.1) L Phosphorus Level 6.1 MG/DL (2.5-4.9) H Magnesium Level 1.6 MG/DL (1.8-2.4) L Total Bilirubin 1.9 MG/DL (0.2-1.0) H Direct Bilirubin 1.4 MG/DL (0.0-0.3) H Gamma Glutamyl Transpeptidase 47 U/L (5-85) Aspartate Amino Transf (AST/SGOT) 1748 U/L (15-37) H Alanine Aminotransferase (ALT/SGPT) 763 U/L (12-78) H Alkaline Phosphatase 323 U/L (46-116) H Total Creatine Kinase 7055 U/L (26-308) H Troponin I 3.927 ng/mL (0.000-0.056) C-Reactive Protein, Quantitative 42.3 mg/dL (0.00-0.90) H Pro-B-Type Natriuretic Peptide > 28187 pg/mL (0-125) H Total Protein 4.1 G/DL (6.4-8.2) L Albumin 1.8 G/DL (3.4-5.0) L Globulin 2.3 g/dL Albumin/Globulin Ratio 0.8 (1.0-2.7) L Intake and Output 04/12/20 04/13/20 19:00 07:00 Intake Total 2553.57 ml 3812.25 ml Output Total 445 ml 625 ml Balance 2108.57 ml 3187.25 ml IV Total 2553.57 ml 3752.25 ml Other 60 ml Output Urine Total 95 ml 125 ml Gastric Drainage Total 350 ml 500 ml # Bowel Movements 1 2 Objective General Appearance: WD/WN, moderate distress, lethargic EENT: PERRL/EOMI, normal ENT inspection Neck: non-tender, normal alignment, supple, normal inspection Cardiovascular: normal peripheral pulses, normal rate, regular rhythm, no gallop/murmur, no JVD Respiratory/Chest: Mech vent; respiratory distress, crackles/rales, rhonchi - bilaterally, expiratory wheezing Abdomen: normal bowel sounds, non tender, soft, no organomegaly, no mass Extremities: normal range of motion, non-tender Neurologic: manager chemical II-XII grossly normal Skin: normal pigmentation, warm/dry Assessment/Plan Problem List: (1) Opiate dependence, continuous Assessment & Plan: Methadone (2) Sepsis (3) UTI (urinary tract infection) Assessment & Plan: ESBL E.Coli. ABX=meropenem and linezolid. ID=Dr [id number] (4) Elevated troponin I level Assessment & Plan: Cardiology=Dr Mendes (5) Acute respiratory failure Assessment & Plan: Pulmonary/critical care=Dr Rivera; Vent per pulmonary (6) Altered mental status, unspecified (7) ACS (acute coronary syndrome) Taras Benson MD Apr 13, 2020 13:48
--- NOTE | 2020-04-13 14:05 | NUR ---
NURSE NOTES: Remains with poor urine output despite Lasix previously given.ADLs done, turned and repositioned.No significant change in condition.Will continue close monitoring
--- NOTE | 2020-04-13 15:13 | NUR ---
CASE MANAGEMENT:REVIEW SI;ACUTE RESPIRATORY FAILURE ~ INTUBATED. SEPSIS. UTI. 101.0 110 21 85/48 100% MECH VENT AC 20 TV 600 PEEP 5 FIO2 55% H/H 7.8/24.2 NA 129 CL 93 BUN 71 CR 3.1 LAC ACID 5.80 CA 6.1 MAG 1.6 T-BILI 1.9 D-BILI 1.4 AST 1748 ALT 763 ALK PHOS 323 TCK 7055 TROP I 3.927 CRP 42.3 ALB 1.8 IS;CA GLUCONATE IV Q8 IVF D5W @ 100 ML/HR REGLAN IV Q6 MEROPENEM IV Q12 ZITHROMAX IV Q24 NaHCO3 IV PROTONIX IV QD LINEZOLID IV Q12 LEVOPHED GTT IV Q24 ALBUMIN HUMAN IV ONCE MAG SULFATE IV ONCE ICU STATUS DCP;FROM [facility]
--- NOTE | 2020-04-13 15:28 | NUR ---
INSURANCE REVIEWS AND CLINICALS HAVE BEEN FAXED TO [facility] T: [phone] F: [phone]
[2020-04-13] MEDS ORDERED: Azithromycin 500mg Inj IV ONE (15:37)
[2020-04-13] MEDS: Azithromycin 500 MG in D5W 275 ML IV SCH (15:59)
--- NOTE | 2020-04-13 16:11 | NUR ---
NURSE NOTES: Patient turned and repositioned.No significant change at this time.Mouth care done and suctioned as tolerated. Call light within easy reach. Will continue close monitoring
--- NOTE | 2020-04-13 16:54 | General Progress Note ---
Progress Note Progress Note I had a long and extensive phone conversation with pt's sons, daughter and sister. I explained to them the current condition of the patient. They agreed with DNR for now. We will meet again tomorrow in ICU to talk about pts progress. Helena Rivera MD Apr 13, 2020 16:54
--- NOTE | 2020-04-13 18:05 | NUR ---
NURSE NOTES: ADLs done. Patient turned and repositioned. HOB elevated to prevent aspiration.Patient seen by Dr Mccarthy, will follow up with new orders.GI residual 700cc during shift.No significant change in condition.Call light within easy reach.Will continue same care plan.
--- NOTE | 2020-04-13 18:22 | NUR ---
NURSE NOTES:WOUND CARE NOTES:Pt deconditioned . DTPI noted Sacrum/L Buttocks(L)7cm x (W)5.5cm. Base of wound is purpuric with maroon and irregular shaped borders. Surrounding non-Blanchable erythema. Non-Blanchable erythema without induration/fluctuance noted to lateral L malleolus(L) 2.5cm x (W)1.5cm. R heel is boggy with Non-Blanchable erythema with delineated margins. L Heel is pink and blanchable. Tx.Plan:Apply Moisture Barrier Paste to Sacrum/L Buttocks. Cover with Optifoam drsg. Change every 3 days and prn. Apply Cavilon Skin Barrier to both heels and Malleoli. Cover each site with Optifoam drsgs. Change every 7 days and prn. Reposition at least every 2hours or as tolerated. Off-load heels with pillow.
--- NOTE | 2020-04-13 19:23 | NUR ---
HAND-OFF: Report given to NEELA Duvall.
--- NOTE | 2020-04-13 20:00 | NUR ---
NURSE NOTES: received report from los rn pt pt orally intubated -vent o2 sat 100% no acute resp distress noted temp 96 keep warm ngt -low intremet suction witn out put 400cc reposition and suction
[2020-04-13] MEDS: Dyna-Hex 2% Top Sol 2oz TOPIC SCH (20:03)
--- NOTE | 2020-04-13 22:00 | NUR ---
NURSE NOTES: Pt had diarrhea, cleaned up pt.
--- NOTE | 2020-04-13 22:31 | Cardiology Progress Note ---
Assessment/Plan Assessment/Plan remains critically ill, due to sepsis and respiratory failure, septic shock, norepinephrine drip is down to 6 mcg, from 14 this morning, still very ill and requires full support no changes from carida standpoint Subjective Subjective the patient is intubated and not responding Objective Last 24 Hour Vital Signs Date Time Temp Pulse Resp B/P (MAP) Pulse Ox O2 Delivery O2 Flow Rate FiO2 04/13/20 21:09 109 24 40 04/13/20 21:00 108 26 150/85 (106) 100 04/13/20 21:00 112/56 04/13/20 21:00 107 26 155/74 (101) 93 04/13/20 20:30 107 26 155/74 (101) 93 04/13/20 20:03 74/44 04/13/20 20:00 105 04/13/20 20:00 Mechanical Ventilator 04/13/20 20:00 96.0 94 20 76/45 (55) 100 04/13/20 20:00 40 04/13/20 19:30 102 22 98/52 (67) 98 04/13/20 19:26 109 24 40 04/13/20 19:15 105 24 105/58 (74) 100 04/13/20 19:00 103 21 113/61 (78) 100 04/13/20 19:00 105/58 04/13/20 18:45 103 20 119/57 (77) 100 04/13/20 18:30 105 19 117/56 (76) 100 04/13/20 18:15 111 22 135/65 (88) 100 04/13/20 18:00 117/56 04/13/20 18:00 113 27 133/70 (91) 100 04/13/20 17:45 111 24 126/68 (87) 100 04/13/20 17:30 111 26 142/71 (94) 100 04/13/20 17:15 104 19 101/65 (77) 100 04/13/20 17:10 102 21 40 04/13/20 17:00 142/71 04/13/20 17:00 99 20 99/56 (70) 98 04/13/20 16:45 100 19 106/57 (73) 97 04/13/20 16:30 103 18 109/59 (76) 100 04/13/20 16:15 106 23 120/65 (83) 100 04/13/20 16:00 Mechanical Ventilator 04/13/20 16:00 101 04/13/20 16:00 83/58 04/13/20 16:00 97.9 102 19 109/57 (74) 100 04/13/20 16:00 55 04/13/20 15:45 101 20 94/51 (65) 100 04/13/20 15:30 105 20 108/53 (71) 100 04/13/20 15:15 109 20 116/56 (76) 100 04/13/20 15:05 108 22 55 04/13/20 15:00 104/56 04/13/20 15:00 103 18 104/56 (72) 100 04/13/20 14:45 102 19 104/52 (69) 100 04/13/20 14:30 100 19 102/49 (66) 100 04/13/20 14:15 98 19 101/52 (68) 100 04/13/20 14:00 97 17 95/52 (66) 100 04/13/20 14:00 95/52 04/13/20 13:45 96 20 85/48 (60) 100 04/13/20 13:30 96 18 82/46 (58) 100 04/13/20 13:15 99 20 90/52 (65) 100 04/13/20 13:10 96 21 55 04/13/20 13:00 95/52 04/13/20 13:00 99 20 81/48 (59) 04/13/20 12:30 110 22 112/66 (81) 100 04/13/20 12:00 97.9 110 22 112/66 (81) 100 04/13/20 12:00 109 04/13/20 12:00 Mechanical Ventilator 04/13/20 12:00 102/54 04/13/20 12:00 55 04/13/20 11:45 105 21 100/59 (73) 100 04/13/20 11:30 101 21 95/54 (68) 100 04/13/20 11:15 97 22 55 04/13/20 11:15 99 21 96/55 (69) 100 04/13/20 11:00 95/54 04/13/20 11:00 98 21 98/54 (69) 100 04/13/20 10:45 96 21 96/54 (68) 100 04/13/20 10:30 94 20 95/58 (70) 100 04/13/20 10:15 100 21 98/58 (71) 100 04/13/20 10:00 96 21 98/58 (71) 100 04/13/20 10:00 98/58 04/13/20 09:45 94 20 95/56 (69) 100 04/13/20 09:30 96 20 96/57 (70) 100 04/13/20 09:15 100 21 55 04/13/20 09:15 99 20 99/60 (73) 100 04/13/20 09:00 101 20 107/65 (79) 100 04/13/20 09:00 107/65 04/13/20 08:57 99.8 04/13/20 08:45 104 22 114/60 (78) 100 04/13/20 08:30 103 22 124/65 (84) 100 04/13/20 08:15 102 21 123/63 (83) 100 04/13/20 08:00 55 04/13/20 08:00 122/64 04/13/20 08:00 99 04/13/20 08:00 Mechanical Ventilator 04/13/20 08:00 101.0 101 21 122/64 (83) 100 04/13/20 07:45 102 21 124/66 (85) 100 04/13/20 07:30 100 20 121/61 (81) 100 04/13/20 07:15 99 20 120/61 (80) 100 04/13/20 07:10 100 21 55 04/13/20 07:00 98 20 120/62 (81) 100 04/13/20 07:00 118/62 04/13/20 06:45 97 20 118/62 (80) 100 04/13/20 06:30 97 27 04/13/20 06:30 97 20 121/64 (83) 100 04/13/20 06:15 98 21 124/62 (82) 100 04/13/20 06:00 143/64 04/13/20 06:00 102 25 143/67 (92) 100 04/13/20 05:45 97 21 130/69 (89) 100 04/13/20 05:30 97 22 136/66 (89) 100 8/24/20 05:15 104 24 142/69 (93) 98 04/13/20 05:00 100 20 129/67 (87) 100 04/13/20 05:00 129/64 04/13/20 04:30 104 22 116/80 (92) 100 04/13/20 04:30 104 22 116/80 (92) 100 04/13/20 04:11 102/56 04/13/20 04:00 101 04/13/20 04:00 113/62 04/13/20 04:00 Mechanical Ventilator 04/13/20 04:00 97.9 102 21 104/57 (73) 100 04/13/20 04:00 55 04/13/20 03:30 101 22 94/56 (69) 100 04/13/20 03:09 101 22 55 04/13/20 03:00 102/59 04/13/20 03:00 101 21 98/55 (69) 100 04/13/20 02:30 101 21 101/57 (72) 100 04/13/20 02:00 99/55 04/13/20 02:00 104 21 94/57 (69) 100 04/13/20 01:30 106 21 101/56 (71) 04/13/20 01:00 108 21 102/56 (71) 100 04/13/20 01:00 97/58 04/13/20 00:30 110 22 102/57 (72) 100 04/13/20 00:00 55 04/13/20 00:00 Mechanical Ventilator 04/13/20 00:00 100.6 113 21 100/58 (72) 100 04/13/20 00:00 99/58 04/13/20 00:00 110 04/12/20 23:30 115 20 103/56 (72) 100 04/12/20 23:14 116 21 55 04/12/20 23:00 117 21 107/58 (74) 100 04/12/20 23:00 102/58 04/12/20 22:30 118 21 106/56 (73) General Appearance: on vent, other - looks very ill EENT: PERRL/EOMI Neck: no JVD Rhythm: NSR Cardiovascular: tachycardia Respiratory/Chest: accessory muscle use, other - tachypneic, breathing over vent Abdomen: soft Extremities: trace edema Intake and Output 04/12/20 04/13/20 19:00 07:00 Intake Total 2553.57 ml 3812.25 ml Output Total 445 ml 625 ml Balance 2108.57 ml 3187.25 ml IV Total 2553.57 ml 3752.25 ml Other 60 ml Output Urine Total 95 ml 125 ml Gastric Drainage Total 350 ml 500 ml # Bowel Movements 1 2 Laboratory Tests Test 04/13/20 05:00 04/13/20 05:56 Urine Eosinophils None seen (NONE SEEN) Urine Legionella Antigen Pending White Blood Count 9.2 K/UL (4.8-10.8) # Red Blood Count 2.80 M/UL (4.20-5.40) L Hemoglobin 7.8 G/DL (12.0-16.0) L Hematocrit 24.2 % (37.0-47.0) L Mean Corpuscular Volume 86 FL (80-99) Mean Corpuscular Hemoglobin 28.0 PG (27.0-31.0) Mean Corpuscular Hemoglobin Concent 32.5 G/DL (32.0-36.0) Red Cell Distribution Width 15.9 % (11.6-14.8) H Platelet Count 71 K/UL (150-450) L Mean Platelet Volume 6.9 FL (6.5-10.1) Neutrophils (%) (Auto) % (45.0-75.0) Lymphocytes (%) (Auto) % (20.0-45.0) Monocytes (%) (Auto) % (1.0-10.0) Eosinophils (%) (Auto) % (0.0-3.0) Basophils (%) (Auto) % (0.0-2.0) Differential Total Cells Counted 100 Neutrophils % (Manual) 68 % (45-75) Lymphocytes % (Manual) 4 % (20-45) L Monocytes % (Manual) 13 % (1-10) H Eosinophils % (Manual) 2 % (0-3) Basophils % (Manual) 0 % (0-2) Band Neutrophils 13 % (0-8) H Platelet Estimate Decreased L Platelet Morphology Normal Hypochromasia 1+ Anisocytosis 1+ Sodium Level 129 MMOL/L (136-145) L Potassium Level 3.9 MMOL/L (3.5-5.1) Chloride Level 93 MMOL/L (98-107) L Carbon Dioxide Level 22 MMOL/L (21-32) Anion Gap 14 mmol/L (5-15) Blood Urea Nitrogen 71 mg/dL (7-18) H Creatinine 3.1 MG/DL (0.55-1.30) H Estimat Glomerular Filtration Rate 15.4 mL/min (>60) Glucose Level 155 MG/DL (74-106) #H Lactic Acid Level 5.80 mmol/L (0.4-2.0) H Uric Acid 8.4 MG/DL (2.6-7.2) H Calcium Level 6.1 MG/DL (8.5-10.1) L Phosphorus Level 6.1 MG/DL (2.5-4.9) H Magnesium Level 1.6 MG/DL (1.8-2.4) L Total Bilirubin 1.9 MG/DL (0.2-1.0) H Direct Bilirubin 1.4 MG/DL (0.0-0.3) H Gamma Glutamyl Transpeptidase 47 U/L (5-85) Aspartate Amino Transf (AST/SGOT) 1748 U/L (15-37) H Alanine Aminotransferase (ALT/SGPT) 763 U/L (12-78) H Alkaline Phosphatase 323 U/L (46-116) H Total Creatine Kinase 7055 U/L (26-308) H Troponin I 3.927 ng/mL (0.000-0.056) C-Reactive Protein, Quantitative 42.3 mg/dL (0.00-0.90) H Pro-B-Type Natriuretic Peptide > 71075 pg/mL (0-125) H Total Protein 4.1 G/DL (6.4-8.2) L Albumin 1.8 G/DL (3.4-5.0) L Globulin 2.3 g/dL Albumin/Globulin Ratio 0.8 (1.0-2.7) L Microbiology Date/Time Source Procedure Growth Status 04/13/20 16:15 Nasopharynx SARS-CoV-2 RdRp Gene Assay - Final Complete Denita Mccarthy MD Apr 13, 2020 22:31
[2020-04-14] VITALS (73 sets, daily range): BP systolic 68–168; BP diastolic 40–113
--- NOTE | 2020-04-14 | NUR ---
NURSE NOTES: NGT drainage 400ml at this time. kept NPO
[2020-04-14] MEDS: Metoclopramide 10mg/2ml Inj IVP SCH ×4 (02:00→20:52)
[2020-04-14] MEDS: D5NS 1,000 ML IV SCH ×2 (03:16→14:16)
--- NOTE | 2020-04-14 04:00 | NUR ---
NURSE NOTES: Complete bed bath with bed changed done.
--- NOTE | 2020-04-14 05:00 | NUR ---
NURSE NOTES: Turned off Levophed drip due to consistent SBP 160s
[2020-04-14] MEDS: Calcium Gluconate 1gm/50ml 50 ML IVPB SCH ×3 (06:06→21:07)
[2020-04-14] MEDS: Meropenem 1 GM in NS 55 ML IVPB SCH ×2 (06:07→17:47)
--- NOTE | 2020-04-14 06:45 | NUR ---
NURSE NOTES: Bp dropped down to 70s, Levophed resumed at 2mcg/min.
--- NOTE | 2020-04-14 07:31 | NUR ---
NURSE NOTES: Patient received from NEELA Duvall. Easily arousal to pain, afebrile at this time.Orally intubated 7.01/10 AC 20 VT 600 FiO2 40% Peep 5.Remains on low intermittent GI suction as reported previous shift 1100cc out during shift. Patient to remains NPO per Dr Pickens.Turned and repositioned, HOB elevated to prevent aspiration.F/C in place draining dark urine output.Right femoral TLC running Levophed at 2mcg/hr, increase to 6mcg/hr SBP 71.Call light within easy reach.Remains unstable, will continue same plan of care.
--- NOTE | 2020-04-14 07:39 | NUR ---
NURSE HAND-OFF REPORT: Latest Vital Signs: Temperature 97.4 , Pulse 98 , B/P 81 /43 , Respiratory Rate 20 , O2 SAT 100 , Mechanical Ventilator, O2 Flow Rate . Vital Sign Comment: EKG Rhythm: Sinus Rhythm Rhythm change?: N Notified?: -n Response: Latest Betancur Fall Score: 50 Fall Risk: High Risk Safety Measures: Call light Within Reach, Bed Alarm Zone 1, Side Rails Side Rails x3, Bed position Low and Locked. Fall Precautions: Door Sign Report given to Jeff KEITA
[2020-04-14] MEDS: Norepinephrine Bitartrate 8 MG in D5W 500ml 550 ML IV SCH (07:43)
[2020-04-14] MEDS: Sodium Bicarbonate 150 ML in D5W 1000ml 1,000 ML IV SCH ×2 (07:51→21:07)
[2020-04-14] MEDS: Pantoprazole Inj IVP SCH (08:23)
[2020-04-14 08:59] LABS: HEMATOCRIT 25.6 % (37.0-47.0); HEMOGLOBIN 8.3 G/DL (12.0-16.0); MEAN CORPUSCULAR VOLUME 86 FL (80-99); PLATELET COUNT 55 K/UL (150-450); RED BLOOD COUNT 2.99 M/UL (4.20-5.40); WHITE BLOOD COUNT 11.5 K/UL (4.8-10.8)
[2020-04-14 09:01] LABS: PHOSPHORUS 5.1 MG/DL (2.5-4.9)
[2020-04-14] MEDS ORDERED: Tubing IV Secondary IV ONE (09:01)
[2020-04-14] MEDS ORDERED: D5 1/2NS 1000ml IV ONE (09:01)
[2020-04-14] MEDS ORDERED: NS 275ml ONE (09:01)
[2020-04-14 09:03] LABS: ANION GAP 19 mmol/L (5-15); BLOOD UREA NITROGEN 73 mg/dL (7-18); CALCIUM 7.1 MG/DL (8.5-10.1); CARBON DIOXIDE 20 MMOL/L (21-32); CHLORIDE 91 MMOL/L (98-107); POTASSIUM 3.4 MMOL/L (3.5-5.1); SODIUM 130 MMOL/L (136-145)
[2020-04-14 09:14] LABS: ALANINE AMINOTRANSFERASE 916 U/L (12-78); ALBUMIN 2.1 G/DL (3.4-5.0); ALBUMIN/GLOBULIN RATIO 0.9 (1.0-2.7); ALKALINE PHOSPHATASE 304 U/L (46-116); ASPARTATE AMINO TRANSFERASE 1916 U/L (15-37); BILIRUBIN,TOTAL 2.9 MG/DL (0.2-1.0)
--- NOTE | 2020-04-14 10:05 | NUR ---
NURSE NOTES: Patient remains in critical condition. Abdomen distended and hard to touch.Remains on GI suction with dark brown output.Will continue close monitoring.Call light within easy reach.Turned and repositioned for skin management
[2020-04-14] MEDS: Morphine Sulfate 4mg/ml Inj (IV USE ONLY) IVP PRN (10:19)
[2020-04-14] MEDS: LORazepam Inj 2mg/ml 1ml IV PRN (10:20)
--- NOTE | 2020-04-14 11:21 | Pulmonolgy Critical Care Note ---
Critical Care - Asmt/Plan Problems: (1) Acute respiratory failure (2) Sepsis (3) UTI (urinary tract infection) (4) Altered mental status, unspecified (5) History of depression (6) ATN (acute tubular necrosis) (7) Severe protein-calorie malnutrition Respiratory: adjust tidal volume, monitor respiratory rate, adjust FIO2, CXR Cardiac: continue to monitor HR/BP Renal: F/U I&O, check electrolytes Infectious Disease: check cultures, continue antibiotics Gastrointestinal: continue feedings/current rate Endocrine: monitor blood sugar Hematologic: monitor H/H, transfuse if hgb<8.5 Neurologic: PRN Ativan, keep patient comfortable Affect: PRN ativan Disposition: keep in ICU Notes Reviewed: information technology advisor, cardio, renal Discussed with: nurses, consultants, bilingual case managermerchandising execution manager - Objective Last 24 Hour Vital Signs Date Time Temp Pulse Resp B/P (MAP) Pulse Ox O2 Delivery O2 Flow Rate FiO2 04/14/20 10:49 97.6 04/14/20 10:30 102 24 132/65 (87) 98 04/14/20 10:15 108 23 137/55 (82) 100 04/14/20 10:00 106 22 137/64 (88) 100 04/14/20 09:45 100 20 90/52 (65) 100 04/14/20 09:30 105 19 129/61 (83) 100 04/14/20 09:15 97 20 78/50 (59) 100 04/14/20 09:00 99 20 79/63 (68) 100 04/14/20 08:45 99 20 79/49 (59) 100 04/14/20 08:30 99 20 81/48 (59) 100 04/14/20 08:15 101 20 80/51 (61) 100 04/14/20 08:00 100.0 105 20 119/61 (80) 100 04/14/20 08:00 40 04/14/20 08:00 106 04/14/20 07:45 90 18 117/65 (82) 04/14/20 07:43 70/35 04/14/20 07:30 99 20 116/65 (82) 100 04/14/20 07:15 94 21 110/62 (78) 100 04/14/20 07:07 98 20 40 04/14/20 07:05 98 20 81/43 (56) 100 8/25/20 06:30 98 20 77/43 (54) 100 04/14/20 06:30 97 27 04/14/20 06:00 102 20 68/40 (49) 100 04/14/20 05:30 80 36 153/71 (98) 98 04/14/20 05:00 80 38 161/78 (105) 97 04/14/20 05:00 99 22 40 04/14/20 05:00 167/61 04/14/20 04:30 103 23 117/63 (81) 98 04/14/20 04:00 97.4 63 30 146/75 (98) 04/14/20 04:00 145/75 04/14/20 04:00 40 04/14/20 04:00 103 04/14/20 04:00 Mechanical Ventilator 04/14/20 03:30 101 19 101/61 (74) 04/14/20 03:18 105 23 40 04/14/20 03:00 154/65 04/14/20 03:00 101 25 117/64 (81) 100 04/14/20 02:30 102 30 140/113 (122) 86 04/14/20 02:00 98 27 136/66 (89) 97 04/14/20 02:00 98 27 136/66 (89) 97 04/14/20 02:00 124/84 04/14/20 01:45 97 27 140/70 (93) 99 04/14/20 01:30 99 27 141/69 (93) 97 04/14/20 01:30 99 27 141/69 (93) 97 04/14/20 01:25 102 22 40 04/14/20 01:15 101 26 152/64 (93) 90 04/14/20 01:00 123/84 04/14/20 01:00 103 31 142/94 (110) 79 04/14/20 01:00 103 31 142/94 (110) 79 04/14/20 00:56 106 27 164/74 (104) 90 04/14/20 00:54 100 32 164/94 (117) 04/14/20 00:45 104 33 162/85 (110) 94 04/14/20 00:30 106 31 155/82 (106) 98 04/14/20 00:30 106 31 155/82 (106) 98 8/25/20 00:15 108 31 154/83 (106) 100 04/14/20 00:00 97.0 107 28 139/71 (93) 96 04/14/20 00:00 Mechanical Ventilator 04/14/20 00:00 102 04/14/20 00:00 154/83 04/14/20 00:00 40 04/14/20 00:00 107 28 139/71 (93) 96 04/13/20 23:30 103 15 102/52 (69) 90 04/13/20 23:10 102 23 40 04/13/20 23:00 105 27 153/71 (98) 94 04/13/20 22:30 106 27 156/75 (102) 93 04/13/20 22:00 100 29 146/67 (93) 95 04/13/20 22:00 165/89 04/13/20 21:32 155/89 04/13/20 21:30 106 24 158/96 (116) 98 04/13/20 21:09 109 24 40 04/13/20 21:00 108 26 150/85 (106) 100 04/13/20 21:00 112/56 04/13/20 21:00 107 26 155/74 (101) 93 04/13/20 20:30 107 26 155/74 (101) 93 04/13/20 20:03 74/44 04/13/20 20:00 105 04/13/20 20:00 Mechanical Ventilator 04/13/20 20:00 96.0 94 20 76/45 (55) 100 04/13/20 20:00 40 04/13/20 19:30 102 22 98/52 (67) 98 04/13/20 19:26 109 24 40 04/13/20 19:15 105 24 105/58 (74) 100 04/13/20 19:00 103 21 113/61 (78) 100 04/13/20 19:00 105/58 04/13/20 18:45 103 20 119/57 (77) 100 04/13/20 18:30 105 19 117/56 (76) 100 04/13/20 18:15 111 22 135/65 (88) 100 04/13/20 18:00 117/56 04/13/20 18:00 113 27 133/70 (91) 100 04/13/20 17:45 111 24 126/68 (87) 100 04/13/20 17:30 111 26 142/71 (94) 100 04/13/20 17:15 104 19 101/65 (77) 100 04/13/20 17:10 102 21 40 04/13/20 17:00 142/71 04/13/20 17:00 99 20 99/56 (70) 98 04/13/20 16:45 100 19 106/57 (73) 97 04/13/20 16:30 103 18 109/59 (76) 100 04/13/20 16:15 106 23 120/65 (83) 100 04/13/20 16:00 Mechanical Ventilator 04/13/20 16:00 101 04/13/20 16:00 83/58 04/13/20 16:00 97.9 102 19 109/57 (74) 100 04/13/20 16:00 55 04/13/20 15:45 101 20 94/51 (65) 100 04/13/20 15:30 105 20 108/53 (71) 100 04/13/20 15:15 109 20 116/56 (76) 100 04/13/20 15:05 108 22 55 04/13/20 15:00 104/56 04/13/20 15:00 103 18 104/56 (72) 100 04/13/20 14:45 102 19 104/52 (69) 100 04/13/20 14:30 100 19 102/49 (66) 100 04/13/20 14:15 98 19 101/52 (68) 100 04/13/20 14:00 97 17 95/52 (66) 100 04/13/20 14:00 95/52 04/13/20 13:45 96 20 85/48 (60) 100 04/13/20 13:30 96 18 82/46 (58) 100 04/13/20 13:15 99 20 90/52 (65) 100 04/13/20 13:10 96 21 55 04/13/20 13:00 95/52 04/13/20 13:00 99 20 81/48 (59) 04/13/20 12:30 110 22 112/66 (81) 100 04/13/20 12:00 97.9 110 22 112/66 (81) 100 04/13/20 12:00 109 8/24/20 12:00 Mechanical Ventilator 04/13/20 12:00 102/54 04/13/20 12:00 55 04/13/20 11:45 105 21 100/59 (73) 100 04/13/20 11:30 101 21 95/54 (68) 100 Status: awake Condition: critical Neck: full ROM Heart: HR/BP stable Abdomen: non-tender, active bowel sounds Micro: Microbiology Date/Time Source Procedure Growth Status 04/13/20 16:15 Nasopharynx SARS-CoV-2 RdRp Gene Assay - Final Complete Critical Care - Subjective ROS Limited/Unobtainable: Yes Condition: critical EKG Rhythm: Sinus Rhythm FI02: 40 Vent Support Breath Rate: 20 Vent Support Mode: AC Vent Tidal Volume: 600 Sputum Amount: Small PEEP: 5.0 PIP: 38 I&O: Intake and Output 04/13/20 04/14/20 19:00 07:00 Intake Total 3051.91 ml 2198.70 ml Output Total 1535 ml 1842 ml Balance 1516.91 ml 356.70 ml IV Total 3051.91 ml 2198.70 ml Output Urine Total 135 ml 242 ml Gastric Drainage Total 1400 ml 1600 ml # Bowel Movements 3 3 ET-Tube: 7.5 ET Position: 23 Labs: Laboratory Tests Test 04/14/20 03:15 White Blood Count 11.5 K/UL (4.8-10.8) H Red Blood Count 2.99 M/UL (4.20-5.40) L Hemoglobin 8.3 G/DL (12.0-16.0) L Hematocrit 25.6 % (37.0-47.0) L Mean Corpuscular Volume 86 FL (80-99) Mean Corpuscular Hemoglobin 27.8 PG (27.0-31.0) Mean Corpuscular Hemoglobin Concent 32.4 G/DL (32.0-36.0) Red Cell Distribution Width 16.0 % (11.6-14.8) H Platelet Count 55 K/UL (150-450) L Mean Platelet Volume 7.8 FL (6.5-10.1) Neutrophils (%) (Auto) % (45.0-75.0) Lymphocytes (%) (Auto) % (20.0-45.0) Monocytes (%) (Auto) % (1.0-10.0) Eosinophils (%) (Auto) % (0.0-3.0) Basophils (%) (Auto) % (0.0-2.0) Differential Total Cells Counted 100 Neutrophils % (Manual) 61 % (45-75) Lymphocytes % (Manual) 3 % (20-45) L Monocytes % (Manual) 13 % (1-10) H Eosinophils % (Manual) 0 % (0-3) Basophils % (Manual) 0 % (0-2) Band Neutrophils 23 % (0-8) H Platelet Estimate Decreased L Platelet Morphology Normal Hypochromasia 1+ Anisocytosis 1+ [place] Cells Occasional Sodium Level 130 MMOL/L (136-145) L Potassium Level 3.4 MMOL/L (3.5-5.1) L Chloride Level 91 MMOL/L (98-107) L Carbon Dioxide Level 20 MMOL/L (21-32) L Anion Gap 19 mmol/L (5-15) H Blood Urea Nitrogen 73 mg/dL (7-18) H Creatinine 3.0 MG/DL (0.55-1.30) H Estimat Glomerular Filtration Rate 16.0 mL/min (>60) Glucose Level 76 MG/DL (74-106) Calcium Level 7.1 MG/DL (8.5-10.1) L Phosphorus Level 5.1 MG/DL (2.5-4.9) H Magnesium Level 2.1 MG/DL (1.8-2.4) Total Bilirubin 2.9 MG/DL (0.2-1.0) H Direct Bilirubin 284.0 MG/DL (0.0-0.3) H Aspartate Amino Transf (AST/SGOT) 1916 U/L (15-37) H Alanine Aminotransferase (ALT/SGPT) 916 U/L (12-78) H Alkaline Phosphatase 304 U/L (46-116) H Total Protein 4.5 G/DL (6.4-8.2) L Albumin 2.1 G/DL (3.4-5.0) L Globulin 2.4 g/dL Albumin/Globulin Ratio 0.9 (1.0-2.7) L Random Vancomycin Level 5.8 ug/mL Helena Rivera MD Apr 14, 2020 11:21
--- NOTE | 2020-04-14 11:33 | NUR ---
CAR WORKER NOTE SW left a vm to pt's son, Chepe Fernandes [phone] for call back. Mr. Mo left a vm to this SW that Abisai Fernandes is currently out of state thus, he can be contacted first. ]
--- NOTE | 2020-04-14 11:49 | Infectious Diseases Prog Note ---
Assessment/Plan ASSESSMENT: The patient is a 60-year-old female with: - Septic shock.; pressors requirements improving Acute hypoxic resp failure sp intubation- fio2 40% 04/14 -Transaminitis; worsening- likely shock liver -hep C ab + - Leukocytosis, mild recurrent - ESBL E. coli UTI. - Pneumonia.- COVID neg x2 -04/09 & rapid COVID PCR neg -04/09 CTA chest: Indeterminate areas of nodularity and irregular consolidation indeterminate for infectious, inflammatory or neoplastic etiology. Recommend pulmonary consultation and short-term interval follow-up. Small amount of debris in the left, greater than right bronchi. Mild mediastinal and hilar lymphadenopathy. -Acute renal insufficiency. -Thrombocytopenia worsening . Migraine. . History of CAD/GA, with stent placement. . History of COPD. History of appendicitis, status post appendectomy. History of diabetes. Depression/anxiety. . History of alcohol abuse. History of opiate abuse. PLAN: 1. Continue empiric Zithromax #3/5, meropenem #3 Switch Zyvox #3 to IV Vancomycin given worsening thrombocytopenia -04/12 SP IV Vancomycin #3, Aztreonam #3 -04/10 SP AMikacin x1 2. Monitor cultures (blood, urine, sputum). 3. COVID neg x2; will keep on isolation for now 4.Hep C VL, HiV ag/ag 5. Ultrasound of the liver. 6. Based on the patient's clinical course, we will give further recommendations. 7.f/u Urine Legionella antigen and mycoplasma antibody, sp cx Subjective Allergies: Coded Allergies: CEPHALOSPORINS (Verified Allergy, Intermediate, Anaphylaxis, 12/14/12) DIAZEPAM (Verified Allergy, Intermediate, DYSTONIC, 12/14/12) SUMATRIPTAN (Verified Allergy, Intermediate, 12/14/12) SUMATRIPTAN SUCCINATE (Verified Allergy, Intermediate, 12/14/12) TRAMADOL (Verified Allergy, Intermediate, Anaphylaxis, 12/14/12) CEPHALEXIN (Unverified Allergy, Unknown, 10/25/19) PENICILLINS (Unverified Allergy, Unknown, 08/26/18) Uncoded Allergies: PCN (Allergy, Unknown, 10/25/19) Tm 100 fio2 down to 40% levo down to 2 mild leukocytosis Objective Last 24 Hour Vital Signs Date Time Temp Pulse Resp B/P (MAP) Pulse Ox O2 Delivery O2 Flow Rate FiO2 04/14/20 11:15 104 23 111/59 (76) 92 04/14/20 11:00 105 22 110/61 (77) 94 04/14/20 10:49 97.6 04/14/20 10:45 106 24 123/62 (82) 93 04/14/20 10:30 102 24 132/65 (87) 98 04/14/20 10:15 108 23 137/55 (82) 100 04/14/20 10:00 106 22 137/64 (88) 100 04/14/20 09:45 100 20 90/52 (65) 100 04/14/20 09:30 105 19 129/61 (83) 100 04/14/20 09:15 97 20 78/50 (59) 100 04/14/20 09:00 99 20 79/63 (68) 100 04/14/20 08:45 99 20 79/49 (59) 100 04/14/20 08:30 99 20 81/48 (59) 100 04/14/20 08:15 101 20 80/51 (61) 100 04/14/20 08:00 100.0 105 20 119/61 (80) 100 04/14/20 08:00 40 04/14/20 08:00 106 04/14/20 07:45 90 18 117/65 (82) 04/14/20 07:43 70/35 04/14/20 07:30 99 20 116/65 (82) 100 04/14/20 07:15 94 21 110/62 (78) 100 04/14/20 07:07 98 20 40 04/14/20 07:05 98 20 81/43 (56) 100 04/14/20 06:30 98 20 77/43 (54) 100 04/14/20 06:30 97 27 04/14/20 06:00 102 20 68/40 (49) 100 04/14/20 05:30 80 36 153/71 (98) 98 04/14/20 05:00 80 38 161/78 (105) 97 04/14/20 05:00 99 22 40 04/14/20 05:00 167/61 04/14/20 04:30 103 23 117/63 (81) 98 04/14/20 04:00 97.4 63 30 146/75 (98) 04/14/20 04:00 145/75 04/14/20 04:00 40 04/14/20 04:00 103 04/14/20 04:00 Mechanical Ventilator 04/14/20 03:30 101 19 101/61 (74) 04/14/20 03:18 105 23 40 04/14/20 03:00 154/65 04/14/20 03:00 101 25 117/64 (81) 100 04/14/20 02:30 102 30 140/113 (122) 86 04/14/20 02:00 98 27 136/66 (89) 97 04/14/20 02:00 98 27 136/66 (89) 97 04/14/20 02:00 124/84 04/14/20 01:45 97 27 140/70 (93) 99 04/14/20 01:30 99 27 141/69 (93) 97 04/14/20 01:30 99 27 141/69 (93) 97 04/14/20 01:25 102 22 40 04/14/20 01:15 101 26 152/64 (93) 90 04/14/20 01:00 123/84 04/14/20 01:00 103 31 142/94 (110) 79 04/14/20 01:00 103 31 142/94 (110) 79 04/14/20 00:56 106 27 164/74 (104) 90 04/14/20 00:54 100 32 164/94 (117) 04/14/20 00:45 104 33 162/85 (110) 94 04/14/20 00:30 106 31 155/82 (106) 98 04/14/20 00:30 106 31 155/82 (106) 98 04/14/20 00:15 108 31 154/83 (106) 100 04/14/20 00:00 97.0 107 28 139/71 (93) 96 04/14/20 00:00 Mechanical Ventilator 04/14/20 00:00 102 04/14/20 00:00 154/83 04/14/20 00:00 40 04/14/20 00:00 107 28 139/71 (93) 96 04/13/20 23:30 103 15 102/52 (69) 90 04/13/20 23:10 102 23 40 04/13/20 23:00 105 27 153/71 (98) 94 04/13/20 22:30 106 27 156/75 (102) 93 04/13/20 22:00 100 29 146/67 (93) 95 04/13/20 22:00 165/89 8 21:32 155/89 04/13/20 21:30 106 24 158/96 (116) 98 04/13/20 21:09 109 24 40 04/13/20 21:00 108 26 150/85 (106) 100 04/13/20 21:00 112/56 04/13/20 21:00 107 26 155/74 (101) 93 04/13/20 20:30 107 26 155/74 (101) 93 04/13/20 20:03 74/44 04/13/20 20:00 105 04/13/20 20:00 Mechanical Ventilator 04/13/20 20:00 96.0 94 20 76/45 (55) 100 04/13/20 20:00 40 04/13/20 19:30 102 22 98/52 (67) 98 04/13/20 19:26 109 24 40 04/13/20 19:15 105 24 105/58 (74) 100 04/13/20 19:00 103 21 113/61 (78) 100 04/13/20 19:00 105/58 04/13/20 18:45 103 20 119/57 (77) 100 04/13/20 18:30 105 19 117/56 (76) 100 04/13/20 18:15 111 22 135/65 (88) 100 04/13/20 18:00 117/56 04/13/20 18:00 113 27 133/70 (91) 100 04/13/20 17:45 111 24 126/68 (87) 100 04/13/20 17:30 111 26 142/71 (94) 100 04/13/20 17:15 104 19 101/65 (77) 100 04/13/20 17:10 102 21 40 04/13/20 17:00 142/71 04/13/20 17:00 99 20 99/56 (70) 98 04/13/20 16:45 100 19 106/57 (73) 97 04/13/20 16:30 103 18 109/59 (76) 100 04/13/20 16:15 106 23 120/65 (83) 100 04/13/20 16:00 Mechanical Ventilator 04/13/20 16:00 101 04/13/20 16:00 83/58 04/13/20 16:00 97.9 102 19 109/57 (74) 100 04/13/20 16:00 55 04/13/20 15:45 101 20 94/51 (65) 100 04/13/20 15:30 105 20 108/53 (71) 100 04/13/20 15:15 109 20 116/56 (76) 100 04/13/20 15:05 108 22 55 04/13/20 15:00 104/56 04/13/20 15:00 103 18 104/56 (72) 100 04/13/20 14:45 102 19 104/52 (69) 100 04/13/20 14:30 100 19 102/49 (66) 100 04/13/20 14:15 98 19 101/52 (68) 100 04/13/20 14:00 97 17 95/52 (66) 100 04/13/20 14:00 95/52 04/13/20 13:45 96 20 85/48 (60) 100 04/13/20 13:30 96 18 82/46 (58) 100 04/13/20 13:15 99 20 90/52 (65) 100 04/13/20 13:10 96 21 55 04/13/20 13:00 95/52 04/13/20 13:00 99 20 81/48 (59) 04/13/20 12:30 110 22 112/66 (81) 100 04/13/20 12:00 97.9 110 22 112/66 (81) 100 04/13/20 12:00 109 04/13/20 12:00 Mechanical Ventilator 04/13/20 12:00 102/54 04/13/20 12:00 55 04/13/20 11:45 105 21 100/59 (73) 100 Height (Feet): 5 Height (Inches): 4.00 Weight (Pounds): 130 HEENT: No pale conjunctivae. No icterus. ETT in palce NECK: No lymphadenopathy. CHEST: Coarse breathing sounds. HEART: S1, S2. ABDOMEN: Soft. EXTREMITIES: No cyanosis at this time. NEUROLOGIC: Sedated. Microbiology Date/Time Source Procedure Growth Status 04/13/20 16:15 Nasopharynx SARS-CoV-2 RdRp Gene Assay - Final Complete Laboratory Tests Test 04/14/20 03:15 White Blood Count 11.5 K/UL (4.8-10.8) H Red Blood Count 2.99 M/UL (4.20-5.40) L Hemoglobin 8.3 G/DL (12.0-16.0) L Hematocrit 25.6 % (37.0-47.0) L Mean Corpuscular Volume 86 FL (80-99) Mean Corpuscular Hemoglobin 27.8 PG (27.0-31.0) Mean Corpuscular Hemoglobin Concent 32.4 G/DL (32.0-36.0) Red Cell Distribution Width 16.0 % (11.6-14.8) H Platelet Count 55 K/UL (150-450) L Mean Platelet Volume 7.8 FL (6.5-10.1) Neutrophils (%) (Auto) % (45.0-75.0) Lymphocytes (%) (Auto) % (20.0-45.0) Monocytes (%) (Auto) % (1.0-10.0) Eosinophils (%) (Auto) % (0.0-3.0) Basophils (%) (Auto) % (0.0-2.0) Differential Total Cells Counted 100 Neutrophils % (Manual) 61 % (45-75) Lymphocytes % (Manual) 3 % (20-45) L Monocytes % (Manual) 13 % (1-10) H Eosinophils % (Manual) 0 % (0-3) Basophils % (Manual) 0 % (0-2) Band Neutrophils 23 % (0-8) H Platelet Estimate Decreased L Platelet Morphology Normal Hypochromasia 1+ Anisocytosis 1+ Jessica Cells Occasional Sodium Level 130 MMOL/L (136-145) L Potassium Level 3.4 MMOL/L (3.5-5.1) L Chloride Level 91 MMOL/L (98-107) L Carbon Dioxide Level 20 MMOL/L (21-32) L Anion Gap 19 mmol/L (5-15) H Blood Urea Nitrogen 73 mg/dL (7-18) H Creatinine 3.0 MG/DL (0.55-1.30) H Estimat Glomerular Filtration Rate 16.0 mL/min (>60) Glucose Level 76 MG/DL (74-106) Calcium Level 7.1 MG/DL (8.5-10.1) L Phosphorus Level 5.1 MG/DL (2.5-4.9) H Magnesium Level 2.1 MG/DL (1.8-2.4) Total Bilirubin 2.9 MG/DL (0.2-1.0) H Direct Bilirubin 284.0 MG/DL (0.0-0.3) H Aspartate Amino Transf (AST/SGOT) 1916 U/L (15-37) H Alanine Aminotransferase (ALT/SGPT) 916 U/L (12-78) H Alkaline Phosphatase 304 U/L (46-116) H Total Protein 4.5 G/DL (6.4-8.2) L Albumin 2.1 G/DL (3.4-5.0) L Globulin 2.4 g/dL Albumin/Globulin Ratio 0.9 (1.0-2.7) L Random Vancomycin Level 5.8 ug/mL Current Medications Medications (Trade) Dose Ordered Sig/Issa Route PRN Reason Start Time Stop Time Status Last Admin Dose Admin Acetaminophen (Tylenol) 650 mg Q4H PRN NG Temp >100.5 04/14/20 13:15 05/12/20 21:14 Albuterol/ Ipratropium (Albuterol/ Ipratropium) 3 ml Q4H PRN HHN Shortness of Breath 04/09/20 19:15 04/14/20 19:14 Azithromycin 500 mg/Dextrose 275 ml @ 275 mls/hr Q24HRS IV 04/12/20 15:00 04/18/20 15:59 04/13/20 15:59 Calcium Gluconate/ Sodium Chloride 50 ml @ 50 mls/hr Q8HR IVPB 04/13/20 14:00 07/11/20 20:59 04/14/20 06:06 Chlorhexidine Gluconate (Elin-Hex 2%) 1 applic DAILY@2000 TOPIC 04/10/20 20:00 07/09/20 19:59 04/13/20 20:03 Dextrose (Dextrose 50%) 25 ml Q30M PRN IV Hypoglycemia 04/09/20 19:15 07/08/20 19:14 Dextrose (Dextrose 50%) 50 ml Q30M PRN IV Hypoglycemia 04/09/20 19:15 07/08/20 19:14 Dextrose/Sodium Chloride 1,000 ml @ 100 mls/hr Q10H IV 04/13/20 08:45 05/13/20 08:44 04/14/20 03:16 Linezolid 300 ml @ 300 mls/hr Q12H IVPB 04/12/20 16:00 04/19/20 15:59 04/14/20 03:17 Lorazepam (Ativan 2mg/ml 1ml) 2 mg Q2H PRN IV agitation 04/09/20 19:15 04/16/20 19:14 04/14/20 10:20 Meropenem 1 gm/ Sodium Chloride 55 ml @ 110 mls/hr Q12H IVPB 04/12/20 18:00 04/17/20 17:59 04/14/20 06:07 Metoclopramide HCl (Reglan) 10 mg Q6H IVP 04/13/20 02:00 05/13/20 01:59 04/14/20 08:23 Morphine Sulfate (Morphine Sulfate) 4 mg Q4H PRN IVP Severe Pain (Pain Scale 7-10) 04/09/20 19:15 04/16/20 19:14 04/14/20 10:19 Nitroglycerin (Ntg) 0.4 mg Q5MIN X 3 DOSES PRN SL Prn Chest Pain 04/09/20 19:15 05/09/20 19:14 Norepinephrine Bitartrate 8 mg/ Dextrose 558 ml @ 0 mls/hr Q24H IV 04/10/20 20:30 05/10/20 19:59 04/14/20 07:43 Ondansetron HCl (Zofran) 4 mg Q6H PRN IVP Nausea & Vomiting 04/09/20 19:15 05/09/20 19:14 Pantoprazole (Protonix) 40 mg DAILY IVP 04/12/20 09:00 05/12/20 08:59 04/14/20 08:23 Sodium Bicarbonate 150 ml/Dextrose 1,150 ml @ 76 mls/hr Q15H8M IV 04/12/20 10:00 05/12/20 09:59 04/14/20 07:51 Agnieszka Cervantes M.D. Apr 14, 2020 11:49
--- NOTE | 2020-04-14 12:04 | NUR ---
NURSE NOTES: Patient seen by family. Met with Dr Rivera and family meeting done. Turned and repositioned.Mouth care done and suctioned as tolerated.HOB elevated to prevent aspiration.Remains unstable and GI suction. Continuously titrate Levophed.Call light within easy reach.
--- NOTE | 2020-04-14 12:11 | General Progress Note ---
Assessment/Plan Problem List: (1) Altered mental status, unspecified ICD Codes: R41.82 - Altered mental status, unspecified SNOMED: 723751710 (2) History of chronic pain ICD Codes: Z87.898 - Personal history of other specified conditions SNOMED: 711529985 (3) Acute respiratory failure ICD Codes: J96.00 - Acute respiratory failure, unspecified whether with hypoxia or hypercapnia SNOMED: 39121818 (4) History of depression ICD Codes: Z86.59 - Personal history of other mental and behavioral disorders SNOMED: 423152812 (5) ACS (acute coronary syndrome) ICD Codes: I24.9 - Acute ischemic heart disease, unspecified SNOMED: 875613328 (6) Elevated CEA ICD Codes: R97.0 - Elevated carcinoembryonic antigen [CEA] SNOMED: 969303748 Status: not improved Assessment/Plan: Elevated LFTS>>> shock liver elevated CEA>>> ? source for tumor anemia on pressor ileus thrombocytopenia NGT to suction keep npo repeat labs fu cardiology fu pulm management of elevated CEA when patient is more stable poor prognosis pending terminal extubation will fu Subjective ROS Limited/Unobtainable: No Allergies: Coded Allergies: CEPHALOSPORINS (Verified Allergy, Intermediate, Anaphylaxis, 12/14/12) DIAZEPAM (Verified Allergy, Intermediate, DYSTONIC, 12/14/12) SUMATRIPTAN (Verified Allergy, Intermediate, 12/14/12) SUMATRIPTAN SUCCINATE (Verified Allergy, Intermediate, 12/14/12) TRAMADOL (Verified Allergy, Intermediate, Anaphylaxis, 12/14/12) CEPHALEXIN (Unverified Allergy, Unknown, 10/25/19) PENICILLINS (Unverified Allergy, Unknown, 08/26/18) Uncoded Allergies: PCN (Allergy, Unknown, 10/25/19) Objective Last 24 Hour Vital Signs Date Time Temp Pulse Resp B/P (MAP) Pulse Ox O2 Delivery O2 Flow Rate FiO2 04/14/20 11:15 104 23 111/59 (76) 92 04/14/20 11:00 105 22 110/61 (77) 94 04/14/20 11:00 111/59 04/14/20 10:49 97.6 04/14/20 10:45 106 24 123/62 (82) 93 04/14/20 10:30 102 24 132/65 (87) 98 04/14/20 10:15 108 23 137/55 (82) 100 04/14/20 10:00 106 22 137/64 (88) 100 04/14/20 10:00 137/55 04/14/20 09:45 100 20 90/52 (65) 100 04/14/20 09:30 105 19 129/61 (83) 100 04/14/20 09:15 97 20 78/50 (59) 100 04/14/20 09:00 99 20 79/63 (68) 100 04/14/20 09:00 78/50 04/14/20 08:45 99 20 79/49 (59) 100 04/14/20 08:30 99 20 81/48 (59) 100 04/14/20 08:15 101 20 80/51 (61) 100 04/14/20 08:00 100.0 105 20 119/61 (80) 100 04/14/20 08:00 40 04/14/20 08:00 106 04/14/20 07:45 90 18 117/65 (82) 04/14/20 07:43 70/35 04/14/20 07:30 99 20 116/65 (82) 100 04/14/20 07:15 94 21 110/62 (78) 100 04/14/20 07:07 98 20 40 04/14/20 07:05 98 20 81/43 (56) 100 04/14/20 06:30 98 20 77/43 (54) 100 04/14/20 06:30 97 27 04/14/20 06:00 102 20 68/40 (49) 100 04/14/20 05:30 80 36 153/71 (98) 98 04/14/20 05:00 80 38 161/78 (105) 97 04/14/20 05:00 99 22 40 04/14/20 05:00 167/61 04/14/20 04:30 103 23 117/63 (81) 98 04/14/20 04:00 97.4 63 30 146/75 (98) 04/14/20 04:00 145/75 04/14/20 04:00 40 04/14/20 04:00 103 04/14/20 04:00 Mechanical Ventilator 04/14/20 03:30 101 19 101/61 (74) 04/14/20 03:18 105 23 40 04/14/20 03:00 154/65 04/14/20 03:00 101 25 117/64 (81) 100 04/14/20 02:30 102 30 140/113 (122) 86 04/14/20 02:00 98 27 136/66 (89) 97 04/14/20 02:00 98 27 136/66 (89) 97 04/14/20 02:00 124/84 04/14/20 01:45 97 27 140/70 (93) 99 04/14/20 01:30 99 27 141/69 (93) 97 04/14/20 01:30 99 27 141/69 (93) 97 04/14/20 01:25 102 22 40 04/14/20 01:15 101 26 152/64 (93) 90 04/14/20 01:00 123/84 04/14/20 01:00 103 31 142/94 (110) 79 04/14/20 01:00 103 31 142/94 (110) 79 04/14/20 00:56 106 27 164/74 (104) 90 04/14/20 00:54 100 32 164/94 (117) 04/14/20 00:45 104 33 162/85 (110) 94 04/14/20 00:30 106 31 155/82 (106) 98 04/14/20 00:30 106 31 155/82 (106) 98 04/14/20 00:15 108 31 154/83 (106) 100 04/14/20 00:00 97.0 107 28 139/71 (93) 96 04/14/20 00:00 Mechanical Ventilator 04/14/20 00:00 102 04/14/20 00:00 154/83 04/14/20 00:00 40 04/14/20 00:00 107 28 139/71 (93) 96 04/13/20 23:30 103 15 102/52 (69) 90 04/13/20 23:10 102 23 40 04/13/20 23:00 105 27 153/71 (98) 94 04/13/20 22:30 106 27 156/75 (102) 93 04/13/20 22:00 100 29 146/67 (93) 95 04/13/20 22:00 165/89 04/13/20 21:32 155/89 04/13/20 21:30 106 24 158/96 (116) 98 04/13/20 21:09 109 24 40 04/13/20 21:00 108 26 150/85 (106) 100 04/13/20 21:00 112/56 04/13/20 21:00 107 26 155/74 (101) 93 04/13/20 20:30 107 26 155/74 (101) 93 04/13/20 20:03 74/44 04/13/20 20:00 105 04/13/20 20:00 Mechanical Ventilator 04/13/20 20:00 96.0 94 20 76/45 (55) 100 04/13/20 20:00 40 04/13/20 19:30 102 22 98/52 (67) 98 04/13/20 19:26 109 24 40 04/13/20 19:15 105 24 105/58 (74) 100 04/13/20 19:00 103 21 113/61 (78) 100 04/13/20 19:00 105/58 04/13/20 18:45 103 20 119/57 (77) 100 04/13/20 18:30 105 19 117/56 (76) 100 04/13/20 18:15 111 22 135/65 (88) 100 04/13/20 18:00 117/56 04/13/20 18:00 113 27 133/70 (91) 100 04/13/20 17:45 111 24 126/68 (87) 100 04/13/20 17:30 111 26 142/71 (94) 100 04/13/20 17:15 104 19 101/65 (77) 100 04/13/20 17:10 102 21 40 04/13/20 17:00 142/71 04/13/20 17:00 99 20 99/56 (70) 98 04/13/20 16:45 100 19 106/57 (73) 97 04/13/20 16:30 103 18 109/59 (76) 100 04/13/20 16:15 106 23 120/65 (83) 100 04/13/20 16:00 Mechanical Ventilator 04/13/20 16:00 101 04/13/20 16:00 83/58 04/13/20 16:00 97.9 102 19 109/57 (74) 100 04/13/20 16:00 55 04/13/20 15:45 101 20 94/51 (65) 100 04/13/20 15:30 105 20 108/53 (71) 100 04/13/20 15:15 109 20 116/56 (76) 100 04/13/20 15:05 108 22 55 04/13/20 15:00 104/56 04/13/20 15:00 103 18 104/56 (72) 100 04/13/20 14:45 102 19 104/52 (69) 100 04/13/20 14:30 100 19 102/49 (66) 100 04/13/20 14:15 98 19 101/52 (68) 100 04/13/20 14:00 97 17 95/52 (66) 100 04/13/20 14:00 95/52 04/13/20 13:45 96 20 85/48 (60) 100 04/13/20 13:30 96 18 82/46 (58) 100 04/13/20 13:15 99 20 90/52 (65) 100 04/13/20 13:10 96 21 55 04/13/20 13:00 95/52 04/13/20 13:00 99 20 81/48 (59) 04/13/20 12:30 110 22 112/66 (81) 100 Intake and Output 04/13/20 04/14/20 19:00 07:00 Intake Total 3051.91 ml 2198.70 ml Output Total 1535 ml 1842 ml Balance 1516.91 ml 356.70 ml IV Total 3051.91 ml 2198.70 ml Output Urine Total 135 ml 242 ml Gastric Drainage Total 1400 ml 1600 ml # Bowel Movements 3 3 Laboratory Tests 04/14/20 03:15: White Blood Count 11.5H, Red Blood Count 2.99L, Hemoglobin 8.3L, Hematocrit 25.6L, Mean Corpuscular Volume 86, Mean Corpuscular Hemoglobin 27.8, Mean Corpuscular Hemoglobin Concent 32.4, Red Cell Distribution Width 16.0H, Platelet Count 55L, Mean Platelet Volume 7.8, Neutrophils (%) (Auto) , Lymphocytes (%) (Auto) , Monocytes (%) (Auto) , Eosinophils (%) (Auto) , Basophils (%) (Auto) , Differential Total Cells Counted 100, Neutrophils % ( Manual) 61, Lymphocytes % (Manual) 3L, Monocytes % (Manual) 13H, Eosinophils % ( Manual) 0, Basophils % (Manual) 0, Band Neutrophils 23H, Platelet Estimate DecreasedL, Platelet Morphology Normal, Hypochromasia 1+, Anisocytosis 1+, [place] Cells Occasional, Sodium Level 130L, Potassium Level 3.4L, Chloride Level 91L, Carbon Dioxide Level 20L, Anion Gap 19H, Blood Urea Nitrogen 73H, Creatinine 3.0H, Estimat Glomerular Filtration Rate 16.0, Glucose Level 76, Calcium Level 7.1L, Phosphorus Level 5.1H, Magnesium Level 2.1, Total Bilirubin 2.9H, Direct Bilirubin 284.0H, Aspartate Amino Transf (AST/SGOT) 1916H, Alanine Aminotransferase (ALT/SGPT) 916H, Alkaline Phosphatase 304H, Total Protein 4.5L , Albumin 2.1L, Globulin 2.4, Albumin/Globulin Ratio 0.9L, Random Vancomycin Level 5.8 Height (Feet): 5 Height (Inches): 4.00 Weight (Pounds): 130 General Appearance: lethargic EENT: normal ENT inspection Neck: supple Cardiovascular: normal rate Respiratory/Chest: decreased breath sounds Abdomen: normal bowel sounds, non tender, soft Extremities: non-tender David Pickens MD Apr 14, 2020 12:11
[2020-04-14] MEDS ORDERED: Acetaminophen 650mg/20.3ml NG PRN (13:15)
--- NOTE | 2020-04-14 13:17 | Nephrology Progress Note ---
Assessment/Plan Problem List: (1) ATN (acute tubular necrosis) (2) Shock Assessment: Shock Liver (3) Sepsis (4) Acute respiratory failure (5) Rhabdomyolysis Assessment: Severe (6) Elevated troponin I level Assessment Acute renal failure Acute respiratory failure Sepsis- SHOCK, shock liver Toxic metabolic encephalopathy phalangeal Plan April 14: Patient seen at 9 AM today. Late note entry now. Continues to do poorly. I received a note from Dr Rivera that the family later this morning are requesting terminal extubation. Considering patient's overall poor clinical condition and multiple medical problem I am agreeable with this plan. April 13: Continued to do poorly. Serum creatinine 3.1. Troponin eye lowering. Serum calcium slightly higher. Metabolic acidosis improved. Will increase IV calcium gluconate. Will adjust IV fluids. 1 dose of Lasix 100 mg for oliguria IV ordered. Patient remains full code. Continue to monitor renal parameters and avoid nephrotoxic's as possible.. April 12: Patient doing poorly. Remains on pressors. Serum creatinine rising. Troponin I declining. Calcium low. Remains acidotic. Will give IV calcium. IV bicarb started by mold bunch trimmer. Will continue to monitor renal parameters. Prefer to avoid nephrotoxic's. Also CPK over 10,000 indicative of severe left rhabdomyolysis. Vigorous hydration will be continued. Fluid challenge Pressors 100 mg Lasix IV push 1 time One dose Sodium Bicarb IV Monitor renal parameters Antibiotics Avoid nephrotoxic's Pulmonary support 2D echocardiogram : Pending Kidney ultrasound : Pending Per orders Subjective ROS Limited/Unobtainable: Yes Objective Objective Last 24 Hour Vital Signs Date Time Temp Pulse Resp B/P (MAP) Pulse Ox O2 Delivery O2 Flow Rate FiO2 04/14/20 12:00 Mechanical Ventilator 04/14/20 12:00 103 04/14/20 12:00 40 04/14/20 11:15 104 23 111/59 (76) 92 04/14/20 11:00 105 22 110/61 (77) 94 04/14/20 11:00 111/59 04/14/20 10:49 97.6 04/14/20 10:45 106 24 123/62 (82) 93 04/14/20 10:30 102 24 132/65 (87) 98 04/14/20 10:15 108 23 137/55 (82) 100 04/14/20 10:00 106 22 137/64 (88) 100 04/14/20 10:00 137/55 04/14/20 09:45 100 20 90/52 (65) 100 04/14/20 09:30 105 19 129/61 (83) 100 04/14/20 09:15 97 20 78/50 (59) 100 04/14/20 09:00 99 20 79/63 (68) 100 04/14/20 09:00 78/50 04/14/20 08:45 99 20 79/49 (59) 100 04/14/20 08:30 99 20 81/48 (59) 100 04/14/20 08:15 101 20 80/51 (61) 100 04/14/20 08:00 100.0 105 20 119/61 (80) 100 04/14/20 08:00 40 04/14/20 08:00 Mechanical Ventilator 04/14/20 08:00 106 04/14/20 07:45 90 18 117/65 (82) 04/14/20 07:43 70/35 04/14/20 07:30 99 20 116/65 (82) 100 04/14/20 07:15 94 21 110/62 (78) 100 04/14/20 07:07 98 20 40 04/14/20 07:05 98 20 81/43 (56) 100 04/14/20 06:30 98 20 77/43 (54) 100 04/14/20 06:30 97 27 04/14/20 06:00 102 20 68/40 (49) 100 04/14/20 05:30 80 36 153/71 (98) 98 04/14/20 05:00 80 38 161/78 (105) 97 04/14/20 05:00 99 22 40 04/14/20 05:00 167/61 04/14/20 04:30 103 23 117/63 (81) 98 04/14/20 04:00 97.4 63 30 146/75 (98) 04/14/20 04:00 145/75 04/14/20 04:00 40 04/14/20 04:00 103 04/14/20 04:00 Mechanical Ventilator 04/14/20 03:30 101 19 101/61 (74) 04/14/20 03:18 105 23 40 04/14/20 03:00 154/65 04/14/20 03:00 101 25 117/64 (81) 100 04/14/20 02:30 102 30 140/113 (122) 86 04/14/20 02:00 98 27 136/66 (89) 97 04/14/20 02:00 98 27 136/66 (89) 97 04/14/20 02:00 124/84 04/14/20 01:45 97 27 140/70 (93) 99 04/14/20 01:30 99 27 141/69 (93) 97 04/14/20 01:30 99 27 141/69 (93) 97 04/14/20 01:25 102 22 40 04/14/20 01:15 101 26 152/64 (93) 90 04/14/20 01:00 123/84 04/14/20 01:00 103 31 142/94 (110) 79 04/14/20 01:00 103 31 142/94 (110) 79 04/14/20 00:56 106 27 164/74 (104) 90 04/14/20 00:54 100 32 164/94 (117) 04/14/20 00:45 104 33 162/85 (110) 94 04/14/20 00:30 106 31 155/82 (106) 98 04/14/20 00:30 106 31 155/82 (106) 98 04/14/20 00:15 108 31 154/83 (106) 100 04/14/20 00:00 97.0 107 28 139/71 (93) 96 04/14/20 00:00 Mechanical Ventilator 04/14/20 00:00 102 04/14/20 00:00 154/83 04/14/20 00:00 40 04/14/20 00:00 107 28 139/71 (93) 96 04/13/20 23:30 103 15 102/52 (69) 90 04/13/20 23:10 102 23 40 04/13/20 23:00 105 27 153/71 (98) 94 04/13/20 22:30 106 27 156/75 (102) 93 04/13/20 22:00 100 29 146/67 (93) 95 04/13/20 22:00 165/89 04/13/20 21:32 155/89 04/13/20 21:30 106 24 158/96 (116) 98 04/13/20 21:09 109 24 40 8/24/20 21:00 108 26 150/85 (106) 100 04/13/20 21:00 112/56 04/13/20 21:00 107 26 155/74 (101) 93 04/13/20 20:30 107 26 155/74 (101) 93 04/13/20 20:03 74/44 04/13/20 20:00 105 04/13/20 20:00 Mechanical Ventilator 04/13/20 20:00 96.0 94 20 76/45 (55) 100 04/13/20 20:00 40 04/13/20 19:30 102 22 98/52 (67) 98 04/13/20 19:26 109 24 40 04/13/20 19:15 105 24 105/58 (74) 100 04/13/20 19:00 103 21 113/61 (78) 100 04/13/20 19:00 105/58 04/13/20 18:45 103 20 119/57 (77) 100 04/13/20 18:30 105 19 117/56 (76) 100 04/13/20 18:15 111 22 135/65 (88) 100 04/13/20 18:00 117/56 04/13/20 18:00 113 27 133/70 (91) 100 04/13/20 17:45 111 24 126/68 (87) 100 04/13/20 17:30 111 26 142/71 (94) 100 04/13/20 17:15 104 19 101/65 (77) 100 04/13/20 17:10 102 21 40 04/13/20 17:00 142/71 04/13/20 17:00 99 20 99/56 (70) 98 04/13/20 16:45 100 19 106/57 (73) 97 04/13/20 16:30 103 18 109/59 (76) 100 04/13/20 16:15 106 23 120/65 (83) 100 04/13/20 16:00 Mechanical Ventilator 04/13/20 16:00 101 04/13/20 16:00 83/58 04/13/20 16:00 97.9 102 19 109/57 (74) 100 04/13/20 16:00 55 04/13/20 15:45 101 20 94/51 (65) 100 04/13/20 15:30 105 20 108/53 (71) 100 04/13/20 15:15 109 20 116/56 (76) 100 04/13/20 15:05 108 22 55 04/13/20 15:00 104/56 04/13/20 15:00 103 18 104/56 (72) 100 04/13/20 14:45 102 19 104/52 (69) 100 04/13/20 14:30 100 19 102/49 (66) 100 04/13/20 14:15 98 19 101/52 (68) 100 04/13/20 14:00 97 17 95/52 (66) 100 04/13/20 14:00 95/52 04/13/20 13:45 96 20 85/48 (60) 100 04/13/20 13:30 96 18 82/46 (58) 100 04/13/20 13:15 99 20 90/52 (65) 100 Intake and Output 04/13/20 04/14/20 19:00 07:00 Intake Total 3051.91 ml 2198.70 ml Output Total 1535 ml 1842 ml Balance 1516.91 ml 356.70 ml IV Total 3051.91 ml 2198.70 ml Output Urine Total 135 ml 242 ml Gastric Drainage Total 1400 ml 1600 ml # Bowel Movements 3 3 Current Medications Medications (Trade) Dose Ordered Sig/Issa Route PRN Reason Start Time Stop Time Status Last Admin Dose Admin Acetaminophen (Tylenol) 650 mg Q4H PRN NG Temp >100.5 04/14/20 13:15 05/12/20 21:14 Albuterol/ Ipratropium (Albuterol/ Ipratropium) 3 ml Q4H PRN HHN Shortness of Breath 04/09/20 19:15 04/14/20 19:14 Azithromycin 500 mg/Dextrose 275 ml @ 275 mls/hr Q24HRS IV 04/12/20 15:00 04/18/20 15:59 04/13/20 15:59 Calcium Gluconate/ Sodium Chloride 50 ml @ 50 mls/hr Q8HR IVPB 04/13/20 14:00 07/11/20 20:59 04/14/20 06:06 Chlorhexidine Gluconate (Elin-Hex 2%) 1 applic DAILY@1999 TOPIC 04/10/20 20:00 07/09/20 19:59 04/13/20 20:03 Dextrose (Dextrose 50%) 25 ml Q30M PRN IV Hypoglycemia 04/09/20 19:15 07/08/20 19:14 Dextrose (Dextrose 50%) 50 ml Q30M PRN IV Hypoglycemia 04/09/20 19:15 07/08/20 19:14 Dextrose/Sodium Chloride 1,000 ml @ 100 mls/hr Q10H IV 04/13/20 08:45 05/13/20 08:44 04/14/20 03:16 Lorazepam (Ativan 2mg/ml 1ml) 2 mg Q2H PRN IV agitation 04/09/20 19:15 04/16/20 19:14 04/14/20 10:20 Meropenem 1 gm/ Sodium Chloride 55 ml @ 110 mls/hr Q12H IVPB 04/12/20 18:00 04/17/20 17:59 04/14/20 06:07 Metoclopramide HCl (Reglan) 10 mg Q6H IVP 04/13/20 02:00 05/13/20 01:59 04/14/20 08:23 Morphine Sulfate (Morphine Sulfate) 4 mg Q4H PRN IVP Severe Pain (Pain Scale 7-10) 04/09/20 19:15 04/16/20 19:14 04/14/20 10:19 Nitroglycerin (Ntg) 0.4 mg Q5MIN X 3 DOSES PRN SL Prn Chest Pain 04/09/20 19:15 05/09/20 19:14 Norepinephrine Bitartrate 8 mg/ Dextrose 558 ml @ 0 mls/hr Q24H IV 04/10/20 20:30 05/10/20 19:59 04/14/20 07:43 Ondansetron HCl (Zofran) 4 mg Q6H PRN IVP Nausea & Vomiting 04/09/20 19:15 05/09/20 19:14 Pantoprazole (Protonix) 40 mg DAILY IVP 04/12/20 09:00 05/12/20 08:59 04/14/20 08:23 Sodium Bicarbonate 150 ml/Dextrose 1,150 ml @ 76 mls/hr Q15H8M IV 04/12/20 10:00 05/12/20 09:59 04/14/20 07:51 Vancomycin HCl (Vanco pharmacy to dose) 1 ea DAILY PRN MISC Per rx protocol 04/14/20 12:00 05/14/20 11:59 Laboratory Tests 04/14/20 03:15: White Blood Count 11.5H, Red Blood Count 2.99L, Hemoglobin 8.3L, Hematocrit 25.6L, Mean Corpuscular Volume 86, Mean Corpuscular Hemoglobin 27.8, Mean Corpuscular Hemoglobin Concent 32.4, Red Cell Distribution Width 16.0H, Platelet Count 55L, Mean Platelet Volume 7.8, Neutrophils (%) (Auto) , Lymphocytes (%) (Auto) , Monocytes (%) (Auto) , Eosinophils (%) (Auto) , Basophils (%) (Auto) , Differential Total Cells Counted 100, Neutrophils % ( Manual) 61, Lymphocytes % (Manual) 3L, Monocytes % (Manual) 13H, Eosinophils % ( Manual) 0, Basophils % (Manual) 0, Band Neutrophils 23H, Platelet Estimate DecreasedL, Platelet Morphology Normal, Hypochromasia 1+, Anisocytosis 1+, Jessica Cells Occasional, Sodium Level 130L, Potassium Level 3.4L, Chloride Level 91L, Carbon Dioxide Level 20L, Anion Gap 19H, Blood Urea Nitrogen 73H, Creatinine 3.0H, Estimat Glomerular Filtration Rate 16.0, Glucose Level 76, Calcium Level 7.1L, Phosphorus Level 5.1H, Magnesium Level 2.1, Total Bilirubin 2.9H, Direct Bilirubin 284.0H, Aspartate Amino Transf (AST/SGOT) 1916H, Alanine Aminotransferase (ALT/SGPT) 916H, Alkaline Phosphatase 304H, Total Protein 4.5L , Albumin 2.1L, Globulin 2.4, Albumin/Globulin Ratio 0.9L, Random Vancomycin Level 5.8 Height (Feet): 5 Height (Inches): 4.00 Weight (Pounds): 130 General Appearance: mild distress EENT: other - Intubated on ventilator Cardiovascular: tachycardia Respiratory/Chest: decreased breath sounds Abdomen: distended Objective No change Chepe Green MD Apr 14, 2020 13:17
--- NOTE | 2020-04-14 14:05 | NUR ---
NURSE NOTES: ADLs done , mouth care performed and suctioned as tolerated.Turned and repositioned,HOB elevated to prevent aspiration.Call light within easy reach.Kept clean dry and comfortable.
[2020-04-14] MEDS: Azithromycin 500 MG in D5W 275 ML IV SCH (14:15)
--- NOTE | 2020-04-14 14:17 | Surgery Progress Note ---
Surgery Progress Note Subjective Procedure Performed Right femoral central venous catheter insertion Symptoms: worse Objective Last 24 Hour Vital Signs Date Time Temp Pulse Resp B/P (MAP) Pulse Ox O2 Delivery O2 Flow Rate FiO2 04/14/20 13:00 104 23 115/64 (81) 99 04/14/20 12:45 105 23 111/60 (77) 99 04/14/20 12:30 104 23 114/59 (77) 98 04/14/20 12:15 104 20 113/57 (75) 98 04/14/20 12:00 Mechanical Ventilator 04/14/20 12:00 103 04/14/20 12:00 105 23 82/47 (59) 98 04/14/20 12:00 40 04/14/20 11:15 104 23 111/59 (76) 92 04/14/20 11:00 105 22 110/61 (77) 94 04/14/20 11:00 111/59 04/14/20 10:49 97.6 04/14/20 10:45 106 24 123/62 (82) 93 04/14/20 10:30 102 24 132/65 (87) 98 04/14/20 10:15 108 23 137/55 (82) 100 04/14/20 10:00 106 22 137/64 (88) 100 04/14/20 10:00 137/55 04/14/20 09:45 100 20 90/52 (65) 100 04/14/20 09:30 105 19 129/61 (83) 100 04/14/20 09:15 97 20 78/50 (59) 100 04/14/20 09:00 99 20 79/63 (68) 100 04/14/20 09:00 78/50 04/14/20 08:45 99 20 79/49 (59) 100 04/14/20 08:30 99 20 81/48 (59) 100 04/14/20 08:15 101 20 80/51 (61) 100 04/14/20 08:00 100.0 105 20 119/61 (80) 100 04/14/20 08:00 40 04/14/20 08:00 Mechanical Ventilator 04/14/20 08:00 106 04/14/20 07:45 90 18 117/65 (82) 04/14/20 07:43 70/35 04/14/20 07:30 99 20 116/65 (82) 100 04/14/20 07:15 94 21 110/62 (78) 100 04/14/20 07:07 98 20 40 04/14/20 07:05 98 20 81/43 (56) 100 04/14/20 06:30 98 20 77/43 (54) 100 04/14/20 06:30 97 27 04/14/20 06:00 102 20 68/40 (49) 100 04/14/20 05:30 80 36 153/71 (98) 98 04/14/20 05:00 80 38 161/78 (105) 97 04/14/20 05:00 99 22 40 04/14/20 05:00 167/61 04/14/20 04:30 103 23 117/63 (81) 98 04/14/20 04:00 97.4 63 30 146/75 (98) 04/14/20 04:00 145/75 04/14/20 04:00 40 04/14/20 04:00 103 04/14/20 04:00 Mechanical Ventilator 04/14/20 03:30 101 19 101/61 (74) 04/14/20 03:18 105 23 40 04/14/20 03:00 154/65 04/14/20 03:00 101 25 117/64 (81) 100 04/14/20 02:30 102 30 140/113 (122) 86 04/14/20 02:00 98 27 136/66 (89) 97 04/14/20 02:00 98 27 136/66 (89) 97 04/14/20 02:00 124/84 04/14/20 01:45 97 27 140/70 (93) 99 04/14/20 01:30 99 27 141/69 (93) 97 04/14/20 01:30 99 27 141/69 (93) 97 04/14/20 01:25 102 22 40 04/14/20 01:15 101 26 152/64 (93) 90 04/14/20 01:00 123/84 04/14/20 01:00 103 31 142/94 (110) 79 04/14/20 01:00 103 31 142/94 (110) 79 04/14/20 00:56 106 27 164/74 (104) 90 04/14/20 00:54 100 32 164/94 (117) 04/14/20 00:45 104 33 162/85 (110) 94 04/14/20 00:30 106 31 155/82 (106) 98 04/14/20 00:30 106 31 155/82 (106) 98 04/14/20 00:15 108 31 154/83 (106) 100 04/14/20 00:00 97.0 107 28 139/71 (93) 96 04/14/20 00:00 Mechanical Ventilator 04/14/20 00:00 102 04/14/20 00:00 154/83 04/14/20 00:00 40 04/14/20 00:00 107 28 139/71 (93) 96 04/13/20 23:30 103 15 102/52 (69) 90 04/13/20 23:10 102 23 40 04/13/20 23:00 105 27 153/71 (98) 94 04/13/20 22:30 106 27 156/75 (102) 93 04/13/20 22:00 100 29 146/67 (93) 95 04/13/20 22:00 165/89 04/13/20 21:32 155/89 04/13/20 21:30 106 24 158/96 (116) 98 04/13/20 21:09 109 24 40 04/13/20 21:00 108 26 150/85 (106) 100 04/13/20 21:00 112/56 04/13/20 21:00 107 26 155/74 (101) 93 04/13/20 20:30 107 26 155/74 (101) 93 04/13/20 20:03 74/44 04/13/20 20:00 105 04/13/20 20:00 Mechanical Ventilator 04/13/20 20:00 96.0 94 20 76/45 (55) 100 04/13/20 20:00 40 04/13/20 19:30 102 22 98/52 (67) 98 04/13/20 19:26 109 24 40 04/13/20 19:15 105 24 105/58 (74) 100 04/13/20 19:00 103 21 113/61 (78) 100 04/13/20 19:00 105/58 04/13/20 18:45 103 20 119/57 (77) 100 04/13/20 18:30 105 19 117/56 (76) 100 04/13/20 18:15 111 22 135/65 (88) 100 04/13/20 18:00 117/56 04/13/20 18:00 113 27 133/70 (91) 100 04/13/20 17:45 111 24 126/68 (87) 100 04/13/20 17:30 111 26 142/71 (94) 100 04/13/20 17:15 104 19 101/65 (77) 100 04/13/20 17:10 102 21 40 04/13/20 17:00 142/71 04/13/20 17:00 99 20 99/56 (70) 98 04/13/20 16:45 100 19 106/57 (73) 97 04/13/20 16:30 103 18 109/59 (76) 100 04/13/20 16:15 106 23 120/65 (83) 100 04/13/20 16:00 Mechanical Ventilator 04/13/20 16:00 101 04/13/20 16:00 83/58 04/13/20 16:00 97.9 102 19 109/57 (74) 100 04/13/20 16:00 55 04/13/20 15:45 101 20 94/51 (65) 100 04/13/20 15:30 105 20 108/53 (71) 100 04/13/20 15:15 109 20 116/56 (76) 100 04/13/20 15:05 108 22 55 04/13/20 15:00 104/56 04/13/20 15:00 103 18 104/56 (72) 100 04/13/20 14:45 102 19 104/52 (69) 100 04/13/20 14:30 100 19 102/49 (66) 100 I&O Intake and Output 04/13/20 04/14/20 19:00 07:00 Intake Total 3051.91 ml 2198.70 ml Output Total 1535 ml 1842 ml Balance 1516.91 ml 356.70 ml IV Total 3051.91 ml 2198.70 ml Output Urine Total 135 ml 242 ml Gastric Drainage Total 1400 ml 1600 ml # Bowel Movements 3 3 Dressing: other Wound: other Cardiovascular: RSR Respiratory: decreased breath sounds Abdomen: soft, non-tender, present bowel sounds Extremities: no edema, no tenderness, no cyanosis Laboratory Tests Test 04/14/20 03:15 White Blood Count 11.5 K/UL (4.8-10.8) H Red Blood Count 2.99 M/UL (4.20-5.40) L Hemoglobin 8.3 G/DL (12.0-16.0) L Hematocrit 25.6 % (37.0-47.0) L Mean Corpuscular Volume 86 FL (80-99) Mean Corpuscular Hemoglobin 27.8 PG (27.0-31.0) Mean Corpuscular Hemoglobin Concent 32.4 G/DL (32.0-36.0) Red Cell Distribution Width 16.0 % (11.6-14.8) H Platelet Count 55 K/UL (150-450) L Mean Platelet Volume 7.8 FL (6.5-10.1) Neutrophils (%) (Auto) % (45.0-75.0) Lymphocytes (%) (Auto) % (20.0-45.0) Monocytes (%) (Auto) % (1.0-10.0) Eosinophils (%) (Auto) % (0.0-3.0) Basophils (%) (Auto) % (0.0-2.0) Differential Total Cells Counted 100 Neutrophils % (Manual) 61 % (45-75) Lymphocytes % (Manual) 3 % (20-45) L Monocytes % (Manual) 13 % (1-10) H Eosinophils % (Manual) 0 % (0-3) Basophils % (Manual) 0 % (0-2) Band Neutrophils 23 % (0-8) H Platelet Estimate Decreased L Platelet Morphology Normal Hypochromasia 1+ Anisocytosis 1+ [place] Cells Occasional Sodium Level 130 MMOL/L (136-145) L Potassium Level 3.4 MMOL/L (3.5-5.1) L Chloride Level 91 MMOL/L (98-107) L Carbon Dioxide Level 20 MMOL/L (21-32) L Anion Gap 19 mmol/L (5-15) H Blood Urea Nitrogen 73 mg/dL (7-18) H Creatinine 3.0 MG/DL (0.55-1.30) H Estimat Glomerular Filtration Rate 16.0 mL/min (>60) Glucose Level 76 MG/DL (74-106) Calcium Level 7.1 MG/DL (8.5-10.1) L Phosphorus Level 5.1 MG/DL (2.5-4.9) H Magnesium Level 2.1 MG/DL (1.8-2.4) Total Bilirubin 2.9 MG/DL (0.2-1.0) H Direct Bilirubin 284.0 MG/DL (0.0-0.3) H Aspartate Amino Transf (AST/SGOT) 1916 U/L (15-37) H Alanine Aminotransferase (ALT/SGPT) 916 U/L (12-78) H Alkaline Phosphatase 304 U/L (46-116) H Total Protein 4.5 G/DL (6.4-8.2) L Albumin 2.1 G/DL (3.4-5.0) L Globulin 2.4 g/dL Albumin/Globulin Ratio 0.9 (1.0-2.7) L Random Vancomycin Level 5.8 ug/mL Plan Problems: (1) Sepsis Assessment & Plan: Patient critically ill and septic. Leukocytosis anemia elevated LFTs abnormal labs. Likely shock liver. Resuscitation with IV fluids continue antibiotics per infectious disease continue trending labs. Line in place and functional we will continue to monitor prior site okay and stable. Will follow with recommendations thank you worsening labs noted prognosis guarded DAILY ESTIMATED NEEDS: Needs based on Critical care, underweight, DM/ 51kg 25-30 kcals/kg 5715-7563 total kcals 1.2-2 g protein/kg 61-102 g total protein 25-30 mL/kg 9484-1711 total fluid mLs NUTRITION DIAGNOSIS: Swallowing difficulty R/T respiratory failure as evidenced by orally intubated, NPO at this time, OGT to LIS, on pressors. 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 ENTERAL NUTRITION RECOMMENDATIONS: Glucerna 1.2 @ 50ml/hr x 24 hrs to provide 1200ml, 1440kcal, 72g prot, 966ml free water * With GI access and HEMODYNAMIC stability -> initiate Glucerna 1.2 @ 10ml/hr x 6 hrs -> advance 10ml q 4-6 hrs as tolerated to goal -> HOB over 30 degrees/ water flush per MD WITHOUT HEMODYNAMIC STABILTY: trophic feeding of Glucerna 1.2 @ 10ml/hr ADDITIONAL RECOMMENDATIONS: * Calibrated bedscale wt * Monitor HD stablity: hypotensive, without pressor supprot at this time * Monitor BGs, rec NISS w/ TF (h/o DM) -> maintain added D5 IVF while NPO to prevent hypoglycemia * Monitor renal fxn + lytes- creat trend up, phos elev, K wnl -> monitor need for TF rec change (2) ATN (acute tubular necrosis) (3) UTI (urinary tract infection) (4) Severe protein-calorie malnutrition (5) Shock (6) Elevated troponin I level (7) Opiate dependence, continuous (8) Abnormal laboratory test result (9) Gastrointestinal hemorrhage (10) ACS (acute coronary syndrome) (11) History of depression (12) Cachexia (13) Acute respiratory failure (14) Altered level of consciousness (15) History of chronic pain (16) Prolonged Q-T interval on ECG (17) Altered mental status, unspecified Monty Álvarez Apr 14, 2020 14:17
--- NOTE | 2020-04-14 15:22 | Diagnostic Imaging Report ---
Indication: Abnormal liver function tests. Abnormal renal function tests Technique: Maloney-scale and duplex images of the upper abdomen were obtained Comparison: none Findings: There is a small amount of ascites fluid. Gallbladder demonstrates gallstones. Patient unable to report Kaiser's sign Common bile duct measures 6 mm in diameter. No intrahepatic biliary ductal dilatation. Liver demonstrates slightly coarsened echogenicity and slight surface nodularity. It is slightly enlarged Portal vein and hepatic veins are patent. Pancreas is unremarkable. The pancreatic duct is somewhat ectatic, however, measuring 4 mm in diameter. Spleen is unremarkable. Left kidney measures 13 cm in length. Right kidney measures 10.6 cm length. Kidneys demonstrate slightly increased echogenicity There is no hydronephrosis. No focal abnormality . Non-aneurysmal abdominal aorta . There is trace pleural fluid on the right Impression: Mildly enlarged liver. Coarsened hepatic echogenicity and slight surface nodularity suggest early cirrhotic change Cholelithiasis. Negative for dilated bile ducts Small amount of ascites fluid Ectatic pancreatic duct, could indicate sequelae of pancreatitis Mildly echogenic kidneys, consistent with medical renal disease. No hydronephrosis Trace right pleural effusion
--- NOTE | 2020-04-14 16:01 | NUR ---
NURSE NOTES: Patient remains in critical stage.ADLs done , turned and repositioned for comfort and skin management. Still connected to low intermittent GI suction.Rectal tube draining well.Remains on Levophed drip titrate as tolerated.Will continue to monitor.
--- NOTE | 2020-04-14 16:02 | NUR ---
NURSE NOTES: Patient ADLs done, mouth care done and suctioned as tolerated.Remains on GI suction,no significant change in condition. Patient seen by Dr Lewis, will follow up with new orders.Kept clean dry and comfortable.Call light within easy reach.Will continue close monitoring.
--- NOTE | 2020-04-14 16:50 | NUR ---
CASE MANAGEMENT:REVIEW 04/14/20 SI:ACUTE RESPIRATORY FAILURE ~ INTUBATED. SEPSIS. UTI. THROMBOCYTOPENIA 97.6 101 20 82/49 100% MEHANICAL VENT FiO2 40 WBC 11.5 H/H 8.3/25.6 PLT 55 ABG: pH 7.327 pO2 64.1 HCO3 20.7 O2 SAT 91.1 IS:LEVOPHED GTT IV Q24 IV D5.NS @100ML/HR IV ZITHROMAX QD X7 BAGS IV MEROPENEM BID IV CALCIUM GLUCONATE TID IV SODIUM BICARB @76ML/HR IV PROTONIX QD Right femoral central venous catheter insertion \:ICU STATUS PLAN: WEAN OFF LEVOPHED
--- NOTE | 2020-04-14 16:55 | NUR ---
*-* INSURANCE *-* UPDATED CLINICALS AND REVIEWS HAVE BEEN FAXED TO: SHAYAN SILVER T: [phone] F: [phone] Addendum: 04/15/20 at 1335 by TRIXIE COKER LVN ANDREINA# [id number]
--- NOTE | 2020-04-14 18:10 | Cardiology Progress Note ---
Assessment/Plan Assessment/Plan respiratory failure hypotension sepsis cad s/p luis 2018 icm arf aortic regurgitation infitlrates gi bleed MS ? anemia rhabdomyolysis abn lft ? secondry to shock liver or rhabdo lactic acidosis thrombocytopenia ct chest Indeterminate areas of nodularity and irregular consolidation indeterminate for infectious, inflammatory or neoplastic etiology. Recommend pulmonary consultation and short-term interval follow-up. Small amount of debris in the left, greater than right bronchi. Mild mediastinal and hilar lymphadenopathy cr stil poor trop down trending ck down trending on 03/21 echo prelim systolic dysfunction er 40% mod AR has received several liters of ivf ekg reviewed after two days of near normal cardiac enzyme noted to have sig elevated in enzymes , in addition sig abn in cpk and lfts as of 04/11, the etiology or rhabdo is not clears and her hgb has dropped form 14.8 at admission to repeat level 8.5 remains on pressor for now but variable doese on abx is on bicarb drop now watch for with drawl form narcotic statin when lft improved will need to repeat echo in near futuer nwo remain in isolation still depite neg pci for c hgb lower plt are lower still ecotrin is with held check protime to see if dic Subjective ROS Limited/Unobtainable: Yes Subjective remain on a vent on pressore Objective Last 24 Hour Vital Signs Date Time Temp Pulse Resp B/P (MAP) Pulse Ox O2 Delivery O2 Flow Rate FiO2 04/14/20 17:15 101 20 84/51 (62) 100 04/14/20 17:00 84/51 04/14/20 17:00 101 20 84/52 (63) 100 04/14/20 16:45 101 20 88/48 (61) 100 04/14/20 16:30 101 20 90/53 (65) 100 04/14/20 16:15 102 20 83/49 (60) 100 04/14/20 16:00 97.6 101 20 82/49 (60) 100 04/14/20 16:00 102 04/14/20 16:00 82/53 04/14/20 16:00 40 04/14/20 16:00 Mechanical Ventilator 04/14/20 15:45 102 20 94/54 (67) 100 04/14/20 15:30 105 20 82/53 (63) 100 8/25/20 15:28 94 24 50 04/14/20 15:15 104 20 76/46 (56) 100 04/14/20 15:00 71/42 04/14/20 15:00 104 20 70/46 (54) 100 04/14/20 14:55 60 04/14/20 14:30 105 20 71/42 (52) 100 04/14/20 14:00 110 20 118/68 (85) 100 04/14/20 13:30 111 20 97/55 (69) 100 04/14/20 13:00 104 23 115/64 (81) 99 04/14/20 13:00 115/64 04/14/20 12:45 105 23 111/60 (77) 99 04/14/20 12:30 104 23 114/59 (77) 98 04/14/20 12:15 104 20 113/57 (75) 98 04/14/20 12:00 Mechanical Ventilator 04/14/20 12:00 103 04/14/20 12:00 105 23 82/47 (59) 98 04/14/20 12:00 82/47 04/14/20 12:00 40 04/14/20 11:30 106 23 40 04/14/20 11:15 104 23 111/59 (76) 92 04/14/20 11:00 105 22 110/61 (77) 94 04/14/20 11:00 111/59 04/14/20 10:49 97.6 04/14/20 10:45 106 24 123/62 (82) 93 04/14/20 10:30 102 24 132/65 (87) 98 04/14/20 10:15 108 23 137/55 (82) 100 04/14/20 10:00 106 22 137/64 (88) 100 04/14/20 10:00 137/55 04/14/20 09:45 100 20 90/52 (65) 100 04/14/20 09:30 105 19 129/61 (83) 100 04/14/20 09:15 97 20 78/50 (59) 100 04/14/20 09:00 99 20 79/63 (68) 100 04/14/20 09:00 78/50 04/14/20 08:45 99 20 79/49 (59) 100 04/14/20 08:30 99 20 81/48 (59) 100 04/14/20 08:15 101 20 80/51 (61) 100 04/14/20 08:00 100.0 105 20 119/61 (80) 100 04/14/20 08:00 40 04/14/20 08:00 Mechanical Ventilator 04/14/20 08:00 106 04/14/20 07:45 90 18 117/65 (82) 04/14/20 07:43 70/35 04/14/20 07:30 99 20 116/65 (82) 100 04/14/20 07:15 94 21 110/62 (78) 100 04/14/20 07:07 98 20 40 04/14/20 07:05 98 20 81/43 (56) 100 04/14/20 06:30 98 20 77/43 (54) 100 04/14/20 06:30 97 27 04/14/20 06:00 102 20 68/40 (49) 100 04/14/20 05:30 80 36 153/71 (98) 98 04/14/20 05:00 80 38 161/78 (105) 97 04/14/20 05:00 99 22 40 04/14/20 05:00 167/61 04/14/20 04:30 103 23 117/63 (81) 98 04/14/20 04:00 97.4 63 30 146/75 (98) 04/14/20 04:00 145/75 04/14/20 04:00 40 04/14/20 04:00 103 04/14/20 04:00 Mechanical Ventilator 04/14/20 03:30 101 19 101/61 (74) 04/14/20 03:18 105 23 40 04/14/20 03:00 154/65 04/14/20 03:00 101 25 117/64 (81) 100 04/14/20 02:30 102 30 140/113 (122) 86 04/14/20 02:00 98 27 136/66 (89) 97 04/14/20 02:00 98 27 136/66 (89) 97 04/14/20 02:00 124/84 04/14/20 01:45 97 27 140/70 (93) 99 04/14/20 01:30 99 27 141/69 (93) 97 04/14/20 01:30 99 27 141/69 (93) 97 04/14/20 01:25 102 22 40 04/14/20 01:15 101 26 152/64 (93) 90 04/14/20 01:00 123/84 04/14/20 01:00 103 31 142/94 (110) 79 04/14/20 01:00 103 31 142/94 (110) 79 04/14/20 00:56 106 27 164/74 (104) 90 04/14/20 00:54 100 32 164/94 (117) 04/14/20 00:45 104 33 162/85 (110) 94 04/14/20 00:30 106 31 155/82 (106) 98 04/14/20 00:30 106 31 155/82 (106) 98 04/14/20 00:15 108 31 154/83 (106) 100 04/14/20 00:00 97.0 107 28 139/71 (93) 96 04/14/20 00:00 Mechanical Ventilator 04/14/20 00:00 102 04/14/20 00:00 154/83 04/14/20 00:00 40 04/14/20 00:00 107 28 139/71 (93) 96 04/13/20 23:30 103 15 102/52 (69) 90 04/13/20 23:10 102 23 40 04/13/20 23:00 105 27 153/71 (98) 94 04/13/20 22:30 106 27 156/75 (102) 93 04/13/20 22:00 100 29 146/67 (93) 95 04/13/20 22:00 165/89 04/13/20 21:32 155/89 04/13/20 21:30 106 24 158/96 (116) 98 04/13/20 21:09 109 24 40 04/13/20 21:00 108 26 150/85 (106) 100 04/13/20 21:00 112/56 04/13/20 21:00 107 26 155/74 (101) 93 04/13/20 20:30 107 26 155/74 (101) 93 04/13/20 20:03 74/44 04/13/20 20:00 105 04/13/20 20:00 Mechanical Ventilator 04/13/20 20:00 96.0 94 20 76/45 (55) 100 04/13/20 20:00 40 04/13/20 19:30 102 22 98/52 (67) 98 04/13/20 19:26 109 24 40 04/13/20 19:15 105 24 105/58 (74) 100 04/13/20 19:00 103 21 113/61 (78) 100 04/13/20 19:00 105/58 04/13/20 18:45 103 20 119/57 (77) 100 04/13/20 18:30 105 19 117/56 (76) 100 04/13/20 18:15 111 22 135/65 (88) 100 General Appearance: no apparent distress, on vent, patient on isolation, isolation precautions Extremities: no swelling Intake and Output 04/13/20 04/14/20 19:00 07:00 Intake Total 3051.91 ml 2198.70 ml Output Total 1535 ml 1842 ml Balance 1516.91 ml 356.70 ml IV Total 3051.91 ml 2198.70 ml Output Urine Total 135 ml 242 ml Gastric Drainage Total 1400 ml 1600 ml # Bowel Movements 3 3 Laboratory Tests Test 04/14/20 03:15 04/14/20 14:57 White Blood Count 11.5 K/UL (4.8-10.8) H Red Blood Count 2.99 M/UL (4.20-5.40) L Hemoglobin 8.3 G/DL (12.0-16.0) L Hematocrit 25.6 % (37.0-47.0) L Mean Corpuscular Volume 86 FL (80-99) Mean Corpuscular Hemoglobin 27.8 PG (27.0-31.0) Mean Corpuscular Hemoglobin Concent 32.4 G/DL (32.0-36.0) Red Cell Distribution Width 16.0 % (11.6-14.8) H Platelet Count 55 K/UL (150-450) L Mean Platelet Volume 7.8 FL (6.5-10.1) Neutrophils (%) (Auto) % (45.0-75.0) Lymphocytes (%) (Auto) % (20.0-45.0) Monocytes (%) (Auto) % (1.0-10.0) Eosinophils (%) (Auto) % (0.0-3.0) Basophils (%) (Auto) % (0.0-2.0) Differential Total Cells Counted 100 Neutrophils % (Manual) 61 % (45-75) Lymphocytes % (Manual) 3 % (20-45) L Monocytes % (Manual) 13 % (1-10) H Eosinophils % (Manual) 0 % (0-3) Basophils % (Manual) 0 % (0-2) Band Neutrophils 23 % (0-8) H Platelet Estimate Decreased L Platelet Morphology Normal Hypochromasia 1+ Anisocytosis 1+ Jessica Cells Occasional Sodium Level 130 MMOL/L (136-145) L Potassium Level 3.4 MMOL/L (3.5-5.1) L Chloride Level 91 MMOL/L (98-107) L Carbon Dioxide Level 20 MMOL/L (21-32) L Anion Gap 19 mmol/L (5-15) H Blood Urea Nitrogen 73 mg/dL (7-18) H Creatinine 3.0 MG/DL (0.55-1.30) H Estimat Glomerular Filtration Rate 16.0 mL/min (>60) Glucose Level 76 MG/DL (74-106) Calcium Level 7.1 MG/DL (8.5-10.1) L Phosphorus Level 5.1 MG/DL (2.5-4.9) H Magnesium Level 2.1 MG/DL (1.8-2.4) Total Bilirubin 2.9 MG/DL (0.2-1.0) H Direct Bilirubin 284.0 MG/DL (0.0-0.3) H Aspartate Amino Transf (AST/SGOT) 1916 U/L (15-37) H Alanine Aminotransferase (ALT/SGPT) 916 U/L (12-78) H Alkaline Phosphatase 304 U/L (46-116) H Total Protein 4.5 G/DL (6.4-8.2) L Albumin 2.1 G/DL (3.4-5.0) L Globulin 2.4 g/dL Albumin/Globulin Ratio 0.9 (1.0-2.7) L Random Vancomycin Level 5.8 ug/mL Arterial Blood pH 7.327 (7.350-7.450) Arterial Blood Partial Pressure CO2 40.4 mmHg (35.0-45.0) Arterial Blood Partial Pressure O2 64.1 mmHg (75.0-100.0) L Arterial Blood HCO3 20.7 mmol/L (22.0-26.0) L Arterial Blood Oxygen Saturation 91.1 % (95-100) L Arterial Blood Base Excess -4.9 (-2-2) L Marshall Test Positive Microbiology Date/Time Source Procedure Growth Status 04/13/20 16:15 Nasopharynx SARS-CoV-2 RdRp Gene Assay - Final Complete Objective per id HEENT: No pale conjunctivae. No icterus. ETT in palce NECK: No lymphadenopathy. CHEST: Coarse breathing sounds. HEART: S1, S2. ABDOMEN: Soft. EXTREMITIES: No cyanosis at this time. NEUROLOGIC: Sedated. Ronal Mendes MD Apr 14, 2020 18:10
--- NOTE | 2020-04-14 18:30 | NUR ---
NURSE NOTES: Patient ADLs done, mouth care done and suctioned as tolerated.Tolerate well feeding with no residual at this time.No significant change in condition. Patient seen by Dr Lewis, will follow up with new orders.Kept clean dry and comfortable.Call light within easy reach.Will continue close monitoring. Addendum: 04/14/20 at 1846 by Marlen Peña RN wrong patient
--- NOTE | 2020-04-14 18:59 | Internal Med Progress Note ---
Subjective Date of Service: Apr 14, 2020 Physician Name Taras Benson Attending Physician Adalberto Monk MD Current Medications Medications (Trade) Dose Ordered Sig/Issa Route PRN Reason Start Time Stop Time Status Last Admin Dose Admin Acetaminophen (Tylenol) 650 mg Q4H PRN NG Temp >100.5 04/14/20 13:15 05/12/20 21:14 Albuterol/ Ipratropium (Albuterol/ Ipratropium) 3 ml Q4H PRN HHN Shortness of Breath 04/09/20 19:15 04/14/20 19:14 Azithromycin 500 mg/Dextrose 275 ml @ 275 mls/hr Q24HRS IV 04/12/20 15:00 04/18/20 15:59 04/14/20 14:15 Calcium Gluconate/ Sodium Chloride 50 ml @ 50 mls/hr Q8HR IVPB 04/13/20 14:00 07/11/20 20:59 04/14/20 14:15 Chlorhexidine Gluconate (Elin-Hex 2%) 1 applic DAILY@2000 TOPIC 04/10/20 20:00 07/09/20 19:59 04/13/20 20:03 Dextrose (Dextrose 50%) 25 ml Q30M PRN IV Hypoglycemia 04/09/20 19:15 07/08/20 19:14 Dextrose (Dextrose 50%) 50 ml Q30M PRN IV Hypoglycemia 04/09/20 19:15 07/08/20 19:14 Dextrose/Sodium Chloride 1,000 ml @ 100 mls/hr Q10H IV 04/13/20 08:45 05/13/20 08:44 04/14/20 14:16 Lorazepam (Ativan 2mg/ml 1ml) 2 mg Q2H PRN IV agitation 04/09/20 19:15 04/16/20 19:14 04/14/20 10:20 Meropenem 1 gm/ Sodium Chloride 55 ml @ 110 mls/hr Q12H IVPB 04/12/20 18:00 04/17/20 17:59 04/14/20 17:47 Metoclopramide HCl (Reglan) 10 mg Q6H IVP 04/13/20 02:00 05/13/20 01:59 04/14/20 14:16 Morphine Sulfate (Morphine Sulfate) 4 mg Q4H PRN IVP Severe Pain (Pain Scale 7-10) 04/09/20 19:15 04/16/20 19:14 04/14/20 10:19 Nitroglycerin (Ntg) 0.4 mg Q5MIN X 3 DOSES PRN SL Prn Chest Pain 04/09/20 19:15 05/09/20 19:14 Norepinephrine Bitartrate 8 mg/ Dextrose 558 ml @ 0 mls/hr Q24H IV 04/10/20 20:30 05/10/20 19:59 04/14/20 07:43 Ondansetron HCl (Zofran) 4 mg Q6H PRN IVP Nausea & Vomiting 04/09/20 19:15 05/09/20 19:14 Pantoprazole (Protonix) 40 mg DAILY IVP 04/12/20 09:00 05/12/20 08:59 04/14/20 08:23 Sodium Bicarbonate 150 ml/Dextrose 1,150 ml @ 76 mls/hr Q15H8M IV 04/12/20 10:00 05/12/20 09:59 04/14/20 07:51 [facility] 1 ea DAILY PRN MISC Per rx protocol 04/14/20 12:00 05/14/20 11:59 Allergies: Coded Allergies: CEPHALOSPORINS (Verified Allergy, Intermediate, Anaphylaxis, 12/14/12) DIAZEPAM (Verified Allergy, Intermediate, DYSTONIC, 12/14/12) SUMATRIPTAN (Verified Allergy, Intermediate, 12/14/12) SUMATRIPTAN SUCCINATE (Verified Allergy, Intermediate, 12/14/12) TRAMADOL (Verified Allergy, Intermediate, Anaphylaxis, 12/14/12) CEPHALEXIN (Unverified Allergy, Unknown, 10/25/19) PENICILLINS (Unverified Allergy, Unknown, 08/26/18) Uncoded Allergies: PCN (Allergy, Unknown, 10/25/19) ROS Limited/Unobtainable: Yes Subjective 60 YO F admitted with altered mental status. Now respiratory failure and hypotension. Cover for Int Kevan-Dr Monk. ICU. Intubated and sedated. On levophed Objective Last Vital Signs Date Time Temp Pulse Resp B/P (MAP) Pulse Ox O2 Delivery O2 Flow Rate FiO2 04/14/20 18:30 107 21 159/57 (91) 100 04/14/20 16:00 97.6 04/14/20 16:00 40 04/14/20 16:00 Mechanical Ventilator Laboratory Tests Test 04/14/20 03:15 04/14/20 14:57 White Blood Count 11.5 K/UL (4.8-10.8) H Red Blood Count 2.99 M/UL (4.20-5.40) L Hemoglobin 8.3 G/DL (12.0-16.0) L Hematocrit 25.6 % (37.0-47.0) L Mean Corpuscular Volume 86 FL (80-99) Mean Corpuscular Hemoglobin 27.8 PG (27.0-31.0) Mean Corpuscular Hemoglobin Concent 32.4 G/DL (32.0-36.0) Red Cell Distribution Width 16.0 % (11.6-14.8) H Platelet Count 55 K/UL (150-450) L Mean Platelet Volume 7.8 FL (6.5-10.1) Neutrophils (%) (Auto) % (45.0-75.0) Lymphocytes (%) (Auto) % (20.0-45.0) Monocytes (%) (Auto) % (1.0-10.0) Eosinophils (%) (Auto) % (0.0-3.0) Basophils (%) (Auto) % (0.0-2.0) Differential Total Cells Counted 100 Neutrophils % (Manual) 61 % (45-75) Lymphocytes % (Manual) 3 % (20-45) L Monocytes % (Manual) 13 % (1-10) H Eosinophils % (Manual) 0 % (0-3) Basophils % (Manual) 0 % (0-2) Band Neutrophils 23 % (0-8) H Platelet Estimate Decreased L Platelet Morphology Normal Hypochromasia 1+ Anisocytosis 1+ Branford Cells Occasional Sodium Level 130 MMOL/L (136-145) L Potassium Level 3.4 MMOL/L (3.5-5.1) L Chloride Level 91 MMOL/L (98-107) L Carbon Dioxide Level 20 MMOL/L (21-32) L Anion Gap 19 mmol/L (5-15) H Blood Urea Nitrogen 73 mg/dL (7-18) H Creatinine 3.0 MG/DL (0.55-1.30) H Estimat Glomerular Filtration Rate 16.0 mL/min (>60) Glucose Level 76 MG/DL (74-106) Calcium Level 7.1 MG/DL (8.5-10.1) L Phosphorus Level 5.1 MG/DL (2.5-4.9) H Magnesium Level 2.1 MG/DL (1.8-2.4) Total Bilirubin 2.9 MG/DL (0.2-1.0) H Direct Bilirubin 284.0 MG/DL (0.0-0.3) H Aspartate Amino Transf (AST/SGOT) 1916 U/L (15-37) H Alanine Aminotransferase (ALT/SGPT) 916 U/L (12-78) H Alkaline Phosphatase 304 U/L (46-116) H Total Protein 4.5 G/DL (6.4-8.2) L Albumin 2.1 G/DL (3.4-5.0) L Globulin 2.4 g/dL Albumin/Globulin Ratio 0.9 (1.0-2.7) L Random Vancomycin Level 5.8 ug/mL Arterial Blood pH 7.327 (7.350-7.450) Arterial Blood Partial Pressure CO2 40.4 mmHg (35.0-45.0) Arterial Blood Partial Pressure O2 64.1 mmHg (75.0-100.0) L Arterial Blood HCO3 20.7 mmol/L (22.0-26.0) L Arterial Blood Oxygen Saturation 91.1 % (95-100) L Arterial Blood Base Excess -4.9 (-2-2) L Marshall Test Positive Microbiology Date/Time Source Procedure Growth Status 04/13/20 16:15 Nasopharynx SARS-CoV-2 RdRp Gene Assay - Final Complete Intake and Output 04/13/20 04/14/20 19:00 07:00 Intake Total 3051.91 ml 2198.70 ml Output Total 1535 ml 1842 ml Balance 1516.91 ml 356.70 ml IV Total 3051.91 ml 2198.70 ml Output Urine Total 135 ml 242 ml Gastric Drainage Total 1400 ml 1600 ml # Bowel Movements 3 3 Objective General Appearance: WD/WN, moderate distress, lethargic EENT: PERRL/EOMI, normal ENT inspection Neck: non-tender, normal alignment, supple, normal inspection Cardiovascular: normal peripheral pulses, normal rate, regular rhythm, no gallop/murmur, no JVD Respiratory/Chest: Mech vent; respiratory distress, crackles/rales, rhonchi - bilaterally, expiratory wheezing Abdomen: normal bowel sounds, non tender, soft, no organomegaly, no mass Extremities: normal range of motion, non-tender 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 ABX=meropenem and linezolid. ID=Dr [id number] (4) Elevated troponin I level Assessment & Plan: Cardiology=Dr Mendes (5) Acute respiratory failure Assessment & Plan: Pulmonary/critical care=Dr Rivera; Vent per pulmonary (6) Altered mental status, unspecified (7) ACS (acute coronary syndrome) Taras Benson MD Apr 14, 2020 18:59
--- NOTE | 2020-04-14 19:12 | NUR ---
HAND-OFF: Report given to NEELA Duvall.
--- NOTE | 2020-04-14 19:36 | NUR ---
NURSE NOTES: received report from los eisenberg pt orally intubated -vent o2sat 100% open eye does not follows command levo drip at 2mcg /min reposition and suction pt dnr/din
[2020-04-14] MEDS: Dyna-Hex 2% Top Sol 2oz TOPIC SCH (20:52)
--- NOTE | 2020-04-14 22:00 | NUR ---
NURSE NOTES: reposition and suction levo drip at imcg /min
[2020-04-15] VITALS (35 sets, daily range): BP systolic 0–216; BP diastolic 0–79
--- NOTE | 2020-04-15 | NUR ---
NURSE NOTES: levo drip off with bp 160 /60
[2020-04-15] MEDS: D5NS 1,000 ML IV SCH (00:45)
[2020-04-15] MEDS: Metoclopramide 10mg/2ml Inj IVP SCH ×2 (01:46→08:19)
--- NOTE | 2020-04-15 04:00 | NUR ---
NURSE NOTES: complete bed bath oral care done temp99.2
[2020-04-15] MEDS: Calcium Gluconate 1gm/50ml 50 ML IVPB SCH (05:23)
[2020-04-15] MEDS: Meropenem 1 GM in NS 55 ML IVPB SCH (05:24)
[2020-04-15] MEDS: LORazepam Inj 2mg/ml 1ml IV PRN (05:36)
[2020-04-15 05:42] LABS: HEMATOCRIT 22.4 % (37.0-47.0); HEMOGLOBIN 7.5 G/DL (12.0-16.0); MEAN CORPUSCULAR VOLUME 85 FL (80-99); PLATELET COUNT 44 K/UL (150-450); RED BLOOD COUNT 2.64 M/UL (4.20-5.40); RED CELL DISTRIBUTION WIDTH 15.8 % (11.6-14.8); WHITE BLOOD COUNT 13.9 K/UL (4.8-10.8)
[2020-04-15 05:46] LABS: INR 1.4 (0.9-1.1)
--- NOTE | 2020-04-15 06:00 | NUR ---
NURSE NOTES: pt keep on restless and biting et tube atiban 2mg ivp with relief
[2020-04-15 06:31] LABS: ANION GAP 17 mmol/L (5-15); BLOOD UREA NITROGEN 77 mg/dL (7-18); CALCIUM 6.9 MG/DL (8.5-10.1); CARBON DIOXIDE 23 MMOL/L (21-32); CHLORIDE 92 MMOL/L (98-107); CREATININE 3.2 MG/DL (0.55-1.30); POTASSIUM 3.1 MMOL/L (3.5-5.1); SODIUM 132 MMOL/L (136-145)
[2020-04-15 06:41] LABS: ALANINE AMINOTRANSFERASE 595 U/L (12-78); ALBUMIN 1.6 G/DL (3.4-5.0); ALBUMIN/GLOBULIN RATIO 0.9 (1.0-2.7); ALKALINE PHOSPHATASE 269 U/L (46-116); ASPARTATE AMINO TRANSFERASE 1246 U/L (15-37); PHOSPHORUS 5.3 MG/DL (2.5-4.9)
[2020-04-15 06:44] LABS: BILIRUBIN,DIRECT 2.3 MG/DL (0.0-0.3)
--- NOTE | 2020-04-15 07:18 | NUR ---
NURSE HAND-OFF REPORT: Latest Vital Signs: Temperature 99.2 , Pulse 116 , B/P 95 /52 , Respiratory Rate 20 , O2 SAT 100 , Mechanical Ventilator, O2 Flow Rate . Vital Sign Comment: EKG Rhythm: Sinus Tachycardia Rhythm change?: N Notified?: -n Response: Latest Betancur Fall Score: 50 Fall Risk: High Risk Safety Measures: Call light Within Reach, Bed Alarm Zone 1, Side Rails Side Rails x3, Bed position Low and Locked. Fall Precautions: Door Sign Report given to jaxon watson rn using sbar.
--- NOTE | 2020-04-15 07:30 | NUR ---
NURSE NOTES: Patient stable AOx0 with no s/sx of pain or distress. ST on manager monitoring. Normal cardiac and breath sounds. RR even and unlabored on RA. VSS. ETT in middle 7.5 lip line 23 AC 20 600mL Fio2 40% and p5. NPO at this time. Feeding on hold due to high residual. Rectal tube in place with diarrhea brown in color. Vicki colored urine in [place] noted draining well to gravity. Generalized edema noted with Wound to LT buttock and wounds 2/2 ETT laughlin. RT Femoral line patent. Dressing change needed. IV fluids and bicarb infusing. Side rails upx2, call light within reach, bed low and locked. Will contine to monitor. Oral care performed. Addendum: 04/15/20 at 1106 by VICKY JIMENEZ RN Patient not on RA. Patient has ETT.
[2020-04-15] MEDS ORDERED: Vancomycin 1gm/D5W 275ml IVPB ONE ×2 (08:00)
[2020-04-15] MEDS: Pantoprazole Inj IVP SCH (08:20)
--- NOTE | 2020-04-15 08:52 | Nephrology Progress Note ---
Assessment/Plan Problem List: (1) ATN (acute tubular necrosis) (2) Shock Assessment: Shock Liver (3) Sepsis (4) Acute respiratory failure (5) Rhabdomyolysis Assessment: Severe (6) Elevated troponin I level Assessment Acute renal failure Acute respiratory failure Sepsis- SHOCK, shock liver Toxic metabolic encephalopathy phalangeal Plan April 15: Labs reviewed. Potassium supplement given. Patient remains on IV calcium. Discussed with RN. Family planning for terminal extubation. As of now patient remains intubated on ventilator. Sodium bicarb infusion discontinued. April 14: Patient seen at 9 AM today. Late note entry now. Continues to do poorly. I received a note from Dr Rivera that the family later this morning are requesting terminal extubation. Considering patient's overall poor clinical condition and multiple medical problem I am agreeable with this plan. April 13: Continued to do poorly. Serum creatinine 3.1. Troponin eye lowering. Serum calcium slightly higher. Metabolic acidosis improved. Will increase IV calcium gluconate. Will adjust IV fluids. 1 dose of Lasix 100 mg for oliguria IV ordered. Patient remains full code. Continue to monitor renal parameters and avoid nephrotoxic's as possible.. April 12: Patient doing poorly. Remains on pressors. Serum creatinine rising. Troponin I declining. Calcium low. Remains acidotic. Will give IV calcium. IV bicarb started by fire engine operator. Will continue to monitor renal parameters. Prefer to avoid nephrotoxic's. Also CPK over 10,000 indicative of severe left rhabdomyolysis. Vigorous hydration will be continued. Fluid challenge Pressors 100 mg Lasix IV push 1 time One dose Sodium Bicarb IV Monitor renal parameters Antibiotics Avoid nephrotoxic's Pulmonary support 2D echocardiogram : Pending Kidney ultrasound : Pending Per orders Subjective ROS Limited/Unobtainable: Yes Objective Objective Last 24 Hour Vital Signs Date Time Temp Pulse Resp B/P (MAP) Pulse Ox O2 Delivery O2 Flow Rate FiO2 04/15/20 07:04 112 20 40 04/15/20 06:30 113 20 04/15/20 06:00 116 20 95/52 (66) 100 04/15/20 05:30 115 22 189/78 (115) 100 04/15/20 05:13 118 20 40 04/15/20 05:00 110 20 103/47 (65) 100 04/15/20 04:30 109 20 102/51 (68) 100 04/15/20 04:00 99.2 112 20 104/50 (68) 100 04/15/20 04:00 40 04/15/20 04:00 108 04/15/20 04:00 Mechanical Ventilator 04/15/20 03:30 115 20 99/47 (64) 100 04/15/20 03:23 118 20 40 04/15/20 03:00 128 20 129/59 (82) 100 04/15/20 02:30 112 21 130/71 (90) 98 04/15/20 02:00 113 21 157/55 (89) 99 04/15/20 01:30 116 22 162/54 (90) 99 04/15/20 01:00 120 22 160/66 (97) 95 04/15/20 00:30 113 26 216/79 (124) 90 04/15/20 00:19 111 27 40 04/15/20 00:00 105 04/15/20 00:00 40 04/15/20 00:00 Mechanical Ventilator 04/15/20 00:00 98.6 108 20 166/59 (94) 100 04/14/20 23:30 106 20 161/73 (102) 100 04/14/20 23:05 104 24 40 04/14/20 23:00 160/84 04/14/20 23:00 100 19 148/60 (89) 100 04/14/20 22:30 103 20 123/61 (81) 100 04/14/20 22:03 105 20 116/55 (75) 100 04/14/20 22:00 126/56 04/14/20 22:00 103 20 126/56 (79) 04/14/20 21:30 105 20 116/55 (75) 100 04/14/20 21:00 136/50 04/14/20 21:00 106 20 149/63 (91) 100 04/14/20 20:51 101 22 40 04/14/20 20:30 107 20 159/69 (99) 99 04/14/20 20:00 40 04/14/20 20:00 101 04/14/20 20:00 98.5 106 22 156/53 (87) 98 04/14/20 20:00 165/64 04/14/20 20:00 Mechanical Ventilator 04/14/20 19:30 106 24 164/69 (100) 100 04/14/20 19:10 108 24 40 04/14/20 19:00 146/61 04/14/20 19:00 107 20 146/61 (89) 100 04/14/20 18:45 108 20 168/68 (101) 100 04/14/20 18:30 107 21 159/57 (91) 100 04/14/20 18:20 166/72 04/14/20 18:15 108 18 150/72 (98) 100 04/14/20 18:00 150/72 04/14/20 18:00 102 20 82/49 (60) 100 04/14/20 17:45 100 20 82/49 (60) 100 04/14/20 17:30 101 20 85/51 (62) 100 04/14/20 17:15 101 20 84/51 (62) 100 04/14/20 17:00 84/51 04/14/20 17:00 101 20 84/52 (63) 100 04/14/20 16:45 101 20 88/48 (61) 100 04/14/20 16:30 101 20 90/53 (65) 100 04/14/20 16:15 102 20 83/49 (60) 100 04/14/20 16:00 97.6 101 20 82/49 (60) 100 04/14/20 16:00 102 04/14/20 16:00 82/53 04/14/20 16:00 40 04/14/20 16:00 Mechanical Ventilator 04/14/20 15:45 102 20 94/54 (67) 100 04/14/20 15:30 105 20 82/53 (63) 100 04/14/20 15:28 94 24 50 04/14/20 15:15 104 20 76/46 (56) 100 04/14/20 15:00 71/42 04/14/20 15:00 104 20 70/46 (54) 100 04/14/20 14:55 60 04/14/20 14:30 105 20 71/42 (52) 100 04/14/20 14:00 110 20 118/68 (85) 100 04/14/20 13:30 111 20 97/55 (69) 100 04/14/20 13:00 104 23 115/64 (81) 99 04/14/20 13:00 115/64 04/14/20 12:45 105 23 111/60 (77) 99 04/14/20 12:30 104 23 114/59 (77) 98 04/14/20 12:15 104 20 113/57 (75) 98 04/14/20 12:00 Mechanical Ventilator 04/14/20 12:00 103 04/14/20 12:00 105 23 82/47 (59) 98 04/14/20 12:00 82/47 04/14/20 12:00 40 04/14/20 11:30 106 23 40 04/14/20 11:15 104 23 111/59 (76) 92 04/14/20 11:00 105 22 110/61 (77) 94 04/14/20 11:00 111/59 04/14/20 10:49 97.6 04/14/20 10:45 106 24 123/62 (82) 93 04/14/20 10:30 102 24 132/65 (87) 98 04/14/20 10:15 108 23 137/55 (82) 100 04/14/20 10:00 106 22 137/64 (88) 100 04/14/20 10:00 137/55 04/14/20 09:45 100 20 90/52 (65) 100 04/14/20 09:30 105 19 129/61 (83) 100 04/14/20 09:15 97 20 78/50 (59) 100 04/14/20 09:00 99 20 79/63 (68) 100 04/14/20 09:00 78/50 Intake and Output 04/14/20 04/15/20 19:00 07:00 Intake Total 2568.66 ml 2003.54 ml Output Total 265 ml 130 ml Balance 2303.66 ml 1873.54 ml IV Total 2568.66 ml 2003.54 ml Output Urine Total 115 ml 130 ml Stool Total 50 ml Gastric Drainage Total 100 ml Current Medications Medications (Trade) Dose Ordered Sig/Issa Route PRN Reason Start Time Stop Time Status Last Admin Dose Admin Acetaminophen (Tylenol) 650 mg Q4H PRN NG Temp >100.5 04/14/20 13:15 05/12/20 21:14 Azithromycin 500 mg/Dextrose 275 ml @ 275 mls/hr Q24HRS IV 04/12/20 15:00 04/18/20 15:59 04/14/20 14:15 Calcium Gluconate/ Sodium Chloride 50 ml @ 50 mls/hr Q8HR IVPB 04/13/20 14:00 07/11/20 20:59 04/15/20 05:23 Chlorhexidine Gluconate (Elin-Hex 2%) 1 applic DAILY@2000 TOPIC 04/10/20 20:00 07/09/20 19:59 04/14/20 20:52 Dextrose (Dextrose 50%) 25 ml Q30M PRN IV Hypoglycemia 04/09/20 19:15 07/08/20 19:14 Dextrose (Dextrose 50%) 50 ml Q30M PRN IV Hypoglycemia 04/09/20 19:15 07/08/20 19:14 Dextrose/Sodium Chloride 1,000 ml @ 100 mls/hr Q10H IV 04/13/20 08:45 05/13/20 08:44 04/15/20 00:45 Lorazepam (Ativan 2mg/ml 1ml) 2 mg Q2H PRN IV agitation 04/09/20 19:15 04/16/20 19:14 04/15/20 05:36 Meropenem 1 gm/ Sodium Chloride 55 ml @ 110 mls/hr Q12H IVPB 04/12/20 18:00 04/17/20 17:59 04/15/20 05:24 Metoclopramide HCl (Reglan) 10 mg Q6H IVP 04/13/20 02:00 05/13/20 01:59 04/15/20 08:19 Morphine Sulfate (Morphine Sulfate) 4 mg Q4H PRN IVP Severe Pain (Pain Scale 7-10) 04/09/20 19:15 04/16/20 19:14 04/14/20 10:19 Nitroglycerin (Ntg) 0.4 mg Q5MIN X 3 DOSES PRN SL Prn Chest Pain 04/09/20 19:15 05/09/20 19:14 Norepinephrine Bitartrate 8 mg/ Dextrose 558 ml @ 0 mls/hr Q24H IV 04/10/20 20:30 05/10/20 19:59 04/14/20 07:43 Ondansetron HCl (Zofran) 4 mg Q6H PRN IVP Nausea & Vomiting 04/09/20 19:15 05/09/20 19:14 Pantoprazole (Protonix) 40 mg DAILY IVP 04/12/20 09:00 05/12/20 08:59 04/15/20 08:20 Sodium Bicarbonate 150 ml/Dextrose 1,150 ml @ 76 mls/hr Q15H8M IV 04/12/20 10:00 05/12/20 09:59 04/14/20 21:07 Vancomycin HCl (Vanco pharmacy to dose) 1 ea DAILY PRN MISC Per rx protocol 04/14/20 12:00 05/14/20 11:59 Vancomycin HCl 1 gm/Dextrose 275 ml @ 183.708 mls/hr ONCE ONCE IVPB 04/15/20 08:00 04/15/20 09:29 04/15/20 08:19 Laboratory Tests 04/14/20 14:57: Arterial Blood pH 7.327L, Arterial Blood Partial Pressure CO2 40.4, Arterial Blood Partial Pressure O2 64.1L, Arterial Blood HCO3 20.7L, Arterial Blood Oxygen Saturation 91.1L, Arterial Blood Base Excess -4.9L, Marshall Test Positive 04/15/20 03:30: White Blood Count 13.9H, Red Blood Count 2.64L, Hemoglobin 7.5L, Hematocrit 22.4L, Mean Corpuscular Volume 85, Mean Corpuscular Hemoglobin 28.5, Mean Corpuscular Hemoglobin Concent 33.6, Red Cell Distribution Width 15.8H, Platelet Count 44L, Mean Platelet Volume 8.4, Neutrophils (%) (Auto) , Lymphocytes (%) (Auto) , Monocytes (%) (Auto) , Eosinophils (%) (Auto) , Basophils (%) (Auto) , Differential Total Cells Counted 100, Neutrophils % ( Manual) 86H, Lymphocytes % (Manual) 1L, Monocytes % (Manual) 6, Eosinophils % ( Manual) 0, Basophils % (Manual) 0, Band Neutrophils 7, Platelet Estimate DecreasedL, Platelet Morphology Normal, Hypochromasia 1+, Anisocytosis 1+, Prothrombin Time 15.0H, Prothromb Time International Ratio 1.4H, Activated Partial Thromboplast Time 54H, Sodium Level 132L, Potassium Level 3.1L, Chloride Level 92L, Carbon Dioxide Level 23, Anion Gap 17H, Blood Urea Nitrogen 77H, Creatinine 3.2H, Estimat Glomerular Filtration Rate 14.8, Glucose Level 74 , Calcium Level 6.9L, Phosphorus Level 5.3H, Magnesium Level 1.9, Total Bilirubin 3.0H, Direct Bilirubin 2.3H, Aspartate Amino Transf (AST/SGOT) 1246H, Alanine Aminotransferase (ALT/SGPT) 595H, Alkaline Phosphatase 269H, Troponin I 1.397H, Total Protein 3.3L, Albumin 1.6L, Globulin 1.7, Albumin/Globulin Ratio 0.9L, Random Vancomycin Level 4.8, Hepatitis C Antibody [Pending], Hepatitis C RNA (PCR) IUs/ml [Pending], Hepatitis C RNA (PCR) log IUs/ml [Pending], HIV (1&2 ) Antibody Rapid Negative 04/15/20 07:04: Arterial Blood pH 7.394, Arterial Blood Partial Pressure CO2 41.1, Arterial Blood Partial Pressure O2 466.1H, Arterial Blood HCO3 24.5, Arterial Blood Oxygen Saturation 99.3, Arterial Blood Base Excess -0.3, Marshall Test Positive Height (Feet): 5 Height (Inches): 4.00 Weight (Pounds): 125 General Appearance: no apparent distress EENT: other - Remains intubated on ventilator Cardiovascular: tachycardia - Rate 111 Respiratory/Chest: decreased breath sounds Abdomen: distended Objective No change Chepe Green MD Apr 15, 2020 08:52
--- NOTE | 2020-04-15 09:00 | NUR ---
NURSE NOTES: Central line dressing changed and patient cleaned.
--- NOTE | 2020-04-15 09:51 | NUR ---
RADIOLOGY DEPT., CHEST X-RAY DONE.-P.DYE
--- NOTE | 2020-04-15 10:00 | NUR ---
NURSE NOTES: Bicarb discontinued and albumin and potassium given.
--- NOTE | 2020-04-15 11:05 | NUR ---
NURSE NOTES: Spoke with Dr. Rivera. Will wait for family prior to extubation. Per Dr. iPckens, okay to continue holding feed.
--- NOTE | 2020-04-15 11:14 | General Progress Note ---
Assessment/Plan Problem List: (1) Altered mental status, unspecified ICD Codes: R41.82 - Altered mental status, unspecified SNOMED: 984780268 (2) History of chronic pain ICD Codes: Z87.898 - Personal history of other specified conditions SNOMED: 324333427 (3) Acute respiratory failure ICD Codes: J96.00 - Acute respiratory failure, unspecified whether with hypoxia or hypercapnia SNOMED: 02032397 (4) History of depression ICD Codes: Z86.59 - Personal history of other mental and behavioral disorders SNOMED: 708012361 (5) ACS (acute coronary syndrome) ICD Codes: I24.9 - Acute ischemic heart disease, unspecified SNOMED: 796978065 (6) Elevated CEA ICD Codes: R97.0 - Elevated carcinoembryonic antigen [CEA] SNOMED: 698310824 Status: not improved Assessment/Plan: Elevated LFTS>>> shock liver elevated CEA>>> ? source for tumor anemia on pressor ileus thrombocytopenia NGT to suction keep npo fu cardiology fu pulm poor prognosis Subjective ROS Limited/Unobtainable: No Allergies: Coded Allergies: CEPHALOSPORINS (Verified Allergy, Intermediate, Anaphylaxis, 12/14/12) DIAZEPAM (Verified Allergy, Intermediate, DYSTONIC, 12/14/12) SUMATRIPTAN (Verified Allergy, Intermediate, 12/14/12) SUMATRIPTAN SUCCINATE (Verified Allergy, Intermediate, 12/14/12) TRAMADOL (Verified Allergy, Intermediate, Anaphylaxis, 12/14/12) CEPHALEXIN (Unverified Allergy, Unknown, 10/25/19) PENICILLINS (Unverified Allergy, Unknown, 08/26/18) Uncoded Allergies: PCN (Allergy, Unknown, 10/25/19) Objective Last 24 Hour Vital Signs Date Time Temp Pulse Resp B/P (MAP) Pulse Ox O2 Delivery O2 Flow Rate FiO2 04/15/20 10:00 101 20 123/54 (77) 100 04/15/20 09:29 103 20 40 04/15/20 09:00 106 20 109/58 (75) 100 04/15/20 08:00 106 04/15/20 08:00 40 04/15/20 08:00 98.2 108 20 102/52 (69) 100 04/15/20 08:00 Mechanical Ventilator 8/26/20 07:04 112 20 40 04/15/20 07:00 112 20 102/45 (64) 100 04/15/20 06:30 113 20 04/15/20 06:00 116 20 95/52 (66) 100 04/15/20 05:30 115 22 189/78 (115) 100 04/15/20 05:13 118 20 40 04/15/20 05:00 110 20 103/47 (65) 100 04/15/20 04:30 109 20 102/51 (68) 100 04/15/20 04:00 99.2 112 20 104/50 (68) 100 04/15/20 04:00 40 04/15/20 04:00 108 04/15/20 04:00 Mechanical Ventilator 04/15/20 03:30 115 20 99/47 (64) 100 04/15/20 03:23 118 20 40 04/15/20 03:00 128 20 129/59 (82) 100 04/15/20 02:30 112 21 130/71 (90) 98 04/15/20 02:00 113 21 157/55 (89) 99 04/15/20 01:30 116 22 162/54 (90) 99 04/15/20 01:00 120 22 160/66 (97) 95 04/15/20 00:30 113 26 216/79 (124) 90 04/15/20 00:19 111 27 40 04/15/20 00:00 105 04/15/20 00:00 40 04/15/20 00:00 Mechanical Ventilator 04/15/20 00:00 98.6 108 20 166/59 (94) 100 04/14/20 23:30 106 20 161/73 (102) 100 04/14/20 23:05 104 24 40 04/14/20 23:00 160/84 04/14/20 23:00 100 19 148/60 (89) 100 04/14/20 22:30 103 20 123/61 (81) 100 04/14/20 22:03 105 20 116/55 (75) 100 04/14/20 22:00 126/56 04/14/20 22:00 103 20 126/56 (79) 04/14/20 21:30 105 20 116/55 (75) 100 04/14/20 21:00 136/50 04/14/20 21:00 106 20 149/63 (91) 100 04/14/20 20:51 101 22 40 04/14/20 20:30 107 20 159/69 (99) 99 04/14/20 20:00 40 04/14/20 20:00 101 04/14/20 20:00 98.5 106 22 156/53 (87) 98 04/14/20 20:00 165/64 04/14/20 20:00 Mechanical Ventilator 04/14/20 19:30 106 24 164/69 (100) 100 04/14/20 19:10 108 24 40 04/14/20 19:00 146/61 04/14/20 19:00 107 20 146/61 (89) 100 04/14/20 18:45 108 20 168/68 (101) 100 04/14/20 18:30 107 21 159/57 (91) 100 04/14/20 18:20 166/72 04/14/20 18:15 108 18 150/72 (98) 100 04/14/20 18:00 150/72 04/14/20 18:00 102 20 82/49 (60) 100 04/14/20 17:45 100 20 82/49 (60) 100 04/14/20 17:30 101 20 85/51 (62) 100 04/14/20 17:15 101 20 84/51 (62) 100 04/14/20 17:00 84/51 04/14/20 17:00 101 20 84/52 (63) 100 04/14/20 16:45 101 20 88/48 (61) 100 04/14/20 16:30 101 20 90/53 (65) 100 04/14/20 16:15 102 20 83/49 (60) 100 04/14/20 16:00 97.6 101 20 82/49 (60) 100 04/14/20 16:00 102 04/14/20 16:00 82/53 04/14/20 16:00 40 04/14/20 16:00 Mechanical Ventilator 04/14/20 15:45 102 20 94/54 (67) 100 04/14/20 15:30 105 20 82/53 (63) 100 04/14/20 15:28 94 24 50 04/14/20 15:15 104 20 76/46 (56) 100 8/25/20 15:00 71/42 04/14/20 15:00 104 20 70/46 (54) 100 04/14/20 14:55 60 04/14/20 14:30 105 20 71/42 (52) 100 04/14/20 14:00 110 20 118/68 (85) 100 04/14/20 13:30 111 20 97/55 (69) 100 04/14/20 13:00 104 23 115/64 (81) 99 04/14/20 13:00 115/64 04/14/20 12:45 105 23 111/60 (77) 99 04/14/20 12:30 104 23 114/59 (77) 98 04/14/20 12:15 104 20 113/57 (75) 98 04/14/20 12:00 Mechanical Ventilator 04/14/20 12:00 103 04/14/20 12:00 105 23 82/47 (59) 98 04/14/20 12:00 82/47 04/14/20 12:00 40 04/14/20 11:30 106 23 40 04/14/20 11:15 104 23 111/59 (76) 92 Intake and Output 04/14/20 04/15/20 19:00 07:00 Intake Total 2568.66 ml 2179.54 ml Output Total 265 ml 145 ml Balance 2303.66 ml 2034.54 ml IV Total 2568.66 ml 2179.54 ml Output Urine Total 115 ml 145 ml Stool Total 50 ml Gastric Drainage Total 100 ml Laboratory Tests 04/14/20 14:57: Arterial Blood pH 7.327L, Arterial Blood Partial Pressure CO2 40.4, Arterial Blood Partial Pressure O2 64.1L, Arterial Blood HCO3 20.7L, Arterial Blood Oxygen Saturation 91.1L, Arterial Blood Base Excess -4.9L, Marshall Test Positive 04/15/20 03:30: White Blood Count 13.9H, Red Blood Count 2.64L, Hemoglobin 7.5L, Hematocrit 22.4L, Mean Corpuscular Volume 85, Mean Corpuscular Hemoglobin 28.5, Mean Corpuscular Hemoglobin Concent 33.6, Red Cell Distribution Width 15.8H, Platelet Count 44L, Mean Platelet Volume 8.4, Neutrophils (%) (Auto) , Lymphocytes (%) (Auto) , Monocytes (%) (Auto) , Eosinophils (%) (Auto) , Basophils (%) (Auto) , Differential Total Cells Counted 100, Neutrophils % ( Manual) 86H, Lymphocytes % (Manual) 1L, Monocytes % (Manual) 6, Eosinophils % ( Manual) 0, Basophils % (Manual) 0, Band Neutrophils 7, Platelet Estimate DecreasedL, Platelet Morphology Normal, Hypochromasia 1+, Anisocytosis 1+, Prothrombin Time 15.0H, Prothromb Time International Ratio 1.4H, Activated Partial Thromboplast Time 54H, Sodium Level 132L, Potassium Level 3.1L, Chloride Level 92L, Carbon Dioxide Level 23, Anion Gap 17H, Blood Urea Nitrogen 77H, Creatinine 3.2H, Estimat Glomerular Filtration Rate 14.8, Glucose Level 74 , Calcium Level 6.9L, Phosphorus Level 5.3H, Magnesium Level 1.9, Total Bilirubin 3.0H, Direct Bilirubin 2.3H, Aspartate Amino Transf (AST/SGOT) 1246H, Alanine Aminotransferase (ALT/SGPT) 595H, Alkaline Phosphatase 269H, Troponin I 1.397H, Total Protein 3.3L, Albumin 1.6L, Globulin 1.7, Albumin/Globulin Ratio 0.9L, Random Vancomycin Level 4.8, Hepatitis C Antibody [Pending], Hepatitis C RNA (PCR) IUs/ml [Pending], Hepatitis C RNA (PCR) log IUs/ml [Pending], HIV (1&2 ) Antibody Rapid Negative 04/15/20 07:04: Arterial Blood pH 7.394, Arterial Blood Partial Pressure CO2 41.1, Arterial Blood Partial Pressure O2 466.1H, Arterial Blood HCO3 24.5, Arterial Blood Oxygen Saturation 99.3, Arterial Blood Base Excess -0.3, Marshall Test Positive Height (Feet): 5 Height (Inches): 4.00 Weight (Pounds): 125 General Appearance: no apparent distress EENT: normal ENT inspection Neck: supple Cardiovascular: normal rate Respiratory/Chest: decreased breath sounds Abdomen: normal bowel sounds, non tender, soft Extremities: non-tender David Pickens MD Apr 15, 2020 11:14
--- NOTE | 2020-04-15 11:20 | Pulmonolgy Critical Care Note ---
Critical Care - Asmt/Plan Problems: (1) Acute respiratory failure (2) Sepsis (3) UTI (urinary tract infection) (4) Altered mental status, unspecified (5) History of depression (6) ATN (acute tubular necrosis) (7) Severe protein-calorie malnutrition Assessment/Plan: will start morphine drip and take the patient off respiratory. All the consultants agree with this approach. Critical Care - Objective Last 24 Hour Vital Signs Date Time Temp Pulse Resp B/P (MAP) Pulse Ox O2 Delivery O2 Flow Rate FiO2 04/15/20 10:49 95 20 40 04/15/20 10:00 101 20 123/54 (77) 100 04/15/20 09:29 103 20 40 04/15/20 09:00 106 20 109/58 (75) 100 04/15/20 08:00 106 04/15/20 08:00 40 04/15/20 08:00 98.2 108 20 102/52 (69) 100 04/15/20 08:00 Mechanical Ventilator 04/15/20 07:04 112 20 40 04/15/20 07:00 112 20 102/45 (64) 100 04/15/20 06:30 113 20 04/15/20 06:00 116 20 95/52 (66) 100 04/15/20 05:30 115 22 189/78 (115) 100 04/15/20 05:13 118 20 40 04/15/20 05:00 110 20 103/47 (65) 100 04/15/20 04:30 109 20 102/51 (68) 100 04/15/20 04:00 99.2 112 20 104/50 (68) 100 04/15/20 04:00 40 04/15/20 04:00 108 04/15/20 04:00 Mechanical Ventilator 04/15/20 03:30 115 20 99/47 (64) 100 04/15/20 03:23 118 20 40 04/15/20 03:00 128 20 129/59 (82) 100 04/15/20 02:30 112 21 130/71 (90) 98 04/15/20 02:00 113 21 157/55 (89) 99 04/15/20 01:30 116 22 162/54 (90) 99 04/15/20 01:00 120 22 160/66 (97) 95 04/15/20 00:30 113 26 216/79 (124) 90 04/15/20 00:19 111 27 40 04/15/20 00:00 105 04/15/20 00:00 40 04/15/20 00:00 Mechanical Ventilator 04/15/20 00:00 98.6 108 20 166/59 (94) 100 04/14/20 23:30 106 20 161/73 (102) 100 04/14/20 23:05 104 24 40 04/14/20 23:00 160/84 04/14/20 23:00 100 19 148/60 (89) 100 04/14/20 22:30 103 20 123/61 (81) 100 04/14/20 22:03 105 20 116/55 (75) 100 04/14/20 22:00 126/56 04/14/20 22:00 103 20 126/56 (79) 04/14/20 21:30 105 20 116/55 (75) 100 04/14/20 21:00 136/50 04/14/20 21:00 106 20 149/63 (91) 100 04/14/20 20:51 101 22 40 04/14/20 20:30 107 20 159/69 (99) 99 04/14/20 20:00 40 04/14/20 20:00 101 04/14/20 20:00 98.5 106 22 156/53 (87) 98 04/14/20 20:00 165/64 04/14/20 20:00 Mechanical Ventilator 04/14/20 19:30 106 24 164/69 (100) 100 04/14/20 19:10 108 24 40 04/14/20 19:00 146/61 04/14/20 19:00 107 20 146/61 (89) 100 04/14/20 18:45 108 20 168/68 (101) 100 04/14/20 18:30 107 21 159/57 (91) 100 04/14/20 18:20 166/72 04/14/20 18:15 108 18 150/72 (98) 100 04/14/20 18:00 150/72 04/14/20 18:00 102 20 82/49 (60) 100 04/14/20 17:45 100 20 82/49 (60) 100 04/14/20 17:30 101 20 85/51 (62) 100 04/14/20 17:15 101 20 84/51 (62) 100 04/14/20 17:00 84/51 04/14/20 17:00 101 20 84/52 (63) 100 04/14/20 16:45 101 20 88/48 (61) 100 04/14/20 16:30 101 20 90/53 (65) 100 04/14/20 16:15 102 20 83/49 (60) 100 04/14/20 16:00 97.6 101 20 82/49 (60) 100 04/14/20 16:00 102 04/14/20 16:00 82/53 04/14/20 16:00 40 04/14/20 16:00 Mechanical Ventilator 04/14/20 15:45 102 20 94/54 (67) 100 04/14/20 15:30 105 20 82/53 (63) 100 04/14/20 15:28 94 24 50 04/14/20 15:15 104 20 76/46 (56) 100 04/14/20 15:00 71/42 04/14/20 15:00 104 20 70/46 (54) 100 04/14/20 14:55 60 04/14/20 14:30 105 20 71/42 (52) 100 04/14/20 14:00 110 20 118/68 (85) 100 04/14/20 13:30 111 20 97/55 (69) 100 04/14/20 13:00 104 23 115/64 (81) 99 04/14/20 13:00 115/64 04/14/20 12:45 105 23 111/60 (77) 99 04/14/20 12:30 104 23 114/59 (77) 98 04/14/20 12:15 104 20 113/57 (75) 98 04/14/20 12:00 Mechanical Ventilator 04/14/20 12:00 103 04/14/20 12:00 105 23 82/47 (59) 98 04/14/20 12:00 82/47 04/14/20 12:00 40 04/14/20 11:30 106 23 40 Status: sedated Condition: grave HEENT: atraumatic Lungs: rales, rhonchi Heart: HR/BP stable Abdomen: soft, active bowel sounds, feeding tube Extremities: no C/C/E Micro: Microbiology Date/Time Source Procedure Growth Status 8/24/20 16:15 Nasopharynx SARS-CoV-2 RdRp Gene Assay - Final Complete 04/13/20 16:00 Sputum Expectorated Gram Stain Pending Resulted 04/13/20 16:00 Sputum Culture - Preliminary Staphylococcus Aureus Resulted Critical Care - Subjective ROS Limited/Unobtainable: Yes Interval Events: pts children all agreed with terminal extubation, considering pts worsening medical condition. She had respiratory failure, bone marrow failure, starting Liver failure, Renal failure. Condition: critical EKG Rhythm: Sinus Rhythm FI02: 40 Vent Support Breath Rate: 20 Vent Support Mode: AC Vent Tidal Volume: 600 Sputum Amount: Small PEEP: 5.0 PIP: 38 I&O: Intake and Output 04/14/20 04/15/20 19:00 07:00 Intake Total 2568.66 ml 2179.54 ml Output Total 265 ml 145 ml Balance 2303.66 ml 2034.54 ml IV Total 2568.66 ml 2179.54 ml Output Urine Total 115 ml 145 ml Stool Total 50 ml Gastric Drainage Total 100 ml ET-Tube: 7.5 ET Position: 23 Labs: Laboratory Tests Test 04/14/20 14:57 04/15/20 03:30 04/15/20 07:04 Arterial Blood pH 7.327 (7.350-7.450) 7.394 (7.350-7.450) Arterial Blood Partial Pressure CO2 40.4 mmHg (35.0-45.0) 41.1 mmHg (35.0-45.0) Arterial Blood Partial Pressure O2 64.1 mmHg (75.0-100.0) L 466.1 mmHg (75.0-100.0) H Arterial Blood HCO3 20.7 mmol/L (22.0-26.0) L 24.5 mmol/L (22.0-26.0) Arterial Blood Oxygen Saturation 91.1 % (95-100) L 99.3 % (95-100) Arterial Blood Base Excess -4.9 (-2-2) L -0.3 (-2-2) Marshall Test Positive Positive White Blood Count 13.9 K/UL (4.8-10.8) H Red Blood Count 2.64 M/UL (4.20-5.40) L Hemoglobin 7.5 G/DL (12.0-16.0) L Hematocrit 22.4 % (37.0-47.0) L Mean Corpuscular Volume 85 FL (80-99) Mean Corpuscular Hemoglobin 28.5 PG (27.0-31.0) Mean Corpuscular Hemoglobin Concent 33.6 G/DL (32.0-36.0) Red Cell Distribution Width 15.8 % (11.6-14.8) H Platelet Count 44 K/UL (150-450) L Mean Platelet Volume 8.4 FL (6.5-10.1) Neutrophils (%) (Auto) % (45.0-75.0) Lymphocytes (%) (Auto) % (20.0-45.0) Monocytes (%) (Auto) % (1.0-10.0) Eosinophils (%) (Auto) % (0.0-3.0) Basophils (%) (Auto) % (0.0-2.0) Differential Total Cells Counted 100 Neutrophils % (Manual) 86 % (45-75) H Lymphocytes % (Manual) 1 % (20-45) L Monocytes % (Manual) 6 % (1-10) Eosinophils % (Manual) 0 % (0-3) Basophils % (Manual) 0 % (0-2) Band Neutrophils 7 % (0-8) Platelet Estimate Decreased L Platelet Morphology Normal Hypochromasia 1+ Anisocytosis 1+ Prothrombin Time 15.0 SEC (9.30-11.50) H Prothromb Time International Ratio 1.4 (0.9-1.1) H Activated Partial Thromboplast Time 54 SEC (23-33) H Sodium Level 132 MMOL/L (136-145) L Potassium Level 3.1 MMOL/L (3.5-5.1) L Chloride Level 92 MMOL/L (98-107) L Carbon Dioxide Level 23 MMOL/L (21-32) Anion Gap 17 mmol/L (5-15) H Blood Urea Nitrogen 77 mg/dL (7-18) H Creatinine 3.2 MG/DL (0.55-1.30) H Estimat Glomerular Filtration Rate 14.8 mL/min (>60) Glucose Level 74 MG/DL (74-106) Calcium Level 6.9 MG/DL (8.5-10.1) L Phosphorus Level 5.3 MG/DL (2.5-4.9) H Magnesium Level 1.9 MG/DL (1.8-2.4) Total Bilirubin 3.0 MG/DL (0.2-1.0) H Direct Bilirubin 2.3 MG/DL (0.0-0.3) H Aspartate Amino Transf (AST/SGOT) 1246 U/L (15-37) H Alanine Aminotransferase (ALT/SGPT) 595 U/L (12-78) H Alkaline Phosphatase 269 U/L (46-116) H Troponin I 1.397 ng/mL (0.000-0.056) Total Protein 3.3 G/DL (6.4-8.2) L Albumin 1.6 G/DL (3.4-5.0) L Globulin 1.7 g/dL Albumin/Globulin Ratio 0.9 (1.0-2.7) L Random Vancomycin Level 4.8 ug/mL Hepatitis C Antibody Pending Hepatitis C RNA (PCR) IUs/ml Pending Hepatitis C RNA (PCR) log IUs/ml Pending HIV (1&2) Antibody Rapid Negative (NEGATIVE) Helena Rivera MD Apr 15, 2020 11:20
[2020-04-15] MEDS ORDERED: PCA Morphine 1mg/ml 30 ML IV PRN ×2 (11:30→18:00)
--- NOTE | 2020-04-15 12:04 | Infectious Diseases Prog Note ---
Assessment/Plan ASSESSMENT: The patient is a 60-year-old female with: - Septic shock.; pressors requirements improving Acute hypoxic resp failure sp intubation- fio2 40% 04/14 -Transaminitis; worsening- likely shock liver -hep C ab + - Leukocytosis, mild recurrent - ESBL E. coli UTI. - Pneumonia.- COVID neg x2 -04/09 &24 rapid COVID PCR neg -04/09 CTA chest: Indeterminate areas of nodularity and irregular consolidation indeterminate for infectious, inflammatory or neoplastic etiology. Recommend pulmonary consultation and short-term interval follow-up. Small amount of debris in the left, greater than right bronchi. Mild mediastinal and hilar lymphadenopathy. -Acute renal insufficiency. -Thrombocytopenia worsening . Migraine. . History of CAD/[place], with stent placement. . History of COPD. History of appendicitis, status post appendectomy. History of diabetes. Depression/anxiety. . History of alcohol abuse. History of opiate abuse. PLAN: Patient has now been made comfort care, all antibiotics were discontinued and will go for terminal extubation. ID will sign off now, please call back if needed. Subjective Allergies: Coded Allergies: CEPHALOSPORINS (Verified Allergy, Intermediate, Anaphylaxis, 12/14/12) DIAZEPAM (Verified Allergy, Intermediate, DYSTONIC, 12/14/12) SUMATRIPTAN (Verified Allergy, Intermediate, 12/14/12) SUMATRIPTAN SUCCINATE (Verified Allergy, Intermediate, 12/14/12) TRAMADOL (Verified Allergy, Intermediate, Anaphylaxis, 12/14/12) CEPHALEXIN (Unverified Allergy, Unknown, 10/25/19) PENICILLINS (Unverified Allergy, Unknown, 08/26/18) Uncoded Allergies: PCN (Allergy, Unknown, 10/25/19) patient has now been made comfort care and will undergo terminal extubation all antibiotics were discontinued Objective Last 24 Hour Vital Signs Date Time Temp Pulse Resp B/P (MAP) Pulse Ox O2 Delivery O2 Flow Rate FiO2 04/15/20 10:49 95 20 40 04/15/20 10:00 101 20 123/54 (77) 100 04/15/20 09:29 103 20 40 04/15/20 09:00 106 20 109/58 (75) 100 04/15/20 08:00 106 04/15/20 08:00 40 04/15/20 08:00 98.2 108 20 102/52 (69) 100 04/15/20 08:00 Mechanical Ventilator 04/15/20 07:04 112 20 40 04/15/20 07:00 112 20 102/45 (64) 100 04/15/20 06:30 113 20 04/15/20 06:00 116 20 95/52 (66) 100 04/15/20 05:30 115 22 189/78 (115) 100 04/15/20 05:13 118 20 40 04/15/20 05:00 110 20 103/47 (65) 100 04/15/20 04:30 109 20 102/51 (68) 100 04/15/20 04:00 99.2 112 20 104/50 (68) 100 04/15/20 04:00 40 04/15/20 04:00 108 04/15/20 04:00 Mechanical Ventilator 04/15/20 03:30 115 20 99/47 (64) 100 04/15/20 03:23 118 20 40 04/15/20 03:00 128 20 129/59 (82) 100 04/15/20 02:30 112 21 130/71 (90) 98 04/15/20 02:00 113 21 157/55 (89) 99 04/15/20 01:30 116 22 162/54 (90) 99 04/15/20 01:00 120 22 160/66 (97) 95 04/15/20 00:30 113 26 216/79 (124) 90 04/15/20 00:19 111 27 40 04/15/20 00:00 105 04/15/20 00:00 40 04/15/20 00:00 Mechanical Ventilator 04/15/20 00:00 98.6 108 20 166/59 (94) 100 04/14/20 23:30 106 20 161/73 (102) 100 04/14/20 23:05 104 24 40 04/14/20 23:00 160/84 04/14/20 23:00 100 19 148/60 (89) 100 04/14/20 22:30 103 20 123/61 (81) 100 04/14/20 22:03 105 20 116/55 (75) 100 04/14/20 22:00 126/56 04/14/20 22:00 103 20 126/56 (79) 04/14/20 21:30 105 20 116/55 (75) 100 04/14/20 21:00 136/50 04/14/20 21:00 106 20 149/63 (91) 100 04/14/20 20:51 101 22 40 04/14/20 20:30 107 20 159/69 (99) 99 04/14/20 20:00 40 04/14/20 20:00 101 04/14/20 20:00 98.5 106 22 156/53 (87) 98 04/14/20 20:00 165/64 04/14/20 20:00 Mechanical Ventilator 04/14/20 19:30 106 24 164/69 (100) 100 04/14/20 19:10 108 24 40 04/14/20 19:00 146/61 04/14/20 19:00 107 20 146/61 (89) 100 04/14/20 18:45 108 20 168/68 (101) 100 04/14/20 18:30 107 21 159/57 (91) 100 04/14/20 18:20 166/72 04/14/20 18:15 108 18 150/72 (98) 100 04/14/20 18:00 150/72 04/14/20 18:00 102 20 82/49 (60) 100 04/14/20 17:45 100 20 82/49 (60) 100 04/14/20 17:30 101 20 85/51 (62) 100 04/14/20 17:15 101 20 84/51 (62) 100 04/14/20 17:00 84/51 04/14/20 17:00 101 20 84/52 (63) 100 04/14/20 16:45 101 20 88/48 (61) 100 04/14/20 16:30 101 20 90/53 (65) 100 04/14/20 16:15 102 20 83/49 (60) 100 04/14/20 16:00 97.6 101 20 82/49 (60) 100 04/14/20 16:00 102 04/14/20 16:00 82/53 04/14/20 16:00 40 04/14/20 16:00 Mechanical Ventilator 04/14/20 15:45 102 20 94/54 (67) 100 04/14/20 15:30 105 20 82/53 (63) 100 04/14/20 15:28 94 24 50 04/14/20 15:15 104 20 76/46 (56) 100 04/14/20 15:00 71/42 04/14/20 15:00 104 20 70/46 (54) 100 04/14/20 14:55 60 04/14/20 14:30 105 20 71/42 (52) 100 04/14/20 14:00 110 20 118/68 (85) 100 04/14/20 13:30 111 20 97/55 (69) 100 04/14/20 13:00 104 23 115/64 (81) 99 04/14/20 13:00 115/64 04/14/20 12:45 105 23 111/60 (77) 99 04/14/20 12:30 104 23 114/59 (77) 98 04/14/20 12:15 104 20 113/57 (75) 98 04/14/20 12:00 Mechanical Ventilator 04/14/20 12:00 103 04/14/20 12:00 105 23 82/47 (59) 98 04/14/20 12:00 82/47 04/14/20 12:00 40 Height (Feet): 5 Height (Inches): 4.00 Weight (Pounds): 125 HEENT: No pale conjunctivae. No icterus. ETT in palce NECK: No lymphadenopathy. CHEST: Coarse breathing sounds. HEART: S1, S2. ABDOMEN: Soft. EXTREMITIES: No cyanosis at this time. NEUROLOGIC: Sedated. Microbiology Date/Time Source Procedure Growth Status 04/13/20 16:15 Nasopharynx SARS-CoV-2 RdRp Gene Assay - Final Complete 04/13/20 16:00 Sputum Expectorated Gram Stain Pending Resulted 04/13/20 16:00 Sputum Culture - Preliminary Staphylococcus Aureus Resulted Laboratory Tests Test 04/14/20 14:57 04/15/20 03:30 04/15/20 07:04 Arterial Blood pH 7.327 (7.350-7.450) 7.394 (7.350-7.450) Arterial Blood Partial Pressure CO2 40.4 mmHg (35.0-45.0) 41.1 mmHg (35.0-45.0) Arterial Blood Partial Pressure O2 64.1 mmHg (75.0-100.0) L 466.1 mmHg (75.0-100.0) H Arterial Blood HCO3 20.7 mmol/L (22.0-26.0) L 24.5 mmol/L (22.0-26.0) Arterial Blood Oxygen Saturation 91.1 % (95-100) L 99.3 % (95-100) Arterial Blood Base Excess -4.9 (-2-2) L -0.3 (-2-2) Marshall Test Positive Positive White Blood Count 13.9 K/UL (4.8-10.8) H Red Blood Count 2.64 M/UL (4.20-5.40) L Hemoglobin 7.5 G/DL (12.0-16.0) L Hematocrit 22.4 % (37.0-47.0) L Mean Corpuscular Volume 85 FL (80-99) Mean Corpuscular Hemoglobin 28.5 PG (27.0-31.0) Mean Corpuscular Hemoglobin Concent 33.6 G/DL (32.0-36.0) Red Cell Distribution Width 15.8 % (11.6-14.8) H Platelet Count 44 K/UL (150-450) L Mean Platelet Volume 8.4 FL (6.5-10.1) Neutrophils (%) (Auto) % (45.0-75.0) Lymphocytes (%) (Auto) % (20.0-45.0) Monocytes (%) (Auto) % (1.0-10.0) Eosinophils (%) (Auto) % (0.0-3.0) Basophils (%) (Auto) % (0.0-2.0) Differential Total Cells Counted 100 Neutrophils % (Manual) 86 % (45-75) H Lymphocytes % (Manual) 1 % (20-45) L Monocytes % (Manual) 6 % (1-10) Eosinophils % (Manual) 0 % (0-3) Basophils % (Manual) 0 % (0-2) Band Neutrophils 7 % (0-8) Platelet Estimate Decreased L Platelet Morphology Normal Hypochromasia 1+ Anisocytosis 1+ Prothrombin Time 15.0 SEC (9.30-11.50) H Prothromb Time International Ratio 1.4 (0.9-1.1) H Activated Partial Thromboplast Time 54 SEC (23-33) H Sodium Level 132 MMOL/L (136-145) L Potassium Level 3.1 MMOL/L (3.5-5.1) L Chloride Level 92 MMOL/L (98-107) L Carbon Dioxide Level 23 MMOL/L (21-32) Anion Gap 17 mmol/L (5-15) H Blood Urea Nitrogen 77 mg/dL (7-18) H Creatinine 3.2 MG/DL (0.55-1.30) H Estimat Glomerular Filtration Rate 14.8 mL/min (>60) Glucose Level 74 MG/DL (74-106) Calcium Level 6.9 MG/DL (8.5-10.1) L Phosphorus Level 5.3 MG/DL (2.5-4.9) H Magnesium Level 1.9 MG/DL (1.8-2.4) Total Bilirubin 3.0 MG/DL (0.2-1.0) H Direct Bilirubin 2.3 MG/DL (0.0-0.3) H Aspartate Amino Transf (AST/SGOT) 1246 U/L (15-37) H Alanine Aminotransferase (ALT/SGPT) 595 U/L (12-78) H Alkaline Phosphatase 269 U/L (46-116) H Troponin I 1.397 ng/mL (0.000-0.056) Total Protein 3.3 G/DL (6.4-8.2) L Albumin 1.6 G/DL (3.4-5.0) L Globulin 1.7 g/dL Albumin/Globulin Ratio 0.9 (1.0-2.7) L Random Vancomycin Level 4.8 ug/mL Hepatitis C Antibody Pending Hepatitis C RNA (PCR) IUs/ml Pending Hepatitis C RNA (PCR) log IUs/ml Pending HIV (1&2) Antibody Rapid Negative (NEGATIVE) Current Medications Medications (Trade) Dose Ordered Sig/Issa Route PRN Reason Start Time Stop Time Status Last Admin Dose Admin Acetaminophen (Tylenol) 650 mg Q4H PRN NG Temp >100.5 04/14/20 13:15 05/12/20 21:14 Artificial Tears (Akwa-Tears) 1 drop QIDPRN PRN BOTH EYES Dry Eyes 04/15/20 11:30 05/15/20 11:29 UNV Atropine Sulfate (Atropine Opth Daniela) 1 drop Q2H PRN SL excessive secretions 04/15/20 11:45 07/14/20 11:44 UNV Dextrose (Dextrose 50%) 25 ml Q30M PRN IV Hypoglycemia 04/09/20 19:15 07/08/20 19:14 Dextrose (Dextrose 50%) 50 ml Q30M PRN IV Hypoglycemia 04/09/20 19:15 07/08/20 19:14 Glycopyrrolate (Robinul) 0.1 mg Q6H PRN IV excessive secretions 04/15/20 11:30 05/15/20 11:29 UNV Glycopyrrolate (Robinul) 0.1 mg Q6H PRN IV excessive secretions 04/15/20 11:45 05/15/20 11:44 UNV Haloperidol (Haldol) 1 mg Q30MIN PRN ORAL Agitation 04/15/20 11:45 05/30/20 11:44 UNV Haloperidol Lactate (Haldol) 1 mg Q30M PRN IM Agitation 04/15/20 11:30 05/30/20 11:29 UNV Lorazepam (Ativan 2mg/ml 1ml) 2 mg Q2H PRN IV agitation 04/09/20 19:15 04/16/20 19:14 04/15/20 05:36 Miscellaneous Medication (Narcotic Drip Rate Change) 1 ea DAILY PRN MISC To Patient Comfort 04/15/20 11:30 04/18/20 11:29 UNV Miscellaneous Medication (Narcotic Shift Volume) 1 ea Q8HR@07,15,23 MISC 04/15/20 11:30 04/18/20 11:29 UNV Morphine Sulfate 30 ml @ 0 mls/hr [employer]OCI[employer] TRA[employer]ER Protocol PRN IV For Pain 04/15/20 11:30 04/17/20 11:29 UNV Morphine Sulfate (Morphine Sulfate) 10 mg ONCE ONCE IVP 04/15/20 11:30 04/15/20 11:31 UNV Morphine Sulfate (Morphine 10mg/ 5ml Oral Soln) 10 mg EVERY HOUR PRN ORAL tachypnea>20 04/15/20 11:45 04/22/20 11:44 UNV Prochlorperazine (Compazine) 10 mg Q6H PRN ORAL Nausea & Vomiting 04/15/20 11:30 05/15/20 11:29 UNV Agnieszka Cervantes M.D. Apr 15, 2020 12:04
--- NOTE | 2020-04-15 12:47 | Diagnostic Imaging Report ---
Indication: Dyspnea Technique: One view of the chest Comparison: 04/12/2020 Findings: Interim development of dense consolidation in the right upper lobe, patchy consolidation in the left perihilar region and left lateral lung base, streaky interstitial and alveolar infiltrates elsewhere bilaterally. Stable satisfactory positions of endotracheal and orogastric tubes. Impression: Interim development of extensive bilateral infiltrates, likely pneumonia, since prior study of 04/12/2020
--- NOTE | 2020-04-15 13:05 | Surgery Progress Note ---
Surgery Progress Note Subjective Procedure Performed Right femoral central venous catheter insertion Symptoms: worse Objective Last 24 Hour Vital Signs Date Time Temp Pulse Resp B/P (MAP) Pulse Ox O2 Delivery O2 Flow Rate FiO2 04/15/20 12:38 95 20 40 04/15/20 10:49 95 20 40 04/15/20 10:00 101 20 123/54 (77) 100 04/15/20 09:29 103 20 40 04/15/20 09:00 106 20 109/58 (75) 100 04/15/20 08:00 106 04/15/20 08:00 40 04/15/20 08:00 98.2 108 20 102/52 (69) 100 04/15/20 08:00 Mechanical Ventilator 04/15/20 07:04 112 20 40 04/15/20 07:00 112 20 102/45 (64) 100 04/15/20 06:30 113 20 04/15/20 06:00 116 20 95/52 (66) 100 04/15/20 05:30 115 22 189/78 (115) 100 04/15/20 05:13 118 20 40 04/15/20 05:00 110 20 103/47 (65) 100 04/15/20 04:30 109 20 102/51 (68) 100 04/15/20 04:00 99.2 112 20 104/50 (68) 100 04/15/20 04:00 40 04/15/20 04:00 108 04/15/20 04:00 Mechanical Ventilator 04/15/20 03:30 115 20 99/47 (64) 100 04/15/20 03:23 118 20 40 04/15/20 03:00 128 20 129/59 (82) 100 04/15/20 02:30 112 21 130/71 (90) 98 04/15/20 02:00 113 21 157/55 (89) 99 04/15/20 01:30 116 22 162/54 (90) 99 04/15/20 01:00 120 22 160/66 (97) 95 04/15/20 00:30 113 26 216/79 (124) 90 04/15/20 00:19 111 27 40 04/15/20 00:00 105 04/15/20 00:00 40 04/15/20 00:00 Mechanical Ventilator 04/15/20 00:00 98.6 108 20 166/59 (94) 100 04/14/20 23:30 106 20 161/73 (102) 100 04/14/20 23:05 104 24 40 04/14/20 23:00 160/84 04/14/20 23:00 100 19 148/60 (89) 100 04/14/20 22:30 103 20 123/61 (81) 100 04/14/20 22:03 105 20 116/55 (75) 100 04/14/20 22:00 126/56 04/14/20 22:00 103 20 126/56 (79) 04/14/20 21:30 105 20 116/55 (75) 100 04/14/20 21:00 136/50 04/14/20 21:00 106 20 149/63 (91) 100 04/14/20 20:51 101 22 40 04/14/20 20:30 107 20 159/69 (99) 99 04/14/20 20:00 40 04/14/20 20:00 101 04/14/20 20:00 98.5 106 22 156/53 (87) 98 04/14/20 20:00 165/64 04/14/20 20:00 Mechanical Ventilator 04/14/20 19:30 106 24 164/69 (100) 100 04/14/20 19:10 108 24 40 04/14/20 19:00 146/61 04/14/20 19:00 107 20 146/61 (89) 100 04/14/20 18:45 108 20 168/68 (101) 100 04/14/20 18:30 107 21 159/57 (91) 100 04/14/20 18:20 166/72 04/14/20 18:15 108 18 150/72 (98) 100 04/14/20 18:00 150/72 04/14/20 18:00 102 20 82/49 (60) 100 04/14/20 17:45 100 20 82/49 (60) 100 04/14/20 17:30 101 20 85/51 (62) 100 04/14/20 17:15 101 20 84/51 (62) 100 04/14/20 17:00 84/51 04/14/20 17:00 101 20 84/52 (63) 100 04/14/20 16:45 101 20 88/48 (61) 100 04/14/20 16:30 101 20 90/53 (65) 100 04/14/20 16:15 102 20 83/49 (60) 100 04/14/20 16:00 97.6 101 20 82/49 (60) 100 04/14/20 16:00 102 04/14/20 16:00 82/53 04/14/20 16:00 40 04/14/20 16:00 Mechanical Ventilator 04/14/20 15:45 102 20 94/54 (67) 100 04/14/20 15:30 105 20 82/53 (63) 100 04/14/20 15:28 94 24 50 04/14/20 15:15 104 20 76/46 (56) 100 04/14/20 15:00 71/42 04/14/20 15:00 104 20 70/46 (54) 100 04/14/20 14:55 60 04/14/20 14:30 105 20 71/42 (52) 100 04/14/20 14:00 110 20 118/68 (85) 100 04/14/20 13:30 111 20 97/55 (69) 100 I&O Intake and Output 04/14/20 04/15/20 19:00 07:00 Intake Total 2568.66 ml 2179.54 ml Output Total 265 ml 145 ml Balance 2303.66 ml 2034.54 ml IV Total 2568.66 ml 2179.54 ml Output Urine Total 115 ml 145 ml Stool Total 50 ml Gastric Drainage Total 100 ml Dressing: other Wound: other Cardiovascular: RSR Respiratory: decreased breath sounds Abdomen: soft, non-tender, present bowel sounds Extremities: no cyanosis Laboratory Tests Test 04/14/20 14:57 04/15/20 03:30 04/15/20 07:04 Arterial Blood pH 7.327 (7.350-7.450) 7.394 (7.350-7.450) Arterial Blood Partial Pressure CO2 40.4 mmHg (35.0-45.0) 41.1 mmHg (35.0-45.0) Arterial Blood Partial Pressure O2 64.1 mmHg (75.0-100.0) L 466.1 mmHg (75.0-100.0) H Arterial Blood HCO3 20.7 mmol/L (22.0-26.0) L 24.5 mmol/L (22.0-26.0) Arterial Blood Oxygen Saturation 91.1 % (95-100) L 99.3 % (95-100) Arterial Blood Base Excess -4.9 (-2-2) L -0.3 (-2-2) Marshall Test Positive Positive White Blood Count 13.9 K/UL (4.8-10.8) H Red Blood Count 2.64 M/UL (4.20-5.40) L Hemoglobin 7.5 G/DL (12.0-16.0) L Hematocrit 22.4 % (37.0-47.0) L Mean Corpuscular Volume 85 FL (80-99) Mean Corpuscular Hemoglobin 28.5 PG (27.0-31.0) Mean Corpuscular Hemoglobin Concent 33.6 G/DL (32.0-36.0) Red Cell Distribution Width 15.8 % (11.6-14.8) H Platelet Count 44 K/UL (150-450) L Mean Platelet Volume 8.4 FL (6.5-10.1) Neutrophils (%) (Auto) % (45.0-75.0) Lymphocytes (%) (Auto) % (20.0-45.0) Monocytes (%) (Auto) % (1.0-10.0) Eosinophils (%) (Auto) % (0.0-3.0) Basophils (%) (Auto) % (0.0-2.0) Differential Total Cells Counted 100 Neutrophils % (Manual) 86 % (45-75) H Lymphocytes % (Manual) 1 % (20-45) L Monocytes % (Manual) 6 % (1-10) Eosinophils % (Manual) 0 % (0-3) Basophils % (Manual) 0 % (0-2) Band Neutrophils 7 % (0-8) Platelet Estimate Decreased L Platelet Morphology Normal Hypochromasia 1+ Anisocytosis 1+ Prothrombin Time 15.0 SEC (9.30-11.50) H Prothromb Time International Ratio 1.4 (0.9-1.1) H Activated Partial Thromboplast Time 54 SEC (23-33) H Sodium Level 132 MMOL/L (136-145) L Potassium Level 3.1 MMOL/L (3.5-5.1) L Chloride Level 92 MMOL/L (98-107) L Carbon Dioxide Level 23 MMOL/L (21-32) Anion Gap 17 mmol/L (5-15) H Blood Urea Nitrogen 77 mg/dL (7-18) H Creatinine 3.2 MG/DL (0.55-1.30) H Estimat Glomerular Filtration Rate 14.8 mL/min (>60) Glucose Level 74 MG/DL (74-106) Calcium Level 6.9 MG/DL (8.5-10.1) L Phosphorus Level 5.3 MG/DL (2.5-4.9) H Magnesium Level 1.9 MG/DL (1.8-2.4) Total Bilirubin 3.0 MG/DL (0.2-1.0) H Direct Bilirubin 2.3 MG/DL (0.0-0.3) H Aspartate Amino Transf (AST/SGOT) 1246 U/L (15-37) H Alanine Aminotransferase (ALT/SGPT) 595 U/L (12-78) H Alkaline Phosphatase 269 U/L (46-116) H Troponin I 1.397 ng/mL (0.000-0.056) Total Protein 3.3 G/DL (6.4-8.2) L Albumin 1.6 G/DL (3.4-5.0) L Globulin 1.7 g/dL Albumin/Globulin Ratio 0.9 (1.0-2.7) L Random Vancomycin Level 4.8 ug/mL Hepatitis C Antibody Pending Hepatitis C RNA (PCR) IUs/ml Pending Hepatitis C RNA (PCR) log IUs/ml Pending HIV (1&2) Antibody Rapid Negative (NEGATIVE) Plan Problems: (1) Sepsis Assessment & Plan: Patient critically ill and septic. Leukocytosis anemia elevated LFTs abnormal labs. Likely shock liver. Resuscitation with IV fluids continue antibiotics per infectious disease continue trending labs. Line in place and functional we will continue to monitor prior site okay and stable. Will follow with recommendations thank you worsening labs noted prognosis guarded DAILY ESTIMATED NEEDS: Needs based on Critical care, underweight, DM/ 51kg 25-30 kcals/kg 0982-4328 total kcals 1.2-2 g protein/kg 61-102 g total protein 25-30 mL/kg 9015-2559 total fluid mLs NUTRITION DIAGNOSIS: Swallowing difficulty R/T respiratory failure as evidenced by orally intubated, NPO at this time, OGT to LIS, on pressors. CURRENT TF: NPO, OGT to LIS PO DIET RECOMMENDATIONS: MATCH MAKER eval post extubation ENTERAL NUTRITION RECOMMENDATIONS: Glucerna 1.2 @ 50ml/hr x 24 hrs to provide 1200ml, 1440kcal, 72g prot, 966ml free water * With GI access and HEMODYNAMIC stability -> initiate Glucerna 1.2 @ 10ml/hr x 6 hrs -> advance 10ml q 4-6 hrs as tolerated to goal -> HOB over 30 degrees/ water flush per MD WITHOUT HEMODYNAMIC STABILTY: trophic feeding of Glucerna 1.2 @ 10ml/hr ADDITIONAL RECOMMENDATIONS: * Calibrated bedscale wt * Monitor HD stablity: hypotensive, without pressor supprot at this time * Monitor BGs, rec NISS w/ TF (h/o DM) -> maintain added D5 IVF while NPO to prevent hypoglycemia * Monitor renal fxn + lytes- creat trend up, phos elev, K wnl -> monitor need for TF rec change (2) ATN (acute tubular necrosis) (3) UTI (urinary tract infection) (4) Severe protein-calorie malnutrition (5) Shock (6) Elevated troponin I level (7) Opiate dependence, continuous (8) Abnormal laboratory test result (9) Gastrointestinal hemorrhage (10) ACS (acute coronary syndrome) (11) History of depression (12) Cachexia (13) Acute respiratory failure (14) Altered level of consciousness (15) History of chronic pain (16) Prolonged Q-T interval on ECG (17) Altered mental status, unspecified Monty Álvarez Apr 15, 2020 13:05
[2020-04-15] MEDS ORDERED: Morphine Sulfate 10mg/ml Inj IVP SCH (14:00)
--- NOTE | 2020-04-15 14:24 | NUR ---
CASE MANAGEMENT:REVIEW 04/15/20 SI:ACUTE RESPIRATORY FAILURE ~ INTUBATED. SEPSIS. UTI. THROMBOCYTOPENIA 98.2 106 20 102/52 100% MEHANICAL VENT FiO2 40 WBC 13.9 H/H 7.5/22.4 PLT 44 K+3.1 BUN/CREAT 77/3.2 CA+ 6.9 PHOS 5.3 T.NOEMY/D.NOEMY 3.0/2.3 AST/ALT 1246/595 TROP 1.397 ALB 1.6 PT/INR 15.0/1.4 PTT 54 ABG: pO2 466.1 HEPATITIS PANEL~IN PROGRESS IS:IV D5\NS @100ML/HR IV ALBUMIN HUMAN X1 IV VANCOMYCIN X1 IV ZITHROMAX QD X7 BAGS IV MEROPENEM BID IV CALCIUM GLUCONATE TID IV SODIUM BICARB @76ML/HR IV PROTONIX QD \:ICU STATUS PLAN: PLAN TO EXTUBATE TODAY @2PM MONITOR PLT LEVEL~ DECREASING TRANSFER TO MED SURG
[2020-04-15] MEDS ORDERED: Haloperidol 5mg/ml Inj IM PRN ×3 (14:30→18:00)
[2020-04-15] MEDS ORDERED: Glycopyrrolate 0.2mg/ml 1ml Vial IV PRN ×3 (14:30→18:00)
--- NOTE | 2020-04-15 14:37 | NUR ---
*-* INSURANCE *-* UPDATED CLINICALS AND REVIEWS HAVE BEEN FAXED TO: SHAYAN SILVER T: [phone] F: [phone] TRK# [id number]
--- NOTE | 2020-04-15 14:45 | NUR ---
NURSE NOTES: Patient extubated. Patient gasping for air, tachypneic at 32 O2 sat 80% and patient is hypertensive. Morphine 10mg previously administered. Will continue to monitor and assess.
[2020-04-15] MEDS ORDERED: Morphine Sulfate 10mg/5ml Oral Soln ud ORAL PRN ×2 (15:00→18:00)
[2020-04-15] MEDS ORDERED: Rate Change Narcotic Drip MISC PRN ×2 (15:00→18:00)
[2020-04-15] MEDS ORDERED: Narcotic Shift Volume MISC SCH ×2 (15:00→19:00)
[2020-04-15] MEDS ORDERED: Haloperidol 1mg tab ORAL PRN ×2 (15:00→18:00)
[2020-04-15] MEDS ORDERED: Prochlorperazine 10mg tab ORAL PRN ×2 (15:00→18:00)
--- NOTE | 2020-04-15 15:02 | NUR ---
NURSE NOTES: Patient restless in distress. Haldol given.
--- NOTE | 2020-04-15 15:21 | NUR ---
RESPIRATORY NOTE: pt extubated as ordered. RN's were at bedside. pt placed on 2L NC.
--- NOTE | 2020-04-15 15:48 | NUR ---
NURSE NOTES: Morphine drip started now per orders. Patient in respiratory distress.
[2020-04-15] MEDS ORDERED: Lidocaine 1% Plain 30 ml INJ ONE (16:15)
[2020-04-15] MEDS ORDERED: Heparin1,000 units/500ml Premix(Conc:2 units/ml) IV ONE (16:15)
--- NOTE | 2020-04-15 17:42 | NUR ---
NURSE NOTES: Patient no longer in acute distress but is still gasping for air. RR now 25 with o2 sat 94%. Morphine drip still infusing. Bed available to transfer patient.
[2020-04-15] MEDS ORDERED: LORazepam Inj 2mg/ml 1ml IV PRN (18:00)
[2020-04-15] MEDS ORDERED: Acetaminophen 650mg/20.3ml NG PRN (18:00)
--- NOTE | 2020-04-15 18:42 | Internal Med Progress Note ---
Subjective Date of Service: Apr 15, 2020 Physician Name Taras Benson Attending Physician Adalberto Monk MD Current Medications Medications (Trade) Dose Ordered Sig/Issa Route PRN Reason Start Time Stop Time Status Last Admin Dose Admin Acetaminophen (Tylenol) 650 mg Q4H PRN NG Temp >100.5 04/15/20 18:00 05/12/20 17:59 Artificial Tears (Akwa-Tears) 1 drop QIDPRN PRN BOTH EYES Dry Eyes 04/15/20 18:00 05/15/20 17:59 Atropine Sulfate (Atropine Opth Daniela) 1 drop Q2H PRN SL excessive secretions 04/15/20 18:00 07/14/20 17:59 Dextrose (Dextrose 50%) 25 ml Q30M PRN IV Hypoglycemia 04/15/20 18:00 07/08/20 17:59 Dextrose (Dextrose 50%) 50 ml Q30M PRN IV Hypoglycemia 04/15/20 18:00 07/08/20 17:59 Glycopyrrolate (Robinul) 0.1 mg Q6H PRN IV excessive secretions 04/15/20 18:00 05/15/20 17:59 Haloperidol (Haldol) 1 mg Q30MIN PRN ORAL Agitation 04/15/20 18:00 05/30/20 14:59 Haloperidol Lactate (Haldol) 1 mg Q30M PRN IM Agitation 04/15/20 18:00 05/30/20 14:29 Lorazepam (Ativan 2mg/ml 1ml) 2 mg Q2H PRN IV agitation 04/15/20 18:00 04/16/20 17:59 Miscellaneous Medication (Narcotic Drip Rate Change) 1 ea DAILY PRN MISC To Patient Comfort 04/15/20 18:00 05/15/20 17:59 Miscellaneous Medication (Narcotic Shift Volume) 1 ea Q12HR@0700,1900 MISC 04/15/20 19:00 05/15/20 18:59 Morphine Sulfate 30 ml @ 0 mls/hr TELEPHONER Protocol PRN IV For Pain 04/15/20 18:00 04/17/20 17:59 Morphine Sulfate (Morphine 10mg/ 5ml Oral Soln) 10 mg Q1H PRN ORAL tachypnea>20 04/15/20 18:00 04/22/20 14:59 Prochlorperazine (Compazine) 10 mg Q6H PRN ORAL Nausea & Vomiting 04/15/20 18:00 05/15/20 17:59 Allergies: Coded Allergies: CEPHALOSPORINS (Verified Allergy, Intermediate, Anaphylaxis, 12/14/12) DIAZEPAM (Verified Allergy, Intermediate, DYSTONIC, 12/14/12) SUMATRIPTAN (Verified Allergy, Intermediate, 12/14/12) SUMATRIPTAN SUCCINATE (Verified Allergy, Intermediate, 12/14/12) TRAMADOL (Verified Allergy, Intermediate, Anaphylaxis, 12/14/12) CEPHALEXIN (Unverified Allergy, Unknown, 10/25/19) PENICILLINS (Unverified Allergy, Unknown, 08/26/18) Uncoded Allergies: PCN (Allergy, Unknown, 10/25/19) ROS Limited/Unobtainable: Yes Subjective 60 YO F admitted with altered mental status. Now respiratory failure and hypotension. Cover for Int Med-Dr Monk. ICU. S/P terminal extubation . Comfort care Objective Last Vital Signs Date Time Temp Pulse Resp B/P (MAP) Pulse Ox O2 Delivery O2 Flow Rate FiO2 04/15/20 18:00 98 26 144/45 (78) 89 04/15/20 17:00 94.0 04/15/20 16:00 Nasal Cannula 2.0 04/15/20 14:46 28 Laboratory Tests Test 04/15/20 03:30 04/15/20 07:04 White Blood Count 13.9 K/UL (4.8-10.8) H Red Blood Count 2.64 M/UL (4.20-5.40) L Hemoglobin 7.5 G/DL (12.0-16.0) L Hematocrit 22.4 % (37.0-47.0) L Mean Corpuscular Volume 85 FL (80-99) Mean Corpuscular Hemoglobin 28.5 PG (27.0-31.0) Mean Corpuscular Hemoglobin Concent 33.6 G/DL (32.0-36.0) Red Cell Distribution Width 15.8 % (11.6-14.8) H Platelet Count 44 K/UL (150-450) L Mean Platelet Volume 8.4 FL (6.5-10.1) Neutrophils (%) (Auto) % (45.0-75.0) Lymphocytes (%) (Auto) % (20.0-45.0) Monocytes (%) (Auto) % (1.0-10.0) Eosinophils (%) (Auto) % (0.0-3.0) Basophils (%) (Auto) % (0.0-2.0) Differential Total Cells Counted 100 Neutrophils % (Manual) 86 % (45-75) H Lymphocytes % (Manual) 1 % (20-45) L Monocytes % (Manual) 6 % (1-10) Eosinophils % (Manual) 0 % (0-3) Basophils % (Manual) 0 % (0-2) Band Neutrophils 7 % (0-8) Platelet Estimate Decreased L Platelet Morphology Normal Hypochromasia 1+ Anisocytosis 1+ Prothrombin Time 15.0 SEC (9.30-11.50) H Prothromb Time International Ratio 1.4 (0.9-1.1) H Activated Partial Thromboplast Time 54 SEC (23-33) H Sodium Level 132 MMOL/L (136-145) L Potassium Level 3.1 MMOL/L (3.5-5.1) L Chloride Level 92 MMOL/L (98-107) L Carbon Dioxide Level 23 MMOL/L (21-32) Anion Gap 17 mmol/L (5-15) H Blood Urea Nitrogen 77 mg/dL (7-18) H Creatinine 3.2 MG/DL (0.55-1.30) H Estimat Glomerular Filtration Rate 14.8 mL/min (>60) Glucose Level 74 MG/DL (74-106) Calcium Level 6.9 MG/DL (8.5-10.1) L Phosphorus Level 5.3 MG/DL (2.5-4.9) H Magnesium Level 1.9 MG/DL (1.8-2.4) Total Bilirubin 3.0 MG/DL (0.2-1.0) H Direct Bilirubin 2.3 MG/DL (0.0-0.3) H Aspartate Amino Transf (AST/SGOT) 1246 U/L (15-37) H Alanine Aminotransferase (ALT/SGPT) 595 U/L (12-78) H Alkaline Phosphatase 269 U/L (46-116) H Troponin I 1.397 ng/mL (0.000-0.056) Total Protein 3.3 G/DL (6.4-8.2) L Albumin 1.6 G/DL (3.4-5.0) L Globulin 1.7 g/dL Albumin/Globulin Ratio 0.9 (1.0-2.7) L Random Vancomycin Level 4.8 ug/mL Hepatitis C Antibody Pending Hepatitis C RNA (PCR) IUs/ml Pending Hepatitis C RNA (PCR) log IUs/ml Pending HIV (1&2) Antibody Rapid Negative (NEGATIVE) Arterial Blood pH 7.394 (7.350-7.450) Arterial Blood Partial Pressure CO2 41.1 mmHg (35.0-45.0) Arterial Blood Partial Pressure O2 466.1 mmHg (75.0-100.0) H Arterial Blood HCO3 24.5 mmol/L (22.0-26.0) Arterial Blood Oxygen Saturation 99.3 % (95-100) Arterial Blood Base Excess -0.3 (-2-2) Marshall Test Positive Microbiology Date/Time Source Procedure Growth Status 04/13/20 16:15 Nasopharynx SARS-CoV-2 RdRp Gene Assay - Final Complete 04/13/20 16:00 Sputum Expectorated Gram Stain Pending Resulted 04/13/20 16:00 Sputum Culture - Preliminary Staphylococcus Aureus Resulted Intake and Output 04/14/20 04/15/20 19:00 07:00 Intake Total 2568.66 ml 2179.54 ml Output Total 265 ml 145 ml Balance 2303.66 ml 2034.54 ml IV Total 2568.66 ml 2179.54 ml Output Urine Total 115 ml 145 ml Stool Total 50 ml Gastric Drainage Total 100 ml Objective General Appearance: WD/WN, moderate distress, lethargic EENT: PERRL/EOMI, normal ENT inspection Neck: non-tender, normal alignment, supple, normal inspection Cardiovascular: normal peripheral pulses, normal rate, regular rhythm, no gallop/murmur, no JVD Respiratory/Chest: nasal canula; respiratory distress, crackles/rales, rhonchi - bilaterally, expiratory wheezing Abdomen: normal bowel sounds, non tender, soft, no organomegaly, no mass Extremities: normal range of motion, non-tender Neurologic: knife setter grinder machine II-XII grossly normal Skin: normal pigmentation, warm/dry Assessment/Plan Problem List: (1) Opiate dependence, continuous Assessment & Plan: Methadone (2) Sepsis (3) UTI (urinary tract infection) Assessment & Plan: ESBL E.Coli. ABX=meropenem and linezolid. ID=Dr [id number] (4) Elevated troponin I level Assessment & Plan: Cardiology=Dr Mendes (5) Acute respiratory failure Assessment & Plan: Pulmonary/critical care=Dr Rivera; Terminal extubation 04/15 (6) Altered mental status, unspecified (7) ACS (acute coronary syndrome) Assessment/Plan Comfort care Taras Benson MD Apr 15, 2020 18:42
--- NOTE | 2020-04-15 18:59 | NUR ---
NURSE NOTES: Received patient via hospital bed. Patient is not alert. On 5 L via NC. Rectal tube in place. Right femoral line intact. OG tube in place. Belongings list verified.
--- NOTE | 2020-04-15 19:00 | NUR ---
NURSE HAND-OFF REPORT: Latest Vital Signs: Temperature 94.0 , Pulse 98 , B/P 144 /45 , Respiratory Rate 26 , O2 SAT 89 , Nasal Cannula, O2 Flow Rate 2.0 . Vital Sign Comment: STABLE EKG Rhythm: Sinus Rhythm Rhythm change?: N MD Notified?: - MD Response: Latest Betancur Fall Score: 50 Fall Risk: High Risk Safety Measures: Call light Within Reach, Bed Alarm Zone 1, Side Rails Side Rails x3, Bed position Low and Locked. Fall Precautions: Door Sign Report given to Chis RN. Patient stable at this time but still in respiratory distress with gasping. RR at 25 O2 sat 97% on 5L NC. Endorsed that patient is on comfort care. Reviewed HIGHWAY INSPECTOR pump with currently volume of 13.2. Belongings, medications and chart given to RN. Plan of care endorsed.
--- NOTE | 2020-04-15 19:30 | NUR ---
NURSE HAND-OFF: Important Events on Shift:[transfer from ICU] Patient Status: [DNR, DNI] Diet: [] Pending Orders: [] Pending Results/Labs:[] Pending MD notification:[] Latest Vital Signs: Temperature 94.0 , Pulse 98 , B/P 144 /45 , Respiratory Rate 26 , O2 SAT 89 , Nasal Cannula, O2 Flow Rate 2.0 . Vital Sign Comment: [] Latest Betancur Fall Score: 50 Fall Risk: High Risk Safety Measures: Call light Within Reach, Bed Alarm Zone 1, Side Rails Side Rails x3, Bed position Low and Locked. Fall Precautions: Door Sign Report given to [Muriel RN].
--- NOTE | 2020-04-15 19:44 | NUR ---
NURSE NOTES: Received patient obtunded, DNR/DNI, on comfort measures, on continuous morphine drip.
[2020-04-15] MEDS ORDERED: Dyna-Hex 2% Top Sol 2oz TOPIC SCH (20:00)
--- NOTE | 2020-04-15 22:05 | NUR ---
NURSE NOTES: Patient vital signs: heart rate-0; Respiratory Rate-0; Blood pressure 0/0
[2020-04-15] MEDS ORDERED: D5 1/2NS 1000ml IV ONE (22:06)
[2020-04-15] MEDS ORDERED: D5W 275ml ONE (22:06)
[2020-04-15] MEDS ORDERED: Tubing IV Secondary IV ONE (22:06)
[2020-04-15] MEDS ORDERED: D5NS 1000ml IV ONE (22:06)
[2020-04-15] MEDS ORDERED: NS 275ml ONE ×2 (22:06)
--- NOTE | 2020-04-15 22:07 | NUR ---
PRONOUNCEMENT: No Code. Called to pronounce patient. Absence of spontaneous respirations, no cardiac or breath sounds on auscultation. Pupils fixed and dilated. No carotid pulse or chest movement. Patient at 2207. DR Monk notified PER Chemical Engineering TeacherJose Dukes. Infrastructure Software Engineer notified, not a coroners case. Family, Chepe Fernandes, son was notified at by Jose Calvin, on their way to the hospital..
--- NOTE | 2020-04-15 22:35 | NUR ---
NURSE NOTES: Attending , Dr Monk and patient's son Chepe informed by telephone.
--- NOTE | 2020-04-16 | NUR ---
Sales Audit Clerk Entry. Patients son, Chepe, daughter and sister came to see patient after and expressed concern that the patient had been removed from life support. They spoke with Jose Ward, [facility] Nursing Supervisor Offset Plate Preparation.
--- NOTE | 2020-04-16 10:36 | NUR ---
*-* INSURANCE *-* UPDATED CLINICALS AND REVIEWS HAVE BEEN FAXED TO: SHAYAN SILVER T: [phone] F: [phone] TRK# [id number]
--- NOTE | 2020-04-16 12:00 | NUR ---
METAL BURRER NOTES WITNESSED CONVERSATION WITH DR HERBERT AND SON ARNULFO. ARNULFO STATED HE AGREED WITH END OF LIFE CARE. ARNULFO FURTHER STATED HE DIDN'T REALIZE THAT SHE WILL GO SO FAST. HE WANTED TO BE ABLE TO PROVIDE MUSIC FOR HER DURING HER TIME OF TRANSITIONING. DR HERBERT EXPLAINED TO ARNULFO THAT HE NEVER NOTIFIED HIM OF HIS PLAN TO HAVE A SCHEDULED TERMINAL EXTUBATION WITH FAMILY AND MUSIC. THE PT'S SON COOPER WAS VISITING THE PATIENT AND WAS AWARE OF PT TO BE TERMINAL EXTUBATED AND TRANSFERRED TO ANOTHER UNIT.ARNULFO THEN THANKED DR. HERBERT FOR HIS SERVICES AND STATED HE HAS TO CALL THE MORTUARY.
--- NOTE | 2020-04-16 13:52 | General Progress Note ---
Progress Note Progress Note The purpose of this note to document my interactions with the family members of ms Fernandes. April 13, later afternoon. I called patient's son Chepe, who dialed in his two siblings and an aunt who is reportedly a nurse. I explained to them about dismal prognosis, because of multiorgan failure. They understood and agreed to make the patient DNR. We agreed to have a family meeting in person the following day. MondayApril 14 around 10:30am. I met with Abisai Mo, and the daughter. They mentioned that patient has been homeless for the last 16 years and they had not seen her in recent years. They mentioned that they don't. want her mother to suffer and considering that patient has no chance of recovery, they wanted her to have a peaceful passing. I told them that I will inform the other physicians about this plan and we can go ahead and take her off life support the following day. April 15, 10 am. All physicians agreed with comfort care, and taking the patient from respirator. One of the children, Abisai came to visit her mother. I informed him that all physician on the case favor comfort care and we will go ahead and take the patient off the respirator. Patient was started on Morphine drip and was extubated around 2 PM. She was transferred to a private room so family members can visit her and be with her. Pt had a comfortable . This morning, I was informed by dimension warehouse supervisor that Chepe was disappointed that he couldn't have the chance to play any music for her mom before her passing. Helena Rivera MD Apr 16, 2020 13:52
--- NOTE | 2020-04-16 16:59 | Discharge Summary ---
Discharge Summary Discharge Summary _ SUMMARY DATE OF ADMISSION: 04/09/2020 DATE OF EXPIRATION: 04/15/2020 REASON FOR ADMISSION: 60 years old female with past medical history of hypertension, CAD COPD, coronary artery disease history of multiply stent and OK, diabetes mellitus, depression, history of opiate abuse, currently on methadone program, came from the assisted house for evaluation due to altered mental status and respiratory distress. According to emergency vehicle operations instructor patient was found to be floor breathing heavily being tachycardic and diaphoretic. Patient was also complaining of abdominal pain. Upon arrival to ED she was dyspneic diaphoretic tachycardic hypoxic and barely was able to speak. Patient required oral intubation. Chest x-ray confirmed proper endotracheal tube position and showed mild left basilar atelectasis. Chronic apical pleural parenchymal scaring. CTA of the chest revealed Laboratory work-up revealed leukocytosis WBC 13.6 stable hemoglobin and hematocrit. Stable electrolytes. BUN 18, creatinine 1.4. AST 60, ALT 28. Albumin 3.5. Lipase 132. Lactic acid 5.9. Troponin negative. Urinalysis revealed evidence of urinary tract infection. D-dimer Urinary urine toxicology screen was negative. EKG revealed sinus tachycardia with prolonged QT interval. Patient subsequently admitted to ICU for further management Rapid COVID-19 was negative CONSULTANTS: group worker Dr. Mendes pulmonary Dr. Rivera ID specialist Dr. Cervantes GI specialist Dr. Pickens coke inspector Dr. Green [facility]SE: Patient admitted to ICU ventilator support and pulmonary toilet provided. Patient started on the IV hydration and empiric antibiotics. Echocardiogram demonstrated The next day blood pressure drop patient required initiation of pressor for hemodynamic support. Pressors titrated to keep mean arterial blood pressure above 65 repeated COVID-19 was negative. Urine culture revealed E. coli ESBL. Blood cultures were negative. Sputum culture revealed MRSA. Antibiotic optimized as per ID specialist recommendation. Renal ultrasound demonstrated very mild bilateral hydronephrosis. Cholelithiasis noted also dilatation of the common bile duct to 9 mm. Abdominal ultrasound revealed mildly enlarged liver. Coarsened hepatic echogenicity and slight surface nodularity suggesting early cirrhotic changes. No evidence of dilated bile ducts. Ectatic pancreatic duct possibly indicating sequela of pancreatitis. Mildly echogenic kidneys consistent with medical renal disease. No hydronephrosis. Carotid duplex revealed no hemodynamically significant stenosis. Ventilator support and pulmonary toilet provided. Patient was follow-up with a chest x-ray. Aspiration precaution maintained. Follow-up chest x-ray revealed evidence of pneumonia/aspiration antibiotic regimen optimized as per ID specialist recommendation Second troponin was elevated started and then 0.344 and then started to trend up with the highest 14.09 and started to trend down the last troponin I 0.397. Per group worker patient probably have myocardial infection. Echocardiogram was done on March 21 and showed preliminary systolic dysfunction of 40% moderate aortic regurgitation patient received several liters of fluid. Patient was on bicarbonate drip drip. Sales Service Manager recommended statin when LFT improved. And repeat echocardiogram in near future. Patient had significant abnormality in CPK and LFT the etiology of rhabdomyolysis was not clear. Possibly secondary to shock liver. Renal parameters electrolytes are closely monitor electrolytes corrected as needed nephrotoxic's were avoided patient received 1 dose of sodium bicarb fluid changes provided. Electrolytes corrected as needed. KUB revealed possible ileus and patient NG tube was inserted for decompression. Patient also noted elevated CEA. Patient condition continued to deteriorate she demonstrated multiply CEA 102 source of cancer unclear patient condition continued to the range of 38 she demonstrated multiple organ failure including acute respiratory failure acute renal failure malignancy electrolyte abnormalities hemodynamic instability worsening renal parameters from initial 1.4 up to 3.2 point aspiration persistent leukocytosis and fevers CODE STATUS was changed to DNR/DNI on 824 patient was taken off ventilator patient started on morphine drip. Patient subsequently was pronounced at [phone] at [phone] because of this cardiopulmonary arrest FINAL DIAGNOSES: Septic shock Acute hypoxic respiratory failure requiring intubation Acute renal failure due to acute tubular necrosis Toxic metabolic encephalopathy E. coli ESBL UTI Pneumonia Thrombocytopenia History of coronary artery disease/OK with stent placement COPD Ischemic cardiomyopathy Aortic regurgitation Probable OK Rhabdomyolysis Abnormal LFT , possibly secondary to shock liver or rhabdomyolysis Lactic acidosis Diabetes mellitus Opiate abuse I have been assigned to dictate discharge summary for this account. I was not involved in the patient's management. Leela Adhikari NP Apr 16, 2020 16:59
== END 2020-04-15 22:07 | disposition expired | DRG 720 ==
LOC: EDBD 15:25 → EMR 16:03 → ICU 18:20 → EDBEDREQ 18:29 → 4E 04-15 21:06
DX: A41.9 Sepsis, unspecified organism (principal); R65.21 Severe sepsis with septic shock; N17.0 Acute kidney failure with tubular necrosis; G92 Toxic encephalopathy; N39.0 Urinary tract infection, site not specified; E43 Unspecified severe protein-calorie malnutrition; J96.01 Acute respiratory failure with hypoxia; F11.20 Opioid dependence, uncomplicated; J18.9 Pneumonia, unspecified organism; B96.20 Unspecified Escherichia coli [E. coli] as the cause of diseases classified elsewhere; R94.31 Abnormal electrocardiogram [ECG] [EKG]; Z20.828 Contact with and (suspected) exposure to other viral communicable diseases; I25.10 Atherosclerotic heart disease of native coronary artery without angina pectoris; Z95.5 Presence of coronary angioplasty implant and graft; I25.2 Old myocardial infarction; Z68.21 Body mass index [BMI] 21.0-21.9, adult; F43.10 Post-traumatic stress disorder, unspecified; I35.1 Nonrheumatic aortic (valve) insufficiency; K92.2 Gastrointestinal hemorrhage, unspecified; M62.82 Rhabdomyolysis; D69.6 Thrombocytopenia, unspecified; K72.00 Acute and subacute hepatic failure without coma; F32.9 Major depressive disorder, single episode, unspecified; F41.9 Anxiety disorder, unspecified; Z51.5 Encounter for palliative care; Z66 Do not resuscitate; G43.909 Migraine, unspecified, not intractable, without status migrainosus; K56.7 Ileus, unspecified
CPT/HCPCS: 31500; 36415; 36600; 71045; 71275; 74018; 76700; 76770; 80053; 80076; 80150; 80202; 80307; 81001; 81003; 82140; 82164; 82248; 82270; 82378; 82533; 82550; 82607; 82728; 82746; 82803; 82977; 83540; 83550; 83605; 83615; 83690; 83735; 83880; 84100; 84300; 84443; 84484; 84550; 85007; 85025; 85044; 85060; 85379; 85610; 85651; 85730; 86140; 86703; 86709; 86713; 86738; 86803; 87040; 87070; 87081; 87086; 87181; 87205; 87324; 87340; 87517; 87522; 89050; 93005; 93306; 93880; 94002; 94003; 96361; 96374; 99291; G0480; J2765; J7030; U0002